=== PATIENT | female | born 1960 | race Caucasian/White ===

== ENCOUNTER 2016-10-07 14:33 | Emergency (ER) | payer OTHER ==
--- NOTE | 2016-10-07 15:28 | ED ---
General Adult HPI - General Chief complaint: Extremity Problem,Nontraumatic Stated complaint: left leg numbness Time Seen by Provider: 10/07/16 15:07 Source: patient, RN notes reviewed Mode of arrival: ambulatory Limitations: no limitations - History of Present Illness Initial comments: Patient is a 56-year-old female presents to the emergency room for evaluation of left leg pain and tingling. Patient states she's been having on-and-off pain in her left leg for the past year. Patient states been bothering her more consistently over the past few days. Patient does state she has some minor left -sided low back pain. Patient states she's having pain in her left calf. Patient also states she's having pain in her right calf that radiates up into her right lower back. Patient denies any history of low back pain. Patient denies any recent falls or trauma to her back. Patient denies saddle anesthesia. Patient denies urinary or fecal incontinence. Patient denies any history of DVTs or PEs. Patient denies shortness of breath. Patient denies chest pain. Patient denies headache or dizziness. Patient states pain is worse whenever she walks. Patient denies currently being on any medications. Patient states used to be on antipsychotic medications but has stopped taking them. Patient does admit that she used "crack" 2 days ago. - Related Data Previous Rx's Medication Instructions Recorded Diclofenac Sodium 50 mg PO BID PRN #24 tab 01/30/16 Famotidine [Pepcid] 20 mg PO BID #30 tablet 01/30/16 Permethrin 5% Cream [Elimite] 1 applic TOPICAL ONCE #60 cream..g. 01/30/16 hydrOXYzine HCL 25 mg PO Q6HR PRN #30 tablet 01/30/16 Ibuprofen [Motrin] 600 mg PO Q6HR PRN #20 tab 10/07/16 Allergies Allergy/AdvReac Type Severity Reaction Status Date / Time No Known Allergies Allergy Verified 10/07/16 14:57 Review of Systems ROS Statement: Those systems with pertinent positive or pertinent negative responses have been documented in the HPI. ROS Other: All systems not noted in ROS Statement are negative. Past Medical History Additional Past Medical History / Comment(s): hepatitis c History of Any Multi-Drug Resistant Organisms: None Reported Past Surgical History: Cholecystectomy, Tubal Ligation Past Psychological History: Anxiety, Bipolar, Depression Smoking Status: Current every day smoker Past Alcohol Use History: Occasional Past Drug Use History: Cocaine General Exam - General Exam Comments Initial Comments: Sitting in exam room, no acute distress, tardive dyskinesia symptoms Limitations: no limitations General appearance: alert, in no apparent distress Head exam: Present: atraumatic, normocephalic, normal inspection Eye exam: Present: normal appearance ENT exam: Present: normal exam Neck exam: Present: normal inspection Respiratory exam: Present: normal lung sounds bilaterally. Absent: respiratory distress Cardiovascular Exam: Present: regular rate, normal rhythm, normal heart sounds Left Lower Leg exam: Present: tenderness (Tenderness on palpating over lower leg) Neurovascular tendon exam: Present: no vascular compromise. Absent: abnormal cap refill (Capillary refill less than 2 seconds.) Right Lower Leg exam: Present: tenderness (calf muscle) Neurovascular tendon exam: Present: no vascular compromise. Absent: abnormal cap refill (Capillary refill less than 2 seconds) Back exam: Present: normal inspection Expanded Back exam: Sciatic Notch Tenderness: Left Neurological exam: Present: alert, oriented X3, CN II-XII intact Psychiatric exam: Present: normal affect Skin exam: Present: warm, dry, intact, normal color. Absent: rash Course Vital Signs 10/07/16 14:52 Temperature 97.9 F Pulse Rate 88 Respiratory 20 Rate Blood Pressure 142/91 O2 Sat by Pulse 97 Oximetry Medical Decision Making - Medical Decision Making Patient is a 56-year-old female presents to the emergency room for evaluation of left-sided leg pain and bilateral calf pain. Ultrasound negative for DVTs. Lumbosacral x-ray negative for any acute findings. Patient's symptoms are consistent with either low back pain/sciatica on the left side. Patient will be sent home with ibuprofen and advised to follow-up with primary care provider. Patient states she understands everything that was discussed with her. Return parameters discussed. Case discussed Dr. Pedraza. Disposition Clinical Impression: Left-sided low back pain with left-sided sciatica Disposition: HOME SELF-CARE Condition: Good Instructions: Low Back Strain (ED), Lumbar Radiculopathy (ED) Additional Instructions: Alternate ice and heat. Take ibuprofen as needed for pain. Please follow-up with primary care provider for further evaluation. If any new symptom arises or symptoms worsen, return to ER as soon as possible. Prescriptions: Ibuprofen [Motrin] 600 mg PO Q6HR PRN #20 tab PRN Reason: Pain Referrals: Yas Vo MD [STAFF PHYSICIAN] - 1-2 days Time of Disposition: 17:16
--- NOTE | 2016-10-07 16:58 | US ---
EXAMINATION TYPE: US venous doppler duplex LE BI DATE OF EXAM: 10/07/2016 4:11 PM COMPARISON: NONE CLINICAL HISTORY: Pain. SIDE PERFORMED: Left TECHNIQUE: The lower extremity deep venous system is examined utilizing real time linear array sonog shane with graded compression, doppler sonography and color-flow sonography. VESSELS IMAGED: External Iliac Vein (EIV) Common Femoral Vein Deep Femoral Vein Greater Saphenous Vein * Femoral Vein Popliteal Vein Small Saphenous Vein * Proximal Calf Veins (* superficial vessels) Right leg: Negative for DVT. Left Leg: Negative for DVT IMPRESSION: Grayscale, color doppler, spectral doppler imaging performed of the deep veins of the lo wer extremities. There is normal flow, compressibility, vascular waveforms bilaterally. No evidence of deep venous thrombosis in left and right leg.
--- NOTE | 2016-10-07 16:59 | XR ---
EXAMINATION TYPE: XR lumbosacral spine min 4V DATE OF EXAM: 10/07/2016 COMPARISON: NONE HISTORY: Leg numbness TECHNIQUE: 5 views FINDINGS: The lumbar vertebra have normal alignment. There is slight narrowing at L4-5 L5-S1 disc spa [place]. There is spurring of the endplates. Abdominal aorta is atheromatous. Posterior elements are inta ct. Sacroiliac joints are intact. IMPRESSION: Mild degenerative disc changes. No fracture.
[2016-10-07 17:30] VITALS: BP 138/72; PULSE 82; RESP 18; TEMP 97.2
== END 2016-10-07 17:29 | disposition home or self-care (01) ==
LOC: EC 14:33
DX: M54.42 Lumbago with sciatica, left side (principal); F17.200 Nicotine dependence, unspecified, uncomplicated
CPT/HCPCS: 72110; 93970; 99284

== ENCOUNTER 2017-01-18 01:38 | Emergency (ER) | payer OTHER ==
[2017-01-18] MEDS ORDERED: SODIUM CHLORIDE 0.9% 1,000 ML IV STA (02:23)
[2017-01-18] MEDS ORDERED: MORPHINE SULFATE 4 MG/ML SYRINGE IV STA (02:23)
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
[2017-01-18 02:45] LABS: Basophils # (A) 0.1 k/uL (0-0.2); Basophils % (A) 1 %; CH 32.3; CHCM 34.2; Eosinophils # (A) 0.3 k/uL (0-0.7); Eosinophils % (A) 2 %; HCT 34.5 % (34.0-46.0); HDW 2.84; HGB 11.1 gm/dL (11.4-16.0); Luc # (Auto) 0.39; Luc % (Auto) 3; Lymphocytes # (A) 1.7 k/uL (1.0-4.8); Lymphocytes % (A) 11 %; MCH 30.7 pg (25.0-35.0); MCHC 32.3 g/dL (31.0-37.0); MCV 95.2 fL (80.0-100.0); Mean Platelet Volume 7.2; Monocytes # (A) 1.1 k/uL (0-1.0); Monocytes % (A) 7 %; Neutrophils # (A) 11.2 k/uL (1.3-7.7); Neutrophils % (A) 77 %; RBC 3.63 m/uL (3.80-5.40); RDW 14.4 % (11.5-15.5); WBC 14.7 k/uL (3.8-10.6); WBC (Perox) 16.39
[2017-01-18 02:50] LABS: Appearance,Urine Turbid (Clear); Bacteria,Urine Many /hpf; Bilirubin,Urine Negative (Negative); Glucose,Urine (UA) Negative (Negative); Ketones,Urine Negative (Negative); Leukocyte Esterase,Urine Large (Negative); Mucus,Urine Few /hpf; Nitrite,Urine Positive (Negative); PH, Urine 5.5 (5.0-8.0); Particle Count 96269; Protein,Urine 1+ (Negative); RBC,Urine >182 /hpf (0-5); Specific Gravity,Urine 1.013 (1.001-1.035); Squamous Epithelial Cell,Urine 4 /hpf (0-4); UA Billing (MACRO vs. MICRO) MICRO; Urobilinogen,Urine <2.0 mg/dL (<2.0); WBC,Urine >182 /hpf (0-5)
[2017-01-18 02:54] LABS: Calcium 9.4 mg/dL (8.4-10.2); Potassium 4.3 mmol/L (3.5-5.1); Total Bilirubin 0.7 mg/dL (0.2-1.3); Total Protein 6.9 g/dL (6.3-8.2)
[2017-01-18 02:56] LABS: Prothrombin Time 10.6 sec (9.0-12.0)
[2017-01-18 03:13] LABS: Partial Thromboplastin Time 19.2 sec (22.0-30.0)
--- NOTE | 2017-01-18 03:27 | CT ---
EXAM: CT Abdomen and Pelvis Without Intravenous Contrast CLINICAL HISTORY: Abdominal pain TECHNIQUE: Axial computed tomography images of the abdomen and pelvis without intravenous contrast. CTDI is 0.25, 11.13 mGy and DLP is 575 mGy-cm. This CT exam was performed using one or more of the following dose reduction techniques: automated exposure control, adjustment of the mA and/or kV according to patient size, and/or use of iterative reconstruction technique. COMPARISON: No relevant prior studies available. FINDINGS: Lower thorax: No acute findings. ABDOMEN: Liver: Unremarkable. Gallbladder and bile ducts: Gallbladder is surgically absent. Pancreas: Unremarkable. Spleen: Unremarkable. Adrenals: Bilateral adrenal gland nodules. The one on the left measuring up to 2.5 cm and the one on the left measuring up to 1.7 cm. These likely represent lipid rich adenomas. Kidneys and ureters: Bilateral nonobstructing calculi. No hydronephrosis. Stomach and bowel: Noninflamed colonic diverticuli Appendix: Appendix is unremarkable. PELVIS: Bladder: Unremarkable. Reproductive: Unremarkable as visualized. ABDOMEN and PELVIS: Intraperitoneal space: Unremarkable. Bones/joints: No acute fracture. No dislocation. Soft tissues: Unremarkable. Vasculature: Unremarkable. Lymph nodes: Unremarkable. Tubes, lines and devices: Postsurgical changes noted within the anterior midline. Aortobifemoral bypass graft. Evaluation the catheter is limited secondary to lack of IV contrast. Moderate fluid collections are seen overlying the femoral vasculature, likely resolving hematomas. IMPRESSION: Postsurgical changes noted within the anterior midline likely secondary to aortobifemoral bypass graft. Evaluation is limited secondary to lack of IV contrast. Moderate fluid collections are seen overlying the femoral vasculature, likely resolving hematomas.
[2017-01-18 03:33] LABS: Manual Review Performed
[2017-01-18] MEDS ORDERED: RX INFO: IV CONTRAST WAS GIVEN 1 EACH MISC MISCELLANE PRN (03:35)
[2017-01-18] MEDS ORDERED: SODIUM CHLORIDE 0.9% 1,000 ML IV ONE (03:41)
[2017-01-18] MEDS ORDERED: HYDROmorphone 1 MG/ML 1 ML SYRINGE IVP STA (03:41)
[2017-01-18 04:04] VITALS: RESP 18
--- NOTE | 2017-01-18 04:32 | CT ---
EXAM: CT Abdomen and Pelvis With Intravenous Contrast CLINICAL HISTORY: Reason: Pain TECHNIQUE: Axial computed tomography images of the abdomen and pelvis with intravenous contrast. CTDI is mGy and DLP is mGy-cm. This CT exam was performed using one or more of the following dose reduction techniques: automated exposure control, adjustment of the mA and/or kV according to patient size, and/or use of iterative reconstruction technique. COMPARISON: No relevant prior studies available. FINDINGS: Lower thorax: No acute findings. ABDOMEN: Liver: Unremarkable. Gallbladder and bile ducts: Gallbladder is surgically absent. Pancreas: Unremarkable. Spleen: Unremarkable. Adrenals: Unremarkable. Kidneys and ureters: Unremarkable. Stomach and bowel: Noninflamed colonic diverticulosis. Appendix: Appendix is within normal limits. PELVIS: Bladder: Unremarkable. Reproductive: Unremarkable as visualized. ABDOMEN and PELVIS: Intraperitoneal space: Post surgical changes noted within the midline of the anterior abdomen. Tiny fluid collections noted along the incision, likely resolving hematomas. Bones/joints: No acute fracture. No dislocation. Soft tissues: Unremarkable. Vasculature: Status post recent aortobifemoral bypass graft which appears patent. Small fluid collections are seen anterior to the femoral vascular and right common iliac artery, likely representing resolving hematomas. Lymph nodes: Unremarkable. IMPRESSION: 1. Post surgical changes noted within the midline ith tiny fluid collections noted along the incision, likely resolving hematomas. 2. Status post recent aortobifemoral bypass graft which appears patent. Small fluid collections are seen anterior to the femoral vascular and right common iliac artery, likely representing resolving hematomas.
[2017-01-18 04:55] VITALS: BP 169/84; PULSE 87; TEMP 97.5
== END 2017-01-18 04:54 | disposition home or self-care (01) ==
LOC: EC 01:38
DX: S30.1XXA Contusion of abdominal wall, initial encounter (principal); N39.0 Urinary tract infection, site not specified; R10.30 Lower abdominal pain, unspecified; G89.18 Other acute postprocedural pain; F17.200 Nicotine dependence, unspecified, uncomplicated; Z79.02 Long term (current) use of antithrombotics/antiplatelets; Z79.899 Other long term (current) drug therapy; Y83.8 Other surgical procedures as the cause of abnormal reaction of the patient, or of later complication, without mention of misadventure at the time of the procedure; W10.9XXA Fall (on) (from) unspecified stairs and steps, initial encounter
CPT/HCPCS: 99284; 96365; 96375 ×2; 96361; 36415; 80053; 82150; 83690; 85025; 85610; 85730; 81001; 87040; 80306; 74178; J2270; Q9967; J0696; J1170; 74176; 74177

== ENCOUNTER 2017-01-19 12:37 | Emergency (ER) | payer OTHER ==
--- NOTE | 2017-01-19 13:31 | ED ---
General Adult HPI - General Chief complaint: Abdominal Pain Stated complaint: Had triple bypass/ vomiting and chills Time Seen by Provider: 01/19/17 13:11 Source: patient, RN notes reviewed Mode of arrival: ambulatory Limitations: no limitations - History of Present Illness Initial comments: 56-year-old female presents to the emergency department with a chief complaint of continued abdominal pain. She was seen here on Friday for abdominal pain as well. She had a bypass done at her femoral artery level at [facility]. She states she was here on Friday diagnosed her with UTI. She states that she did not start the antibiotics she did not get them filled. Patient states she continues to have this discomfort so she was concerned. Patient states that she has felt the chills with this as well. Patient denies any nausea or vomiting.Patient denies any recent fever, chills, shortness of breath, chest pain, back pain, nausea vomiting, numbness or tingling, dysuria or hematuria, constipation or diarrhea, headaches or visual changes, or any other current symptoms. - Related Data Home Medications Medication Instructions Recorded Confirmed Atorvastatin [Lipitor] 80 mg PO DAILY 01/18/17 01/18/17 Clopidogrel Bisulfate [Plavix] 75 mg PO DAILY 01/18/17 01/18/17 Previous Rx's Medication Instructions Recorded Ciprofloxacin HCl [Cipro] 500 mg PO Q12HR #14 tablet 01/18/17 Allergies Allergy/AdvReac Type Severity Reaction Status Date / Time No Known Allergies Allergy Verified 01/19/17 12:46 Review of Systems ROS Statement: Those systems with pertinent positive or pertinent negative responses have been documented in the HPI. ROS Other: All systems not noted in ROS Statement are negative. Past Medical History Past Medical History: Coronary Artery Disease (CAD) Additional Past Medical History / Comment(s): hepatitis c History of Any Multi-Drug Resistant Organisms: None Reported Past Surgical History: Cholecystectomy, Coronary Bypass/CABG, Tubal Ligation Past Psychological History: Anxiety, Bipolar, Depression Smoking Status: Current every day smoker Past Alcohol Use History: Occasional Past Drug Use History: Cocaine General Exam - General Exam Comments Initial Comments: General: The patient is awake and alert, in no distress, and does not appear acutely ill. Eye: Pupils are equal, round and reactive to light, extra-ocular movements are intact; there is normal conjunctiva bilaterally. No signs of icterus. Ears, nose, mouth and throat: There are moist mucous membranes and no oral lesions. Neck: The neck is supple, there is no tenderness. Cardiovascular: There is a regular rate and rhythm. No murmur, rub or gallop is appreciated. Respiratory: Lungs are clear to auscultation, respirations are non-labored, breath sounds are equal. No wheezes, stridor, rales, or rhonchi. Gastrointestinal: Surgical incision that does appear to be well-healing. Soft , non-distended, non-tender abdomen without masses or organomegaly noted. There is no rebound or guarding present. No CVA tenderness. Bowel sounds are unremarkable. Back: There is no tenderness to palpation in the midline. There is no obvious deformity. No rashes noted. Musculoskeletal: Normal ROM, no tenderness, There is no pedal edema. There is no calf tenderness or swelling. Sensation intact. Pulses equal bilaterally 2+. Neurological: CN II-XII intact, There are no obvious motor or sensory deficits. Coordination appears grossly intact. Speech is normal. Skin: Skin is warm and dry and no rashes or lesions are noted. Psychiatric: Cooperative, appropriate mood & affect, normal judgment. Limitations: no limitations Course Vital Signs 01/19/17 12:45 Temperature 98.9 F Pulse Rate 64 Respiratory 20 Rate Blood Pressure 140/80 O2 Sat by Pulse 99 Oximetry Medical Decision Making - Medical Decision Making 56-year-old female presents emergency Department chief complaint of abdominal pain. Patient was diagnosed a UTI in her previous visit however she did not start the antibiotics as she was instructed. At this time patient's laboratory is reviewed. This appeared to be improving from previous visit on Friday. She has a follow-up appointment with her surgeon in the morning. At this time the patient is in agreement with this plan. She is feeling better in the room. We discussion certainly her back she states she is from the pharmacy. All questions have been answered. She'll be discharged home. - Lab Data Result diagrams: 01/19/17 13:37 01/19/17 13:37 Lab Results 01/19/17 01/19/17 01/19/17 Range/Units 13:37 13:37 13:37 WBC 8.4 (3.8-10.6) k/uL RBC 3.39 L (3.80-5.40) m/uL Hgb 10.9 L (11.4-16.0) gm/dL Hct 31.9 L (34.0-46.0) % MCV 94.1 (80.0-100.0) fL MCH 32.0 (25.0-35.0) pg MCHC 34.0 (31.0-37.0) g/dL RDW 13.5 (11.5-15.5) % Plt Count 438 (150-450) k/uL Neutrophils % 73 % Lymphocytes % 15 % Monocytes % 6 % Eosinophils % 4 % Basophils % 1 % Neutrophils # 6.1 (1.3-7.7) k/uL Lymphocytes # 1.2 (1.0-4.8) k/uL Monocytes # 0.5 (0-1.0) k/uL Eosinophils # 0.3 (0-0.7) k/uL Basophils # 0.1 (0-0.2) k/uL PT 10.2 (9.0-12.0) sec INR 1.0 (<1.2) APTT 22.6 (22.0-30.0) sec Sodium 137 (137-145) mmol/L Potassium 4.6 (3.5-5.1) mmol/L Chloride 103 (98-107) mmol/L Carbon Dioxide 24 (22-30) mmol/L Anion Gap 10 mmol/L BUN 8 (7-17) mg/dL Creatinine 0.70 (0.52-1.04) mg/dL Est GFR (MDRD) Af Amer >60 (>60 ml/min/1.73 sqM) Est GFR (MDRD) Non-Af >60 (>60 ml/min/1.73 sqM) Glucose 94 (74-99) mg/dL Calcium 9.1 (8.4-10.2) mg/dL Total Bilirubin 0.6 (0.2-1.3) mg/dL AST 30 (14-36) U/L ALT 32 (9-52) U/L Alkaline Phosphatase 79 (38-126) U/L Total Protein 6.5 (6.3-8.2) g/dL Albumin 3.5 (3.5-5.0) g/dL Urine Color Urine Appearance (Clear) Urine pH (5.0-8.0) Ur Specific [place] (1.001-1.035) Urine Protein (Negative) Urine Glucose (UA) (Negative) Urine Ketones (Negative) Urine Blood (Negative) Urine Nitrite (Negative) Urine Bilirubin (Negative) Urine Urobilinogen (<2.0) mg/dL Ur Leukocyte Esterase (Negative) Urine RBC (0-5) /hpf Urine WBC (0-5) /hpf Ur Squamous Epith Cells (0-4) /hpf Granular Casts (0) /lpf Urine Mucus (None) /hpf 01/19/17 Range/Units 14:06 WBC (3.8-10.6) k/uL RBC (3.80-5.40) m/uL Hgb (11.4-16.0) gm/dL Hct (34.0-46.0) % MCV (80.0-100.0) fL MCH (25.0-35.0) pg MCHC (31.0-37.0) g/dL RDW (11.5-15.5) % Plt Count (150-450) k/uL Neutrophils % % Lymphocytes % % Monocytes % % Eosinophils % % Basophils % % Neutrophils # (1.3-7.7) k/uL Lymphocytes # (1.0-4.8) k/uL Monocytes # (0-1.0) k/uL Eosinophils # (0-0.7) k/uL Basophils # (0-0.2) k/uL PT (9.0-12.0) sec INR (<1.2) APTT (22.0-30.0) sec Sodium (137-145) mmol/L Potassium (3.5-5.1) mmol/L Chloride (98-107) mmol/L Carbon Dioxide (22-30) mmol/L Anion Gap mmol/L BUN (7-17) mg/dL Creatinine (0.52-1.04) mg/dL Est GFR (MDRD) Af Amer (>60 ml/min/1.73 sqM) Est GFR (MDRD) Non-Af (>60 ml/min/1.73 sqM) Glucose (74-99) mg/dL Calcium (8.4-10.2) mg/dL Total Bilirubin (0.2-1.3) mg/dL AST (14-36) U/L ALT (9-52) U/L Alkaline Phosphatase (38-126) U/L Total Protein (6.3-8.2) g/dL Albumin (3.5-5.0) g/dL Urine Color Yellow Urine Appearance Cloudy H (Clear) Urine pH 6.0 (5.0-8.0) Ur Specific [place] 1.017 (1.001-1.035) Urine Protein Trace H (Negative) Urine Glucose (UA) Negative (Negative) Urine Ketones 1+ H (Negative) Urine Blood Negative (Negative) Urine Nitrite Negative (Negative) Urine Bilirubin Negative (Negative) Urine Urobilinogen 2.0 (<2.0) mg/dL Ur Leukocyte Esterase Large H (Negative) Urine RBC 21 H (0-5) /hpf Urine WBC 18 H (0-5) /hpf Ur Squamous Epith Cells 3 (0-4) /hpf Granular Casts 1 (0) /lpf Urine Mucus Rare H (None) /hpf Disposition Clinical Impression: UTI (urinary tract infection) Disposition: HOME SELF-CARE Condition: Stable Instructions: Urinary Tract Infection in Women (ED) Additional Instructions: Please use medication as discussed. Please follow up with family doctor if symptoms have not improved over the next two days. Please return to the emergency room if your symptoms increase or worsen or for any other concerns. Referrals: Anne Lu MD [Primary Care Provider] - 1-2 days Time of Disposition: 14:26
[2017-01-19] MEDS ORDERED: KETOROLAC 30 MG/ML 1 ML VIAL IVP STA (13:32)
[2017-01-19] MEDS ORDERED: ONDANSETRON 4 MG/2 ML VIAL IVP STA (13:32)
[2017-01-19] MEDS ORDERED: SODIUM CHLORIDE 0.9% 1,000 ML IV STA (13:32)
[2017-01-19 13:52] LABS: Basophils # (A) 0.1 k/uL (0-0.2); Basophils % (A) 1 %; CH 31.5; CHCM 33.6; Eosinophils # (A) 0.3 k/uL (0-0.7); Eosinophils % (A) 4 %; HCT 31.9 % (34.0-46.0); HDW 2.91; HGB 10.9 gm/dL (11.4-16.0); Luc # (Auto) 0.19; Luc % (Auto) 2; Lymphocytes # (A) 1.2 k/uL (1.0-4.8); Lymphocytes % (A) 15 %; MCV 94.1 fL (80.0-100.0); Monocytes # (A) 0.5 k/uL (0-1.0); Monocytes % (A) 6 %; Neutrophils # (A) 6.1 k/uL (1.3-7.7); Neutrophils % (A) 73 %; RBC 3.39 m/uL (3.80-5.40); RDW 13.5 % (11.5-15.5); WBC 8.4 k/uL (3.8-10.6); WBC (Perox) 8.43
[2017-01-19 13:57] LABS: ALT 32 U/L (9-52); AST 30 U/L (14-36); Alkaline Phosphatase 79 U/L (38-126); Anion Gap 10 mmol/L; Blood Urea Nitrogen 8 mg/dL (7-17); Calcium 9.1 mg/dL (8.4-10.2); Carbon Dioxide 24 mmol/L (22-30); Chloride 103 mmol/L (98-107); Glucose 94 mg/dL (74-99); Non-African American GFR(MDRD) >60 (>60 ml/min/1.73 sqM); Partial Thromboplastin Time 22.6 sec (22.0-30.0); Potassium 4.6 mmol/L (3.5-5.1); Prothrombin Time 10.2 sec (9.0-12.0); Sodium 137 mmol/L (137-145); Total Bilirubin 0.6 mg/dL (0.2-1.3); Total Protein 6.5 g/dL (6.3-8.2)
[2017-01-19 14:20] LABS: Appearance,Urine Cloudy (Clear); Bilirubin,Urine Negative (Negative); Glucose,Urine (UA) Negative (Negative); Granular Casts,Urine 1 /lpf (0); Ketones,Urine 1+ (Negative); Leukocyte Esterase,Urine Large (Negative); Mucus,Urine Rare /hpf; Nitrite,Urine Negative (Negative); Particle Count 11835; Protein,Urine Trace (Negative); RBC,Urine 21 /hpf (0-5); Specific Gravity,Urine 1.017 (1.001-1.035); Squamous Epithelial Cell,Urine 3 /hpf (0-4); UA Billing (MACRO vs. MICRO) MICRO; WBC,Urine 18 /hpf (0-5)
[2017-01-19 14:40] VITALS: BP 165/97; PULSE 76; RESP 16; TEMP 98.2
== END 2017-01-19 15:26 | disposition home or self-care (01) ==
LOC: EC 12:37
DX: N39.0 Urinary tract infection, site not specified (principal); I25.10 Atherosclerotic heart disease of native coronary artery without angina pectoris; F17.200 Nicotine dependence, unspecified, uncomplicated; Z95.1 Presence of aortocoronary bypass graft; Z90.49 Acquired absence of other specified parts of digestive tract; Z98.51 Tubal ligation status; Z79.02 Long term (current) use of antithrombotics/antiplatelets; Z79.899 Other long term (current) drug therapy
CPT/HCPCS: 36415; 80053; 85025; 85610; 85730; 81001; 87086; 99284; 96374; 96375; 96361; J2405; J1885

== ENCOUNTER 2017-10-30 14:23 | Emergency (ER) | payer OTHER ==
[2017-10-30] MEDS ORDERED: fentaNYL (PF) 50 MCG/ML 2 ML AMP IV STA (14:29)
--- NOTE | 2017-10-30 14:34 | ED ---
Abdominal Pain HPI - General Chief Complaint: Abdominal Pain Stated Complaint: Chest Pain Time Seen by Provider: 10/30/17 14:23 Source: patient, EMS, RN notes reviewed Mode of arrival: EMS Limitations: no limitations - History of Present Illness Initial Comments: This is a 56-year-old female was brought in by EMS with complaints of chest and upper abdominal pain is started about 30-40 minutes prior to arrival. She states that sharp is severe 7/10 upon arrival was 5/10 and she stated it was back to 7/10. She points her epigastrium he gets worse with deep breathing and movements. She has of a history of peripheral vascular disease she is a smoker he does admit to smoking marijuana and using crack cocaine this morning. They cocaine was used well 1 AM. There is a family history of heart disease. Patient does have a history of an aortic blockage was surgically repaired at [facility]. She denies any fevers chills or sweats though she has had a cough with schmidt and green phlegm no other modifying factors at this time. MD Complaint: abdominal pain, other - Related Data Home Medications Medication Instructions Recorded Confirmed Atorvastatin [Lipitor] 80 mg PO HS 01/18/17 10/30/17 Clopidogrel Bisulfate [Plavix] 75 mg PO DAILY 01/18/17 10/30/17 Albuterol Inhaler [Ventolin Hfa 2 puff INHALATION RT-Q6H PRN 01/19/17 10/30/17 Inhaler] Aspirin EC [Ecotrin] 325 mg PO DAILY 10/30/17 10/30/17 Benztropine Mesylate [Cogentin] 2 mg PO TID 10/30/17 10/30/17 Cholecalciferol [Vitamin D3] 5,000 unit PO DAILY 10/30/17 10/30/17 Desvenlafaxine [Pristiq ER] 100 mg PO DAILY 10/30/17 10/30/17 Docusate [Colace] 100 mg PO DAILY 10/30/17 10/30/17 Fluticasone Nasal [place] [Flonase 2 spr EA NOSTRIL DAILY PRN 10/30/17 10/30/17 Nasal [place]] Multivit with Calcium,Iron,Min 1 tab PO DAILY 10/30/17 10/30/17 [Women's Multivitamin] Nicotine 21Mg/24Hr Patch [Habitrol 1 patch TRANSDERM DAILY 10/30/17 10/30/17 21Mg/24Hr Patch] OLANZapine [ZyPREXA] 15 mg PO DAILY 10/30/17 10/30/17 Omeprazole [PriLOSEC] 20 mg PO DAILY 10/30/17 10/30/17 Previous Rx's Medication Instructions Recorded Amoxicillin/Potassium Clav 1 tab PO Q12HR #20 tab 10/30/17 [Augmentin 875-125 Tablet] Allergies Allergy/AdvReac Type Severity Reaction Status Date / Time No Known Allergies Allergy Verified 10/30/17 14:40 Review of Systems ROS Statement: Those systems with pertinent positive or pertinent negative responses have been documented in the HPI. ROS Other: All systems not noted in ROS Statement are negative. Past Medical History Past Medical History: Coronary Artery Disease (CAD) Additional Past Medical History / Comment(s): hepatitis c History of Any Multi-Drug Resistant Organisms: None Reported Past Surgical History: Cholecystectomy, Coronary Bypass/CABG, Tubal Ligation Past Psychological History: Anxiety, Bipolar, Depression Smoking Status: Current every day smoker Past Alcohol Use History: Occasional Past Drug Use History: Cocaine General Exam - General Exam Comments Initial Comments: This a well-developed well-nourished awake alert oriented 3 female Limitations: no limitations General appearance: alert, in no apparent distress Head exam: Present: atraumatic, normocephalic, normal inspection Eye exam: Present: normal appearance, PERRL, EOMI. Absent: scleral icterus, conjunctival injection, periorbital swelling ENT exam: Present: normal exam, mucous membranes moist Neck exam: Present: normal inspection. Absent: tenderness, meningismus, lymphadenopathy Respiratory exam: Present: normal lung sounds bilaterally. Absent: respiratory distress, wheezes, rales, rhonchi, stridor Cardiovascular Exam: Present: regular rate, normal rhythm, normal heart sounds. Absent: systolic murmur, diastolic murmur, rubs, gallop, clicks GI/Abdominal exam: Present: soft, tenderness ((3 times palpation no guarding rebound masses or bruits), normal bowel sounds. Absent: distended, guarding, rebound, rigid Extremities exam: Present: normal inspection, full ROM, normal capillary refill. Absent: tenderness, pedal edema, joint swelling, calf tenderness Back exam: Present: normal inspection Neurological exam: Present: alert, oriented X3, CN II-XII intact Psychiatric exam: Present: normal affect, normal mood Skin exam: Present: warm, dry, intact, normal color. Absent: rash Course Vital Signs 10/30/17 14:25 Temperature 97.4 F L Pulse Rate 66 Respiratory 20 Rate Blood Pressure 154/82 O2 Sat by Pulse 98 Oximetry Medical Decision Making - Medical Decision Making Did reevaluate patient several occasions she does feel improved at this time after the GI cocktail. Patient may cough and green phlegm she also has evidence of UTI. She'll be discharged on appropriate antibiotics she is a follow-up with her doctor return when necessary we did discuss the possibility of neoplasm in the right upper lung field. - Lab Data Result diagrams: 10/30/17 14:30 10/30/17 14:30 Lab Results 10/30/17 10/30/17 10/30/17 Range/Units 14:30 14:30 14:30 WBC 12.4 H (3.8-10.6) k/uL RBC 4.52 (3.80-5.40) m/uL Hgb 14.2 (11.4-16.0) gm/dL Hct 43.0 (34.0-46.0) % MCV 95.1 (80.0-100.0) fL MCH 31.5 (25.0-35.0) pg MCHC 33.1 (31.0-37.0) g/dL RDW 13.6 (11.5-15.5) % Plt Count 295 (150-450) k/uL Neutrophils % 70 % Lymphocytes % 20 % Monocytes % 6 % Eosinophils % 3 % Basophils % 1 % Neutrophils # 8.7 H (1.3-7.7) k/uL Lymphocytes # 2.5 (1.0-4.8) k/uL Monocytes # 0.7 (0-1.0) k/uL Eosinophils # 0.3 (0-0.7) k/uL Basophils # 0.1 (0-0.2) k/uL PT (9.0-12.0) sec INR (<1.2) APTT (22.0-30.0) sec D-Dimer (<0.60) mg/L FEU Sodium 140 (137-145) mmol/L Potassium 4.4 (3.5-5.1) mmol/L Chloride 107 (98-107) mmol/L Carbon Dioxide 25 (22-30) mmol/L Anion Gap 8 mmol/L BUN 16 (7-17) mg/dL Creatinine 0.80 (0.52-1.04) mg/dL Est GFR (CKD-EPI)AfAm >90 (>60 ml/min/1.73 sqM) Est GFR (CKD-EPI)NonAf 81 (>60 ml/min/1.73 sqM) Glucose 94 (74-99) mg/dL Plasma Lactic Acid Giovanni (0.7-2.0) mmol/L Calcium 9.1 (8.4-10.2) mg/dL Total Bilirubin 0.6 (0.2-1.3) mg/dL AST 43 H (14-36) U/L ALT 44 (9-52) U/L Alkaline Phosphatase 77 (38-126) U/L Total Creatine Kinase 60 (30-135) U/L CK-MB (CK-2) 0.4 (0.0-2.4) ng/mL CK-MB (CK-2) Rel Index 0.7 Troponin I <0.012 (0.000-0.034) ng/mL Total Protein 6.3 (6.3-8.2) g/dL Albumin 3.7 (3.5-5.0) g/dL Amylase 83 (30-110) U/L Lipase 63 (23-300) U/L Urine Color Urine Appearance (Clear) Urine pH (5.0-8.0) Ur Specific [place] (1.001-1.035) Urine Protein (Negative) Urine Glucose (UA) (Negative) Urine Ketones (Negative) Urine Blood (Negative) Urine Nitrite (Negative) Urine Bilirubin (Negative) Urine Urobilinogen (<2.0) mg/dL Ur Leukocyte Esterase (Negative) Urine RBC (0-5) /hpf Urine WBC (0-5) /hpf Ur Squamous Epith Cells (0-4) /hpf Urine Bacteria (None) /hpf Hyaline Casts (0-2) /lpf Urine Mucus (None) /hpf Urine Yeast (Budding) (None) /hpf 10/30/17 10/30/17 10/30/17 Range/Units 14:30 14:30 14:30 WBC (3.8-10.6) k/uL RBC (3.80-5.40) m/uL Hgb (11.4-16.0) gm/dL Hct (34.0-46.0) % MCV (80.0-100.0) fL MCH (25.0-35.0) pg MCHC (31.0-37.0) g/dL RDW (11.5-15.5) % Plt Count (150-450) k/uL Neutrophils % % Lymphocytes % % Monocytes % % Eosinophils % % Basophils % % Neutrophils # (1.3-7.7) k/uL Lymphocytes # (1.0-4.8) k/uL Monocytes # (0-1.0) k/uL Eosinophils # (0-0.7) k/uL Basophils # (0-0.2) k/uL PT 10.3 (9.0-12.0) sec INR 1.1 (<1.2) APTT 23.8 (22.0-30.0) sec D-Dimer 0.59 (<0.60) mg/L FEU Sodium (137-145) mmol/L Potassium (3.5-5.1) mmol/L Chloride (98-107) mmol/L Carbon Dioxide (22-30) mmol/L Anion Gap mmol/L BUN (7-17) mg/dL Creatinine (0.52-1.04) mg/dL Est GFR (CKD-EPI)AfAm (>60 ml/min/1.73 sqM) Est GFR (CKD-EPI)NonAf (>60 ml/min/1.73 sqM) Glucose (74-99) mg/dL Plasma Lactic Acid Giovanni 0.9 (0.7-2.0) mmol/L Calcium (8.4-10.2) mg/dL Total Bilirubin (0.2-1.3) mg/dL AST (14-36) U/L ALT (9-52) U/L Alkaline Phosphatase (38-126) U/L Total Creatine Kinase (30-135) U/L CK-MB (CK-2) (0.0-2.4) ng/mL CK-MB (CK-2) Rel Index Troponin I (0.000-0.034) ng/mL Total Protein (6.3-8.2) g/dL Albumin (3.5-5.0) g/dL Amylase (30-110) U/L Lipase (23-300) U/L Urine Color Urine Appearance (Clear) Urine pH (5.0-8.0) Ur Specific [place] (1.001-1.035) Urine Protein (Negative) Urine Glucose (UA) (Negative) Urine Ketones (Negative) Urine Blood (Negative) Urine Nitrite (Negative) Urine Bilirubin (Negative) Urine Urobilinogen (<2.0) mg/dL Ur Leukocyte Esterase (Negative) Urine RBC (0-5) /hpf Urine WBC (0-5) /hpf Ur Squamous Epith Cells (0-4) /hpf Urine Bacteria (None) /hpf Hyaline Casts (0-2) /lpf Urine Mucus (None) /hpf Urine Yeast (Budding) (None) /hpf 10/30/17 Range/Units 16:30 WBC (3.8-10.6) k/uL RBC (3.80-5.40) m/uL Hgb (11.4-16.0) gm/dL Hct (34.0-46.0) % MCV (80.0-100.0) fL MCH (25.0-35.0) pg MCHC (31.0-37.0) g/dL RDW (11.5-15.5) % Plt Count (150-450) k/uL Neutrophils % % Lymphocytes % % Monocytes % % Eosinophils % % Basophils % % Neutrophils # (1.3-7.7) k/uL Lymphocytes # (1.0-4.8) k/uL Monocytes # (0-1.0) k/uL Eosinophils # (0-0.7) k/uL Basophils # (0-0.2) k/uL PT (9.0-12.0) sec INR (<1.2) APTT (22.0-30.0) sec D-Dimer (<0.60) mg/L FEU Sodium (137-145) mmol/L Potassium (3.5-5.1) mmol/L Chloride (98-107) mmol/L Carbon Dioxide (22-30) mmol/L Anion Gap mmol/L BUN (7-17) mg/dL Creatinine (0.52-1.04) mg/dL Est GFR (CKD-EPI)AfAm (>60 ml/min/1.73 sqM) Est GFR (CKD-EPI)NonAf (>60 ml/min/1.73 sqM) Glucose (74-99) mg/dL Plasma Lactic Acid Giovanni (0.7-2.0) mmol/L Calcium (8.4-10.2) mg/dL Total Bilirubin (0.2-1.3) mg/dL AST (14-36) U/L ALT (9-52) U/L Alkaline Phosphatase (38-126) U/L Total Creatine Kinase (30-135) U/L CK-MB (CK-2) (0.0-2.4) ng/mL CK-MB (CK-2) Rel Index Troponin I (0.000-0.034) ng/mL Total Protein (6.3-8.2) g/dL Albumin (3.5-5.0) g/dL Amylase (30-110) U/L Lipase (23-300) U/L Urine Color Yellow Urine Appearance Cloudy H (Clear) Urine pH 7.5 (5.0-8.0) Ur Specific [place] 1.010 (1.001-1.035) Urine Protein Negative (Negative) Urine Glucose (UA) Negative (Negative) Urine Ketones Negative (Negative) Urine Blood Negative (Negative) Urine Nitrite Positive H (Negative) Urine Bilirubin Negative (Negative) Urine Urobilinogen <2.0 (<2.0) mg/dL Ur Leukocyte Esterase Large H (Negative) Urine RBC 2 (0-5) /hpf Urine WBC 36 H (0-5) /hpf Ur Squamous Epith Cells <1 (0-4) /hpf Urine Bacteria Few H (None) /hpf Hyaline Casts 1 (0-2) /lpf Urine Mucus Rare H (None) /hpf Urine Yeast (Budding) Few H (None) /hpf - EKG Data -: EKG Interpreted by Me EKG shows normal: sinus rhythm, axis, intervals, QRS complexes, ST-T waves ( Sinus rhythm 64 NH interval 170 QRS duration 90 QT since QTC of 436/449 is a normal-appearing EKG.) Rate: normal - Radiology Data Radiology results: report reviewed (I did review the imaging and report or is evidence of right upper lobe infiltrate versus scarring versus neoplasm is considered. CAT scan is recommended outpatient.), image reviewed Disposition Clinical Impression: Pneumonitis, Urinary tract infection, Gastritis Disposition: HOME SELF-CARE Condition: Good Instructions: Pneumonitis (ED), Urinary Tract Infection in Women (ED), Gastritis (ED) Additional Instructions: Follow-up with her doctor for evaluation of the right upper lung field Prescriptions: Amoxicillin/Potassium Clav [Augmentin 875-125 Tablet] 1 tab PO Q12HR #20 tab Is patient prescribed a controlled substance at d/c from ED?: No Referrals: [facility] [Primary Care Provider] - 1-2 days
[2017-10-30 14:42] LABS: Basophils # (A) 0.1 k/uL (0-0.2); Basophils % (A) 1 %; Eosinophils # (A) 0.3 k/uL (0-0.7); Eosinophils % (A) 3 %; HGB 14.2 gm/dL (11.4-16.0); Lymphocytes # (A) 2.5 k/uL (1.0-4.8); Lymphocytes % (A) 20 %; MCH 31.5 pg (25.0-35.0); MCHC 33.1 g/dL (31.0-37.0); MCV 95.1 fL (80.0-100.0); Mean Platelet Volume 6.6; Monocytes # (A) 0.7 k/uL (0-1.0); Monocytes % (A) 6 %; Neutrophils # (A) 8.7 k/uL (1.3-7.7); Neutrophils % (A) 70 %; Platelet Count 295 k/uL (150-450); RBC 4.52 m/uL (3.80-5.40); RDW 13.6 % (11.5-15.5); WBC 12.4 k/uL (3.8-10.6)
[2017-10-30 14:52] LABS: INR 1.1 (<1.2); Partial Thromboplastin Time 23.8 sec (22.0-30.0); Prothrombin Time 10.3 sec (9.0-12.0)
[2017-10-30 14:54] LABS: ALT 44 U/L (9-52); AST 43 U/L (14-36); Albumin 3.7 g/dL (3.5-5.0); Alkaline Phosphatase 77 U/L (38-126); Amylase 83 U/L (30-110); Anion Gap 8 mmol/L; Blood Urea Nitrogen 16 mg/dL (7-17); Calcium 9.1 mg/dL (8.4-10.2); Carbon Dioxide 25 mmol/L (22-30); Chloride 107 mmol/L (98-107); Glucose 94 mg/dL (74-99); Lipase 63 U/L (23-300); Potassium 4.4 mmol/L (3.5-5.1); Sodium 140 mmol/L (137-145); Total Bilirubin 0.6 mg/dL (0.2-1.3); Total Protein 6.3 g/dL (6.3-8.2)
[2017-10-30] MEDS ORDERED: FAMOTIDINE 20 MG/2 ML VIAL IV STA (14:54)
[2017-10-30 15:03] LABS: Creatine Kinase 60 U/L (30-135)
--- NOTE | 2017-10-30 15:03 | XR ---
EXAMINATION TYPE: XR chest 2V DATE OF EXAM: 10/30/2017 COMPARISON: 06/17/2013 HISTORY: Shortness of breath TECHNIQUE: Frontal and lateral views of the chest are obtained. FINDINGS: Scattered senescent parenchymal changes noted. Hyperinflation compatible with COPD. Stellate density right upper lobe may reflect infiltrate however underlying mass is not excluded. Dis coid atelectasis or parenchymal scar left lung base. Heart size is stable. Mediastinal structures are stable and grossly unremarkable. No evidence for hilar prominence. Degenerative changes dorsal spine. IMPRESSION: 1. Stellate density right upper lobe may reflect infiltrate however underlying mass is not excluded. Discoid atelectasis or parenchymal scar left lung base. Appropriate follow-up and/or nonemergent CT i s advised.
--- NOTE | 2017-10-30 15:04 | XR ---
EXAMINATION TYPE: XR KUB DATE OF EXAM: 10/30/2017 COMPARISON: NONE HISTORY: Pain TECHNIQUE: Single supine KUB image of the abdomen is obtained FINDINGS: Small bowel demonstrates no evidence for dilatation or air fluid levels. Gas and fecal material is seen in non-distended colon. Moderate fecal stasis noted. No convincing evidence for pneumoperitoneum. No unusual calcifications. The lung bases are clear. The osseous structures are intact. IMPRESSION: 1. Overall nonobstructive bowel gas pattern. Moderate fecal stasis.
[2017-10-30 15:16] LABS: Creatine Kinase MB 0.4 ng/mL (0.0-2.4); Troponin I <0.012 ng/mL (0.000-0.034)
[2017-10-30] MEDS ORDERED: MAG HYDROX/AL HYDROX/SIMETH 30 ML, HYOSCYAMINE ELIXIR 10 ML, CIMETIDINE HCL 300 MG PO STA ×3 (16:14)
[2017-10-30 16:49] LABS: Appearance,Urine Cloudy (Clear); Bacteria,Urine Few /hpf; Bilirubin,Urine Negative (Negative); Blood,Urine Negative (Negative); Budding Yeast,Urine Few /hpf; Color,Urine Yellow; Glucose,Urine (UA) Negative (Negative); Hyaline Casts,Urine 1 /lpf (0-2); Ketones,Urine Negative (Negative); Leukocyte Esterase,Urine Large (Negative); Mucus,Urine Rare /hpf; Nitrite,Urine Positive (Negative); PH, Urine 7.5 (5.0-8.0); Protein,Urine Negative (Negative); RBC,Urine 2 /hpf (0-5); Squamous Epithelial Cell,Urine <1 /hpf (0-4); Urobilinogen,Urine <2.0 mg/dL (<2.0); WBC,Urine 36 /hpf (0-5)
[2017-10-30 18:10] VITALS: BP 130/77; PULSE 70; RESP 18; TEMP 98.6
== END 2017-10-30 18:14 | disposition home or self-care (01) ==
LOC: EC 14:23
DX: K29.70 Gastritis, unspecified, without bleeding (principal); J18.9 Pneumonia, unspecified organism; N39.0 Urinary tract infection, site not specified; I25.10 Atherosclerotic heart disease of native coronary artery without angina pectoris; I73.9 Peripheral vascular disease, unspecified; I35.0 Nonrheumatic aortic (valve) stenosis; F32.9 Major depressive disorder, single episode, unspecified; F41.9 Anxiety disorder, unspecified; F17.200 Nicotine dependence, unspecified, uncomplicated; Z90.49 Acquired absence of other specified parts of digestive tract; Z95.1 Presence of aortocoronary bypass graft; Z98.51 Tubal ligation status; Z79.02 Long term (current) use of antithrombotics/antiplatelets; Z79.82 Long term (current) use of aspirin; Z79.899 Other long term (current) drug therapy; Z82.49 Family history of ischemic heart disease and other diseases of the circulatory system; Z98.890 Other specified postprocedural states
CPT/HCPCS: 36415; 93005; 85379; 80053; 82150; 82550; 82553; 83605; 83690; 84484; 85025; 85610; 85730; 81001; 71046; 74018; 99285; 96374; 96375; J3010

== ENCOUNTER 2017-11-11 13:45 | Emergency (ER) | payer OTHER ==
[2017-11-11 13:54] VITALS: RESP 20
--- NOTE | 2017-11-11 14:12 | ED ---
General Adult HPI - General Chief complaint: Extremity Problem,Nontraumatic Stated complaint: post op leg tingling/numbness Source: patient Mode of arrival: ambulatory Limitations: no limitations - History of Present Illness Initial comments: Dictation was produced using [employer] dictation software. please excuse any grammatical, word or spelling errors. Chief Complaint: 57-year-old female with past medical history peripheral vascular disease, aortic obstruction status post aortic vascular procedure presents with left lower extremity numbness 2 days. History of Present Illness: Patient reports that she has had left lower extremity numbness for the past 2 days. Patient was instructed by her home health nurse to come to the emergency Department. Patient states that she has been having left lower extremity numbness is worse with exertion. January last year patient had aortic procedure done for peripheral vascular disease. Patient unable to provide detailed information of her procedure and what was done for. Patient denies any constitutional symptoms. At rest patient denies any symptoms. Denies any palpitations. Denies any abdominal pain. The ROS documented in this emergency department record has been reviewed and confirmed by me. Those systems with pertinent positive or negative responses have been documented in the HPI. All other systems are other negative and/or noncontributory. - Related Data Home Medications Medication Instructions Recorded Confirmed Atorvastatin [Lipitor] 80 mg PO HS 01/18/17 11/11/17 Clopidogrel Bisulfate [Plavix] 75 mg PO DAILY 01/18/17 11/11/17 Albuterol Inhaler [Ventolin Hfa 2 puff INHALATION RT-Q6H PRN 01/19/17 11/11/17 Inhaler] Aspirin EC [Ecotrin] 325 mg PO DAILY 10/30/17 11/11/17 Benztropine Mesylate [Cogentin] 2 mg PO TID 10/30/17 11/11/17 Cholecalciferol [Vitamin D3] 5,000 unit PO DAILY 10/30/17 11/11/17 Desvenlafaxine [Pristiq ER] 100 mg PO DAILY 10/30/17 11/11/17 Docusate [Colace] 100 mg PO DAILY 10/30/17 11/11/17 Fluticasone Nasal [place] [Flonase 2 spr EA NOSTRIL DAILY PRN 10/30/17 11/11/17 Nasal [place]] Multivit with Calcium,Iron,Min 1 tab PO DAILY 10/30/17 11/11/17 [Women's Multivitamin] OLANZapine [ZyPREXA] 15 mg PO HS 10/30/17 11/11/17 Omeprazole [PriLOSEC] 20 mg PO DAILY 10/30/17 11/11/17 Allergies Allergy/AdvReac Type Severity Reaction Status Date / Time No Known Allergies Allergy Verified 11/11/17 15:05 Review of Systems ROS Statement: Those systems with pertinent positive or pertinent negative responses have been documented in the HPI. ROS Other: All systems not noted in ROS Statement are negative. Past Medical History Past Medical History: Coronary Artery Disease (CAD) Additional Past Medical History / Comment(s): hepatitis c History of Any Multi-Drug Resistant Organisms: None Reported Past Surgical History: Cholecystectomy, Coronary Bypass/CABG, Tubal Ligation Past Psychological History: Anxiety, Bipolar, Depression Smoking Status: Current every day smoker Past Alcohol Use History: Occasional Past Drug Use History: Cocaine General Exam - General Exam Comments Initial Comments: PHYSICAL EXAM: General Impression: Alert and oriented x3, not in acute distress HEENT: Normocephalic atraumatic, extra-ocular movements intact, pupils equal and reactive to light bilaterally, mucous membranes moist. Cardiovascular: Heart regular rate and rhythm, S1&S2 audible, no murmurs, rubs or gallops Chest: Lungs clear to auscultation bilaterally, no rhonchi, no wheeze, no rales Abdomen: Bowel sounds present, abdomen soft, non-tender, non-distended, no organomegaly Musculoskeletal: Diminished left dorsalis pedis pulse of the left lower extremity compared to the right. Capillary refill is symmetrical. Bilateral extremities are equally warm Motor: Power 5/5 bilaterally, no focal deficits noted Neurological: CN II-XII grossly intact, no focal motor or sensory deficits noted Skin: Intact with no visualized rashes Psych: Normal affect and mood Limitations: no limitations Course Vital Signs 11/11/17 11/11/17 11/11/17 13:50 14:53 15:44 Temperature 97.9 F Pulse Rate 95 65 64 Respiratory 20 20 20 Rate Blood Pressure 105/54 135/65 148/88 O2 Sat by Pulse 98 99 98 Oximetry Medical Decision Making - Medical Decision Making ED course: 57yo female with past medical history peripheral vascular disease presents status post aortic vascular procedure since with 2 day history of left lower extremity numbness worsened with exertion. Physical examination positive for diminished left DP pulse. Bilateral lower extremities are equally warm. Clinical presentation suspicious for left lower extremity limb ischemia. laboratory evaluation obtained. CBC is unremarkable. Coag panel is unremarkable. Cumbersome metabolic panel shows glucose of 102. Lactic acid is 1.0. Urinalysis unremarkable. Given history of peripheral vascular disease and clinical suspicion of ischemic limb CT angiogram of the aorta was obtained with iliofemoral runoffs. There appears to be high-grade long segment of narrowing of the left superficial femoral artery with occlusion or distally and reconstitution above the knee. Discussed patient is a Dr. Michele from [facility]. Patient's vascular surgeon is located at the facility. We will plan of patient transfer. Patient started on heparin. Patient is understandable and agreeable to transfer. - Lab Data Result diagrams: 11/11/17 14:17 11/11/17 14:17 Lab Results 11/11/17 11/11/17 11/11/17 Range/Units 14:17 14:17 14:17 WBC 9.0 (3.8-10.6) k/uL RBC 4.79 (3.80-5.40) m/uL Hgb 15.3 (11.4-16.0) gm/dL Hct 44.9 (34.0-46.0) % MCV 93.7 (80.0-100.0) fL MCH 31.9 (25.0-35.0) pg MCHC 34.0 (31.0-37.0) g/dL RDW 13.4 (11.5-15.5) % Plt Count 308 (150-450) k/uL Neutrophils % 65 % Lymphocytes % 24 % Monocytes % 6 % Eosinophils % 3 % Basophils % 1 % Neutrophils # 5.8 (1.3-7.7) k/uL Lymphocytes # 2.2 (1.0-4.8) k/uL Monocytes # 0.6 (0-1.0) k/uL Eosinophils # 0.2 (0-0.7) k/uL Basophils # 0.1 (0-0.2) k/uL PT (9.0-12.0) sec INR (<1.2) Sodium 141 (137-145) mmol/L Potassium 4.3 (3.5-5.1) mmol/L Chloride 105 (98-107) mmol/L Carbon Dioxide 27 (22-30) mmol/L Anion Gap 9 mmol/L BUN 14 (7-17) mg/dL Creatinine 0.80 (0.52-1.04) mg/dL Est GFR (CKD-EPI)AfAm >90 (>60 ml/min/1.73 sqM) Est GFR (CKD-EPI)NonAf 81 (>60 ml/min/1.73 sqM) Glucose 102 H (74-99) mg/dL Plasma Lactic Acid Giovanni (0.7-2.0) mmol/L Calcium 9.6 (8.4-10.2) mg/dL Magnesium 2.0 (1.6-2.3) mg/dL Total Bilirubin 0.4 (0.2-1.3) mg/dL AST 33 (14-36) U/L ALT 44 (9-52) U/L Alkaline Phosphatase 96 (38-126) U/L Troponin I (0.000-0.034) ng/mL Total Protein 6.5 (6.3-8.2) g/dL Albumin 3.8 (3.5-5.0) g/dL Urine Color Urine Appearance (Clear) Urine pH (5.0-8.0) Ur Specific [place] (1.001-1.035) Urine Protein (Negative) Urine Glucose (UA) (Negative) Urine Ketones (Negative) Urine Blood (Negative) Urine Nitrite (Negative) Urine Bilirubin (Negative) Urine Urobilinogen (<2.0) mg/dL Ur Leukocyte Esterase (Negative) Blood Type B Positive Blood Type Recheck CABO Indicated Antibody Screen NEGATIVE Spec Expiration Date 11/14/2017231611/11/17 11/11/17 11/11/17 Range/Units 14:17 14:17 14:17 WBC (3.8-10.6) k/uL RBC (3.80-5.40) m/uL Hgb (11.4-16.0) gm/dL Hct (34.0-46.0) % MCV (80.0-100.0) fL MCH (25.0-35.0) pg MCHC (31.0-37.0) g/dL RDW (11.5-15.5) % Plt Count (150-450) k/uL Neutrophils % % Lymphocytes % % Monocytes % % Eosinophils % % Basophils % % Neutrophils # (1.3-7.7) k/uL Lymphocytes # (1.0-4.8) k/uL Monocytes # (0-1.0) k/uL Eosinophils # (0-0.7) k/uL Basophils # (0-0.2) k/uL PT 9.8 (9.0-12.0) sec INR 1.0 (<1.2) Sodium (137-145) mmol/L Potassium (3.5-5.1) mmol/L Chloride (98-107) mmol/L Carbon Dioxide (22-30) mmol/L Anion Gap mmol/L BUN (7-17) mg/dL Creatinine (0.52-1.04) mg/dL Est GFR (CKD-EPI)AfAm (>60 ml/min/1.73 sqM) Est GFR (CKD-EPI)NonAf (>60 ml/min/1.73 sqM) Glucose (74-99) mg/dL Plasma Lactic Acid Giovanni 1.0 (0.7-2.0) mmol/L Calcium (8.4-10.2) mg/dL Magnesium (1.6-2.3) mg/dL Total Bilirubin (0.2-1.3) mg/dL AST (14-36) U/L ALT (9-52) U/L Alkaline Phosphatase (38-126) U/L Troponin I <0.012 (0.000-0.034) ng/mL Total Protein (6.3-8.2) g/dL Albumin (3.5-5.0) g/dL Urine Color Urine Appearance (Clear) Urine pH (5.0-8.0) Ur Specific [place] (1.001-1.035) Urine Protein (Negative) Urine Glucose (UA) (Negative) Urine Ketones (Negative) Urine Blood (Negative) Urine Nitrite (Negative) Urine Bilirubin (Negative) Urine Urobilinogen (<2.0) mg/dL Ur Leukocyte Esterase (Negative) Blood Type Blood Type Recheck Antibody Screen Spec Expiration Date 11/11/17 Range/Units 14:17 WBC (3.8-10.6) k/uL RBC (3.80-5.40) m/uL Hgb (11.4-16.0) gm/dL Hct (34.0-46.0) % MCV (80.0-100.0) fL MCH (25.0-35.0) pg MCHC (31.0-37.0) g/dL RDW (11.5-15.5) % Plt Count (150-450) k/uL Neutrophils % % Lymphocytes % % Monocytes % % Eosinophils % % Basophils % % Neutrophils # (1.3-7.7) k/uL Lymphocytes # (1.0-4.8) k/uL Monocytes # (0-1.0) k/uL Eosinophils # (0-0.7) k/uL Basophils # (0-0.2) k/uL PT (9.0-12.0) sec INR (<1.2) Sodium (137-145) mmol/L Potassium (3.5-5.1) mmol/L Chloride (98-107) mmol/L Carbon Dioxide (22-30) mmol/L Anion Gap mmol/L BUN (7-17) mg/dL Creatinine (0.52-1.04) mg/dL Est GFR (CKD-EPI)AfAm (>60 ml/min/1.73 sqM) Est GFR (CKD-EPI)NonAf (>60 ml/min/1.73 sqM) Glucose (74-99) mg/dL Plasma Lactic Acid Giovanni (0.7-2.0) mmol/L Calcium (8.4-10.2) mg/dL Magnesium (1.6-2.3) mg/dL Total Bilirubin (0.2-1.3) mg/dL AST (14-36) U/L ALT (9-52) U/L Alkaline Phosphatase (38-126) U/L Troponin I (0.000-0.034) ng/mL Total Protein (6.3-8.2) g/dL Albumin (3.5-5.0) g/dL Urine Color Yellow Urine Appearance Clear (Clear) Urine pH 8.0 (5.0-8.0) Ur Specific [place] 1.015 (1.001-1.035) Urine Protein Negative (Negative) Urine Glucose (UA) Negative (Negative) Urine Ketones Negative (Negative) Urine Blood Negative (Negative) Urine Nitrite Negative (Negative) Urine Bilirubin Negative (Negative) Urine Urobilinogen <2.0 (<2.0) mg/dL Ur Leukocyte Esterase Negative (Negative) Blood Type Blood Type Recheck Antibody Screen Spec Expiration Date Disposition Clinical Impression: Lower limb ischemia Disposition: OTHER INSTITUTION NOT DEFINED Condition: Poor Is patient prescribed a controlled substance at d/c from ED?: No Referrals: [facility] [Primary Care Provider] - 1-2 days Time of Disposition: 16:08 - Out of Hospital Transfer - Req. Specs Out of Hospital Transfer - Requested Specifics: Other Emergency Center
[2017-11-11 14:34] LABS: Basophils # (A) 0.1 k/uL (0-0.2); Basophils % (A) 1 %; Eosinophils # (A) 0.2 k/uL (0-0.7); Eosinophils % (A) 3 %; HCT 44.9 % (34.0-46.0); HGB 15.3 gm/dL (11.4-16.0); Lymphocytes # (A) 2.2 k/uL (1.0-4.8); Lymphocytes % (A) 24 %; MCH 31.9 pg (25.0-35.0); MCV 93.7 fL (80.0-100.0); Mean Platelet Volume 6.8; Monocytes # (A) 0.6 k/uL (0-1.0); Monocytes % (A) 6 %; Neutrophils # (A) 5.8 k/uL (1.3-7.7); Neutrophils % (A) 65 %; Platelet Count 308 k/uL (150-450); RBC 4.79 m/uL (3.80-5.40); RDW 13.4 % (11.5-15.5)
[2017-11-11 14:35] LABS: Appearance,Urine Clear (Clear); Bilirubin,Urine Negative (Negative); Blood,Urine Negative (Negative); Color,Urine Yellow; Glucose,Urine (UA) Negative (Negative); Ketones,Urine Negative (Negative); Leukocyte Esterase,Urine Negative (Negative); Nitrite,Urine Negative (Negative); Protein,Urine Negative (Negative); Specific Gravity,Urine 1.015 (1.001-1.035); Urobilinogen,Urine <2.0 mg/dL (<2.0)
[2017-11-11 14:37] LABS: Prothrombin Time 9.8 sec (9.0-12.0)
[2017-11-11 14:46] LABS: ALT 44 U/L (9-52); AST 33 U/L (14-36); Albumin 3.8 g/dL (3.5-5.0); Alkaline Phosphatase 96 U/L (38-126); Anion Gap 9 mmol/L; Blood Urea Nitrogen 14 mg/dL (7-17); Calcium 9.6 mg/dL (8.4-10.2); Carbon Dioxide 27 mmol/L (22-30); Chloride 105 mmol/L (98-107); Glucose 102 mg/dL (74-99); Potassium 4.3 mmol/L (3.5-5.1); Sodium 141 mmol/L (137-145); Total Bilirubin 0.4 mg/dL (0.2-1.3); Total Protein 6.5 g/dL (6.3-8.2)
--- NOTE | 2017-11-11 15:47 | CT ---
EXAMINATION TYPE: CT angio tho/abd W Run Off DATE OF EXAM: 11/11/2017 COMPARISON: CT abdomen pelvis 01/18/2017 HISTORY: Left leg pain, hx: stents in both illiacs and aorta CTA thoracic and abdominal aorta with 3-D reconstruction is performed and , CTA thoracic and abdomina l aorta including the carotid vessels was performed. 3-D imaging was obtained at a separate workstati on.[id number]/[id number]. CT Chest: THORACIC AORTA: There is no evidence for aneurysm. No dissection or mediastinal hematoma. Mild ath eromatous changes are seen. LUNGS: Multinodular infiltrate right upper lobe with masslike density measuring 2.4 x 2.2 cm. The fin dings may be postinflammatory in nature however malignancy is not excluded. The left lung is clear. U pper lobe emphysematous changes appreciated. No evidence for pleural effusion. MEDIASTINUM: The heart is not enlarged. No evidence for mediastinal mass or adenopathy. HILAR STRUCTURES: No evidence for mass. No hilar adenopathy is appreciated. OTHER: No significant abnormality. CONTRAST CT ABDOMEN AND PELVIS ABDOMINAL AORTA and runoff vessels: Distal abdominal aorto iliac bypass graft in place. Thrombosed na tive iliac vessels. Abdominal aorta is patent and nonaneurysmal. Branch vessels are also patent. Mild atheromatous change of the take off of the left main renal artery. Patency of the iliac bypass graft 50% narrowing at the site of the left common femoral artery. High-grade long segment narrowing left superficial femoral artery with occlusion noted distally and reconstitution noted distally above the knee. Profunda femoris is patent. Left popliteal artery, anterior and posterior tibial arteries as we ll as the peroneal arteries are patent with adequate runoff to the foot. On the right the common femo ral artery, superficial femoral artery, profunda femoris, popliteal, peroneal, anterior and posterior tibial arteries are patent. Adequate runoff to the foot. LIVER/GB- No significant abnormality is seen. PANCREAS- No significant abnormality is seen. SPLEEN- No significant abnormality is seen. ADRENALS- No significant abnormality is seen. KIDNEYS/BLADDER- No significant abnormality is seen. BOWEL- No Significant abnormality GENITAL ORGANS: No gross abnormality seen. LYMPH NODES- No greater than 1cm abdominal or pelvic lymph nodes areappreciated. OSSEOUS STRUCTURES- No significant abnormality is seen. OTHER- No significant abnormality is seen. IMPRESSION- 1. High-grade long segment narrowing left superficial femoral artery with occlusion noted distally an d reconstitution noted distally above the knee. 2. Thrombosed [place] common, internal and external iliac vessels. 3. Bypass graft as noted. 4. Multinodular the identified right upper lobe masslike density may be postinflammatory in nature. C onsider PET/CT if felt to be indicated.
[2017-11-11] MEDS ORDERED: HEPARIN SODIUM,PORCINE 10,000 UNIT/ML 1 ML VIAL IV ONE (15:57)
[2017-11-11] MEDS ORDERED: HEPARIN SODIUM,PORCINE 5,000 UNIT/ML 1 ML VIAL IV PRN (15:57)
[2017-11-11] MEDS ORDERED: HEPARIN SOD,PORK IN 0.45% NACL 25,000 UNIT in 0.45% NACL 1 500ML.BAG IV SCH (16:00)
[2017-11-11 16:55] VITALS: BP 155/68; PULSE 69; TEMP 98.1
== END 2017-11-11 16:56 | disposition short-term general hospital (02) ==
LOC: EC 13:45
DX: I99.8 Other disorder of circulatory system (principal); I25.10 Atherosclerotic heart disease of native coronary artery without angina pectoris; F31.9 Bipolar disorder, unspecified; F17.200 Nicotine dependence, unspecified, uncomplicated; Z79.02 Long term (current) use of antithrombotics/antiplatelets; Z79.82 Long term (current) use of aspirin; Z79.899 Other long term (current) drug therapy; Z95.1 Presence of aortocoronary bypass graft; Z98.890 Other specified postprocedural states
CPT/HCPCS: 36415; 93005; 86900; 86901; 80053; 83605; 83735; 84484; 85025; 85610; 86850; 81003; 75635; 71275; 99285; 96365; 96375; J1644 ×2; Q9967

== ENCOUNTER 2017-12-31 12:29 | Emergency (ER) | payer OTHER ==
[2017-12-31 12:51] VITALS: BP 148/88; PULSE 80; RESP 18; TEMP 97.8
[2017-12-31] MEDS ORDERED: LORazepam 1 MG TAB PO STA (13:27)
[2017-12-31] MEDS ORDERED: MORPHINE SULFATE 2 MG/ML SYRINGE IVP PRN (13:30)
--- NOTE | 2017-12-31 13:32 | ED ---
General Adult HPI - General Chief complaint: Abdominal Pain Stated complaint: Sweating, Head Pain Source: patient Mode of arrival: ambulatory Limitations: no limitations - History of Present Illness Initial comments: Dictation was produced using [employer] dictation software. please excuse any grammatical, word or spelling errors. Chief Complaint: 57-year-old female past medical history of bilateral iliac stents presents with abdominal pain and headache. History of Present Illness: Patient has multiple complaints. She complains of 1. Left retro-orbital headache and to abdominal pain. Patient states she's been having symptoms since yesterday. Denies any constitutional symptoms. No nausea vomiting or diarrhea. Patient was seen by myself the last time she was here last month she does have history of bilateral iliac stents. She complains of tingling to all of her extremities. She also complains of headache to the left retro-orbital region. Denies any neurologic deficits. The ROS documented in this emergency department record has been reviewed and confirmed by me. Those systems with pertinent positive or negative responses have been documented in the HPI. All other systems are other negative and/or noncontributory. - Related Data Home Medications Medication Instructions Recorded Confirmed Atorvastatin [Lipitor] 80 mg PO HS 01/18/17 12/31/17 Clopidogrel Bisulfate [Plavix] 75 mg PO DAILY 01/18/17 12/31/17 Albuterol Inhaler [Ventolin Hfa 2 puff INHALATION RT-Q6H PRN 01/19/17 12/31/17 Inhaler] Aspirin EC [Ecotrin] 325 mg PO DAILY 10/30/17 12/31/17 Benztropine Mesylate [Cogentin] 2 mg PO TID 10/30/17 12/31/17 Cholecalciferol [Vitamin D3] 5,000 unit PO DAILY 10/30/17 12/31/17 Desvenlafaxine [Pristiq ER] 100 mg PO DAILY 10/30/17 12/31/17 Docusate [Colace] 100 mg PO DAILY 10/30/17 12/31/17 Fluticasone Nasal [place] [Flonase 1 spr EA NOSTRIL DAILY 10/30/17 12/31/17 Nasal [place]] Omeprazole [PriLOSEC] 20 mg PO DAILY 10/30/17 12/31/17 Budesonide [Pulmicort Flexhaler] 2 puff INHALATION RT-BID 12/31/17 12/31/17 Nicotine 21Mg/24Hr Patch [Habitrol 1 patch TRANSDERM DAILY 12/31/17 12/31/17 21Mg/24Hr Patch] OLANZapine [ZyPREXA] 20 mg PO HS 12/31/17 12/31/17 Previous Rx's Medication Instructions Recorded Cephalexin [Keflex] 500 mg PO Q6HR 5 Days #20 cap 12/31/17 Allergies Allergy/AdvReac Type Severity Reaction Status Date / Time No Known Allergies Allergy Verified 12/31/17 13:55 Review of Systems ROS Statement: Those systems with pertinent positive or pertinent negative responses have been documented in the HPI. ROS Other: All systems not noted in ROS Statement are negative. Past Medical History Past Medical History: Coronary Artery Disease (CAD) Additional Past Medical History / Comment(s): hepatitis c History of Any Multi-Drug Resistant Organisms: None Reported Past Surgical History: Cholecystectomy, Tubal Ligation Additional Past Surgical History / Comment(s): Aortic bypass with stents placed in femoral arteries Past Psychological History: Anxiety, Bipolar, Depression Smoking Status: Current every day smoker Past Alcohol Use History: Abuse, Daily Past Drug Use History: Cocaine, Marijuana General Exam - General Exam Comments Initial Comments: PHYSICAL EXAM: General Impression: Alert and oriented x3, not in acute distress HEENT: Normocephalic atraumatic, extra-ocular movements intact, pupils equal and reactive to light bilaterally, mucous membranes moist. Cardiovascular: Heart regular rate and rhythm, S1&S2 audible, no murmurs, rubs or gallops Chest: Lungs clear to auscultation bilaterally, no rhonchi, no wheeze, no rales Abdomen: Bowel sounds present, abdomen soft, non-tender, non-distended, no organomegaly Musculoskeletal: Pulses present and equal in all extremities, no peripheral edema Motor: Power 5/5 bilaterally, no focal deficits noted Neurological: CN II-XII grossly intact, no focal motor or sensory deficits noted Skin: Intact with no visualized rashes Psych: Normal affect and mood Limitations: no limitations Course Vital Signs 12/31/17 12:48 Temperature 97.8 F Pulse Rate 80 Respiratory 18 Rate Blood Pressure 148/88 O2 Sat by Pulse 95 Oximetry Medical Decision Making - Medical Decision Making ED course: 57-year-old female with multiple comorbidities presents with headache and abdominal pain. Vital signs upon arrival are within acceptable limits. Physical examination is benign. Patient is well-appearing. Abdomen is soft. No concern of vascular insufficiency to bilateral lower extremities. Headache is benign. No neuro deficits on neurologic exam. There is concern that patient's symptoms represent panic disorder.Laboratory evaluation obtained. It is mild leukocytosis of 11.1 likely secondary to stress. Metabolic panel is unremarkable. Lactic acid level is within acceptable limits. Urinalysis positive for urinary tract infection. Abdominal x-ray obtained showing no acute processes. Patient given anxiolytic and pain medication. She is reevaluated after brief observation in the emergency department. She states that her symptoms are much improved. Discussed patient that she will be discharged with instructions to follow-up with primary care physician P she still hypertensive emergency Department with any worsening symptoms. Patient is understandable and agreeable to disposition. She is given prescription for cystitis. - Lab Data Result diagrams: 12/31/17 13:30 12/31/17 13:30 Lab Results 12/31/17 12/31/17 12/31/17 Range/Units 13:30 13:30 13:30 WBC 11.1 H (3.8-10.6) k/uL RBC 4.91 (3.80-5.40) m/uL Hgb 15.4 (11.4-16.0) gm/dL Hct 48.3 H (34.0-46.0) % MCV 98.5 (80.0-100.0) fL MCH 31.4 (25.0-35.0) pg MCHC 31.9 (31.0-37.0) g/dL RDW 12.9 (11.5-15.5) % Plt Count 294 (150-450) k/uL Neutrophils % 69 % Lymphocytes % 20 % Monocytes % 5 % Eosinophils % 4 % Basophils % 1 % Neutrophils # 7.7 (1.3-7.7) k/uL Lymphocytes # 2.2 (1.0-4.8) k/uL Monocytes # 0.5 (0-1.0) k/uL Eosinophils # 0.4 (0-0.7) k/uL Basophils # 0.1 (0-0.2) k/uL Sodium 138 (137-145) mmol/L Potassium 4.8 (3.5-5.1) mmol/L Chloride 108 H (98-107) mmol/L Carbon Dioxide 23 (22-30) mmol/L Anion Gap 7 mmol/L BUN 20 H (7-17) mg/dL Creatinine 0.70 (0.52-1.04) mg/dL Est GFR (CKD-EPI)AfAm >90 (>60 ml/min/1.73 sqM) Est GFR (CKD-EPI)NonAf >90 (>60 ml/min/1.73 sqM) Glucose 92 (74-99) mg/dL Plasma Lactic Acid Giovanni 0.6 L (0.7-2.0) mmol/L Calcium 9.5 (8.4-10.2) mg/dL Total Bilirubin 0.5 (0.2-1.3) mg/dL AST 45 H (14-36) U/L ALT 50 (9-52) U/L Alkaline Phosphatase 96 (38-126) U/L Total Protein 6.9 (6.3-8.2) g/dL Albumin 3.9 (3.5-5.0) g/dL Lipase 56 (23-300) U/L Urine Color Urine Appearance (Clear) Urine pH (5.0-8.0) Ur Specific [place] (1.001-1.035) Urine Protein (Negative) Urine Glucose (UA) (Negative) Urine Ketones (Negative) Urine Blood (Negative) Urine Nitrite (Negative) Urine Bilirubin (Negative) Urine Urobilinogen (<2.0) mg/dL Ur Leukocyte Esterase (Negative) Urine RBC (0-5) /hpf Urine WBC (0-5) /hpf Ur Squamous Epith Cells (0-4) /hpf Urine Bacteria (None) /hpf Urine Mucus (None) /hpf 12/31/17 Range/Units 13:30 WBC (3.8-10.6) k/uL RBC (3.80-5.40) m/uL Hgb (11.4-16.0) gm/dL Hct (34.0-46.0) % MCV (80.0-100.0) fL MCH (25.0-35.0) pg MCHC (31.0-37.0) g/dL RDW (11.5-15.5) % Plt Count (150-450) k/uL Neutrophils % % Lymphocytes % % Monocytes % % Eosinophils % % Basophils % % Neutrophils # (1.3-7.7) k/uL Lymphocytes # (1.0-4.8) k/uL Monocytes # (0-1.0) k/uL Eosinophils # (0-0.7) k/uL Basophils # (0-0.2) k/uL Sodium (137-145) mmol/L Potassium (3.5-5.1) mmol/L Chloride (98-107) mmol/L Carbon Dioxide (22-30) mmol/L Anion Gap mmol/L BUN (7-17) mg/dL Creatinine (0.52-1.04) mg/dL Est GFR (CKD-EPI)AfAm (>60 ml/min/1.73 sqM) Est GFR (CKD-EPI)NonAf (>60 ml/min/1.73 sqM) Glucose (74-99) mg/dL Plasma Lactic Acid Giovanni (0.7-2.0) mmol/L Calcium (8.4-10.2) mg/dL Total Bilirubin (0.2-1.3) mg/dL AST (14-36) U/L ALT (9-52) U/L Alkaline Phosphatase (38-126) U/L Total Protein (6.3-8.2) g/dL Albumin (3.5-5.0) g/dL Lipase (23-300) U/L Urine Color Yellow Urine Appearance Cloudy H (Clear) Urine pH 6.5 (5.0-8.0) Ur Specific [place] 1.009 (1.001-1.035) Urine Protein Negative (Negative) Urine Glucose (UA) Negative (Negative) Urine Ketones Negative (Negative) Urine Blood Negative (Negative) Urine Nitrite Positive H (Negative) Urine Bilirubin Negative (Negative) Urine Urobilinogen <2.0 (<2.0) mg/dL Ur Leukocyte Esterase Large H (Negative) Urine RBC 5 (0-5) /hpf Urine WBC 37 H (0-5) /hpf Ur Squamous Epith Cells 7 H (0-4) /hpf Urine Bacteria Few H (None) /hpf Urine Mucus Rare H (None) /hpf Disposition Clinical Impression: UTI (urinary tract infection) Disposition: HOME SELF-CARE Condition: Good Instructions: Urinary Tract Infection in Women (ED) Prescriptions: Cephalexin [Keflex] 500 mg PO Q6HR 5 Days #20 cap Is patient prescribed a controlled substance at d/c from ED?: No Referrals: [facility] [Primary Care Provider] - 1-2 days Time of Disposition: 14:53
[2017-12-31 13:52] LABS: Basophils # (A) 0.1 k/uL (0-0.2); Basophils % (A) 1 %; Eosinophils # (A) 0.4 k/uL (0-0.7); Eosinophils % (A) 4 %; HCT 48.3 % (34.0-46.0); HGB 15.4 gm/dL (11.4-16.0); Lymphocytes # (A) 2.2 k/uL (1.0-4.8); Lymphocytes % (A) 20 %; MCH 31.4 pg (25.0-35.0); MCHC 31.9 g/dL (31.0-37.0); MCV 98.5 fL (80.0-100.0); Mean Platelet Volume 6.5; Monocytes # (A) 0.5 k/uL (0-1.0); Monocytes % (A) 5 %; Neutrophils # (A) 7.7 k/uL (1.3-7.7); Neutrophils % (A) 69 %; Platelet Count 294 k/uL (150-450); RBC 4.91 m/uL (3.80-5.40); RDW 12.9 % (11.5-15.5); WBC 11.1 k/uL (3.8-10.6)
[2017-12-31 14:00] LABS: Chloride 108 mmol/L (98-107)
[2017-12-31 14:03] LABS: ALT 50 U/L (9-52); AST 45 U/L (14-36); Albumin 3.9 g/dL (3.5-5.0); Alkaline Phosphatase 96 U/L (38-126); Anion Gap 7 mmol/L; Blood Urea Nitrogen 20 mg/dL (7-17); Calcium 9.5 mg/dL (8.4-10.2); Carbon Dioxide 23 mmol/L (22-30); Glucose 92 mg/dL (74-99); Lipase 56 U/L (23-300); Sodium 138 mmol/L (137-145); Total Bilirubin 0.5 mg/dL (0.2-1.3); Total Protein 6.9 g/dL (6.3-8.2)
[2017-12-31 14:04] LABS: Appearance,Urine Cloudy (Clear); Bacteria,Urine Few /hpf; Bilirubin,Urine Negative (Negative); Blood,Urine Negative (Negative); Color,Urine Yellow; Glucose,Urine (UA) Negative (Negative); Ketones,Urine Negative (Negative); Leukocyte Esterase,Urine Large (Negative); Mucus,Urine Rare /hpf; Nitrite,Urine Positive (Negative); PH, Urine 6.5 (5.0-8.0); Protein,Urine Negative (Negative); RBC,Urine 5 /hpf (0-5); Specific Gravity,Urine 1.009 (1.001-1.035); Squamous Epithelial Cell,Urine 7 /hpf (0-4); Urobilinogen,Urine <2.0 mg/dL (<2.0); WBC,Urine 37 /hpf (0-5)
[2017-12-31 14:18] LABS: Potassium 4.8 mmol/L (3.5-5.1)
--- NOTE | 2017-12-31 14:29 | XR ---
EXAMINATION TYPE: XR abdomen 1V DATE OF EXAM: 12/31/2017 COMPARISON: 10/30/2017 INDICATION: Pain TECHNIQUE: Single view abdomen upright view FINDINGS: There is a normal bowel gas pattern. No suspicious air-fluid levels or differential air-fluid levels are present. No free air is present. Cholecystectomy has been performed. Psoas margins are normal. No organomegaly is present. IMPRESSION: 1. Nonspecific abdomen
== END 2017-12-31 15:05 | disposition home or self-care (01) ==
LOC: EC 12:29
DX: N39.0 Urinary tract infection, site not specified (principal); D72.829 Elevated white blood cell count, unspecified; R51 Headache; R20.2 Paresthesia of skin; I25.10 Atherosclerotic heart disease of native coronary artery without angina pectoris; F31.9 Bipolar disorder, unspecified; F17.200 Nicotine dependence, unspecified, uncomplicated; Z79.02 Long term (current) use of antithrombotics/antiplatelets; Z79.51 Long term (current) use of inhaled steroids; Z79.82 Long term (current) use of aspirin; Z79.899 Other long term (current) drug therapy; Z90.49 Acquired absence of other specified parts of digestive tract; Z95.828 Presence of other vascular implants and grafts
CPT/HCPCS: 36415; 93005; 80053; 83605; 83690; 85025; 81001; 74018; 99284; 96374; J2270

== ENCOUNTER 2018-02-11 13:54 | Emergency (ER) | payer OTHER ==
[2018-02-11 13:59] VITALS: BP 135/85; PULSE 107; RESP 20; TEMP 98
--- NOTE | 2018-02-11 14:42 | XR ---
EXAMINATION TYPE: XR elbow complete RT DATE OF EXAM: 02/11/2018 CLINICAL HISTORY: Persistent pain after fall. TECHNIQUE: Frontal, lateral and oblique images of the right elbow are obtained. COMPARISON: None FINDINGS: There is no acute fracture/dislocation evident in the right elbow. No abnormal fat pad si gns are seen. The overlying soft tissue appears unremarkable. IMPRESSION: There is no acute fracture or dislocation in the right elbow.
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
== END 2018-02-11 15:00 | disposition home or self-care (01) ==
LOC: EC 13:54
DX: S50.01XA Contusion of right elbow, initial encounter (principal); S50.811A Abrasion of right forearm, initial encounter; I25.10 Atherosclerotic heart disease of native coronary artery without angina pectoris; F31.9 Bipolar disorder, unspecified; F17.200 Nicotine dependence, unspecified, uncomplicated; Z79.02 Long term (current) use of antithrombotics/antiplatelets; Z79.51 Long term (current) use of inhaled steroids; Z79.82 Long term (current) use of aspirin; Z79.899 Other long term (current) drug therapy; W03.XXXA Other fall on same level due to collision with another person, initial encounter; Y93.55 Activity, bike riding; Y92.89 Other specified places as the place of occurrence of the external cause
CPT/HCPCS: 99283

== ENCOUNTER 2018-02-19 18:51 | Emergency (ER) | payer OTHER ==
[2018-02-19] MEDS ORDERED: ONDANSETRON 4 MG/2 ML VIAL IVP STA (19:36)
[2018-02-19] MEDS ORDERED: SODIUM CHLORIDE 0.9% 500 ML 500 ML IV STA (19:36)
--- NOTE | 2018-02-19 19:40 | ED ---
General Adult HPI - General Chief complaint: Abdominal Pain Stated complaint: Headache Time Seen by Provider: 02/19/18 18:55 Source: EMS, RN notes reviewed Mode of arrival: EMS Limitations: no limitations - History of Present Illness Initial comments: This a 57-year-old female who presents emergency Department complaining of abdominal pain. Patient states there is some epigastric abdominal pain she has vomited times one. Patient states it started about 2 days ago. Patient states the pain radiates to her back a little. Patient denies any diarrhea. Patient states she has been able to tolerate food and fluids but not as much as normal. Patient denies any chest pain difficulty breathing or shortness of breath. Patient denies any fever chills or cough. Patient states she has a mild headache but nothing too significant no worse than normal. Patient denies any hematuria or urinary frequency but she does states she has a little bit of dysuria. Patient has a past medical history significant for an abdominal aortic repair. - Related Data Home Medications Medication Instructions Recorded Confirmed Atorvastatin [Lipitor] 80 mg PO HS 01/18/17 02/19/18 Clopidogrel Bisulfate [Plavix] 75 mg PO DAILY 01/18/17 02/19/18 Benztropine Mesylate [Cogentin] 2 mg PO TID 10/30/17 02/19/18 Cholecalciferol [Vitamin D3] 5,000 unit PO DAILY 10/30/17 02/19/18 Desvenlafaxine [Pristiq ER] 100 mg PO DAILY 10/30/17 02/19/18 Docusate [Colace] 100 mg PO DAILY 10/30/17 02/19/18 Fluticasone Nasal [place] [Flonase 1 spr EA NOSTRIL DAILY 10/30/17 02/19/18 Nasal [place]] Omeprazole [PriLOSEC] 20 mg PO DAILY 10/30/17 02/19/18 Budesonide [Pulmicort Flexhaler] 2 puff INHALATION RT-BID 12/31/17 02/19/18 Nicotine 21Mg/24Hr Patch [Habitrol 1 patch TRANSDERM DAILY 12/31/17 02/19/18 21Mg/24Hr Patch] OLANZapine [ZyPREXA] 20 mg PO HS 12/31/17 02/19/18 Aspirin EC [Ecotrin Low Dose] 81 mg PO DAILY 02/11/18 02/19/18 Albuterol Sulfate [Proair 2 puff INHALATION RT-Q6H PRN 02/19/18 02/19/18 Respiclick] Previous Rx's Medication Instructions Recorded Sulfamethox-Tmp 800-160Mg [Bactrim 1 each PO Q12HR #14 tab 02/19/18 DS 800-160 mg] Allergies Allergy/AdvReac Type Severity Reaction Status Date / Time No Known Allergies Allergy Verified 02/19/18 19:55 Review of Systems ROS Statement: Those systems with pertinent positive or pertinent negative responses have been documented in the HPI. ROS Other: All systems not noted in ROS Statement are negative. Past Medical History Past Medical History: Coronary Artery Disease (CAD) Additional Past Medical History / Comment(s): hepatitis c History of Any Multi-Drug Resistant Organisms: None Reported Past Surgical History: Cholecystectomy, Tubal Ligation Additional Past Surgical History / Comment(s): Aortic bypass with stents placed in femoral arteries Past Psychological History: Anxiety, Bipolar, Depression Smoking Status: Current every day smoker Past Alcohol Use History: Rare Past Drug Use History: Marijuana General Exam - General Exam Comments Initial Comments: GENERAL: Patient is well-developed and well-nourished. Patient is nontoxic and well- hydrated and is in mild distress. ENT: Neck is soft and supple. No significant lymphadenopathy is noted. Oropharynx is clear. Moist mucous membranes. Neck has full range of motion without eliciting any pain. EYES: The sclera were anicteric and conjunctiva were pink and moist. Extraocular movements were intact and pupils were equal round and reactive to light. Eyelids were unremarkable. PULMONARY: Unlabored respirations. Good breath sounds bilaterally. No audible rales rhonchi or wheezing was noted. CARDIOVASCULAR: There is a regular rate and rhythm without any murmurs gallops or rubs. ABDOMEN: Mild suprapubic abdominal tenderness. Patient complains of epigastric tenderness but on palpation there is no tenderness.. No palpable organomegaly was noted. There is no palpable pulsatile mass. SKIN: Skin is clear with no lesions or rashes and otherwise unremarkable. NEUROLOGIC: Patient is alert and oriented x3. Cranial nerves II through XII are grossly intact. Motor and sensory are also intact. Normal speech, volume and content. Symmetrical smile. MUSCULOSKELETAL: Normal extremities with adequate strength and full range of motion. No lower extremity swelling or edema. No calf tenderness. LYMPHATICS: No significant lymphadenopathy is noted PSYCHIATRIC: Normal psychiatric evaluation. Limitations: no limitations Course Vital Signs 02/19/18 02/19/18 18:54 20:19 Temperature 98.0 F Pulse Rate 103 H 85 Respiratory 16 18 Rate Blood Pressure 111/96 122/83 O2 Sat by Pulse 93 L 94 L Oximetry Medical Decision Making - Medical Decision Making EKG shows normal sinus rhythm at 83 bpm TN interval 180 QRS is 88 QT interval 390 QTC is 458. Patient's EKG shows no ST segment elevation or depression or T wave abnormalities are noted Computed tomography scan shows constipation no acute findings. Patient has a UTI potentially urine culture was done patient was given a gram of Rocephin. - Lab Data Result diagrams: 02/19/18 19:14 02/19/18 19:14 Lab Results 02/19/18 02/19/18 02/19/18 Range/Units 19:14 19:14 19:14 WBC 10.0 (3.8-10.6) k/uL RBC 4.72 (3.80-5.40) m/uL Hgb 14.8 (11.4-16.0) gm/dL Hct 45.0 (34.0-46.0) % MCV 95.3 (80.0-100.0) fL MCH 31.2 (25.0-35.0) pg MCHC 32.8 (31.0-37.0) g/dL RDW 12.5 (11.5-15.5) % Plt Count 361 (150-450) k/uL Neutrophils % 57 % Lymphocytes % 30 % Monocytes % 7 % Eosinophils % 3 % Basophils % 1 % Neutrophils # 5.7 (1.3-7.7) k/uL Lymphocytes # 3.0 (1.0-4.8) k/uL Monocytes # 0.7 (0-1.0) k/uL Eosinophils # 0.3 (0-0.7) k/uL Basophils # 0.1 (0-0.2) k/uL Sodium 140 (137-145) mmol/L Potassium 4.1 (3.5-5.1) mmol/L Chloride 108 H (98-107) mmol/L Carbon Dioxide 23 (22-30) mmol/L Anion Gap 9 mmol/L BUN 12 (7-17) mg/dL Creatinine 0.76 (0.52-1.04) mg/dL Est GFR (CKD-EPI)AfAm >90 (>60 ml/min/1.73 sqM) Est GFR (CKD-EPI)NonAf 87 (>60 ml/min/1.73 sqM) Glucose 129 H (74-99) mg/dL Calcium 9.6 (8.4-10.2) mg/dL Total Bilirubin 0.3 (0.2-1.3) mg/dL AST 24 (14-36) U/L ALT 33 (9-52) U/L Alkaline Phosphatase 105 (38-126) U/L Troponin I <0.012 (0.000-0.034) ng/mL Total Protein 6.8 (6.3-8.2) g/dL Albumin 3.9 (3.5-5.0) g/dL Amylase 55 (30-110) U/L Lipase 58 (23-300) U/L Urine Color Urine Appearance (Clear) Urine pH (5.0-8.0) Ur Specific [place] (1.001-1.035) Urine Protein (Negative) Urine Glucose (UA) (Negative) Urine Ketones (Negative) Urine Blood (Negative) Urine Nitrite (Negative) Urine Bilirubin (Negative) Urine Urobilinogen (<2.0) mg/dL Ur Leukocyte Esterase (Negative) Urine RBC (0-5) /hpf Urine WBC (0-5) /hpf Ur Squamous Epith Cells (0-4) /hpf Urine Bacteria (None) /hpf Urine Opiates Screen (NotDetected) Ur Oxycodone Screen (NotDetected) Urine Methadone Screen (NotDetected) Ur Propoxyphene Screen (NotDetected) Ur Barbiturates Screen (NotDetected) U Tricyclic Antidepress (NotDetected) Ur Phencyclidine Scrn (NotDetected) Ur Amphetamines Screen (NotDetected) U Methamphetamines Scrn (NotDetected) U Benzodiazepines Scrn (NotDetected) Urine Cocaine Screen (NotDetected) U Marijuana (THC) Screen (NotDetected) 02/19/18 Range/Units 21:05 WBC (3.8-10.6) k/uL RBC (3.80-5.40) m/uL Hgb (11.4-16.0) gm/dL Hct (34.0-46.0) % MCV (80.0-100.0) fL MCH (25.0-35.0) pg MCHC (31.0-37.0) g/dL RDW (11.5-15.5) % Plt Count (150-450) k/uL Neutrophils % % Lymphocytes % % Monocytes % % Eosinophils % % Basophils % % Neutrophils # (1.3-7.7) k/uL Lymphocytes # (1.0-4.8) k/uL Monocytes # (0-1.0) k/uL Eosinophils # (0-0.7) k/uL Basophils # (0-0.2) k/uL Sodium (137-145) mmol/L Potassium (3.5-5.1) mmol/L Chloride (98-107) mmol/L Carbon Dioxide (22-30) mmol/L Anion Gap mmol/L BUN (7-17) mg/dL Creatinine (0.52-1.04) mg/dL Est GFR (CKD-EPI)AfAm (>60 ml/min/1.73 sqM) Est GFR (CKD-EPI)NonAf (>60 ml/min/1.73 sqM) Glucose (74-99) mg/dL Calcium (8.4-10.2) mg/dL Total Bilirubin (0.2-1.3) mg/dL AST (14-36) U/L ALT (9-52) U/L Alkaline Phosphatase (38-126) U/L Troponin I (0.000-0.034) ng/mL Total Protein (6.3-8.2) g/dL Albumin (3.5-5.0) g/dL Amylase (30-110) U/L Lipase (23-300) U/L Urine Color Yellow Urine Appearance Cloudy H (Clear) Urine pH 6.5 (5.0-8.0) Ur Specific [place] 1.032 (1.001-1.035) Urine Protein Negative (Negative) Urine Glucose (UA) Negative (Negative) Urine Ketones Negative (Negative) Urine Blood Negative (Negative) Urine Nitrite Negative (Negative) Urine Bilirubin Negative (Negative) Urine Urobilinogen 3.0 (<2.0) mg/dL Ur Leukocyte Esterase Moderate H (Negative) Urine RBC 1 (0-5) /hpf Urine WBC 12 H (0-5) /hpf Ur Squamous Epith Cells 2 (0-4) /hpf Urine Bacteria Many H (None) /hpf Urine Opiates Screen Not Detected (NotDetected) Ur Oxycodone Screen Not Detected (NotDetected) Urine Methadone Screen Not Detected (NotDetected) Ur Propoxyphene Screen Not Detected (NotDetected) Ur Barbiturates Screen Not Detected (NotDetected) U Tricyclic Antidepress Not Detected (NotDetected) Ur Phencyclidine Scrn Not Detected (NotDetected) Ur Amphetamines Screen Not Detected (NotDetected) U Methamphetamines Scrn Not Detected (NotDetected) U Benzodiazepines Scrn Not Detected (NotDetected) Urine Cocaine Screen Not Detected (NotDetected) U Marijuana (THC) Screen Detected H (NotDetected) Disposition Clinical Impression: Urinary tract infection, Constipation Disposition: HOME SELF-CARE Condition: Good Instructions: Constipation (ED), High Fiber Diet (ED), Urinary Tract Infection in Women (ED) Prescriptions: Sulfamethox-Tmp 800-160Mg [Bactrim DS 800-160 mg] 1 each PO Q12HR #14 tab Is patient prescribed a controlled substance at d/c from ED?: No Referrals: [facility] [Primary Care Provider] - 1-2 days Time of Disposition: 21:32
[2018-02-19 19:53] LABS: Basophils # (A) 0.1 k/uL (0-0.2); Basophils % (A) 1 %; Eosinophils # (A) 0.3 k/uL (0-0.7); Eosinophils % (A) 3 %; HGB 14.8 gm/dL (11.4-16.0); Lymphocytes % (A) 30 %; MCH 31.2 pg (25.0-35.0); MCHC 32.8 g/dL (31.0-37.0); MCV 95.3 fL (80.0-100.0); Monocytes # (A) 0.7 k/uL (0-1.0); Monocytes % (A) 7 %; Neutrophils # (A) 5.7 k/uL (1.3-7.7); Neutrophils % (A) 57 %; Platelet Count 361 k/uL (150-450); RBC 4.72 m/uL (3.80-5.40); RDW 12.5 % (11.5-15.5)
[2018-02-19 20:07] LABS: ALT 33 U/L (9-52); AST 24 U/L (14-36); Albumin 3.9 g/dL (3.5-5.0); Alkaline Phosphatase 105 U/L (38-126); Amylase 55 U/L (30-110); Anion Gap 9 mmol/L; Blood Urea Nitrogen 12 mg/dL (7-17); Calcium 9.6 mg/dL (8.4-10.2); Carbon Dioxide 23 mmol/L (22-30); Chloride 108 mmol/L (98-107); Glucose 129 mg/dL (74-99); Lipase 58 U/L (23-300); Potassium 4.1 mmol/L (3.5-5.1); Sodium 140 mmol/L (137-145); Total Bilirubin 0.3 mg/dL (0.2-1.3); Total Protein 6.8 g/dL (6.3-8.2)
--- NOTE | 2018-02-19 20:28 | XR ---
EXAMINATION TYPE: XR KUB DATE OF EXAM: 02/19/2018 COMPARISON: 12/31/2017 HISTORY: Abdominal pain TECHNIQUE: 2 views FINDINGS: There is no sign of intestinal obstruction or pneumoperitoneum. Fecal pattern is normal. Th ere are clips from cholecystectomy. Lung bases are clear. IMPRESSION: Nonacute abdomen. No change.
[2018-02-19] MEDS ORDERED: KETOROLAC 60 MG/2 ML VIAL IVP STA (20:36)
--- NOTE | 2018-02-19 20:58 | CT ---
EXAMINATION TYPE: CT abdomen pelvis w con DATE OF EXAM: 02/19/2018 COMPARISON: 01/18/2017 HISTORY: Generalized pain with nausea, vomiting and decreased bowel movements CT DLP: 581.6 mGycm Automated exposure control for dose reduction was used. TECHNIQUE: Helical acquisition of images was performed from the lung bases through the pelvis. CONTRAST: Performed without Oral Contrast and with IV Contrast, patient injected with 100 mL of Isovue 300. FINDINGS: Lung bases are clear of consolidation. There is no pleural effusion. Heart size is normal. There is n o pericardial effusion. Liver shows no focal defect. There are clips from cholecystectomy. Spleen jocelyn ears normal. There is no pancreatic mass. Stomach appears normal. The bile ducts are not dilated. There is some thickening of both adrenal glands. There is nodularity that measures up to 2 cm.. This is unchanged. Kidneys show satisfactory contrast opacification. There is no hydronephrosis. Ureters are not dilated . There is no retroperitoneal adenopathy. Bladder distends smoothly. Uterus is tilted to the right si de. There is some retained fecal material in the large bowel. I see no intestinal wall thickening. Th ere is no ascites. There is no mesenteric adenopathy or edema. There is small umbilical hernia that c ontains fat. There is no inguinal hernia. The bony structures appear intact. There is narrowing of L5 -S1 disc space. Appendix is not seen. There is no sign of appendicitis. There is no sign of free air. IMPRESSION: RETAINED FECAL MATERIAL IN THE LARGE BOWEL CONSISTENT WITH SOME DEGREE OF CONSTIPATION. THERE IS KARINA RING OF THE BILATERAL INGUINAL FLUID COLLECTIONS COMPARED TO OLD EXAM.
[2018-02-19 21:25] LABS: Appearance,Urine Cloudy (Clear); Bacteria,Urine Many /hpf; Bilirubin,Urine Negative (Negative); Blood,Urine Negative (Negative); Color,Urine Yellow; Glucose,Urine (UA) Negative (Negative); Ketones,Urine Negative (Negative); Leukocyte Esterase,Urine Moderate (Negative); Nitrite,Urine Negative (Negative); PH, Urine 6.5 (5.0-8.0); Protein,Urine Negative (Negative); RBC,Urine 1 /hpf (0-5); Specific Gravity,Urine 1.032 (1.001-1.035); Squamous Epithelial Cell,Urine 2 /hpf (0-4); WBC,Urine 12 /hpf (0-5)
[2018-02-19] MEDS ORDERED: cefTRIAXone 2,000 MG in SODIUM CHLORIDE 0.9% 100 ML IVPB STA (21:26)
[2018-02-19 21:30] LABS: Amphetamine Screen,Urine Not Detected (NotDetected); Barbiturate Screen,Urine Not Detected (NotDetected); Benzodiazepines Screen,Urine Not Detected (NotDetected); Cocaine Screen,Urine Not Detected (NotDetected); Methadone Screen, Urine Not Detected (NotDetected); Opiate Screen,Urine Not Detected (NotDetected); Oxycodone Screen, Urine Not Detected (NotDetected); Phencyclidine Screen,Urine Not Detected (NotDetected); Tricyclic Antidepressant,Urine Not Detected (NotDetected); Urn Cannabinoid Scrn Detected (NotDetected)
[2018-02-19] MEDS ORDERED: cefTRIAXone 1,000 MG VIAL (IM USE) IM STA (21:33)
[2018-02-19 21:53] VITALS: BP 142/98; PULSE 83; RESP 19; TEMP 98.6
== END 2018-02-19 22:00 | disposition home or self-care (01) ==
LOC: EC 18:51
DX: N39.0 Urinary tract infection, site not specified (principal); K59.00 Constipation, unspecified; R10.13 Epigastric pain; R11.10 Vomiting, unspecified; R51 Headache; I25.10 Atherosclerotic heart disease of native coronary artery without angina pectoris; F31.9 Bipolar disorder, unspecified; F41.9 Anxiety disorder, unspecified; F17.200 Nicotine dependence, unspecified, uncomplicated; Z86.19 Personal history of other infectious and parasitic diseases; Z79.82 Long term (current) use of aspirin; Z79.51 Long term (current) use of inhaled steroids; Z79.899 Other long term (current) drug therapy; Z79.01 Long term (current) use of anticoagulants; Z90.49 Acquired absence of other specified parts of digestive tract
CPT/HCPCS: 36415; 93005; 80053; 82150; 83690; 84484; 85025; 81001; 80306; 87086; 87077; 87186; 74018; 74177; 99285; 96374; 96375; 96372; J2405; J0696; J1885; Q9967

== ENCOUNTER 2018-04-06 20:49 | Observation (INO) | payer OTHER ==
[2018-04-06] MEDS ORDERED: ASPIRIN 81 MG PO STA (21:06)
[2018-04-06] MEDS ORDERED: SODIUM CHLORIDE 0.9% 1,000 ML IV STA (21:06)
--- NOTE | 2018-04-06 21:09 | ED ---
Chest Pain HPI - General Chief Complaint: Chest Pain Stated Complaint: Chest Pain Time Seen by Provider: 04/06/18 21:02 Source: EMS Mode of arrival: EMS Limitations: no limitations - History of Present Illness Initial Comments: Melany is a 57 yo female with extensive PMH most significant for vasculopathy status post aortobifem bypass, hypertension, hyperlipidemia and multiple psychiatric illnesses and illicit drug use. The patient presents the emergency department today complaining of pressure-like retrosternal chest pain that began approximately an hour and half prior to arrival while the patient was sitting in her car. Patient reports the pain is constant and unrelenting. Patient denies any associated dyspnea or diaphoresis. She denies any recent illness but does admit to smoking cocaine yesterday. She also has a strong family history with 2 brothers who have had MIs, both in their 50s. She also has multiple risk factors including hypertension, hyperlipidemia, known vascular disease and heavy cigarette smoking. MD Complaint: chest pain Onset/Timin -: hour(s) Onset: during rest Pain Location: substernal, epigastric Severity: moderate Quality: heaviness Consistency: constant Improves With: nothing Worsens With: nothing Context: other (Cocaine use) Treatments Prior to Arrival: none - Related Data Home Medications Medication Instructions Recorded Confirmed Atorvastatin [Lipitor] 80 mg PO HS 01/18/17 04/06/18 Clopidogrel Bisulfate [Plavix] 75 mg PO DAILY 01/18/17 04/06/18 Benztropine Mesylate [Cogentin] 2 mg PO TID 10/30/17 04/06/18 Cholecalciferol [Vitamin D3] 5,000 unit PO MOWEFR 10/30/17 04/06/18 Desvenlafaxine [Pristiq ER] 100 mg PO DAILY 10/30/17 04/06/18 Docusate [Colace] 100 mg PO DAILY 10/30/17 04/06/18 Fluticasone Nasal [place] [Flonase 1 spr EA NOSTRIL DAILY 10/30/17 04/06/18 Nasal [place]] Omeprazole [PriLOSEC] 20 mg PO DAILY 10/30/17 04/06/18 Budesonide [Pulmicort Flexhaler] 2 puff INHALATION RT-BID 12/31/17 04/06/18 Nicotine 21Mg/24Hr Patch [Habitrol 21 mg TRANSDERM DAILY 12/31/17 04/06/18 21Mg/24Hr Patch] OLANZapine [ZyPREXA] 20 mg PO HS 12/31/17 04/06/18 Aspirin EC [Ecotrin Low Dose] 81 mg PO DAILY 02/11/18 04/06/18 Albuterol Sulfate [Proair 2 puff INHALATION RT-Q6H PRN 02/19/18 04/06/18 Respiclick] [place] Carbonate 300 mg PO HS 04/06/18 04/06/18 Allergies Allergy/AdvReac Type Severity Reaction Status Date / Time No Known Allergies Allergy Verified 04/06/18 21:36 Review of Systems ROS Statement: Those systems with pertinent positive or pertinent negative responses have been documented in the HPI. ROS Other: All systems not noted in ROS Statement are negative. EKG Findings - EKG Comments: EKG Findings:: EKG obtained at 9:09 PM, rate is 80, rhythm is sinus, normal axis , TX is 174, QRS is 90, QTC is prolonged at 482. There is no acute ST elevations or depressions no evidence of acute ischemia or infarction. Past Medical History Past Medical History: Coronary Artery Disease (CAD) Additional Past Medical History / Comment(s): hepatitis c History of Any Multi-Drug Resistant Organisms: None Reported Past Surgical History: Cholecystectomy, Tubal Ligation Additional Past Surgical History / Comment(s): Aortic bypass with stents placed in femoral arteries Past Psychological History: Anxiety, Bipolar, Depression Smoking Status: Current every day smoker Past Alcohol Use History: Abuse, Daily Past Drug Use History: Cocaine, Marijuana General Exam - General Exam Comments Initial Comments: Physical Exam GENERAL: Unkempt appearance, smells of cigarette smoke HENT: Normocephalic, Atraumatic. Poor dentition EYES: PERRL, EOMI PULMONARY: Expiratory wheezing CARDIOVASCULAR: There is a regular rate and rhythm without any murmurs gallops or rubs. ABDOMEN: Soft and nontender with normal bowel sounds. SKIN: Skin is clear with no lesions or rashes and otherwise unremarkable. : Deferred NEUROLOGIC: Patient is alert and oriented x3. Moving all extremities spontaneously MUSCULOSKELETAL: Normal extremities with adequate strength and full range of motion. No lower extremity swelling or edema. No calf tenderness. PSYCHIATRIC: Normal psychiatric evaluation. Limitations: no limitations Limitations: no limitations Course Vital Signs 04/06/18 20:54 Temperature 98.2 F Pulse Rate 78 Respiratory 18 Rate Blood Pressure 153/114 O2 Sat by Pulse 95 Oximetry Chest Pain MDM - MDM Patient was seen and evaluated history was obtained from the patient, her significant other at bedside and review of medical record Patient with multiple cardiac risk factors presenting with what she describes as a retrosternal chest pressure and pain Cardiac workup was obtained, aspirin was ordered Initial EKG appears nonischemic Labs were unremarkable, initial troponin is not elevated however given the patient's multiple risk factors, cocaine use I do feel she warrants further monitoring and evaluation. Patient placed in observation with a consult to cardiology. Disposition Clinical Impression: Chest pain, Cocaine-induced vascular disorder Disposition: ADMITTED IP TO THIS HOSP Referrals: [facility] [Primary Care Provider] - 1-2 days
[2018-04-06 21:52] LABS: Basophils % (A) 0 %; Eosinophils # (A) 0.3 k/uL (0-0.7); Eosinophils % (A) 3 %; HCT 44.5 % (34.0-46.0); HGB 14.9 gm/dL (11.4-16.0); Lymphocytes # (A) 2.2 k/uL (1.0-4.8); Lymphocytes % (A) 25 %; MCH 31.7 pg (25.0-35.0); MCHC 33.5 g/dL (31.0-37.0); MCV 94.4 fL (80.0-100.0); Mean Platelet Volume 6.8; Monocytes # (A) 0.5 k/uL (0-1.0); Monocytes % (A) 6 %; Neutrophils # (A) 5.7 k/uL (1.3-7.7); Neutrophils % (A) 64 %; Platelet Count 302 k/uL (150-450); RBC 4.71 m/uL (3.80-5.40); RDW 12.8 % (11.5-15.5); WBC 8.9 k/uL (3.8-10.6)
[2018-04-06 22:00] LABS: Partial Thromboplastin Time 23.8 sec (22.0-30.0); Prothrombin Time 9.7 sec (9.0-12.0)
[2018-04-06 22:06] LABS: Albumin 3.9 g/dL (3.5-5.0); Calcium 9.5 mg/dL (8.4-10.2); Magnesium 1.9 mg/dL (1.6-2.3); Potassium 3.7 mmol/L (3.5-5.1); Total Bilirubin 0.4 mg/dL (0.2-1.3); Total Protein 6.8 g/dL (6.3-8.2)
[2018-04-06 22:11] LABS: Creatine Kinase 145 U/L (30-135)
[2018-04-06 22:26] LABS: Creatine Kinase MB 0.6 ng/mL (0.0-2.4); Troponin I <0.012 ng/mL (0.000-0.034)
[2018-04-06] MEDS ORDERED: NITROGLYCERIN SL TABS 0.4 MG TAB SUBLINGUAL PRN (22:39)
[2018-04-06] MEDS ORDERED: ALBUTEROL NEBULIZED 2.5 MG/3 ML INHALATION PRN (22:41)
--- NOTE | 2018-04-06 22:58 | XR ---
EXAM: XR Chest, 2 Views CLINICAL HISTORY: ITS.REASON XR Reason: Chest Pain TECHNIQUE: Frontal and lateral views of the chest. COMPARISON: No relevant prior studies available. FINDINGS: Lungs: Right upper lobe infiltrate. Pleural space: Unremarkable. No pneumothorax. Heart: Unremarkable. No cardiomegaly. Mediastinum: Unremarkable. Bones/joints: Unremarkable. IMPRESSION: Right upper lobe infiltrate.
[2018-04-06 23:22] LABS: Appearance,Urine Clear (Clear); Bacteria,Urine Rare /hpf; Bilirubin,Urine Negative (Negative); Blood,Urine Negative (Negative); Color,Urine Yellow; Glucose,Urine (UA) Negative (Negative); Ketones,Urine Negative (Negative); Leukocyte Esterase,Urine Moderate (Negative); Mucus,Urine Rare /hpf; Nitrite,Urine Negative (Negative); PH, Urine 6.5 (5.0-8.0); Protein,Urine Negative (Negative); RBC,Urine 2 /hpf (0-5); Specific Gravity,Urine 1.006 (1.001-1.035); Squamous Epithelial Cell,Urine 1 /hpf (0-4); Urobilinogen,Urine <2.0 mg/dL (<2.0); WBC,Urine 15 /hpf (0-5)
[2018-04-06] MEDS ORDERED: LORazepam 2 MG/ML INJ IV STA (23:55)
[2018-04-06] MEDS ORDERED: cloNIDine HCL 0.1 MG TAB PO STA (23:55)
[2018-04-06 23:59] LABS: Amphetamine Screen,Urine Not Detected (NotDetected); Barbiturate Screen,Urine Not Detected (NotDetected); Benzodiazepines Screen,Urine Not Detected (NotDetected); Cocaine Screen,Urine Detected (NotDetected); Methadone Screen, Urine Not Detected (NotDetected); Opiate Screen,Urine Not Detected (NotDetected); Oxycodone Screen, Urine Not Detected (NotDetected); Phencyclidine Screen,Urine Not Detected (NotDetected); Tricyclic Antidepressant,Urine Detected (NotDetected); Urn Cannabinoid Scrn Detected (NotDetected)
[2018-04-07 03:05] LABS: Cholesterol 98 mg/dL (<200); HDL Cholesterol 35 mg/dL (40-60); LDL Cholesterol,Calculated 48 mg/dL (0-99); Triglycerides 77 mg/dL (<150)
[2018-04-07 03:11] LABS: Creatine Kinase 135 U/L (30-135)
[2018-04-07 03:24] LABS: Creatine Kinase MB 0.7 ng/mL (0.0-2.4); Troponin I <0.012 ng/mL (0.000-0.034)
[2018-04-07 07:27] VITALS: RESP 18; TEMP 97.9
[2018-04-07] MEDS ORDERED: PANTOPRAZOLE 40 MG TABLET PO SCH (07:30)
[2018-04-07] MEDS ORDERED: DOBUTamine DRIP for NUC MED 500 MG in DEXTROSE/WATER 1 250ML.BAG IV ONE (07:45)
[2018-04-07] MEDS ORDERED: FLUTICASONE 110 MCG INHALER INHALATION SCH (08:00)
--- NOTE | 2018-04-07 08:12 | CONS ---
CONSULTATION Mrs. Olson is a 57-year-old female with a history of peripheral vascular disease, history of chronic tobacco use, family history of premature coronary disease and hyperlipidemia who presented with headache as well as chest discomfort going on for the last 2 days. She has used cocaine 2 days ago and according to her, this is the first time she uses it. She has a known history of peripheral vascular disease, has underwent revascularization of her lower extremities at [facility] in January and prior to that had stenting. She is not very active physically. She has dyspnea on exertion and a cough and history of obstructive lung disease. She has no history of coronary artery disease and according to her she has not underwent any recent cardiac workup. Her discomfort has been constant for 2 days without any radiation. She denies any dizziness or palpitation. No syncope. No PND, orthopnea nor peripheral edema. Her coronary risk factors are remarkable for the history of smoking, history of hyperlipidemia and peripheral vascular disease and a family history of premature coronary artery disease. She is nondiabetic. MEDICATIONS: Her medications at home included Prilosec, Zyprexa, lithium, Pristiq, Plavix, Flexeril, Cogentin, Lipitor 80 mg daily, aspirin 81 mg daily, and ProAir. REVIEW OF SYSTEMS: RESPIRATORY SYSTEM: She had dyspnea on exertion and cough, history of wheezing. GI SYSTEM: No history of peptic ulcer disease. She had red blood one time. SYSTEM: No dysuria or hematuria. NERVOUS SYSTEM: No history of stroke or seizure. PHYSICAL EXAMINATION: A 57-year-old female, alert, oriented, in no apparent distress. Blood pressure 110/70 with the heart rate in the 70s, appears older than stated age. HEAD: Normocephalic. EYES: Sclerae anicteric. NECK: Good upstroke. No bruit. LUNGS: With decreased air exchange, no wheezes. HEART: Regular rate and rhythm. S1, S2. No S3 with systolic murmur heard at the base, ejection type. No diastolic murmur, no rub. ABDOMEN: Soft, mild tenderness, positive bowel sounds. A well-healed scar. EXTREMITIES: No edema. Decreased distal pulses. LAB DATA: Lab data revealed BUN and creatinine of 18 and 0.94. Potassium 3.7. Troponin less than 0.012. Cholesterol 98, LDL of 48. Hemoglobin of 14.9. EKG revealed a sinus mechanism, normal axis and intervals. No acute changes. IMPRESSION: 1. Chest discomfort has atypical features for ischemic heart disease, probably noncardiac in etiology. 2. Chronic tobacco use. 3. Peripheral vascular disease. 4. Recent cocaine use. 5. Right upper lobe infiltrate on the chest x-ray, although patient has no clear evidence to suggest pneumonia at this time. RECOMMENDATION: I would recommend to obtain an echocardiogram with Doppler as well as dobutamine stress echocardiogram. If there is no evidence of stress induced ischemia, then no further cardiac workup will be needed. Thank you for this consult. We will follow with you. MMODL / IJN: [id number] /
[2018-04-07] MEDS ORDERED: DESVENLAFAXINE SUCCINATE 50 MG TAB.ER.24H PO SCH (09:00)
[2018-04-07] MEDS ORDERED: CLOPIDOGREL 75 MG TAB PO SCH (09:00)
[2018-04-07] MEDS ORDERED: ASPIRIN 81 MG PO SCH (09:00)
[2018-04-07] MEDS ORDERED: NICOTINE 21MG/24HR PATCH TRANSDERM SCH (09:00)
[2018-04-07] MEDS ORDERED: BENZTROPINE MESYLATE 1 MG TAB PO SCH (09:00)
[2018-04-07] MEDS ORDERED: ASPIRIN 325 MG TAB PO SCH (09:00)
[2018-04-07 09:35] LABS: Creatine Kinase 101 U/L (30-135)
[2018-04-07 09:48] LABS: Creatine Kinase MB 0.5 ng/mL (0.0-2.4); Troponin I <0.012 ng/mL (0.000-0.034)
[2018-04-07] MEDS ORDERED: ATROPINE SULFATE 0.1 MG/ML 10ML SYRINGE ONE (10:47)
[2018-04-07 11:30] VITALS: BP 136/90; PULSE 88
--- NOTE | 2018-04-07 12:31 | ECHOF ---
Referral Reason: MEASUREMENTS -------- HEIGHT: 165.1 cm WEIGHT: 63.5 kg BP: 110/76 IVSd: 0.7 cm (0.6 - 1.1) LVIDd: 3.5 cm (3.9 - 5.3) LVPWd: 0.8 cm (0.6 - 1.1) IVSs: 1.1 cm LVIDs: 2.4 cm LVPWs: 0.9 cm LAESV Index (A-L): 12.26 ml/m Ao Diam: 3.6 cm (2.0 - 3.7) AV Cusp: 1.7 cm (1.5 - 2.6) LA Diam: 2.4 cm (2.7 - 3.8) MV EXCURSION: 19.436 mm (> 18.000) MV EF SLOPE: 71 mm/s (70 - 150) EPSS: 1.9 cm MV E Seamus: 0.63 m/s MV DecT: 278 ms MV A Seamus: 0.57 m/s MV E/A Ratio: 1.10 RAP: 5.00 mmHg RVSP: 18.62 mmHg FINDINGS -------- Sinus rhythm. This was a technically adequate study. The left ventricular size is normal. Left ventricular wall thickness is normal. Overall left vent ricular systolic function is normal with, an EF between 55 - 60 %. The right ventricle is normal in size and function. The left atrium is normal in size. The right atrium is normal in size. The aortic valve is trileaflet, and appears structurally normal. No aortic stenosis or regurgitation. The mitral valve is normal. There is trace mitral regurgitation. Mild tricuspid regurgitation present. There is no evidence of pulmonary hypertension. The right v entricular systolic pressure, as measured by Doppler, is 18.62mmHg. There is no pulmonic regurgitation present. The aortic root size is normal. Normal inferior vena cava with normal inspiratory collapse consistent with estimated right atrial pre ssure of 5 mmHg. There is no pericardial effusion. CONCLUSIONS -------- 1. Sinus rhythm. 2. This was a technically adequate study. 3. The left ventricular size is normal. 4. Left ventricular wall thickness is normal. 5. Overall left ventricular systolic function is normal with, an EF between 55 - 60 %. 6. The left atrium is normal in size. 7. The aortic valve is trileaflet, and appears structurally normal. No aortic stenosis or regurgitati on. 8. There is trace mitral regurgitation. 9. Mild tricuspid regurgitation present. 10. There is no evidence of pulmonary hypertension. 11. There is no pulmonic regurgitation present. 12. The aortic root size is normal. 13. Normal inferior vena cava with normal inspiratory collapse consistent with estimated right atrial pressure of 5 mmHg. 14. There is no pericardial effusion. POURER BULL LADLE: Leighann Ramachandran RDCS
--- NOTE | 2018-04-07 12:51 | ECHOS ---
STRESS ECHOCARDIOGRAM DATE OF SERVICE: 04/07/2018 INDICATIONS: Chest pain. MEDICATIONS: BASELINE HEART RATE: 74 BASELINE BLOOD PRESSURE: 119/75 MAXIMUM HEART RATE: 137 MAXIMUM BLOOD PRESSURE: 146/71 85% MPHR: 137 100% MPHR: 161 METS: MAXIMUM STAGE REACHED: TOTAL EXERCISE TIME: CLINICAL INFORMATION: Baseline rhythm is sinus mechanism, rate 74, normal axis and intervals, QS in V1 to V2. Baseline blood pressure 119/75. Patient received an infusion of dobutamine per protocol and 0.5 mg atropine injection. Peak rate 137 beats per minute which is equal to 85% maximum predicted heart rate. Peak blood pressure 146/71 mmHg. Electrocardiographic monitoring revealed no evidence of diagnostic ischemic ST deviation. Baseline echocardiogram revealed normal wall thickening and motion. At peak exercise, there was normal wall motion augmentation with no hypokinesis or dyskinesis. CONCLUSION: 1. Normal electrocardiograph response to dobutamine infusion. 2. Normal stress echocardiogram with no evidence of stress induced ischemia. MMODL / IJN: [id number] /
--- NOTE | 2018-04-07 16:08 | P.HPIM ---
History of Present Illness 57-year-old female with a pressure-like chest pain moderate severity constant lasted for more than a day and the does admit to using cocaine after which her pain started. Patient denied any fevers chills nausea vomiting patient and diaphoresis associated with that patient had peripheral vascular disease with previous revascularization of her lower extremities patient denied any fever chills shortness of breath lightheadedness denied any orthopnea paroxysmal nocturnal dyspnea Rule out acute medicine syndromes patient underwent stress test which was negative patient is cleared for discharge patient is a smoker counseling regarding smoking cessation was provided. Review of Systems REVIEW OF SYSTEMS: CONSTITUTIONAL: No fever, no malaise, no fatigue. HEENT: No recent visual problems or hearing problems. Denied any sore throat. CARDIOVASCULAR: No orthopnea, PND, no palpitations, no syncope. PULMONARY: No shortness of breath, no cough, no hemoptysis. GASTROINTESTINAL: No diarrhea, no nausea, no vomiting, no abdominal pain. Normoactive bowel sounds. NEUROLOGICAL: No headaches, no weakness, no numbness. HEMATOLOGICAL: Denies any bleeding or petechiae. GENITOURINARY: Denies any burning micturition, frequency, or urgency. MUSCULOSKELETAL/RHEUMATOLOGICAL: Denies any joint pain, swelling, or any muscle pain. ENDOCRINE: Denies any polyuria or polydipsia. The rest of the 14-point review of systems is negative. Past Medical History Past Medical History: Coronary Artery Disease (CAD), COPD Additional Past Medical History / Comment(s): hepatitis c History of Any Multi-Drug Resistant Organisms: None Reported Past Surgical History: Cholecystectomy, Tubal Ligation Additional Past Surgical History / Comment(s): Aortic bypass with stents placed in femoral arteries Past Anesthesia/Blood Transfusion Reactions: No Reported Reaction Smoking Status: Current every day smoker - Past Family History Father History Unknown: Yes Mother History Unknown: Yes Brother(s) History Unknown: Yes Sister(s) History Unknown: Yes Son(s) Family Medical History: No Reported History Medications and Allergies Home Medications Medication Instructions Recorded Confirmed Type Atorvastatin [Lipitor] 80 mg PO HS 01/18/17 04/06/18 History Clopidogrel Bisulfate [Plavix] 75 mg PO DAILY 01/18/17 04/06/18 History Benztropine Mesylate [Cogentin] 2 mg PO TID 10/30/17 04/06/18 History Cholecalciferol [Vitamin D3] 5,000 unit PO MOWEFR 10/30/17 04/06/18 History Desvenlafaxine [Pristiq ER] 100 mg PO DAILY 10/30/17 04/06/18 History Docusate [Colace] 100 mg PO DAILY 10/30/17 04/06/18 History Fluticasone Nasal Severy [Flonase 1 spr EA NOSTRIL DAILY 10/30/17 04/06/18 History Nasal Severy] Omeprazole [PriLOSEC] 20 mg PO DAILY 10/30/17 04/06/18 History Budesonide [Pulmicort Flexhaler] 2 puff INHALATION RT-BID 12/31/17 04/06/18 History Nicotine 21Mg/24Hr Patch [Habitrol 21 mg TRANSDERM DAILY 12/31/17 04/06/18 History 21Mg/24Hr Patch] OLANZapine [ZyPREXA] 20 mg PO HS 12/31/17 04/06/18 History Aspirin EC [Ecotrin Low Dose] 81 mg PO DAILY 02/11/18 04/06/18 History Albuterol Sulfate [Proair 2 puff INHALATION RT-Q6H PRN 02/19/18 04/06/18 History Respiclick] [place] Carbonate 300 mg PO HS 04/06/18 04/06/18 History Allergies Allergy/AdvReac Type Severity Reaction Status Date / Time No Known Allergies Allergy Verified 04/07/18 01:29 Physical Exam Vitals: Vital Signs Temp Pulse Pulse Resp BP BP Pulse Ox 04/07/18 11:29 97.9 F 88 18 136/90 95 04/07/18 07:15 97.9 F 77 18 110/76 94 L 04/07/18 03:27 98.4 F 74 16 134/82 94 L 04/07/18 01:43 18 04/07/18 01:29 97.5 F L 88 18 147/91 95 04/07/18 00:48 80 16 104/73 95 04/07/18 00:00 78/63 04/06/18 23:19 97.0 F L 79 20 154/101 95 04/06/18 21:30 87 20 156/102 96 04/06/18 21:00 153/114 96 04/06/18 20:54 98.2 F 78 18 153/114 95 Intake and Output 04/07/18 04/07/18 04/07/18 06:59 14:59 22:59 Intake Total 200 Balance 200 Intake: Oral 200 Other: Voiding Method Toilet Toilet # Voids 1 Weight 63.503 kg PHYSICAL EXAMINATION: GENERAL: The patient is alert and oriented x3, not in any acute distress. Well developed, well nourished. HEENT: Pupils are round and equally reacting to light. EOMI. No scleral icterus. No conjunctival pallor. Normocephalic, atraumatic. No pharyngeal erythema. No thyromegaly. CARDIOVASCULAR: S1 and S2 present. No murmurs, rubs, or gallops. PULMONARY: Chest is clear to auscultation, no wheezing or crackles. ABDOMEN: Soft, nontender, nondistended, normoactive bowel sounds. No palpable organomegaly. MUSCULOSKELETAL: No joint swelling or deformity. EXTREMITIES: No cyanosis, clubbing, or pedal edema. NEUROLOGICAL: Gross neurological examination did not reveal any focal deficits. SKIN: No rashes. Results CBC & Chem 7: 04/06/18 21:30 04/06/18 21:30 Labs: Abnormal Lab Results - Last 24 Hours (Table) 04/06/18 04/06/18 04/06/18 Range/Units 21:30 21:30 23:07 BUN 18 H (7-17) mg/dL Glucose 101 H (74-99) mg/dL Total Creatine Kinase 145 H (30-135) U/L HDL Cholesterol (40-60) mg/dL Ur Leukocyte Esterase Moderate H (Negative) Urine WBC 15 H (0-5) /hpf Urine Bacteria Rare H (None) /hpf Urine Mucus Rare H (None) /hpf U Tricyclic Antidepress Detected H (NotDetected) Urine Cocaine Screen Detected H (NotDetected) U Marijuana (THC) Screen Detected H (NotDetected) 04/07/18 Range/Units 02:33 BUN (7-17) mg/dL Glucose (74-99) mg/dL Total Creatine Kinase (30-135) U/L HDL Cholesterol 35 L (40-60) mg/dL Ur Leukocyte Esterase (Negative) Urine WBC (0-5) /hpf Urine Bacteria (None) /hpf Urine Mucus (None) /hpf U Tricyclic Antidepress (NotDetected) Urine Cocaine Screen (NotDetected) U Marijuana (THC) Screen (NotDetected) Thrombosis Risk Factor Assmnt - Choose All That Apply Any of the Below Risk Factors Present?: Yes Each Factor Represents 1 point: Abnormal pulmonary function (COPD) Other Risk Factors: No Other congenital or acquired thrombophilia - If yes, enter type in comment: No Thrombosis Risk Factor Assessment Total Risk Factor Score: 1 Thrombosis Risk Factor Assessment Level: Low Risk Assessment and Plan Plan: - atypical chest pain rule out a concurrent syndromes stresses is negative patient is being discharged today -Nicotine abuse: Counseling was provided neck stent-cocaine use counseling was provided -Peripheral vascular disease -Chest x-ray was read as right upper lobe filtrate, patient does have mild infiltrate in the right upper lobe but does not have any signs or symptoms of pneumonia including fever chills cough. She appears to have mild atelectasis in that area and reviewed the chest x-ray. I do not believe patient will require antibiotics at least at this point of time. Patient THE symptoms of fever chills and cough will need a repeat chest x-ray then - history of hepatitis C follow-up with gastroneurology as an outpatient -Bipolar and depression Patient will be discharged today to follow up in [facility]
--- NOTE | 2018-04-07 16:08 | P.DS ---
Providers Date of admission: 04/06/18 22:39 Attending physician: Marcie Song Consults: 04/06/18 22:39 Consult Physician Urgent Consulting Provider: [facility] Consult Reason/Comments: chest pain - cocaine use Do you want consulting provider notified?: Yes, Notify in am Primary care physician: [facility] Course: Refer to my HPI Plan - Discharge Summary Discharge Rx Participant: No New Discharge Prescriptions: No Action Clopidogrel Bisulfate [Plavix] 75 mg PO DAILY Atorvastatin [Lipitor] 80 mg PO HS Omeprazole [PriLOSEC] 20 mg PO DAILY Cholecalciferol [Vitamin D3] 5,000 unit PO MOWEFR Fluticasone Nasal B[place]l [Flonase Nasal B[place]l] 1 spr EA NOSTRIL DAILY Docusate [Colace] 100 mg PO DAILY Desvenlafaxine [Pristiq ER] 100 mg PO DAILY Benztropine Mesylate [Cogentin] 2 mg PO TID Budesonide [Pulmicort Flexhaler] 2 puff INHALATION RT-BID Nicotine 21Mg/24Hr Patch [Habitrol 21Mg/24Hr Patch] 21 mg TRANSDERM DAILY OLANZapine [ZyPREXA] 20 mg PO HS Aspirin EC [Ecotrin Low Dose] 81 mg PO DAILY Albuterol Sulfate [Proair Respiclick] 2 puff INHALATION RT-Q6H PRN PRN Reason: Shortness Of Breath Laure[place] Carbonate 300 mg PO HS Discharge Medication List Atorvastatin [Lipitor] 80 mg PO HS 01/18/17 [History] Clopidogrel Bisulfate [Plavix] 75 mg PO DAILY 01/18/17 [History] Benztropine Mesylate [Cogentin] 2 mg PO TID 10/30/17 [History] Cholecalciferol [Vitamin D3] 5,000 unit PO MOWEFR 10/30/17 [History] Desvenlafaxine [Pristiq ER] 100 mg PO DAILY 10/30/17 [History] Docusate [Colace] 100 mg PO DAILY 10/30/17 [History] Fluticasone Nasal B[place]l [Flonase Nasal B[place]] 1 spr EA NOSTRIL DAILY 10/30/17 [ History] Omeprazole [PriLOSEC] 20 mg PO DAILY 10/30/17 [History] Budesonide [Pulmicort Flexhaler] 2 puff INHALATION RT-BID 12/31/17 [History] Nicotine 21Mg/24Hr Patch [Habitrol 21Mg/24Hr Patch] 21 mg TRANSDERM DAILY [History] OLANZapine [ZyPREXA] 20 mg PO HS 12/31/17 [History] Aspirin EC [Ecotrin Low Dose] 81 mg PO DAILY 02/11/18 [History] Albuterol Sulfate [Proair Respiclick] 2 puff INHALATION RT-Q6H PRN 02/19/18 [ History] [place] Carbonate 300 mg PO HS 04/06/18 [History] Follow up Appointment(s)/Referral([facility]): [facility] - 3 Days Patient Instructions/Handouts: Chest Pain (DC) Discharge Disposition: HOME SELF-CARE
[2018-04-07] MEDS ORDERED: LITHIUM CARBONATE 150 MG CAP PO SCH (21:00)
[2018-04-07] MEDS ORDERED: ATORVASTATIN 80 MG TAB PO SCH (21:00)
[2018-04-07] MEDS ORDERED: OLANZapine 10 MG TAB PO SCH (21:00)
[2018-04-08] MEDS ORDERED: CHOLECALCIFEROL 1,000 UNIT TAB PO SCH (09:00)
[2018-04-08] MEDS ORDERED: DOCUSATE 100 MG CAP PO SCH (09:00)
[2018-04-08] MEDS ORDERED: NON-FORMULARY DRUG (Aspirin Ec 81 MG) PO SCH (09:00)
[2018-04-08] MEDS ORDERED: FLUTICASONE 50MCG/SPRAY NASAL 16GM EA NOSTRIL SCH (09:00)
== END 2018-04-07 14:40 | disposition home or self-care (01) ==
LOC: EC 20:49 → 1SOBS 22:39
PROVIDERS: ADMIT Internal Medicine; ATTEND Internal Medicine
DX: R07.2 Precordial pain (principal); R51 Headache; F14.90 Cocaine use, unspecified, uncomplicated; I10 Essential (primary) hypertension; E78.5 Hyperlipidemia, unspecified; F17.210 Nicotine dependence, cigarettes, uncomplicated; I73.9 Peripheral vascular disease, unspecified; R91.8 Other nonspecific abnormal finding of lung field; J44.9 Chronic obstructive pulmonary disease, unspecified; I25.10 Atherosclerotic heart disease of native coronary artery without angina pectoris; B19.20 Unspecified viral hepatitis C without hepatic coma; F41.9 Anxiety disorder, unspecified; F31.9 Bipolar disorder, unspecified; Z82.49 Family history of ischemic heart disease and other diseases of the circulatory system; Z79.02 Long term (current) use of antithrombotics/antiplatelets; Z79.899 Other long term (current) drug therapy; Z79.82 Long term (current) use of aspirin; Z90.49 Acquired absence of other specified parts of digestive tract; Z95.1 Presence of aortocoronary bypass graft; Z95.828 Presence of other vascular implants and grafts
CPT/HCPCS: 99285; 36415; 93005; 93306; 93351; 83880; 80061; 80053; 82550 ×2; 82553 ×2; 83735; 84484 ×2; 85025; 85610; 85730; 81001; 80306; 71046; G0378 ×2; S4990; J1250; J0461; Q9950

== ENCOUNTER 2018-04-19 11:06 | Emergency (ER) | payer OTHER ==
[2018-04-19 11:19] VITALS: RESP 18; TEMP 98.7
[2018-04-19] MEDS ORDERED: ONDANSETRON 4 MG/2 ML VIAL IVP STA (11:33)
[2018-04-19] MEDS ORDERED: SODIUM CHLORIDE 0.9% 1,000 ML IV STA ×2 (11:33)
--- NOTE | 2018-04-19 11:40 | ED ---
Nausea/Vomiting/Diarrhea HPI - General Chief complaint: Nausea/Vomiting/Diarrhea Stated complaint: head & abdominal pain/vomiting Time Seen by Provider: 04/19/18 11:24 Source: patient, RN notes reviewed, old records reviewed Mode of arrival: ambulatory Limitations: no limitations - History of Present Illness Initial comments: This is a 57-year-old female with a history of recent admission for chest pain apparently has a history of abdominal aortic disease who is here today with 2 days of nausea vomiting and generalized abdominal pain and one dated diarrhea. She complains of having decreased oral intake pain is burning and mid epigastrium and otherwise sharp and moderate in severity. Diarrhea is watery. She feels lightheaded and dizzy when she tries to walk. No acute complaints patient is a smoker. She denies any cough or phlegm production. She does admit to being very anxious MD complaint: nausea, vomiting, diarrhea, abdominal pain - Related Data Home Medications Medication Instructions Recorded Confirmed Atorvastatin [Lipitor] 80 mg PO HS 01/18/17 04/19/18 Clopidogrel Bisulfate [Plavix] 75 mg PO DAILY 01/18/17 04/19/18 Benztropine Mesylate [Cogentin] 2 mg PO TID 10/30/17 04/19/18 Cholecalciferol [Vitamin D3] 5,000 unit PO MOWEFR 10/30/17 04/19/18 Desvenlafaxine [Pristiq ER] 100 mg PO DAILY 10/30/17 04/19/18 Docusate [Colace] 100 mg PO DAILY 10/30/17 04/19/18 Fluticasone Nasal [place] [Flonase 1 spr EA NOSTRIL DAILY 10/30/17 04/19/18 Nasal [place]] Omeprazole [PriLOSEC] 20 mg PO DAILY 10/30/17 04/19/18 Budesonide [Pulmicort Flexhaler] 2 puff INHALATION RT-BID 12/31/17 04/19/18 Nicotine 21Mg/24Hr Patch [Habitrol 21 mg TRANSDERM DAILY 12/31/17 04/19/18 21Mg/24Hr Patch] OLANZapine [ZyPREXA] 20 mg PO HS 12/31/17 04/19/18 Aspirin EC [Ecotrin Low Dose] 81 mg PO DAILY 02/11/18 04/19/18 Albuterol Sulfate [Proair 2 puff INHALATION RT-Q6H PRN 02/19/18 04/19/18 Respiclick] [place] Carbonate 300 mg PO HS 04/06/18 04/19/18 Previous Rx's Medication Instructions Recorded Dicyclomine [Bentyl] 10 mg PO TID #10 capsule 04/19/18 Allergies Allergy/AdvReac Type Severity Reaction Status Date / Time No Known Allergies Allergy Verified 04/19/18 11:37 Review of Systems ROS Statement: Those systems with pertinent positive or pertinent negative responses have been documented in the HPI. ROS Other: All systems not noted in ROS Statement are negative. Past Medical History Past Medical History: Coronary Artery Disease (CAD), COPD Additional Past Medical History / Comment(s): hepatitis c History of Any Multi-Drug Resistant Organisms: None Reported Past Surgical History: Cholecystectomy, Tubal Ligation Additional Past Surgical History / Comment(s): Aortic bypass with stents placed in femoral arteries Past Anesthesia/Blood Transfusion Reactions: No Reported Reaction Past Psychological History: Anxiety, Bipolar, Depression Smoking Status: Current every day smoker Past Drug Use History: Marijuana - Past Family History Father History Unknown: Yes Mother History Unknown: Yes Brother(s) History Unknown: Yes Sister(s) History Unknown: Yes Son(s) Family Medical History: No Reported History General Exam - General Exam Comments Initial Comments: Is a well-developed well-nourished awake alert oriented 3 female Limitations: no limitations General appearance: alert, anxious, in distress Head exam: Present: atraumatic, normocephalic, normal inspection Eye exam: Present: normal appearance, PERRL, EOMI. Absent: scleral icterus, conjunctival injection, periorbital swelling ENT exam: Present: mucous membranes dry Neck exam: Present: normal inspection. Absent: tenderness, meningismus, lymphadenopathy Respiratory exam: Present: decreased breath sounds. Absent: respiratory distress, wheezes, rales, rhonchi, stridor Cardiovascular Exam: Present: normal rhythm, tachycardia, normal heart sounds. Absent: systolic murmur, diastolic murmur, rubs, gallop, clicks GI/Abdominal exam: Present: soft, tenderness, normal bowel sounds. Absent: distended, guarding, rebound, rigid, bruit, pulsatile mass, hernia Rectal exam: Present: deferred Extremities exam: Present: normal inspection, full ROM, normal capillary refill. Absent: tenderness, pedal edema, joint swelling, calf tenderness Back exam: Present: normal inspection Neurological exam: Present: alert, oriented X3, CN II-XII intact Psychiatric exam: Present: normal affect, normal mood Skin exam: Present: warm, dry, intact, normal color. Absent: rash Course Vital Signs 04/19/18 04/19/18 11:15 13:06 Temperature 98.7 F 98.7 F Pulse Rate 116 H 92 Respiratory 18 18 Rate Blood Pressure 124/87 120/71 O2 Sat by Pulse 95 96 Oximetry Medical Decision Making - Medical Decision Making Patient showing much improved after the treatment that was rendered she does desire to go home she'll be discharged to follow-up with her doctor. - Lab Data Result diagrams: 04/19/18 11:55 04/19/18 11:55 Lab Results 04/19/18 04/19/18 04/19/18 Range/Units 11:55 11:55 11:55 WBC 13.3 H (3.8-10.6) k/uL RBC 4.83 (3.80-5.40) m/uL Hgb 15.4 (11.4-16.0) gm/dL Hct 46.0 (34.0-46.0) % MCV 95.3 (80.0-100.0) fL MCH 31.8 (25.0-35.0) pg MCHC 33.4 (31.0-37.0) g/dL RDW 12.9 (11.5-15.5) % Plt Count 259 (150-450) k/uL Neutrophils % 80 % Lymphocytes % 12 % Monocytes % 5 % Eosinophils % 1 % Basophils % 0 % Neutrophils # 10.6 H (1.3-7.7) k/uL Lymphocytes # 1.6 (1.0-4.8) k/uL Monocytes # 0.7 (0-1.0) k/uL Eosinophils # 0.2 (0-0.7) k/uL Basophils # 0.1 (0-0.2) k/uL Sodium 141 (137-145) mmol/L Potassium 4.5 (3.5-5.1) mmol/L Chloride 106 (98-107) mmol/L Carbon Dioxide 26 (22-30) mmol/L Anion Gap 9 mmol/L BUN 17 (7-17) mg/dL Creatinine 0.75 (0.52-1.04) mg/dL Est GFR (CKD-EPI)AfAm >90 (>60 ml/min/1.73 sqM) Est GFR (CKD-EPI)NonAf 88 (>60 ml/min/1.73 sqM) Glucose 96 (74-99) mg/dL Calcium 9.5 (8.4-10.2) mg/dL Magnesium 1.7 (1.6-2.3) mg/dL Total Bilirubin 0.3 (0.2-1.3) mg/dL AST 15 (14-36) U/L ALT 21 (9-52) U/L Alkaline Phosphatase 103 (38-126) U/L Total Creatine Kinase 32 (30-135) U/L CK-MB (CK-2) <0.2 (0.0-2.4) ng/mL CK-MB (CK-2) Rel Index Troponin I <0.012 (0.000-0.034) ng/mL Total Protein 6.8 (6.3-8.2) g/dL Albumin 3.7 (3.5-5.0) g/dL Amylase 96 (30-110) U/L Lipase 125 (23-300) U/L Urine Color Urine Appearance (Clear) Urine pH (5.0-8.0) Ur Specific [place] (1.001-1.035) Urine Protein (Negative) Urine Glucose (UA) (Negative) Urine Ketones (Negative) Urine Blood (Negative) Urine Nitrite (Negative) Urine Bilirubin (Negative) Urine Urobilinogen (<2.0) mg/dL Ur Leukocyte Esterase (Negative) Urine RBC (0-5) /hpf Urine WBC (0-5) /hpf Ur Squamous Epith Cells (0-4) /hpf Urine Mucus (None) /hpf 04/19/ Range/Units 12:40 WBC (3.8-10.6) k/uL RBC (3.80-5.40) m/uL Hgb (11.4-16.0) gm/dL Hct (34.0-46.0) % MCV (80.0-100.0) fL MCH (25.0-35.0) pg MCHC (31.0-37.0) g/dL RDW (11.5-15.5) % Plt Count (150-450) k/uL Neutrophils % % Lymphocytes % % Monocytes % % Eosinophils % % Basophils % % Neutrophils # (1.3-7.7) k/uL Lymphocytes # (1.0-4.8) k/uL Monocytes # (0-1.0) k/uL Eosinophils # (0-0.7) k/uL Basophils # (0-0.2) k/uL Sodium (137-145) mmol/L Potassium (3.5-5.1) mmol/L Chloride (98-107) mmol/L Carbon Dioxide (22-30) mmol/L Anion Gap mmol/L BUN (7-17) mg/dL Creatinine (0.52-1.04) mg/dL Est GFR (CKD-EPI)AfAm (>60 ml/min/1.73 sqM) Est GFR (CKD-EPI)NonAf (>60 ml/min/1.73 sqM) Glucose (74-99) mg/dL Calcium (8.4-10.2) mg/dL Magnesium (1.6-2.3) mg/dL Total Bilirubin (0.2-1.3) mg/dL AST (14-36) U/L ALT (9-52) U/L Alkaline Phosphatase (38-126) U/L Total Creatine Kinase (30-135) U/L CK-MB (CK-2) (0.0-2.4) ng/mL CK-MB (CK-2) Rel Index Troponin I (0.000-0.034) ng/mL Total Protein (6.3-8.2) g/dL Albumin (3.5-5.0) g/dL Amylase (30-110) U/L Lipase (23-300) U/L Urine Color Light Yellow Urine Appearance Clear (Clear) Urine pH 6.5 (5.0-8.0) Ur Specific [place] 1.007 (1.001-1.035) Urine Protein Negative (Negative) Urine Glucose (UA) Negative (Negative) Urine Ketones Negative (Negative) Urine Blood Negative (Negative) Urine Nitrite Negative (Negative) Urine Bilirubin Negative (Negative) Urine Urobilinogen <2.0 (<2.0) mg/dL Ur Leukocyte Esterase Moderate H (Negative) Urine RBC 2 (0-5) /hpf Urine WBC 6 H (0-5) /hpf Ur Squamous Epith Cells <1 (0-4) /hpf Urine Mucus Rare H (None) /hpf - Radiology Data Radiology results: report reviewed (I did review the imaging and report no acute findings. There is a persistent upper lobe finding is been in the past), image reviewed Disposition Clinical Impression: Gastroenteritis, Dehydration, Abdominal pain Disposition: HOME SELF-CARE Condition: Good Instructions: Dehydration (ED), Acute Nausea and Vomiting (ED), Acute Diarrhea (ED) Prescriptions: Dicyclomine [Bentyl] 10 mg PO TID #10 capsule Is patient prescribed a controlled substance at d/c from ED?: No Referrals: [facility] [Primary Care Provider] - 1-2 days
--- NOTE | 2018-04-19 12:19 | XR ---
EXAMINATION TYPE: XR chest 2V DATE OF EXAM: 04/19/2018 HISTORY: cough. REFERENCE: Previous study dated 04/06/2018. FINDINGS: There is a persistent density in the right upper lobe. The left lung is clear. Pleural spac es are clear. IMPRESSION: PERSISTENT RIGHT UPPER LOBE DENSITY. THIS DOES NOT RESOLVE QUICKLY, A CT SCAN OF THE CHEST ARE BRONCH OSCOPY WOULD BE SUGGESTED.
--- NOTE | 2018-04-19 12:20 | XR ---
EXAMINATION TYPE: XR KUB , 2 VIEWS DATE OF EXAM ORDERED: 04/19/2018 HISTORY: pain. COMPARISON: Previous study dated 02/19/2018. FINDINGS: Lung bases are clear. The abdomen, the gallbladder is been removed. The abdominal gas pattern is within normal limits. Ther e is no evidence of obstruction or free air. There are phleboliths in the right hemipelvis. IMPRESSION: NO ACUTE INTRA-ABDOMINAL ABNORMALITY.
[2018-04-19 12:21] LABS: Basophils # (A) 0.1 k/uL (0-0.2); Basophils % (A) 0 %; Eosinophils # (A) 0.2 k/uL (0-0.7); Eosinophils % (A) 1 %; HGB 15.4 gm/dL (11.4-16.0); Lymphocytes # (A) 1.6 k/uL (1.0-4.8); Lymphocytes % (A) 12 %; MCH 31.8 pg (25.0-35.0); MCHC 33.4 g/dL (31.0-37.0); MCV 95.3 fL (80.0-100.0); Mean Platelet Volume 6.9; Monocytes # (A) 0.7 k/uL (0-1.0); Monocytes % (A) 5 %; Neutrophils # (A) 10.6 k/uL (1.3-7.7); Neutrophils % (A) 80 %; Platelet Count 259 k/uL (150-450); RBC 4.83 m/uL (3.80-5.40); RDW 12.9 % (11.5-15.5); WBC 13.3 k/uL (3.8-10.6)
[2018-04-19 12:31] LABS: ALT 21 U/L (9-52); AST 15 U/L (14-36); Albumin 3.7 g/dL (3.5-5.0); Alkaline Phosphatase 103 U/L (38-126); Amylase 96 U/L (30-110); Anion Gap 9 mmol/L; Blood Urea Nitrogen 17 mg/dL (7-17); Calcium 9.5 mg/dL (8.4-10.2); Carbon Dioxide 26 mmol/L (22-30); Chloride 106 mmol/L (98-107); Glucose 96 mg/dL (74-99); Lipase 125 U/L (23-300); Magnesium 1.7 mg/dL (1.6-2.3); Potassium 4.5 mmol/L (3.5-5.1); Sodium 141 mmol/L (137-145); Total Bilirubin 0.3 mg/dL (0.2-1.3); Total Protein 6.8 g/dL (6.3-8.2)
[2018-04-19 12:45] LABS: Creatine Kinase 32 U/L (30-135)
[2018-04-19 12:55] LABS: Appearance,Urine Clear (Clear); Bilirubin,Urine Negative (Negative); Blood,Urine Negative (Negative); Color,Urine Light Yellow; Glucose,Urine (UA) Negative (Negative); Ketones,Urine Negative (Negative); Leukocyte Esterase,Urine Moderate (Negative); Mucus,Urine Rare /hpf; Nitrite,Urine Negative (Negative); PH, Urine 6.5 (5.0-8.0); Protein,Urine Negative (Negative); RBC,Urine 2 /hpf (0-5); Specific Gravity,Urine 1.007 (1.001-1.035); Squamous Epithelial Cell,Urine <1 /hpf (0-4); Urobilinogen,Urine <2.0 mg/dL (<2.0); WBC,Urine 6 /hpf (0-5)
[2018-04-19 12:57] LABS: Creatine Kinase MB <0.2 ng/mL (0.0-2.4); Troponin I <0.012 ng/mL (0.000-0.034)
[2018-04-19 13:07] VITALS: BP 120/71; PULSE 92
== END 2018-04-19 13:26 | disposition home or self-care (01) ==
LOC: EC 11:06
DX: K52.9 Noninfective gastroenteritis and colitis, unspecified (principal); E86.0 Dehydration; I25.10 Atherosclerotic heart disease of native coronary artery without angina pectoris; J44.9 Chronic obstructive pulmonary disease, unspecified; F41.9 Anxiety disorder, unspecified; F31.9 Bipolar disorder, unspecified; F17.200 Nicotine dependence, unspecified, uncomplicated; Z79.82 Long term (current) use of aspirin; Z79.899 Other long term (current) drug therapy; Z79.02 Long term (current) use of antithrombotics/antiplatelets; Z79.51 Long term (current) use of inhaled steroids; Z86.79 Personal history of other diseases of the circulatory system; Z90.49 Acquired absence of other specified parts of digestive tract; Z95.5 Presence of coronary angioplasty implant and graft
CPT/HCPCS: 99284; 96374; 96361 ×2; 36415; 80053; 82150; 82550; 82553; 83690; 83735; 84484; 85025; 81001; 71046; 74018; J2405

== ENCOUNTER 2018-07-28 02:23 | Observation (INO) | payer OTHER ==
[2018-07-28] MEDS ORDERED: MORPHINE SULFATE 2 MG/ML SYRINGE IVP STA (02:47)
[2018-07-28] MEDS ORDERED: ONDANSETRON 4 MG/2 ML VIAL IVP STA (02:47)
[2018-07-28] MEDS ORDERED: FAMOTIDINE 20 MG/2 ML VIAL IV STA (02:49)
[2018-07-28 03:10] LABS: INR 0.9 (<1.2); Partial Thromboplastin Time 24.6 sec (22.0-30.0); Prothrombin Time 9.9 sec (9.0-12.0)
[2018-07-28 03:11] LABS: ALT 54 U/L (9-52); AST 49 U/L (14-36); Albumin 3.5 g/dL (3.5-5.0); Alcohol <10 mg/dL; Alkaline Phosphatase 108 U/L (38-126); Amylase 58 U/L (30-110); Anion Gap 6 mmol/L; Basophils # (A) 0.1 k/uL (0-0.2); Basophils % (A) 1 %; Blood Urea Nitrogen 20 mg/dL (7-17); Calcium 9.3 mg/dL (8.4-10.2); Carbon Dioxide 23 mmol/L (22-30); Chloride 110 mmol/L (98-107); Eosinophils # (A) 0.5 k/uL (0-0.7); Eosinophils % (A) 5 %; Glucose 115 mg/dL (74-99); HCT 42.6 % (34.0-46.0); HGB 13.8 gm/dL (11.4-16.0); Lipase 65 U/L (23-300); Lymphocytes # (A) 2.1 k/uL (1.0-4.8); Lymphocytes % (A) 20 %; MCH 31.2 pg (25.0-35.0); MCHC 32.4 g/dL (31.0-37.0); MCV 96.5 fL (80.0-100.0); Magnesium 1.9 mg/dL (1.6-2.3); Mean Platelet Volume 6.9; Monocytes # (A) 0.7 k/uL (0-1.0); Monocytes % (A) 6 %; Neutrophils # (A) 6.9 k/uL (1.3-7.7); Neutrophils % (A) 66 %; Platelet Count 306 k/uL (150-450); Potassium 4.3 mmol/L (3.5-5.1); RBC 4.41 m/uL (3.80-5.40); RDW 13.3 % (11.5-15.5); Sodium 139 mmol/L (137-145); Total Bilirubin 0.5 mg/dL (0.2-1.3); WBC 10.5 k/uL (3.8-10.6)
--- NOTE | 2018-07-28 03:12 | ED ---
Chest Pain HPI - General Chief Complaint: Chest Pain Stated Complaint: Chest Pain Time Seen by Provider: 07/28/18 02:41 Source: patient Mode of arrival: ambulatory Limitations: no limitations - History of Present Illness Initial Comments: 58-year-old female patient with past medical history significant for hyperlipidemia, cigarette use, and daily alcohol use, presents to the emergency department today for evaluation of burning midepigastric pain radiating to her chest. Patient states this started around midnight. Patient states that the pain causes her to have shortness of breath. Denies any sweats. Patient denies any radiation of the pain to her back. Patient denies any nausea or vomiting. Denies any fevers or chills with this. Patient denies any recent rash, diarrhea, constipation, back pain, numbness, tingling, dizziness, weakness, hematuria, dysuria, urinary urgency, urinary frequency, headache, visual changes, or any other complaints. - Related Data Home Medications Medication Instructions Recorded Confirmed Atorvastatin [Lipitor] 80 mg PO HS 01/18/17 04/19/18 Clopidogrel Bisulfate [Plavix] 75 mg PO DAILY 01/18/17 04/19/18 Benztropine Mesylate [Cogentin] 2 mg PO TID 10/30/17 04/19/18 Cholecalciferol [Vitamin D3] 5,000 unit PO MOWEFR 10/30/17 04/19/18 Desvenlafaxine [Pristiq ER] 100 mg PO DAILY 10/30/17 04/19/18 Docusate [Colace] 100 mg PO DAILY 10/30/17 04/19/18 Fluticasone Nasal [place] [Flonase 1 spr EA NOSTRIL DAILY 10/30/17 04/19/18 Nasal [place]] Omeprazole [PriLOSEC] 20 mg PO DAILY 10/30/17 04/19/18 Budesonide [Pulmicort Flexhaler] 2 puff INHALATION RT-BID 12/31/17 04/19/18 Nicotine 21Mg/24Hr Patch [Habitrol 21 mg TRANSDERM DAILY 12/31/17 04/19/18 21Mg/24Hr Patch] OLANZapine [ZyPREXA] 20 mg PO HS 12/31/17 04/19/18 Aspirin EC [Ecotrin Low Dose] 81 mg PO DAILY 02/11/18 04/19/18 Albuterol Sulfate [Proair 2 puff INHALATION RT-Q6H PRN 02/19/18 04/19/18 Respiclick] [place] Carbonate 300 mg PO HS 04/06/18 04/19/18 Previous Rx's Medication Instructions Recorded Dicyclomine [Bentyl] 10 mg PO TID #10 capsule 04/19/18 Allergies Allergy/AdvReac Type Severity Reaction Status Date / Time No Known Allergies Allergy Verified 07/28/18 02:30 Review of Systems ROS Statement: Those systems with pertinent positive or pertinent negative responses have been documented in the HPI. ROS Other: All systems not noted in ROS Statement are negative. EKG Findings - EKG Comments: EKG Findings:: EKG obtained at 0238 shows normal sinus rhythm with a ventricular rate of 64, TX interval 172, QRS duration 88, QT 428, QTC 441. No evidence of ST elevation or depression. Past Medical History Past Medical History: Coronary Artery Disease (CAD), COPD Additional Past Medical History / Comment(s): hepatitis c History of Any Multi-Drug Resistant Organisms: None Reported Past Surgical History: Cholecystectomy, Tubal Ligation Additional Past Surgical History / Comment(s): Aortic bypass with stents placed in femoral arteries Past Anesthesia/Blood Transfusion Reactions: No Reported Reaction Past Psychological History: Anxiety, Bipolar, Depression Smoking Status: Current every day smoker Past Alcohol Use History: Daily, Occasional Past Drug Use History: Marijuana - Past Family History Father History Unknown: Yes Mother History Unknown: Yes Brother(s) History Unknown: Yes Sister(s) History Unknown: Yes Son(s) Family Medical History: No Reported History General Exam Limitations: no limitations General appearance: alert, in no apparent distress, other (Physical well- developed, well-nourished adult female patient in no acute distress. Vital signs upon presentation are temperature 97.8F, pulse 78, respirations 18, blood pressure 115/74, pulse ox 98% on room air) Eye exam: Present: normal appearance, PERRL, EOMI. Absent: scleral icterus, conjunctival injection, periorbital swelling ENT exam: Present: normal exam, normal oropharynx, mucous membranes moist Respiratory exam: Present: normal lung sounds bilaterally. Absent: respiratory distress, wheezes, rales, rhonchi, stridor Cardiovascular Exam: Present: regular rate, normal rhythm, normal heart sounds. Absent: systolic murmur, diastolic murmur, rubs, gallop, clicks GI/Abdominal exam: Present: soft, tenderness (Midepigastric tenderness), normal bowel sounds. Absent: distended, guarding, rebound, rigid Neurological exam: Present: alert, oriented X3, CN II-XII intact Psychiatric exam: Present: normal affect, normal mood Skin exam: Present: warm, dry, intact, normal color. Absent: rash Course Vital Signs 07/28/18 02:26 Temperature 97.8 F Pulse Rate 78 Respiratory 18 Rate Blood Pressure 115/74 O2 Sat by Pulse 98 Oximetry Chest Pain MDM - MDM RADIOLOGY:Two-view x-ray of the chest is obtained. Report was reviewed in its entirety. Impression by Dr. Castillo shows redemonstration of linear opacity in the right upper lobe, possibly representing a chronic process. Correlation with chest CT is recommended. No pleural effusion. Heart size is normal. MDM: 58-year-old female patient presents to the emergency department today for evaluation of burning midepigastric pain that radiates and through to the chest. Physical examination did reveal some midepigastric tenderness. Labs reviewed and were unremarkable. Initial troponin negative. Chest x-ray showed no acute cardiopulmonary process. Did discuss findings and results with the patient. Given history and risk factors will admit to the hospital for repeat troponins and cardiology consultation. Patient verbalizes understanding and agrees with this plan. Disposition Clinical Impression: Chest pain Disposition: ADMITTED IP TO THIS [facility] Condition: Serious Referrals: [facility] [Primary Care Provider] - 1-2 days Decision to Admit Reason: Admit from EC Decision Date: 07/28/18 Decision Time: 03:57
--- NOTE | 2018-07-28 03:31 | XR ---
EXAM: XR Chest, 2 Views CLINICAL HISTORY: ITS.REASON XR Reason: Chest Pain TECHNIQUE: Frontal and lateral views of the chest. COMPARISON: 04/19/18 chest x-ray IMPRESSION: Redemonstration of linear opacity in the right upper lobe, possibly representing a chronic process. Correlation with chest CT is recommended on a nonemergent basis for better characterization. No pleural effusion. Normal heart size.
[2018-07-28] MEDS ORDERED: NALOXONE 0.4 MG/ML 1 ML VIAL IV PRN (03:51)
[2018-07-28] MEDS ORDERED: MORPHINE SULFATE 4 MG/ML SYRINGE IVP PRN (03:53)
[2018-07-28] MEDS ORDERED: ASPIRIN 325 MG TAB PO STA (03:53)
[2018-07-28] MEDS ORDERED: ONDANSETRON 4 MG/2 ML VIAL IVP PRN (03:54)
[2018-07-28] MEDS ORDERED: ASPIRIN 325 MG TAB PO SCH (09:00)
[2018-07-28 09:53] VITALS: BMI 22.0
--- NOTE | 2018-07-28 11:32 | P.CRDCN ---
History of Present Illness History of present illness: This is a pleasant 58-year-old female past medical history significant peripheral vascular disease status post aortic bypass with stent placement last year at [facility] maintained on dual antiplatelet therapy, COPD, dyslipidemia, anxiety, bipolar, chronic nicotine dependence, regular crack cocaine use and regular alcohol intake. She denies history of coronary artery disease and states she has never had a heart catheterization in the past. She recently underwent dobutamine stress echocardiogram in April of this year which was negative for stress-induced ischemia. We have been asked to see her in consultation for symptoms of chest discomfort. She does not follow regularly with orthopaedic surgeon. She states she woke up last night with an intense burning sensation in her abdomen and epigastric region. This was not associated with shortness of breath, dizziness, nausea, vomiting or diaphoresis. There is no radiation to the back, neck, jaw or arms. This pain is not reproducible on palpation however she continues to have it at the time of my exam. EKG reveals sinus mechanism with no acute ST or T wave abnormalities noted. Chest x-ray reveals a linear opacity in the right upper lobe with no pleural effusions or infiltrates noted. Laboratory data reviewed, cardiac enzymes negative 2, WBC 10.5, hemoglobin 13.8, platelets 306, sodium 139, potassium 4.3, creatinine 0.65, AST 49, ALT 54. Current cardiac medications include aspirin 81 mg daily, Plavix 75 mg daily and atorvastatin 80 mg daily. Most recent echocardiogram obtained April 2018 reveals preserved left ventricular systolic function with ejection fraction 55-60%. At the time of my exam: CONSTITUTIONAL: Denies fever. Denies chills. EYES: Denies blurred vision. Denies vision changes. Denies eye pain. EARS, NOSE, MOUTH & THROAT: Denies headache. Denies sore throat. Denies ear pain. CARDIOVASCULAR: Denies chest pain. Denies shortness of breath. Denies orthopnea. Denies PND. Denies palpitations. RESPIRATORY: Denies cough. GASTROINTESTINAL: Complains of abdominal pain and epigastric burning. Denies diarrhea. Denies constipation. Denies nausea. Denies vomiting. MUSCULOSKELETAL: Denies myalgias. INTEGUMENTARY: Denies pruitis. Denies rash. NEUROLOGIC: Denies numbness. Denies tingling. Denies weakness. PSYCHIATRIC: Denies anxiety. Denies depression. ENDOCRINE: Denies fatigue. Denies weight change. Denies polydipsia. Denies polyurina. GENITOURINARY: Denies burning, hematuria or urgency with micturation. HEMATOLOGIC: Denies history of anemia. Denies bleeding. Blood pressure 124/94 heart rate 64 afebrile maintaining oxygen saturation on room air GENERAL: This is a 58-year-old female in no apparent distress at the time of my examination. HEENT: Head is atraumatic, normocephalic. Pupils are equal, round. Sclerae anicteric. Conjunctivae are clear. Mucous membranes of the mouth are moist. Neck is supple. There is no jugular venous distention. No carotid bruit is heard. LUNGS: Clear to auscultation no wheezes, rales or rhonchi. No chest wall tenderness is noted on palpation or with deep breathing. HEART: Regular rate and rhythm without murmurs, rubs or gallops. S1 and S2 heard. ABDOMEN: Soft, nontender. Bowel sounds are heard. No organomegaly noted. EXTREMITIES: No evidence of peripheral edema and no calf tenderness noted. VASCULAR: Radial and dorsalis pedis pulses palpated, no evidence of clubbing. NEUROLOGIC: Patient is awake, alert and oriented x3. ASSESSMENT Epigastric and abdominal discomfort. Atypical for angina. No EKG evidence of ischemia. Continue to obtain serial cardiac enzymes to rule out an acute coronary event. Recommend further evaluation by GI service. Peripheral vascular disease status post aortic bypass stent last year at [facility], maintained on dual antiplatelet therapy Dyslipidemia PLAN Continue to obtain serial cardiac enzymes to rule out an acute coronary event. Symptoms are not suggestive of angina, although it is likely she has underlying coronary artery disease. Obtain CT abdomen/pelvis for further evaluation of abdominal discomfort. Recommend further evaluation by surgery or GI service. If an acute event has been ruled out she is stable from a cardiac perspective and will require no further inpatient work-up. Thank you kindly for this consultation. Nurse Practitioner note has been reviewed, I agree with a documented findings and plan of care. Patient was seen and examined. Past Medical History Past Medical History: Asthma, Coronary Artery Disease (CAD), COPD, GERD/Reflux, Hyperlipidemia, Liver Disease, Vascular Disorder Additional Past Medical History / Comment(s): Bronchitis, seasonal allergies, sinus problems, hepatitis C, migraines, occasional bilateral tinnitis, UTIs, PVD, past R wrist fx, past L clavicle fx, numbness/tingling R hand and legs. History of Any Multi-Drug Resistant Organisms: None Reported Past Surgical History: Cholecystectomy, Tubal Ligation Additional Past Surgical History / Comment(s): Aortic bypass with stents placed in bilateral femoral arteries, D&C Past Anesthesia/Blood Transfusion Reactions: No Reported Reaction Smoking Status: Current every day smoker - Past Family History Father History Unknown: Yes Family Medical History: CVA/TIA Additional Family Medical History / Comment(s): Father had a CVA. He is Mother History Unknown: Yes Family Medical History: No Reported History Additional Family Medical History / Comment(s): Mother was healthy. She is . Brother(s) History Unknown: Yes Sister(s) History Unknown: Yes Son(s) Family Medical History: No Reported History Medications and Allergies Home Medications Medication Instructions Recorded Confirmed Type Atorvastatin [Lipitor] 80 mg PO HS 01/18/17 07/28/18 History Clopidogrel Bisulfate [Plavix] 75 mg PO DAILY 01/18/17 07/28/18 History Benztropine Mesylate [Cogentin] 2 mg PO TID 10/30/17 07/28/18 History Cholecalciferol [Vitamin D3] 5,000 unit PO MOWEFR 10/30/17 07/28/18 History Desvenlafaxine [Pristiq ER] 100 mg PO DAILY 10/30/17 07/28/18 History Docusate [Colace] 100 mg PO DAILY 10/30/17 07/28/18 History Omeprazole [PriLOSEC] 20 mg PO DAILY 10/30/17 07/28/18 History Budesonide [Pulmicort Flexhaler] 2 puff INHALATION RT-BID 12/31/17 07/28/18 History OLANZapine [ZyPREXA] 20 mg PO HS 12/31/17 07/28/18 History Aspirin EC [Ecotrin Low Dose] 81 mg PO DAILY 02/11/18 07/28/18 History [place] Carbonate 300 mg PO HS 04/06/18 07/28/18 History Albuterol Inhaler [Ventolin Hfa 1 - 2 puff INHALATION RT-Q6H PRN 07/28/18 0 07/28/18 History Inhaler] Allergies Allergy/AdvReac Type Severity Reaction Status Date / Time No Known Allergies Allergy Verified 07/28/18 06:53 Physical Exam Vitals: Vital Signs Temp Pulse Pulse Resp BP Pulse Ox 07/28/18 11:08 98.3 F 64 18 124/94 96 07/28/18 08:57 61 18 132/98 98 07/28/18 04:44 98.0 F 60 19 111/56 97 07/28/18 04:15 87 07/28/18 02:26 97.8 F 78 18 115/74 98 Intake and Output 07/27/18 07/28/18 07/28/18 22:59 06:59 14:59 Other: Weight 60.146 kg Results 07/28/18 02:42 07/28/18 02:42 Cardiac Enzymes 07/28/18 07/28/18 07/28/18 Range/Units 02:42 02:42 08:49 AST 49 H (14-36) U/L Troponin I <0.012 <0.012 (0.000-0.034) ng/mL Coagulation 07/28/18 Range/Units 02:42 PT 9.9 (9.0-12.0) sec APTT 24.6 (22.0-30.0) sec CBC 07/28/18 Range/Units 02:42 WBC 10.5 (3.8-10.6) k/uL RBC 4.41 (3.80-5.40) m/uL Hgb 13.8 (11.4-16.0) gm/dL Hct 42.6 (34.0-46.0) % Plt Count 306 (150-450) k/uL Comprehensive Metabolic Panel 07/28/18 Range/Units 02:42 Sodium 139 (137-145) mmol/L Potassium 4.3 (3.5-5.1) mmol/L Chloride 110 H (98-107) mmol/L Carbon Dioxide 23 (22-30) mmol/L BUN 20 H (7-17) mg/dL Creatinine 0.65 (0.52-1.04) mg/dL Glucose 115 H (74-99) mg/dL Calcium 9.3 (8.4-10.2) mg/dL AST 49 H (14-36) U/L ALT 54 H (9-52) U/L Alkaline Phosphatase 108 (38-126) U/L Total Protein 6.0 L (6.3-8.2) g/dL Albumin 3.5 (3.5-5.0) g/dL Current Medications Generic Name Dose Route Start Last Admin Trade Name Freq PRN Reason Stop Dose Admin Aspirin 325 mg 07/28/18 09:00 07/28/18 08:55 Aspirin PO Not Given DAILY MAICOL Morphine Sulfate 4 mg 07/28/18 03:53 Morphine Sulfate (Inj) IVP Q4HR PRN Pain Naloxone HCl 0.2 mg 07/28/18 03:51 Narcan IV Q2M PRN Opioid Reversal Ondansetron HCl 4 mg 07/28/18 03:54 Zofran IVP Q6HR PRN Nausea And Vomiting Intake and Output 07/27/18 07/28/18 07/28/18 22:59 06:59 14:59 Other: Weight 60.146 kg 07/28/18 02:42 07/28/18 02:42
--- NOTE | 2018-07-28 12:00 | CT ---
EXAMINATION TYPE: CT abdomen w con DATE OF EXAM: 07/28/2018 COMPARISON: 02/19/2018 HISTORY: Upper Abdominal pain CT DLP: 485.1 mGycm CONTRAST: CT scan of the abdomen is performed without Oral Contrast and with IV Contrast, patient injected wit h 100 mL of Isovue 300. FINDINGS: LUNG BASES-: No visible nodule. No infiltrate. LIVER/GB: Cholecystectomy clips are in place. No space occupying hepatic lesion. Biliary tree is o f normal caliber. PANCREAS: No inflammation. No distinct mass. SPLEEN: No splenic enlargement. No lesion seen. ADRENALS: Stable adrenal nodularity and thickening of the adrenal glands. KIDNEYS/BLADDER: No hydronephrosis. No nephrolithiasis. No distinct renal mass. Urinary bladder g rossly unremarkable. BOWEL: Normal appendix. Normal bowel caliber. No inflammation. LYMPH NODES: No greater than 1cm abdominal or pelvic lymph nodes are appreciated. AORTA: Atheromatous changes abdominal aorta and iliac vessels. OSSEOUS STRUCTURES: No significant abnormality is seen. OTHER: No significant additional abnormality is seen. IMPRESSION: 1. No acute process to account for the patient's symptoms. 2. Persistent adrenal nodularity and thickening.
[2018-07-28] MEDS ORDERED: NON-FORMULARY DRUG (Aspirin Ec 81 MG) PO SCH (12:45)
[2018-07-28] MEDS: FLUTICASONE 110 MCG INHALER INHALATION SCH ×2 (13:39→19:06)
--- NOTE | 2018-07-28 14:04 | HP ---
HISTORY AND PHYSICAL DATE OF ADMISSION: 07/28/2018 DATE OF SERVICE: 07/28/2018 PRESENTING COMPLAINT: Chest burning. HISTORY OF PRESENTING COMPLAINT: This is a 58-year-old patient who follows at the [facility]. Chronic stable medical conditions include COPD, GERD, hyperlipidemia, hepatitis C, has peripheral artery disease with aortic bypass in both legs with stent, bipolar disorder. The patient has noticed upper chest burning sensation this morning, did not radiate to the arm or neck, just presence of burning. Patient is still a bit dizzy. No short of breath. No perspiration. Was admitted to rule out a cardiac presentation. Patient states she has coronary artery disease. Details are not known. Patient also very anxious and restless. Patient is a smoker and does recreational drugs. Urine drug screen was positive for several things. Patient denied the same earlier then did say that she was doing cocaine and marijuana and also smokes cigarettes. REVIEW OF SYSTEMS: CONSTITUTIONAL: Tired. HEENT: None. RESPIRATORY: Occasional wheezing. CARDIOVASCULAR: As above. GASTROINTESTINAL: Heartburn. GENITOURINARY: None. MUSCULOSKELETAL: None. DERMATOLOGICAL: None. HEMATOLOGICAL: None. LYMPHATIC: None. Psychiatry: Uncontrolled anxiety. NEUROLOGICAL: Restless. PAST MEDICAL HISTORY: Coronary artery disease, COPD, GERD, hyperlipidemia, hepatitis C, seasonal allergies, bilateral tinnitus, left clavicle fracture, numbness and tingling in the right hand and leg. PAST SURGICAL HISTORY: Cholecystectomy, aortic bypass with stent, bilateral femoral arteries. PSYCH HISTORY: Bipolar disorder. SOCIAL HISTORY: Smoked a pack a day for 48 years, does marijuana, cocaine, alcohol occasionally, lives with a person. She does not does not remember the name. FAMILY HISTORY: Father had a stroke. HOME MEDICATIONS: 1. Prilosec 20 mg a day. 2. Zyprexa 20 mg q.h.s. 3. [place] 300 mg q.h.s. 4. Colace 100 mg p.o. daily. 5. Pristiq ER 100 mg p.o. daily. 6. Plavix 75 mg p.o. daily. 7. Vitamin D3 five hundred units p.o. Friday, Friday, Friday. 8. Pulmicort 2 puffs b.i.d. 9. Cogentin 2 mg t.i.d. 10.Lipitor 80 mg q.h.s. 11.Aspirin 81 mg p.o. daily. 12.Ventolin HFA 1 or 2 puffs q.6 p.r.n. ALLERGIES: None. PHYSICAL EXAMINATION: Temperature 97.8, pulse 78, respiration 18, blood pressure 115/74,. pulse ox 98% on room air. GENERAL APPEARANCE: Average build, lying in bed, somewhat restless, anxious. EYES: Pupils equal, conjunctivae normal. HEENT: External appearance of nose and ears normal. Oral cavity normal. NECK: JVD not raised. Mass not palpable. RESPIRATORY: Effort normal. LUNGS: Decreased breath sounds, mild wheezing. CARDIOVASCULAR: First and second sounds are normal. No edema. ABDOMEN: Soft, nontender. Liver and spleen not palpable. LYMPHATIC: No lymph node palpable. PSYCHIATRY: Alert and oriented x3. Mood and affect anxious-appearing. NEUROLOGICAL: Pupils equal, grossly intact. Power and sensation grossly intact. Patient is restless, moving about. INVESTIGATIONS: White count 10.5, hemoglobin 13.8 potassium 4.3, BUN 20, creatinine 0.65. Troponin x2 negative. Serum alcohol less than 10. CT scan of the abdomen unremarkable. EKG tracing personally reviewed by me shows normal sinus rhythm. Chest x-ray reviewed by me shows a new opacity in the right upper lobe, possibly a chronic finding. This was present previously too. ASSESSMENT: 1. Patient presented with upper chest burning sensation. This could be unstable angina equivalent. Given her risk factors and the patient having significant vasculopathy including peripheral artery disease, aortic bypass and coronary artery disease, and patient has continued to smoke. 2. Gastroesophageal reflux disease. 3. Hyperlipidemia. 4. Hepatitis C. 5. Peripheral artery disease. 6. Bipolar disorder with uncontrolled anxiety. 7. Chronic obstructive pulmonary disease in a current smoker. 8. Chronic nicotine dependence, patient is a cigarette smoker. 9. Recreational marijuana use. 10.Recreational cocaine use. PLAN: Cardiology was consulted. Will also consult Psychiatry. Will get a lithium level 2. Will give the patient a nicotine patch, home medications are resumed. The patient is on aspirin, Lipitor. MMODL / IJN: [id number] /
[2018-07-28] MEDS: NICOTINE 21MG/24HR PATCH TRANSDERM SCH (14:08)
[2018-07-28] MEDS: CLOPIDOGREL 75 MG TAB PO SCH (14:08)
[2018-07-28] MEDS: BENZTROPINE MESYLATE 1 MG TAB PO SCH ×2 (14:09→21:24)
[2018-07-28] MEDS: DESVENLAFAXINE SUCCINATE 50 MG TAB.ER.24H PO SCH (14:09)
[2018-07-28] MEDS: PANTOPRAZOLE 40 MG TABLET PO SCH (14:09)
[2018-07-28] MEDS: IPRATROPIUM-ALBUTEROL 3 ML NEB INHALATION SCH ×2 (15:32→19:06)
[2018-07-28] MEDS ORDERED: ATORVASTATIN 80 MG TAB PO SCH (21:00)
[2018-07-28] MEDS ORDERED: OLANZapine 10 MG TAB PO SCH (21:00)
[2018-07-28] MEDS ORDERED: LITHIUM CARBONATE 150 MG CAP PO SCH (21:00)
[2018-07-29] MEDS: FLUTICASONE 110 MCG INHALER INHALATION SCH (05:28)
[2018-07-29] MEDS: IPRATROPIUM-ALBUTEROL 3 ML NEB INHALATION SCH ×3 (05:28→16:13)
[2018-07-29] MEDS: CLOPIDOGREL 75 MG TAB PO SCH (08:27)
[2018-07-29] MEDS: PANTOPRAZOLE 40 MG TABLET PO SCH (08:28)
[2018-07-29] MEDS: NICOTINE 21MG/24HR PATCH TRANSDERM SCH (08:28)
[2018-07-29 08:33] VITALS: RESP 16
[2018-07-29] MEDS ORDERED: ASPIRIN 81 MG PO SCH (09:00)
[2018-07-29] MEDS ORDERED: CHOLECALCIFEROL 1,000 UNIT TAB PO SCH (09:00)
[2018-07-29] MEDS: DESVENLAFAXINE SUCCINATE 50 MG TAB.ER.24H PO SCH (09:16)
[2018-07-29] MEDS: BENZTROPINE MESYLATE 1 MG TAB PO SCH ×2 (09:16→14:44)
--- NOTE | 2018-07-29 15:52 | P.CN ---
Psychiatric Consult - . Consult date: 07/29/18 Consult:: 07/28/18 14:49 uncontrolled psychiatry Assessment and Plan Assessment: this is [id number] female patient with past medical history significant for hyperlipidemia, cigarette use, and daily alcohol use, presents to the emergency department today for evaluation of burning midepigastric pain radiating to her chest. Patient states this started around midnight. Patient states that the pain causes her to have shortness of breath. Denies any sweats. Patient denies any radiation of the pain to her back. Patient denies any nausea or vomiting. Denies any fevers or chills with this. Patient denies any recent rash, diarrhea, constipation, back pain, numbness, tingling, dizziness, weakness, hematuria, dysuria, urinary urgency, urinary frequency, headache, visual changes, or any other complaints. - Related Data Home Medications Medication Instructions Recorded Confirmed Atorvastatin [Lipitor] 80 mg PO HS 01/18/17 04/19/18 Clopidogrel Bisulfate [Plavix] 75 mg PO DAILY 01/18/17 04/19/18 Benztropine Mesylate [Cogentin] 2 mg PO TID 10/30/17 04/19/18 Cholecalciferol [Vitamin D3] 5,000 unit PO MOWEFR 10/30/17 04/19/18 Desvenlafaxine [Pristiq ER] 100 mg PO DAILY 10/30/17 04/19/18 Docusate [Colace] 100 mg PO DAILY 10/30/17 04/19/18 Fluticasone Nasal [place] [Flonase 1 spr EA NOSTRIL DAILY 10/30/17 04/19/18 Nasal [place]] Omeprazole [PriLOSEC] 20 mg PO DAILY 10/30/17 04/19/18 Budesonide [Pulmicort Flexhaler] 2 puff INHALATION RT-BID 12/31/17 04/19/18 Nicotine 21Mg/24Hr Patch [Habitrol 21 mg TRANSDERM DAILY 12/31/17 04/19/18 21Mg/24Hr Patch] OLANZapine [ZyPREXA] 20 mg PO HS 12/31/17 04/19/18 Aspirin EC [Ecotrin Low Dose] 81 mg PO DAILY 02/11/18 04/19/18 Albuterol Sulfate [Proair 2 puff INHALATION RT-Q6H PRN 02/19/18 04/19/18 Respiclick] [place] Carbonate 300 mg PO HS 04/06/18 04/19/18 Previous Rx's Medication Instructions Recorded Dicyclomine [Bentyl] 10 mg PO TID #10 capsule 04/19/18 Allergies Allergy/AdvReac Type Severity Reaction Status Date / Time No Known Allergies Allergy Verified 07/28/18 02:30 EKG Findings - EKG Comments: EKG Findings:: EKG obtained at 0238 shows normal sinus rhythm with a ventricular rate of 64, MT interval 172, QRS duration 88, QT 428, QTC 441. No evidence of ST elevation or depression. Past Medical History Past Medical History: Coronary Artery Disease (CAD), COPD Additional Past Medical History / Comment(s): hepatitis c History of Any Multi-Drug Resistant Organisms: None Reported Past Surgical History: Cholecystectomy, Tubal Ligation Additional Past Surgical History / Comment(s): Aortic bypass with stents placed in femoral arteries Past Anesthesia/Blood Transfusion Reactions: No Reported Reaction Past Psychological History: Anxiety, Bipolar, Depression Smoking Status: Current every day smoker Past Alcohol Use History: Daily, Occasional Past Drug Use History: Marijuana - Past Family History Father History Unknown: Yes Mother History Unknown: Yes Brother(s) History Unknown: Yes Sister(s) History Unknown: Yes Son(s) Family Medical History: No Reported History Mental Status Examination - The patient presents alert, pleasant, and cooperative. There calmly seated without any agitated behavior. [she] reports that [her] mood is good. Affect is congruent and euthymic. [she] deny having any suicidal or homicidal ideation intent or plan. [she] denies any auditory or visual hallucinations. There is no evidence of any delusional thought content. [her] thought process is linear and goal-directed. [her] speech is fluent and nonpressured. [her] memory and concentration is grossly intact for the purposes of this session. Psychiatric impression: Major depressive disorder in remission Psychiatric recommendations: She is a patient of [facility] and should have a follow-up visit after hospitalization. From psychiatric standpoint she is stable and is not a candidate for [address] [place] [address]. Thank you for the consult Francisco Camacho D.O. PhD (1) Major depressive disorder Current Visit: Yes Status: Acute Code(s): F32.9 - MAJOR DEPRESSIVE DISORDER, SINGLE EPISODE, UNSPECIFIED SNOMED Code(s): 805978015 Time with Patient: Less than 30
[2018-07-29 16:00] VITALS: BP 121/86; TEMP 97.8
[2018-07-29 16:24] VITALS: PULSE 80
--- NOTE | 2018-07-29 22:35 | DS ---
DISCHARGE SUMMARY DATE OF ADMISSION: 07/28/2018 DATE OF DISCHARGE: 07/29/2018 FINAL DIAGNOSES: 1. Chest burning, possibly gastroesophageal reflux disease. 2. Hyperlipidemia. 3. Hepatitis C. 4. Peripheral artery disease. 5. Bipolar disorder with uncontrolled anxiety. 6. Chronic obstructive pulmonary disease in a current smoker. 7. Chronic nicotine dependence. Patient is a cigarette smoker. 8. Recreational marijuana use. 9. Recreational cocaine use. HOSPITAL COURSE: This patient presented with rather uncontrolled anxiety, restlessness and chest burning. Patient was seen by Dr. Rosenda Florence from Cardiology. Patient in April recently had a dobutamine stress echocardiogram that was negative. The patient was seen by Dr. Camacho from Psychiatry. No change in medications. Patient was advised against use of all recreational drugs. Doing much better at the time of discharge. On examination, temperature 97.8, pulse 83, respiration 16, blood pressure 120/86. LUNGS: Decreased breath sounds. INVESTIGATIONS: Troponins were negative. CT scan of the abdomen showed nil acute. DISCHARGE MEDICATIONS: 1. Lipitor 80 mg at bedtime. 2. Plavix 75 mg a day. 3. Cogentin 2 mg t.i.d. 4. Vitamin D3 5000 units Friday, Friday and Friday. 5. Pristiq ER 100 mg p.o. daily. 6. Colace 100 mg p.o. daily. 7. Prilosec 20 mg p.o. daily. 8. Pulmicort Flexhaler 2 puffs b.i.d. 9. Zyprexa 20 mg at bedtime. 10.Aspirin 81 mg daily. 11.[place] 300 mg at bedtime. 12.Ventolin HFA 1-2 puffs q.6 p.r.n. 13.Nicotine patch 21. Follow up with Dr. Brown on 08/07/2018. Follow up at [facility] in 3 days. Follow up with Estrellita Olsen on 08/05/2018. Patient to follow up at [facility]. MMODL / IJN: [id number] /
== END 2018-07-29 17:05 | disposition home or self-care (01) ==
LOC: EC 02:23 → 1SOBS 05:13 → 3SCARD 11:06
PROVIDERS: ADMIT Hospitalist; ATTEND Hospitalist
DX: R07.89 Other chest pain (principal); F17.210 Nicotine dependence, cigarettes, uncomplicated; E78.5 Hyperlipidemia, unspecified; B19.20 Unspecified viral hepatitis C without hepatic coma; F41.9 Anxiety disorder, unspecified; I73.9 Peripheral vascular disease, unspecified; J44.9 Chronic obstructive pulmonary disease, unspecified; K21.9 Gastro-esophageal reflux disease without esophagitis; F31.9 Bipolar disorder, unspecified; I25.10 Atherosclerotic heart disease of native coronary artery without angina pectoris; Z98.51 Tubal ligation status; Z79.02 Long term (current) use of antithrombotics/antiplatelets; Z82.3 Family history of stroke; Z79.899 Other long term (current) drug therapy; Z79.82 Long term (current) use of aspirin; Z90.49 Acquired absence of other specified parts of digestive tract
CPT/HCPCS: 96374; 96375; 99285; 36415; 94640 ×4; 94760; 93005; 80053; 82150; 83690; 80178; 83735; 84484; 85025; 85610; 85730; 71046; 74160; G0378 ×3; G0480; S4990; J2405; J2270; Q9967; 80320

== ENCOUNTER 2018-12-07 17:41 | Emergency (ER) | payer OTHER ==
[2018-12-07 17:48] VITALS: RESP 18; TEMP 97.5
[2018-12-07] MEDS ORDERED: AMOXIC-POT CLAV 875-125MG 1 EACH TAB PO STA (18:30)
--- NOTE | 2018-12-07 18:37 | ED ---
Extremity Problem HPI - General Chief complaint: Extremity Problem,Nontraumatic Stated complaint: Leg pain/sinus infection Time Seen by Provider: 12/07/18 18:03 Source: patient Mode of arrival: ambulatory Limitations: no limitations - History of Present Illness Initial comments: Patient is 4-year-old female presents emergency Department with a chief com plaint of left leg pain and sinus pressure. Patient reports a chronic history of sinus infections. Her most recent K started 2 days ago and has not resolved. Patient is a smoker. Patient reports frontal maxillary sinus pressure that is increasing severity with palpation. Patient denies rhinorrhea, chest pain, chest tightness, cough or fever. Patient also reports a dull left lower extremity pain that has been ongoing for approximately 2 weeks. Patient reports bilateral femoral stents from 2 years ago. Patient reports decreased pulse pressures in her leg after procedure in which case they typically use an ultrasound to find pulses. Patient does report left calf tenderness. Patient denies increased shortness of breath compared to her baseline due to her smoking status and COPD. Patient denies any skin changes on her left leg or any hair loss. Patient denies recent prolonged periods of inactivity. Patient denies any exogenous estrogen use. - Related Data Home Medications Medication Instructions Recorded Confirmed Atorvastatin [Lipitor] 80 mg PO HS 01/18/17 12/07/18 Clopidogrel Bisulfate [Plavix] 75 mg PO DAILY 01/18/17 12/07/18 Cholecalciferol [Vitamin D3 (25 5,000 unit PO MOWEFR 10/30/17 12/07/18 Mcg = 1000 Iu)] Desvenlafaxine [Pristiq ER] 100 mg PO DAILY 10/30/17 12/07/18 Docusate [Colace] 100 mg PO BID 10/30/17 12/07/18 Omeprazole [PriLOSEC] 20 mg PO DAILY 10/30/17 12/07/18 Budesonide [Pulmicort Flexhaler] 1 puff INHALATION RT-BID 12/31/17 12/07/18 OLANZapine [ZyPREXA] 20 mg PO HS 12/31/17 12/07/18 Aspirin EC [Ecotrin Low Dose] 81 mg PO DAILY 02/11/18 12/07/18 Albuterol Inhaler [Ventolin Hfa 2 puff INHALATION RT-Q6H PRN 07/28/18 12/07/18 Inhaler] Fluticasone Nasal [place] [Flonase 2 spray EA NOSTRIL DAILY 12/07/18 12/07/18 Nasal [place]] Lisinopril [Prinivil] 5 mg PO DAILY 12/07/18 12/07/18 [place] Carbonate 300 mg PO HS 12/07/18 12/07/18 Trihexyphenidyl [Artane] 1 mg PO HS 12/07/18 12/07/18 Previous Rx's Medication Instructions Recorded Nicotine 21Mg/24Hr Patch [Habitrol] 1 patch TRANSDERM DAILY #30 patch 07/29/18 Amoxicillin/Potassium Clav 1 tab PO Q12HR #20 tab 12/07/18 [Augmentin 875-125 Tablet] Allergies Allergy/AdvReac Type Severity Reaction Status Date / Time No Known Allergies Allergy Verified 12/07/18 19:25 Review of Systems ROS Statement: Those systems with pertinent positive or pertinent negative responses have been documented in the HPI. ROS Other: All systems not noted in ROS Statement are negative. Past Medical History Past Medical History: Asthma, Coronary Artery Disease (CAD), COPD, GERD/Reflux, Hyperlipidemia, Liver Disease, Vascular Disorder Additional Past Medical History / Comment(s): Bronchitis, seasonal allergies, sinus problems, hepatitis C, migraines, occasional bilateral tinnitis, UTIs, PVD, past R wrist fx, past L clavicle fx, numbness/tingling R hand and legs. History of Any Multi-Drug Resistant Organisms: None Reported Past Surgical History: Cholecystectomy, Tubal Ligation Additional Past Surgical History / Comment(s): Aortic bypass with stents placed in bilateral femoral arteries, D&C Past Anesthesia/Blood Transfusion Reactions: No Reported Reaction Past Psychological History: Anxiety, Bipolar, Depression Smoking Status: Current every day smoker Past Alcohol Use History: Occasional Past Drug Use History: Cocaine - Past Family History Father History Unknown: Yes Family Medical History: CVA/TIA Additional Family Medical History / Comment(s): Father had a CVA. He is Mother History Unknown: Yes Family Medical History: No Reported History Additional Family Medical History / Comment(s): Mother was healthy. She is . Brother(s) History Unknown: Yes Sister(s) History Unknown: Yes Son(s) Family Medical History: No Reported History General Exam Limitations: no limitations General appearance: alert, in no apparent distress Head exam: Present: atraumatic, normocephalic, normal inspection Eye exam: Present: normal appearance, PERRL, EOMI, conjunctival injection Pupils: Present: normal accommodation ENT exam: Present: normal exam, normal oropharynx, mucous membranes moist, TM's normal bilaterally, normal external ear exam, other (Maxillary and frontal sinus tenderness on palpation) Neck exam: Present: normal inspection, full ROM Respiratory exam: Present: normal lung sounds bilaterally Cardiovascular Exam: Present: regular rate, normal rhythm, normal heart sounds Extremities exam: Present: normal inspection (No skin discolorations, lesions or changes in hair pattern left lower extremity), full ROM (Full range of motion), tenderness (Left calf tenderness), normal capillary refill, calf tenderness (Left positive [place].), other (+2 dorsalis pedis on right leg. Left dorsalis pedis detected with ultrasound). Absent: pedal edema, joint swelling Back exam: Present: normal inspection, full ROM Neurological exam: Present: alert, oriented X3 Psychiatric exam: Present: normal affect, normal mood Skin exam: Present: warm, intact, normal color Course Vital Signs 12/07/18 17:45 Temperature 97.5 F L Pulse Rate 90 Respiratory 18 Rate Blood Pressure 121/89 O2 Sat by Pulse 98 Oximetry Medical Decision Making - Medical Decision Making Patient is 58-year-old female presenting to emergency with a chief complaint of a sinus infection on leg pain. Patient was given a Toradol shot of Augmentin here and will be discharged with Augmentin for a sinus infection. Patient was advised to take antibiotics based on watch and wait basis considering that most sinus infections appear to be viral within the first week. Doppler ultrasound of the left lower extremity is negative for DVT. I was able to take her pulse using a Doppler ultrasound. I will see any changes in skin discoloration, hair distribution, or changes in temperature. I advised the patient to follow-up with the kiln cleaner performed the stents for further management of the leg pain. Strict return parameters were thoroughly discussed the patient was understanding and agreeable. Case discussed with physician. Disposition Clinical Impression: Acute sinus infection, Leg pain, left Disposition: HOME SELF-CARE Condition: Stable Instructions (If sedation given, give patient instructions): Sinusitis (ED), Leg Pain (ED) Additional Instructions: Please take prescribed medication as prescribed medication as directed. Please follow with interventional cardiology who performed your procedure.. Please return to emergency department if symptoms worsen. Prescriptions: Amoxicillin/Potassium Clav [Augmentin 875-125 Tablet] 1 tab PO Q12HR #20 tab Is patient prescribed a controlled substance at d/c from ED?: No Referrals: [facility] [Primary Care Provider] - 1-2 days Time of Disposition: 20:19
--- NOTE | 2018-12-07 19:56 | US ---
EXAMINATION TYPE: US venous doppler duplex LE LT DATE OF EXAM: 12/07/2018 7:13 PM COMPARISON: US 2017 CLINICAL HISTORY: Pain. Pain left leg x 3 weeks. No hx of DVT. Pt on blood thinners. SIDE PERFORMED: Left TECHNIQUE: The lower extremity deep venous system is examined utilizing real time linear array sonog shane with graded compression, doppler sonography and color-flow sonography. VESSELS IMAGED: External Iliac Vein (EIV) Common Femoral Vein Deep Femoral Vein Greater Saphenous Vein * Femoral Vein Popliteal Vein Small Saphenous Vein * Proximal Calf Veins (* superficial vessels) IMPRESSION: Negative for DVT, left lower extremity.
[2018-12-07] MEDS ORDERED: KETOROLAC 30 MG/ML 1 ML VIAL IM STA (20:34)
[2018-12-07 20:49] VITALS: BP 136/100; PULSE 88
== END 2018-12-07 20:47 | disposition home or self-care (01) ==
LOC: EC 17:41
DX: M79.605 Pain in left leg (principal); J01.90 Acute sinusitis, unspecified; J44.9 Chronic obstructive pulmonary disease, unspecified; I25.10 Atherosclerotic heart disease of native coronary artery without angina pectoris; K21.9 Gastro-esophageal reflux disease without esophagitis; E78.5 Hyperlipidemia, unspecified; F31.9 Bipolar disorder, unspecified; F17.200 Nicotine dependence, unspecified, uncomplicated; Z95.820 Peripheral vascular angioplasty status with implants and grafts; Z79.02 Long term (current) use of antithrombotics/antiplatelets; Z79.51 Long term (current) use of inhaled steroids; Z79.82 Long term (current) use of aspirin; Z79.899 Other long term (current) drug therapy
CPT/HCPCS: 93971; 99283; 96372; J1885

== ENCOUNTER 2019-02-18 01:23 | Emergency (ER) | payer OTHER ==
[2019-02-18] MEDS ORDERED: SODIUM CHLORIDE 0.9% 500 ML 500 ML IV STA (01:42)
--- NOTE | 2019-02-18 01:44 | ED ---
General Adult HPI - General Stated complaint: shaky Time Seen by Provider: 02/18/19 01:30 Source: RN notes reviewed - History of Present Illness Initial comments: 58-year-old female with a past medical history of CAD, asthma, COPD, GERD, hyperlipidemia, hepatitis C, cocaine abuse presents to the emergency department for a chief complaint of shakiness. Patient states that this started today. States she is having very shaky and hot. States she went outside call down and became cold. States the shaking has improved but she is still seeking somewhat. Patient admits to using cocaine yesterday. Denies using today.Patient has no other complaints at this time including shortness of breath, chest pain, abdominal pain, nausea or vomiting, headache, or visual changes. - Related Data Home Medications Medication Instructions Recorded Confirmed Atorvastatin [Lipitor] 80 mg PO HS 01/18/17 12/07/18 Clopidogrel Bisulfate [Plavix] 75 mg PO DAILY 01/18/17 12/07/18 Cholecalciferol [Vitamin D3 (25 5,000 unit PO MOWEFR 10/30/17 12/07/18 Mcg = 1000 Iu)] Desvenlafaxine [Pristiq ER] 100 mg PO DAILY 10/30/17 12/07/18 Docusate [Colace] 100 mg PO BID 10/30/17 12/07/18 Omeprazole [PriLOSEC] 20 mg PO DAILY 10/30/17 12/07/18 Budesonide [Pulmicort Flexhaler] 1 puff INHALATION RT-BID 12/31/17 12/07/18 OLANZapine [ZyPREXA] 20 mg PO HS 12/31/17 12/07/18 Aspirin EC [Ecotrin Low Dose] 81 mg PO DAILY 02/11/18 12/07/18 Albuterol Inhaler [Ventolin Hfa 2 puff INHALATION RT-Q6H PRN 07/28/18 12/07/18 Inhaler] Fluticasone Nasal [place] [Flonase 2 spray EA NOSTRIL DAILY 12/07/18 12/07/18 Nasal [place]] Lisinopril [Prinivil] 5 mg PO DAILY 12/07/18 12/07/18 [place] Carbonate 300 mg PO HS 12/07/18 12/07/18 Trihexyphenidyl [Artane] 1 mg PO HS 12/07/18 12/07/18 Previous Rx's Medication Instructions Recorded Nicotine 21Mg/24Hr Patch [Habitrol] 1 patch TRANSDERM DAILY #30 patch 07/29/18 Amoxicillin/Potassium Clav 1 tab PO Q12HR #20 tab 12/07/18 [Augmentin 875-125 Tablet] Allergies Allergy/AdvReac Type Severity Reaction Status Date / Time No Known Allergies Allergy Verified 02/18/19 01:57 Review of Systems ROS Statement: Those systems with pertinent positive or pertinent negative responses have been documented in the HPI. ROS Other: All systems not noted in ROS Statement are negative. Past Medical History Past Medical History: Asthma, Coronary Artery Disease (CAD), COPD, GERD/Reflux, Hyperlipidemia, Liver Disease, Vascular Disorder Additional Past Medical History / Comment(s): Bronchitis, seasonal allergies, sinus problems, hepatitis C, migraines, occasional bilateral tinnitis, UTIs, PVD, past R wrist fx, past L clavicle fx, numbness/tingling R hand and legs. History of Any Multi-Drug Resistant Organisms: None Reported Past Surgical History: Cholecystectomy, Tubal Ligation Additional Past Surgical History / Comment(s): Aortic bypass with stents placed in bilateral femoral arteries, D&C Past Anesthesia/Blood Transfusion Reactions: No Reported Reaction Past Psychological History: Anxiety, Bipolar, Depression Smoking Status: Current every day smoker Past Alcohol Use History: Occasional Past Drug Use History: Cocaine - Past Family History Father History Unknown: Yes Family Medical History: CVA/TIA Additional Family Medical History / Comment(s): Father had a CVA. He is Mother History Unknown: Yes Family Medical History: No Reported History Additional Family Medical History / Comment(s): Mother was healthy. She is . Brother(s) History Unknown: Yes Sister(s) History Unknown: Yes Son(s) Family Medical History: No Reported History General Exam General appearance: alert, in no apparent distress Head exam: Present: atraumatic, normocephalic, normal inspection Eye exam: Present: normal appearance, PERRL, EOMI. Absent: scleral icterus, conjunctival injection, periorbital swelling ENT exam: Present: normal exam, mucous membranes moist Neck exam: Present: normal inspection, full ROM. Absent: tenderness, meningismus, lymphadenopathy Respiratory exam: Present: normal lung sounds bilaterally. Absent: respiratory distress, wheezes, rales, rhonchi, stridor Cardiovascular Exam: Present: regular rate, normal rhythm, normal heart sounds. Absent: systolic murmur, diastolic murmur, rubs, gallop, clicks Neurological exam: Present: alert Course Vital Signs 02/18/19 02/18/19 01:55 03:00 Temperature 98.5 F Pulse Rate 68 67 Respiratory 18 18 Rate Blood Pressure 116/88 124/87 O2 Sat by Pulse 93 L 94 L Oximetry Medical Decision Making - Medical Decision Making Vitals are stable. CBC and CMP are unremarkable. Chest x-ray shows chronic right upper lobe infiltrate and atelectasis not significantly different than last exam as well as mild pulmonary right upper lobe emphysema. Discussed the patient and she will follow up with primary care for further management. Urine shows 10 white blood cells, this will be cultured as she is not having any symptoms of urinary tract infection. Patient positive for cocaine and marijuana. This could be related to patient's shaking. Patient was reevaluated and is actually sleeping or significantly. She is not having any tremors whatsoever. - Lab Data Result diagrams: 02/18/19 02:05 02/18/19 02:05 Lab Results 02/18/19 02/18/19 02/18/19 Range/Units 02:05 02:05 02:05 WBC 9.3 (3.8-10.6) k/uL RBC 4.58 (3.80-5.40) m/uL Hgb 14.9 (11.4-16.0) gm/dL Hct 44.4 (34.0-46.0) % MCV 96.9 (80.0-100.0) fL MCH 32.6 (25.0-35.0) pg MCHC 33.6 (31.0-37.0) g/dL RDW 12.6 (11.5-15.5) % Plt Count 345 (150-450) k/uL Neutrophils % 65 % Lymphocytes % 21 % Monocytes % 6 % Eosinophils % 4 % Basophils % 2 % Neutrophils # 6.1 (1.3-7.7) k/uL Lymphocytes # 1.9 (1.0-4.8) k/uL Monocytes # 0.6 (0-1.0) k/uL Eosinophils # 0.4 (0-0.7) k/uL Basophils # 0.1 (0-0.2) k/uL Sodium 140 (137-145) mmol/L Potassium 4.7 (3.5-5.1) mmol/L Chloride 106 (98-107) mmol/L Carbon Dioxide 28 (22-30) mmol/L Anion Gap 6 mmol/L BUN 22 H (7-17) mg/dL Creatinine 0.87 (0.52-1.04) mg/dL Est GFR (CKD-EPI)AfAm 84 (>60 ml/min/1.73 sqM) Est GFR (CKD-EPI)NonAf 73 (>60 ml/min/1.73 sqM) Glucose 104 H (74-99) mg/dL Calcium 9.4 (8.4-10.2) mg/dL Magnesium 2.0 (1.6-2.3) mg/dL Total Bilirubin 0.2 (0.2-1.3) mg/dL AST 28 (14-36) U/L ALT 31 (9-52) U/L Alkaline Phosphatase 99 (38-126) U/L Total Protein 6.7 (6.3-8.2) g/dL Albumin 3.9 (3.5-5.0) g/dL Urine Color Yellow Urine Appearance Clear (Clear) Urine pH 6.5 (5.0-8.0) Ur Specific [place] 1.016 (1.001-1.035) Urine Protein Negative (Negative) Urine Glucose (UA) Negative (Negative) Urine Ketones Negative (Negative) Urine Blood Negative (Negative) Urine Nitrite Negative (Negative) Urine Bilirubin Negative (Negative) Urine Urobilinogen 2.0 (<2.0) mg/dL Ur Leukocyte Esterase Large H (Negative) Urine RBC 1 (0-5) /hpf Urine WBC 10 H (0-5) /hpf Ur Squamous Epith Cells 3 (0-4) /hpf Urine Mucus Rare H (None) /hpf Urine Opiates Screen Not Detected (NotDetected) Ur Oxycodone Screen Not Detected (NotDetected) Urine Methadone Screen Not Detected (NotDetected) Ur Propoxyphene Screen Not Detected (NotDetected) Ur Barbiturates Screen Not Detected (NotDetected) U Tricyclic Antidepress Not Detected (NotDetected) Ur Phencyclidine Scrn Not Detected (NotDetected) Ur Amphetamines Screen Not Detected (NotDetected) U Methamphetamines Scrn Not Detected (NotDetected) U Benzodiazepines Scrn Not Detected (NotDetected) Urine Cocaine Screen Detected H (NotDetected) U Marijuana (THC) Screen Detected H (NotDetected) Disposition Clinical Impression: Tremor Disposition: HOME SELF-CARE Condition: Good Instructions (If sedation given, give patient instructions): Tremors (ED) Additional Instructions: Please follow up with primary care in 1-2 days. Return to the emergency depart ment if you have any worsening symptoms. Is patient prescribed a controlled substance at d/c from ED?: No Referrals: [facility] [Primary Care Provider] - 1-2 days Time of Disposition: 03:30
[2019-02-18 01:56] VITALS: RESP 18
[2019-02-18 02:22] LABS: Basophils # (A) 0.1 k/uL (0-0.2); Basophils % (A) 2 %; Eosinophils # (A) 0.4 k/uL (0-0.7); Eosinophils % (A) 4 %; HCT 44.4 % (34.0-46.0); HGB 14.9 gm/dL (11.4-16.0); Lymphocytes # (A) 1.9 k/uL (1.0-4.8); Lymphocytes % (A) 21 %; MCH 32.6 pg (25.0-35.0); MCHC 33.6 g/dL (31.0-37.0); MCV 96.9 fL (80.0-100.0); Mean Platelet Volume 5.9; Monocytes # (A) 0.6 k/uL (0-1.0); Monocytes % (A) 6 %; Neutrophils # (A) 6.1 k/uL (1.3-7.7); Neutrophils % (A) 65 %; Platelet Count 345 k/uL (150-450); RBC 4.58 m/uL (3.80-5.40); RDW 12.6 % (11.5-15.5); WBC 9.3 k/uL (3.8-10.6)
[2019-02-18 02:28] LABS: Appearance,Urine Clear (Clear); Bilirubin,Urine Negative (Negative); Blood,Urine Negative (Negative); Color,Urine Yellow; Glucose,Urine (UA) Negative (Negative); Ketones,Urine Negative (Negative); Leukocyte Esterase,Urine Large (Negative); Mucus,Urine Rare /hpf; Nitrite,Urine Negative (Negative); PH, Urine 6.5 (5.0-8.0); Protein,Urine Negative (Negative); RBC,Urine 1 /hpf (0-5); Specific Gravity,Urine 1.016 (1.001-1.035); Squamous Epithelial Cell,Urine 3 /hpf (0-4); WBC,Urine 10 /hpf (0-5)
[2019-02-18 02:32] LABS: Amphetamine Screen,Urine Not Detected (NotDetected); Barbiturate Screen,Urine Not Detected (NotDetected); Benzodiazepines Screen,Urine Not Detected (NotDetected); Cocaine Screen,Urine Detected (NotDetected); Methadone Screen, Urine Not Detected (NotDetected); Opiate Screen,Urine Not Detected (NotDetected); Oxycodone Screen, Urine Not Detected (NotDetected); Phencyclidine Screen,Urine Not Detected (NotDetected); Tricyclic Antidepressant,Urine Not Detected (NotDetected); Urn Cannabinoid Scrn Detected (NotDetected)
[2019-02-18 03:00] LABS: Albumin 3.9 g/dL (3.5-5.0); Calcium 9.4 mg/dL (8.4-10.2); Total Bilirubin 0.2 mg/dL (0.2-1.3); Total Protein 6.7 g/dL (6.3-8.2)
[2019-02-18 03:03] LABS: Potassium 4.7 mmol/L (3.5-5.1)
--- NOTE | 2019-02-18 03:22 | XR ---
EXAMINATION TYPE: XR chest 2V DATE OF EXAM: 02/18/2019 COMPARISON: 07/28/2018 HISTORY: Shaking. Chest pain TECHNIQUE: Frontal and lateral views of the chest are obtained. FINDINGS: There is a somewhat linear 7 x 2 cm area of consolidation in the lateral aspect right uppe r lobe. There are emphysematous changes right upper lobe. Lung bases are clear. Heart size is normal. There are no hilar masses. There is old healed left clavicle fracture. IMPRESSION: There is chronic right upper lobe infiltrate and atelectasis and scarring not significan tly different than last exam and also 04/06/2018. Mild pulmonary right upper lobe emphysema.
[2019-02-18 03:49] VITALS: BP 118/83; PULSE 73; TEMP 97.2
== END 2019-02-18 03:44 | disposition home or self-care (01) ==
LOC: EC 01:23
DX: R25.1 Tremor, unspecified (principal); R68.89 Other general symptoms and signs; J43.9 Emphysema, unspecified; J98.11 Atelectasis; R82.998 Other abnormal findings in urine; F14.10 Cocaine abuse, uncomplicated; F12.10 Cannabis abuse, uncomplicated; I25.10 Atherosclerotic heart disease of native coronary artery without angina pectoris; K21.9 Gastro-esophageal reflux disease without esophagitis; E78.5 Hyperlipidemia, unspecified; I73.9 Peripheral vascular disease, unspecified; F31.9 Bipolar disorder, unspecified; F17.200 Nicotine dependence, unspecified, uncomplicated; Z79.02 Long term (current) use of antithrombotics/antiplatelets; Z79.51 Long term (current) use of inhaled steroids; Z79.82 Long term (current) use of aspirin; Z79.899 Other long term (current) drug therapy
CPT/HCPCS: 36415; 71046; 80053; 80306; 81001; 83735; 85025; 87086; 96360; 99284

== ENCOUNTER 2019-09-05 04:06 | Emergency (ER) | payer OTHER ==
[2019-09-05 04:16] VITALS: RESP 18; TEMP 98.3
[2019-09-05 04:48] LABS: Basophils # (A) 0.1 k/uL (0-0.2); Basophils % (A) 1 %; Eosinophils # (A) 0.3 k/uL (0-0.7); Eosinophils % (A) 2 %; HGB 13.7 gm/dL (11.4-16.0); Lymphocytes # (A) 2.6 k/uL (1.0-4.8); Lymphocytes % (A) 23 %; MCH 32.4 pg (25.0-35.0); MCHC 33.4 g/dL (31.0-37.0); Mean Platelet Volume 7.5; Monocytes # (A) 0.6 k/uL (0-1.0); Monocytes % (A) 5 %; Neutrophils # (A) 7.4 k/uL (1.3-7.7); Neutrophils % (A) 67 %; Platelet Count 313 k/uL (150-450); RBC 4.23 m/uL (3.80-5.40); RDW 12.6 % (11.5-15.5); WBC 11.2 k/uL (3.8-10.6)
[2019-09-05 04:55] LABS: ALT 40 U/L (4-34); AST 36 U/L (14-36); African American GFR (CKD) 73 (>60 ml/min/1.73 sqM); Alcohol <10 mg/dL; Alkaline Phosphatase 104 U/L (38-126); Anion Gap 7 mmol/L; Blood Urea Nitrogen 27 mg/dL (7-17); Calcium 9.3 mg/dL (8.4-10.2); Carbon Dioxide 24 mmol/L (22-30); Chloride 103 mmol/L (98-107); Glucose 119 mg/dL (74-99); Non-African American GFR(CKD) 64 (>60 ml/min/1.73 sqM); Potassium 4.2 mmol/L (3.5-5.1); Sodium 134 mmol/L (137-145); Total Bilirubin 0.2 mg/dL (0.2-1.3); Total Protein 6.8 g/dL (6.3-8.2)
[2019-09-05 05:02] LABS: INR 0.9 (<1.2); Partial Thromboplastin Time 22.2 sec (22.0-30.0); Prothrombin Time 9.7 sec (9.0-12.0)
[2019-09-05] MEDS ORDERED: MORPHINE SULFATE 4 MG/ML SYRINGE IV STA (05:06)
--- NOTE | 2019-09-05 05:17 | ED ---
Extremity Problem HPI - General Source: EMS Mode of arrival: EMS Limitations: no limitations - History of Present Illness MD Complaint: extremity pain -: week(s) Location: left, lower extremity History of Same: Yes Radiation: none Quality: burning, aching Consistency: constant Improves with: nothing Worsens with: walking Associated Symptoms: denies other symptoms <Tevin Morales - Last Filed: 09/05/19 07:42> <Monty Mullen - Last Filed: 09/05/19 08:23> - General Chief complaint: Extremity Problem,Nontraumatic Stated complaint: Chest Pain Time Seen by Provider: 09/05/19 04:57 - Related Data Home Medications Medication Instructions Recorded Confirmed Atorvastatin [Lipitor] 80 mg PO HS 01/18/17 12/07/18 Clopidogrel Bisulfate [Plavix] 75 mg PO DAILY 01/18/17 12/07/18 Cholecalciferol [Vitamin D3 (25 5,000 unit PO MOWEFR 10/30/17 12/07/18 Mcg = 1000 Iu)] Desvenlafaxine [Pristiq ER] 100 mg PO DAILY 10/30/17 12/07/18 Docusate [Colace] 100 mg PO BID 10/30/17 12/07/18 Omeprazole [PriLOSEC] 20 mg PO DAILY 10/30/17 12/07/18 Budesonide [Pulmicort Flexhaler] 1 puff INHALATION RT-BID 12/31/17 12/07/18 OLANZapine [ZyPREXA] 20 mg PO HS 12/31/17 12/07/18 Aspirin EC [Ecotrin Low Dose] 81 mg PO DAILY 02/11/18 12/07/18 Albuterol Inhaler (Mhu) [Ventolin 2 puff INHALATION RT-Q6H PRN 07/28/18 12/07/18 Hfa Inhaler (Mhu)] Fluticasone Nasal [place] [Flonase 2 spray EA NOSTRIL DAILY 12/07/18 12/07/18 Nasal [place]] Lisinopril [Prinivil] 5 mg PO DAILY 12/07/18 12/07/18 Index Carbonate 300 mg PO HS 12/07/18 12/07/18 Trihexyphenidyl [Artane] 1 mg PO HS 12/07/18 12/07/18 Previous Rx's Medication Instructions Recorded Nicotine 21Mg/24Hr Patch [Habitrol] 1 patch TRANSDERM DAILY #30 patch 07/29/18 Amoxicillin/Potassium Clav 1 tab PO Q12HR #20 tab 12/07/18 [Augmentin 875-125 Tablet] HYDROcodone/APAP 5-325MG [[place] 1 tab PO Q6HR PRN 3 Days #12 tab 09/05/19 5-325] Allergies Allergy/AdvReac Type Severity Reaction Status Date / Time No Known Allergies Allergy Verified 09/05/19 04:16 Review of Systems ROS Other: All systems not noted in ROS Statement are negative. Constitutional: Denies: fever, chills Respiratory: Denies: cough, dyspnea Cardiovascular: Denies: chest pain, palpitations Gastrointestinal: Denies: abdominal pain, vomiting, diarrhea, constipation Genitourinary: Denies: dysuria, hematuria Musculoskeletal: Reports: as per HPI Skin: Denies: rash Neurological: Denies: headache, weakness, numbness <Tevin Morales - Last Filed: 09/05/19 07:42> ROS Other: All systems not noted in ROS Statement are negative. <Monty Mullen - Last Filed: 09/05/19 08:23> ROS Statement: Those systems with pertinent positive or pertinent negative responses have been documented in the HPI. Past Medical History Past Medical History: Asthma, Coronary Artery Disease (CAD), COPD, GERD/Reflux, Hyperlipidemia, Liver Disease, Vascular Disorder Additional Past Medical History / Comment(s): Bronchitis, seasonal allergies, sinus problems, hepatitis C, migraines, occasional bilateral tinnitis, UTIs, PVD, past R wrist fx, past L clavicle fx, numbness/tingling R hand and legs. History of Any Multi-Drug Resistant Organisms: None Reported Past Surgical History: Cholecystectomy, Tubal Ligation Additional Past Surgical History / Comment(s): Aortic bypass with stents placed in bilateral femoral arteries, D&C Past Anesthesia/Blood Transfusion Reactions: No Reported Reaction Past Psychological History: Anxiety, Bipolar, Depression Smoking Status: Current every day smoker Past Alcohol Use History: Occasional Past Drug Use History: Cocaine, Marijuana - Past Family History Father History Unknown: Yes Family Medical History: CVA/TIA Additional Family Medical History / Comment(s): Father had a CVA. He is Mother History Unknown: Yes Family Medical History: No Reported History Additional Family Medical History / Comment(s): Mother was healthy. She is . Brother(s) History Unknown: Yes Sister(s) History Unknown: Yes Son(s) Family Medical History: No Reported History <Tevin Morales - Last Filed: 09/05/19 07:42> General Exam Limitations: no limitations General appearance: alert, in no apparent distress Head exam: Present: atraumatic, normocephalic Eye exam: Present: normal appearance. Absent: scleral icterus, conjunctival injection Respiratory exam: Present: normal lung sounds bilaterally. Absent: respiratory distress, wheezes, rales, rhonchi, stridor Cardiovascular Exam: Present: regular rate, normal rhythm, normal heart sounds. Absent: systolic murmur, diastolic murmur, rubs, gallop GI/Abdominal exam: Present: soft. Absent: distended, tenderness, guarding, rebound, mass Extremities exam: Present: normal inspection, normal capillary refill Back exam: Present: normal inspection. Absent: CVA tenderness (R), CVA tenderness (L) Neurological exam: Present: alert. Absent: motor sensory deficit Skin exam: Present: warm, dry, intact, normal color. Absent: rash <Tevin Morales - Last Filed: 09/05/19 07:42> Course Vital Signs 09/05/19 09/05/19 04:10 05:33 Temperature 98.3 F Pulse Rate 83 73 Respiratory 18 18 Rate Blood Pressure 119/83 O2 Sat by Pulse 96 92 L Oximetry Medical Decision Making - Lab Data Result diagrams: 09/05/19 04:15 09/05/19 04:15 - EKG Data -: EKG Interpreted by Me EKG shows normal: sinus rhythm, axis (Normal), intervals (Normal), QRS complexes (Normal), ST-T waves (Normal) Rate: normal (Rate 81 bpm) <Tevin Morales - Last Filed: 09/05/19 07:42> - Lab Data Result diagrams: 09/05/19 04:15 09/05/19 04:15 <Monty Mullen - Last Filed: 09/05/19 08:23> - Medical Decision Making Patient is signed out to me by previous shift physician Dr. Morales. Briefly, patient 59-year-old female with extensive history of peripheral vascular disease. She is status post aorto iliac stent bilaterally. Her laceration having worsening claudication symptoms worse in her left leg.Dr. Morales ordered CT angios the bilateral lower extremities. CT angios shows normal pain patency of aortobiiliac graft. There is however severe stenosis of left, more and proximal left more artery with complete occlusion of distal left more artery. He does however appear to be reconstitution with adequate of collateral flow. Patient has nonpalpable pulses however they're detectable via Doppler. Patient reevaluated at bedside found with stable medical condition. Discussed patient case with vascular surgeon Dr. Tinajero who recommends that nothing needs to be done acutely. She is safe for discharge and to follow up with her primary vascular surgeon. Patient reevaluated at 7 stable medical condition. She is told that she needs to follow up with her vascular surgeon as soon as possible. She requests prescription for by mouth analgesics. Patient understandable agreeable to disposition. (Monty Mullen) - Lab Data Lab Results 09/05/19 09/05/19 09/05/19 Range/Units 04:15 04:15 04:15 WBC 11.2 H (3.8-10.6) k/uL RBC 4.23 (3.80-5.40) m/uL Hgb 13.7 (11.4-16.0) gm/dL Hct 41.0 (34.0-46.0) % MCV 97.0 (80.0-100.0) fL MCH 32.4 (25.0-35.0) pg MCHC 33.4 (31.0-37.0) g/dL RDW 12.6 (11.5-15.5) % Plt Count 313 (150-450) k/uL Neutrophils % 67 % Lymphocytes % 23 % Monocytes % 5 % Eosinophils % 2 % Basophils % 1 % Neutrophils # 7.4 (1.3-7.7) k/uL Lymphocytes # 2.6 (1.0-4.8) k/uL Monocytes # 0.6 (0-1.0) k/uL Eosinophils # 0.3 (0-0.7) k/uL Basophils # 0.1 (0-0.2) k/uL PT 9.7 (9.0-12.0) sec INR 0.9 (<1.2) APTT 22.2 (22.0-30.0) sec Sodium 134 L (137-145) mmol/L Potassium 4.2 (3.5-5.1) mmol/L Chloride 103 (98-107) mmol/L Carbon Dioxide 24 (22-30) mmol/L Anion Gap 7 mmol/L BUN 27 H (7-17) mg/dL Creatinine 0.97 (0.52-1.04) mg/dL Est GFR (CKD-EPI)AfAm 73 (>60 ml/min/1.73 sqM) Est GFR (CKD-EPI)NonAf 64 (>60 ml/min/1.73 sqM) Glucose 119 H (74-99) mg/dL Calcium 9.3 (8.4-10.2) mg/dL Total Bilirubin 0.2 (0.2-1.3) mg/dL AST 36 (14-36) U/L ALT 40 H (4-34) U/L Alkaline Phosphatase 104 (38-126) U/L Troponin I (0.000-0.034) ng/mL Total Protein 6.8 (6.3-8.2) g/dL Albumin 4.0 (3.5-5.0) g/dL Serum Alcohol <10 mg/dL 09/05/19 Range/Units 04:15 WBC (3.8-10.6) k/uL RBC (3.80-5.40) m/uL Hgb (11.4-16.0) gm/dL Hct (34.0-46.0) % MCV (80.0-100.0) fL MCH (25.0-35.0) pg MCHC (31.0-37.0) g/dL RDW (11.5-15.5) % Plt Count (150-450) k/uL Neutrophils % % Lymphocytes % % Monocytes % % Eosinophils % % Basophils % % Neutrophils # (1.3-7.7) k/uL Lymphocytes # (1.0-4.8) k/uL Monocytes # (0-1.0) k/uL Eosinophils # (0-0.7) k/uL Basophils # (0-0.2) k/uL PT (9.0-12.0) sec INR (<1.2) APTT (22.0-30.0) sec Sodium (137-145) mmol/L Potassium (3.5-5.1) mmol/L Chloride (98-107) mmol/L Carbon Dioxide (22-30) mmol/L Anion Gap mmol/L BUN (7-17) mg/dL Creatinine (0.52-1.04) mg/dL Est GFR (CKD-EPI)AfAm (>60 ml/min/1.73 sqM) Est GFR (CKD-EPI)NonAf (>60 ml/min/1.73 sqM) Glucose (74-99) mg/dL Calcium (8.4-10.2) mg/dL Total Bilirubin (0.2-1.3) mg/dL AST (14-36) U/L ALT (4-34) U/L Alkaline Phosphatase (38-126) U/L Troponin I <0.012 (0.000-0.034) ng/mL Total Protein (6.3-8.2) g/dL Albumin (3.5-5.0) g/dL Serum Alcohol mg/dL Disposition Is patient prescribed a controlled substance at d/c from ED?: No <Tevin Morales - Last Filed: 09/05/19 07:42> Is patient prescribed a controlled substance at d/c from ED?: Yes If prescribed controlled substance>3 days was MAPS reviewed?: Prescribed <3 Days Time of Disposition: 08:23 <Monty Mullen - Last Filed: 09/05/19 08:23> Clinical Impression: Peripheral vascular disease Disposition: HOME SELF-CARE Condition: Fair Instructions (If sedation given, give patient instructions): Peripheral Vascular Disease (ED) Additional Instructions: Follow-up with her vascular surgeon Dr. Davis as soon as possible. Patient return to the emergency department if her symptoms worsen. Prescriptions: HYDROcodone/APAP 5-325MG [[place] 5-325] 1 tab PO Q6HR PRN 3 Days #12 tab PRN Reason: Severe Pain Referrals: [facility] [Primary Care Provider] - 1-2 days Tevin Tinajero DO [STAFF PHYSICIAN] - 1-2 days
[2019-09-05] MEDS ORDERED: RX INFO: IV CONTRAST WAS GIVEN 1 EACH MISC MISCELLANE PRN (05:56)
--- NOTE | 2019-09-05 08:07 | CT ---
EXAM: CT Angiography of the Left Lower Extremity Without and With Intravenous Contrast CLINICAL HISTORY: Left leg pain. TECHNIQUE: Axial computed tomographic angiography images of the left lower extremity without and with intravenous contrast. This CT exam was performed using one or more of the following dose reduction techniques: automated exposure control, adjustment of the mA and/or kV according to patient size, and/or use of iterative reconstruction technique. MIP reconstructed images were created and reviewed. COMPARISON: No relevant prior studies available. FINDINGS: VASCULATURE: Left femoral/popliteal arteries: Aortobiiliac graft in place, with thrombosed [place] common and external iliac arteries. Normal patency of the graft. There is severe long segment stenosis of the left common femoral and proximal femoral artery, with complete occlusion of the mid to distal left femoral artery and distal reconstitution via collateral flow from the left deep femoral artery (best visualized on coronal images 59 and 60 of series 502). Left calf/foot arteries: No acute findings. No occlusion or significant stenosis. LOWER EXTREMITY: Bones/joints: No acute fracture. No dislocation. Soft tissues: Unremarkable. No abnormal contrast enhancement seen within the left lower extremity. Colonic diverticulosis. IMPRESSION: Severe stenosis of the left common femoral and proximal left femoral artery with complete occlusion of the mid to distal left femoral artery and distal reconstitution via collateral flow from the left deep femoral artery. Normal patency of the aortobiiliac graft. Normal patency of left calf arteries.
[2019-09-05 08:50] VITALS: BP 119/81; PULSE 75
== END 2019-09-05 08:45 | disposition home or self-care (01) ==
LOC: EC 04:06
DX: I73.9 Peripheral vascular disease, unspecified (principal); J44.9 Chronic obstructive pulmonary disease, unspecified; I25.10 Atherosclerotic heart disease of native coronary artery without angina pectoris; K21.9 Gastro-esophageal reflux disease without esophagitis; E78.5 Hyperlipidemia, unspecified; B19.20 Unspecified viral hepatitis C without hepatic coma; F31.9 Bipolar disorder, unspecified; F41.9 Anxiety disorder, unspecified; F17.200 Nicotine dependence, unspecified, uncomplicated; Z79.51 Long term (current) use of inhaled steroids; Z79.899 Other long term (current) drug therapy; Z79.82 Long term (current) use of aspirin; Z95.1 Presence of aortocoronary bypass graft
CPT/HCPCS: 99285; 96374; 36415; 93005; 80053; 83605; 84484; 85025; 85610; 85730; 73706; G0480; J2270; Q9967; 80320

== ENCOUNTER 2019-10-30 16:55 | Emergency (ER) | payer OTHER ==
[2019-10-30 17:07] VITALS: RESP 16
[2019-10-30] MEDS ORDERED: SODIUM CHLORIDE 0.9% 1,000 ML IV STA (17:18)
[2019-10-30] MEDS ORDERED: RX INFO: IV CONTRAST WAS GIVEN 1 EACH MISC MISCELLANE PRN (17:18)
--- NOTE | 2019-10-30 17:34 | ED ---
General Adult HPI - General Chief complaint: Recheck/Abnormal Lab/Rx Stated complaint: Numbness, Swelling in legs Time Seen by Provider: 10/30/19 16:56 Source: patient, EMS, RN notes reviewed Limitations: no limitations - History of Present Illness Initial comments: 59-year-old female with a past medical history of aortic bypass with bilateral femoral stent placement 3 years ago out of [facility] presents to the emergency department for multiple complaints. Patient states for the past week she has had numbness and tingling of the left leg. Denies any weakness of the left leg. Patient also reports she has had pain and swelling of the right leg. Denies any numbness or weakness of the right leg. Patient denies any injuries to the right leg. She does not have any abdominal or chest pain. Patient has not been taking her medications for the past 4-5 days because she ran out even though she has refills waiting at the pharmacy. Patient's reports she recently began s moking cigarettes again. Reports that she did cocaine 2 days ago.Patient has no other complaints at this time including shortness of breath, chest pain, abdominal pain, nausea or vomiting, headache, or visual changes. - Related Data Home Medications Medication Instructions Recorded Confirmed Atorvastatin [Lipitor] 80 mg PO HS 01/18/17 12/07/18 Clopidogrel Bisulfate [Plavix] 75 mg PO DAILY 01/18/17 12/07/18 Cholecalciferol [Vitamin D3 (25 5,000 unit PO MOWEFR 10/30/17 12/07/18 Mcg = 1000 Iu)] Desvenlafaxine [Pristiq ER] 100 mg PO DAILY 10/30/17 12/07/18 Docusate [Colace] 100 mg PO BID 10/30/17 12/07/18 Omeprazole [PriLOSEC] 20 mg PO DAILY 10/30/17 12/07/18 Budesonide [Pulmicort Flexhaler] 1 puff INHALATION RT-BID 12/31/17 12/07/18 OLANZapine [ZyPREXA] 20 mg PO HS 12/31/17 12/07/18 Aspirin EC [Ecotrin Low Dose] 81 mg PO DAILY 02/11/18 12/07/18 Albuterol Inhaler (Mhu) [Ventolin 2 puff INHALATION RT-Q6H PRN 07/28/18 12/07/18 Hfa Inhaler (Mhu)] Fluticasone Nasal [place] [Flonase 2 spray EA NOSTRIL DAILY 12/07/18 12/07/18 Nasal [place]] Lisinopril [Prinivil] 5 mg PO DAILY 12/07/18 12/07/18 [place] Carbonate 300 mg PO HS 12/07/18 12/07/18 Trihexyphenidyl [Artane] 1 mg PO HS 12/07/18 12/07/18 Previous Rx's Medication Instructions Recorded Nicotine 21Mg/24Hr Patch [Habitrol] 1 patch TRANSDERM DAILY #30 patch 07/29/18 Amoxicillin/Potassium Clav 1 tab PO Q12HR #20 tab 12/07/18 [Augmentin 875-125 Tablet] HYDROcodone/APAP 5-325MG [[place] 1 tab PO Q6HR PRN 3 Days #12 tab 09/05/19 5-325] Allergies Allergy/AdvReac Type Severity Reaction Status Date / Time No Known Allergies Allergy Verified 10/30/19 17:03 Review of Systems ROS Statement: Those systems with pertinent positive or pertinent negative responses have been documented in the HPI. ROS Other: All systems not noted in ROS Statement are negative. Past Medical History Past Medical History: Asthma, Coronary Artery Disease (CAD), COPD, GERD/Reflux, Hyperlipidemia, Liver Disease, Vascular Disorder Additional Past Medical History / Comment(s): Bronchitis, seasonal allergies, sinus problems, hepatitis C, migraines, occasional bilateral tinnitis, UTIs, PVD, past R wrist fx, past L clavicle fx, numbness/tingling R hand and legs. History of Any Multi-Drug Resistant Organisms: None Reported Past Surgical History: Cholecystectomy, Tubal Ligation Additional Past Surgical History / Comment(s): Aortic bypass with stents placed in bilateral femoral arteries, D&C Past Anesthesia/Blood Transfusion Reactions: No Reported Reaction Past Psychological History: Anxiety, Bipolar, Depression Smoking Status: Current every day smoker Past Alcohol Use History: Occasional Past Drug Use History: Cocaine, Marijuana - Past Family History Father History Unknown: Yes Family Medical History: CVA/TIA Additional Family Medical History / Comment(s): Father had a CVA. He is Mother History Unknown: Yes Family Medical History: No Reported History Additional Family Medical History / Comment(s): Mother was healthy. She is . Brother(s) History Unknown: Yes Sister(s) History Unknown: Yes Son(s) Family Medical History: No Reported History General Exam - General Exam Comments Initial Comments: Left le+ femoral pulses. Nonpalpable DPPT pulses however signals evident on Doppler. Capillary refill less than 2 seconds, foot is warm and equal bilaterally. Full range of motion. No weakness. No drift. Full sensation. No edema Right le+ femoral pulse. 2+ DP and PT pulses. Capillary refill less than 2 seconds. Foot is warm. Full range of motion. Minimal edema of the right knee and ankle without any erythema or increased warmth. Limitations: no limitations General appearance: alert, in no apparent distress Head exam: Present: atraumatic, normocephalic, normal inspection Eye exam: Present: normal appearance, PERRL, EOMI. Absent: scleral icterus, conjunctival injection, periorbital swelling ENT exam: Present: normal exam, mucous membranes moist Neck exam: Present: normal inspection, full ROM. Absent: tenderness, meningi smus, lymphadenopathy Respiratory exam: Present: normal lung sounds bilaterally. Absent: respiratory distress, wheezes, rales, rhonchi, stridor Cardiovascular Exam: Present: regular rate, normal rhythm, normal heart sounds. Absent: systolic murmur, diastolic murmur, rubs, gallop, clicks Course Vital Signs 10/30/19 16:58 Temperature 98.4 F Pulse Rate 94 Respiratory 16 Rate Blood Pressure 103/73 O2 Sat by Pulse 99 Oximetry Medical Decision Making - Medical Decision Making She presents for multiple complaints as stated in HPI. Physical examination patient has 2+ femoral pulses bilaterally. Patient has nonpalpable DP and PT pulses in the left leg however she does have Doppler signals. This is the same exam finding as 2 months ago when she presented for a similar complaint. Neurovascular status intact in the right leg however minimal edema of the right knee and right ankle, nonpitting. No erythema or signs of infection. Full range of motion of these joints the patient is ambulatory. CBC CMP unremarkable. Patient underwent extensive workup here in the emergency room. Chest x-ray shows a chronic linear consolidation in the right upper lobe that appears slightly worse than last exam, tumor not excluded. This was discussed with her and she will follow up with primary. X-ray of the right tib-fib is negative. No fracture seen. Given minimal edema of the right leg ultrasound was ordered which was negative for DVT. Patient underwent CTA of the left leg given history of femoral graft. This did show long segment occlusion of the left superficial femoral artery in the mid thigh that is similar to the old exam. There is collateral flow from the profunda femoris artery. There is no evidence of hemodynamic stenosis of the popliteal or tibial arteries. No evidence of any new occlusion. I did review her last note and physician caring for patient had talked with color separation photographer vascular surgery who recommended patient follow-up on an outpatient basis. Patient was again directed to follow-up with her vascular surgeon which she states she has not tried to do. I discussed with her the importance of this with her and she is in agreement to follow up. I also discussed that she needs to take her medications which include antiplatelet therapy as well as stop her cocaine and smoking use. She will return here for any worsening symptoms. - Lab Data Result diagrams: 10/30/19 17:13 10/30/19 17:13 Lab Results 10/30/19 10/30/19 10/30/19 Range/Units 17:13 17:13 17:13 WBC 12.2 H (3.8-10.6) k/uL RBC 4.30 (3.80-5.40) m/uL Hgb 13.7 (11.4-16.0) gm/dL Hct 41.7 (34.0-46.0) % MCV 96.8 (80.0-100.0) fL MCH 31.8 (25.0-35.0) pg MCHC 32.9 (31.0-37.0) g/dL RDW 12.8 (11.5-15.5) % Plt Count 615 H (150-450) k/uL Neutrophils % 79 % Lymphocytes % 13 % Monocytes % 5 % Eosinophils % 1 % Basophils % 0 % Neutrophils # 9.7 H (1.3-7.7) k/uL Lymphocytes # 1.6 (1.0-4.8) k/uL Monocytes # 0.6 (0-1.0) k/uL Eosinophils # 0.1 (0-0.7) k/uL Basophils # 0.1 (0-0.2) k/uL PT 9.3 (9.0-12.0) sec INR 0.9 (<1.2) APTT 22.8 (22.0-30.0) sec Sodium 135 L (137-145) mmol/L Potassium 4.0 (3.5-5.1) mmol/L Chloride 106 (98-107) mmol/L Carbon Dioxide 22 (22-30) mmol/L Anion Gap 7 mmol/L BUN 11 (7-17) mg/dL Creatinine 0.80 (0.52-1.04) mg/dL Est GFR (CKD-EPI)AfAm >90 (>60 ml/min/1.73 sqM) Est GFR (CKD-EPI)NonAf 80 (>60 ml/min/1.73 sqM) Glucose 118 H (74-99) mg/dL Calcium 9.4 (8.4-10.2) mg/dL Total Bilirubin 0.4 (0.2-1.3) mg/dL AST 18 (14-36) U/L ALT 11 (4-34) U/L Alkaline Phosphatase 106 (38-126) U/L Troponin I (0.000-0.034) ng/mL Total Protein 6.5 (6.3-8.2) g/dL Albumin 3.4 L (3.5-5.0) g/dL 10/30/19 Range/Units 17:13 WBC (3.8-10.6) k/uL RBC (3.80-5.40) m/uL Hgb (11.4-16.0) gm/dL Hct (34.0-46.0) % MCV (80.0-100.0) fL MCH (25.0-35.0) pg MCHC (31.0-37.0) g/dL RDW (11.5-15.5) % Plt Count (150-450) k/uL Neutrophils % % Lymphocytes % % Monocytes % % Eosinophils % % Basophils % % Neutrophils # (1.3-7.7) k/uL Lymphocytes # (1.0-4.8) k/uL Monocytes # (0-1.0) k/uL Eosinophils # (0-0.7) k/uL Basophils # (0-0.2) k/uL PT (9.0-12.0) sec INR (<1.2) APTT (22.0-30.0) sec Sodium (137-145) mmol/L Potassium (3.5-5.1) mmol/L Chloride (98-107) mmol/L Carbon Dioxide (22-30) mmol/L Anion Gap mmol/L BUN (7-17) mg/dL Creatinine (0.52-1.04) mg/dL Est GFR (CKD-EPI)AfAm (>60 ml/min/1.73 sqM) Est GFR (CKD-EPI)NonAf (>60 ml/min/1.73 sqM) Glucose (74-99) mg/dL Calcium (8.4-10.2) mg/dL Total Bilirubin (0.2-1.3) mg/dL AST (14-36) U/L ALT (4-34) U/L Alkaline Phosphatase (38-126) U/L Troponin I <0.012 (0.000-0.034) ng/mL Total Protein (6.3-8.2) g/dL Albumin (3.5-5.0) g/dL Disposition Clinical Impression: Peripheral vascular disease, Cocaine use, Tobacco dependence Disposition: HOME SELF-CARE Condition: Good Instructions (If sedation given, give patient instructions): Peripheral Vascular Disease (ED) Additional Instructions: You must follow-up with your vascular surgeon. You need to continue taking your medications. Do not use cocaine as this could worsen the blood flow in your legs. Keep right leg elevated and try compression stocking. Make sure to follow-up with your doctor for abnormal chest x-ray. If you have any worsening symptoms return to the emergency department. Is patient prescribed a controlled substance at d/c from ED?: No Referrals: [facility] [Primary Care Provider] - 1-2 days Time of Disposition: 19:04
[2019-10-30 17:43] LABS: Basophils # (A) 0.1 k/uL (0-0.2); Basophils % (A) 0 %; Eosinophils # (A) 0.1 k/uL (0-0.7); Eosinophils % (A) 1 %; HCT 41.7 % (34.0-46.0); HGB 13.7 gm/dL (11.4-16.0); Lymphocytes # (A) 1.6 k/uL (1.0-4.8); Lymphocytes % (A) 13 %; MCH 31.8 pg (25.0-35.0); MCHC 32.9 g/dL (31.0-37.0); MCV 96.8 fL (80.0-100.0); Mean Platelet Volume 6.9; Monocytes # (A) 0.6 k/uL (0-1.0); Monocytes % (A) 5 %; Neutrophils # (A) 9.7 k/uL (1.3-7.7); Neutrophils % (A) 79 %; RDW 12.8 % (11.5-15.5); WBC 12.2 k/uL (3.8-10.6)
[2019-10-30 17:46] LABS: Platelet Count 615 k/uL (150-450)
[2019-10-30 17:51] LABS: ALT 11 U/L (4-34); AST 18 U/L (14-36); African American GFR (CKD) >90 (>60 ml/min/1.73 sqM); Albumin 3.4 g/dL (3.5-5.0); Alkaline Phosphatase 106 U/L (38-126); Anion Gap 7 mmol/L; Blood Urea Nitrogen 11 mg/dL (7-17); Calcium 9.4 mg/dL (8.4-10.2); Carbon Dioxide 22 mmol/L (22-30); Chloride 106 mmol/L (98-107); Glucose 118 mg/dL (74-99); INR 0.9 (<1.2); Non-African American GFR(CKD) 80 (>60 ml/min/1.73 sqM); Partial Thromboplastin Time 22.8 sec (22.0-30.0); Prothrombin Time 9.3 sec (9.0-12.0); Sodium 135 mmol/L (137-145); Total Bilirubin 0.4 mg/dL (0.2-1.3); Total Protein 6.5 g/dL (6.3-8.2)
--- NOTE | 2019-10-30 18:08 | XR ---
EXAMINATION TYPE: XR tibia fibula RT DATE OF EXAM: 10/30/2019 COMPARISON: NONE HISTORY: Right leg pain TECHNIQUE: 2 views FINDINGS: The tibia and fibula appear intact. I see no fracture nor dislocation. Joint spaces are venecia rly normal. IMPRESSION: Negative right tibia and fibula exam. No fracture seen.
--- NOTE | 2019-10-30 18:10 | XR ---
EXAMINATION TYPE: XR chest 2V DATE OF EXAM: 10/30/2019 COMPARISON: 02/18/2019 HISTORY: Leg edema TECHNIQUE: FINDINGS: There is 8 cm linear area of consolidation in the lateral aspect right upper lobe extending from the right pulmonary hilum. The other lung nunn are fairly clear. Heart size is normal. Medias tinum is normal. There is no pleural effusion. Bony thorax is intact. IMPRESSION: There is chronic linear consolidation in the right upper lobe that appears slightly worse than last exam. Tumor not excluded.
--- NOTE | 2019-10-30 18:26 | CT ---
EXAMINATION TYPE: CT angio lower extremity LT DATE OF EXAM: 10/30/2019 COMPARISON: 09/05/2019 HISTORY: Right leg swelling and pain. Multiple prior vascular surgeries. CT DLP: 834.1 mGycm Automated exposure control for dose reduction was used. CONTRAST: Performed with IV Contrast, patient injected with 100 mL of Isovue 370. There are 3-D post processed images. Images were obtained from the iliac crest to the bottom of the l eft foot with IV contrast. FINDINGS: There is apparent bilateral iliac artery bypass graft. There is some atherosclerotic plaque at the an astomosis on the left side more than the right and luminal narrowing less than 25%. There is complete occlusion of the left superficial femoral artery near its origin. There are collateral vessels from the profunda femoris artery reconstituting flow in the distal left superficial femoral artery. There is bilateral arterial flow in the popliteal arteries and tibial arteries and tibial artery trifurcati on. There is bilateral anterior tibial artery flow at the ankles. There is bilateral posterior tibial artery flow at the ankles. There is diminutive left posterior tibial artery distally. I see no evide nce of an aneurysm. There is no contrast extravasation. There is arterial flow in the right femoral and popliteal artery without evidence of hemodynamic sten osis. IMPRESSION: There is long segment of occlusion of the left superficial femoral artery in the mid thigh similar to old exam. There is collateral flow from the profunda femoris artery. No evidence of hemodynamic sten osis of the popliteal and tibial arteries. No evidence of any new occlusion. No evidence of any significant angiographic abnormality of the right leg. There is minimal plaque at the iliofemoral anastomoses.
--- NOTE | 2019-10-30 18:40 | US ---
EXAMINATION TYPE: US venous doppler duplex LE RT DATE OF EXAM: 10/30/2019 5:20 PM COMPARISON: US CLINICAL HISTORY: pain. Right leg pain SIDE PERFORMED: Right TECHNIQUE: The lower extremity deep venous system is examined utilizing real time linear array sonog shane with graded compression, doppler sonography and color-flow sonography. VESSELS IMAGED: External Iliac Vein (EIV) Common Femoral Vein Deep Femoral Vein Greater Saphenous Vein * Femoral Vein Popliteal Vein Small Saphenous Vein * Proximal Calf Veins (* superficial vessels) Right Leg: Negative for DVT IMPRESSION: No evidence of deep vein thrombosis in the right leg.
[2019-10-30 19:28] VITALS: BP 134/87; PULSE 101; TEMP 98
== END 2019-10-30 19:28 | disposition home or self-care (01) ==
LOC: EC 16:55
DX: I73.9 Peripheral vascular disease, unspecified (principal); F14.90 Cocaine use, unspecified, uncomplicated; R60.9 Edema, unspecified; F17.210 Nicotine dependence, cigarettes, uncomplicated; J44.9 Chronic obstructive pulmonary disease, unspecified; I25.10 Atherosclerotic heart disease of native coronary artery without angina pectoris; K21.9 Gastro-esophageal reflux disease without esophagitis; F31.9 Bipolar disorder, unspecified; F41.9 Anxiety disorder, unspecified; E78.5 Hyperlipidemia, unspecified; Z79.51 Long term (current) use of inhaled steroids; Z79.02 Long term (current) use of antithrombotics/antiplatelets; Z79.82 Long term (current) use of aspirin; Z79.899 Other long term (current) drug therapy
CPT/HCPCS: 36415; 80053; 84484; 85025; 85610; 85730; 73590; 71046; 93971; 73706; 99284; 96360; Q9967

== ENCOUNTER 2019-12-21 11:11 | Inpatient (IN) | payer OTHER ==
[2019-12-21] MEDS ORDERED: ONDANSETRON 4 MG/2 ML VIAL IVP PRN (18:15)
[2019-12-21] MEDS ORDERED: ONDANSETRON ODT 4 MG TAB PO PRN (18:15)
[2019-12-21] MEDS ORDERED: ACETAMINOPHEN TAB 325 MG TAB PO PRN (18:15)
[2019-12-21] MEDS: methylPREDNISolone SOD SUCCI 40 MG/ML 1 ML VIAL IV SCH ×2 (18:46→23:12)
[2019-12-21] MEDS: oxyCODONE-APAP 5-325MG 1 EACH TAB PO PRN (18:51)
--- NOTE | 2019-12-21 19:27 | XR ---
EXAMINATION TYPE: XR chest 1V portable DATE OF EXAM: 12/21/2019 COMPARISON: 10/30/2019 HISTORY: Pleural effusion TECHNIQUE: Single view. FINDINGS: There is extensive opacification of the right upper hemithorax. There is slight elevated right diaphr agm. Trachea deviated slightly to the right side. This is consistent with combined airspace consolida tion and atelectasis. There is slight blunting right costophrenic angle. There are chest leads. Left lung is clear. There is no heart failure. There is old healed left clavicle fracture. IMPRESSION: Extensive consolidation and atelectasis in the right upper lobe that has progressed danyel red to old exam. There is new small right pleural effusion. Findings suspicious for tumor.
[2019-12-21] MEDS: IPRATROPIUM-ALBUTEROL 3 ML NEB INHALATION SCH (19:37)
[2019-12-21] MEDS: BUDESONIDE 1 MG/2 ML NEBU INHALATION SCH (19:38)
[2019-12-21] MEDS ORDERED: BUDESONIDE INHALATION SCH (20:00)
[2019-12-21 20:02] LABS: Glucose,Whole Blood 183 mg/dL (75-99)
[2019-12-21] MEDS: guaiFENesin 600 MG TABLET.ER PO SCH (20:13)
[2019-12-21] MEDS: SENNOSIDES 8.6 MG TAB PO SCH (20:13)
[2019-12-21] MEDS: HEPARIN SODIUM,PORCINE 5,000 UNIT/ML 1 ML VIAL SQ SCH (20:13)
[2019-12-21] MEDS: MORPHINE SULFATE ER 30 MG TABLET PO SCH (20:14)
[2019-12-21] MEDS: INSULIN ASPART (NovoLOG) 100 UNIT/ML VIAL SQ SCH (20:14)
--- NOTE | 2019-12-21 23:37 | P.HPIM ---
History of Present Illness H&P Date: 12/21/19 Chief Complaint: Lung cancer, malignant pleural effusion, history of hepatitis C, advanced C 59-year-old female with past medical history of COPD hepatitis C who seen at [facility] who presented to [facility] department at a [facility] 12/04/2023 severe right-sided chest pain which continued for the last 1 month patient had a CAT scan of the chest showed copious amount of pleural effusion in the right side and consolidation of the right upper lobe and occlusion of the right upper lobe bronchus noted to have large 3 tracheal lymph node measured 2 cm there are right radicular lymph node measured 1.5 cm as well consolidation in the anterior right middle lobe noted also incidental of left adrenal mass which increase in size up to 2.9 cm from last examination. Patient was seen oncology and pulmonary was diagnosed with obstructive pneumonitis started on empiric a ntibiotic with vancomycin and Zosyn CT of the abdomen order for the current tomorrow patient was hospitalized ended up going for thoracentesis and 1.23 remove at the time and right pleural effusion according the following day ended up going for temporal pleurX catheter daily also had a bronchoscopy was done and cytology showed poorly differentiated adenocarcinoma thoracentesis fluid showed malignant fluid directly toward source can be from the abdomen. Patient ended up having tumor marker with alpha-fetoprotein along with CA-125 was elevated at 813 CA-19-9 was 38 CVA was 13 only whole body bone scan showed no obvious metastasis at the time patient went for upper and lower endoscopy colonoscopy could not be completed due to poor preparation, EGD showed no major significant finding. Patient ended up having pleurodesis and apparently started having significant leak around the tube side the following day with copious amount of pleural fluid. Patient was transferred to [facility] for cardiothoracic surgery for permanent Pleurx cath to be place in the right lung. Patient to be seen by oncology along with pulmonary. Was switched to oral antibiotic with Augmentin still on O2 still on updraft treatment. Review of Systems CONSTITUTIONAL: More outdoor rash and mild respiratory distress. EYES: No icterus sclerae, no conjunctivitis. EARS, NOSE, MOUTH, THROAT, and FACE: No sore throat, lymphadenopathy, carotid bruits or deformity. RESPIRATORY: Positive shortness of breath cough wheezes with pleural effusion. CARDIOVASCULAR: No CP, Palpitation, PND, Orthopnea, or angina. GASTROINTESTINAL: Mild abdominal discomfort with nausea no vomiting. GENITOURINARY: Negative for Hematuria or UTI, no kidney stones. INTEGUMENT/BREAST: Negative for any muscular injury with mild osteoarthritis.. HEMATOLOGIC/LYMPHATIC: Negative for bleed or purpura. MUSCULOSKELTAL: Generalized muscle and joint pain. NEURLOGICAL: No LOC, Sz or syncope, blurred vision dizziness or abnormality.. BEHAVIORAL/PSYCH: Negative. ENDOCRINE: Negative. Social history: Patient smoke 1 pack a day for over 30 years. She drinks alcohol socially, also up to her admission she used marijuana and cocaine. Family history: Positive for advanced COPD, CAD and cancer. Past Medical History Past Medical History: Asthma, Coronary Artery Disease (CAD), COPD, GERD/Reflux, Hyperlipidemia, Liver Disease, Vascular Disorder Additional Past Medical History / Comment(s): Bronchitis, seasonal allergies, sinus problems, hepatitis C, migraines, occasional bilateral tinnitis, UTIs, PVD, past R wrist fx, past L clavicle fx, numbness/tingling R hand and legs. History of Any Multi-Drug Resistant Organisms: None Reported Past Surgical History: Cholecystectomy, Tubal Ligation Additional Past Surgical History / Comment(s): Aortic bypass with stents placed in bilateral femoral arteries, D&C Past Anesthesia/Blood Transfusion Reactions: No Reported Reaction Past Psychological History: Anxiety, Bipolar, Depression Additional Psychological History / Comment(s): Pt resides with a friend. She states her mental health is stable at this time. She does not have a license. She gets to [facility] by bus. Smoking Status: Current every day smoker Past Alcohol Use History: Occasional Additional Past Alcohol Use History / Comment(s): Pt started smoking in 1970 and is a ppd smoker. She states she drinks alcohol occasionally Past Drug Use History: Cocaine, Marijuana Additional Drug Use History / Comment(s): Pt last used marijuana on 07/27/18 and last used cocaine on 07/26/18. - Past Family History Father History Unknown: Yes Family Medical History: CVA/TIA Additional Family Medical History / Comment(s): Father had a CVA. He is Mother History Unknown: Yes Family Medical History: No Reported History Additional Family Medical History / Comment(s): Mother was healthy. She is . Brother(s) History Unknown: Yes Sister(s) History Unknown: Yes Son(s) Family Medical History: No Reported History Medications and Allergies Home Medications Medication Instructions Recorded Confirmed Type Desvenlafaxine [Pristiq ER] 100 mg PO DAILY 10/30/17 12/21/19 History Budesonide [Pulmicort Flexhaler] 1 puff INHALATION RT-BID 12/31/17 12/21/19 History Acetaminophen [Tylenol Arthritis] 650 mg PO Q8H PRN 12/21/19 12/21/19 History Budesonide 1 mg INHALATION RT-BID 12/21/19 12/21/19 History Famotidine [Pepcid] 20 mg PO DAILY 12/21/19 12/21/19 History Fluconazole [Diflucan] 100 mg PO DAILY 12/21/19 12/21/19 History Heparin Sodium,Porcine/Pf [Heparin 5,000 unit SQ Q12H 12/21/19 12/21/19 History Sod 5,000 Unit/ml Syrg] Ipratropium-Albuterol Nebulize 3 ml INHALATION RT-QID 12/21/19 12/21/19 History [Duoneb 0.5 mg-3 mg/3 ml Soln] Mirtazapine 7.5 mg PO AC-SUPPER 12/21/19 12/21/19 History Morphine Sulfate [Ms Contin] 30 mg PO Q12H 12/21/19 12/21/19 History Ondansetron Odt [Zofran Odt] 4 mg PO Q6H PRN 12/21/19 12/21/19 History Sennosides [Senna] 8.6 mg PO BID 12/21/19 12/21/19 History Zofran 4mg Injection 4 mg IV Q4H PRN 12/21/19 12/21/19 History guaiFENesin [Mucinex] 1,200 mg PO Q12H 12/21/19 12/21/19 History oxyCODONE-APAP 5-325MG [Percocet 1 tab PO Q4H PRN 12/21/19 12/21/19 History 5-325 mg] predniSONE [Deltasone] 40 mg PO DAILY 12/21/19 12/21/19 History Allergies Allergy/AdvReac Type Severity Reaction Status Date / Time No Known Allergies Allergy Verified 10/30/19 17:03 Physical Exam Vitals: Vital Signs Temp Pulse Resp BP Pulse Ox 12/21/19 15:48 98.4 F 110 H 16 95/66 96 Intake and Output 12/21/19 12/21/19 12/21/19 06:59 14:59 22:59 Other: Weight 56.5 kg General Appearance: Alert, cooperative, looks older than her age in mild respiratory distress. Neck HEENT: Supple, no lymphadenopathy, no thyroid enlargement, no carotid bruits. Lungs: Decreased breath some bilateral fine rhonchi, positive crackles in right base has mild expiratory wheezes. Chest Wall: Chest wall normal expansion with deep inspiration no tenderness and no deformity was found on exam, no costochondral pain or discomfort. Heart: Regular rate and rhythm, S1, S2 normal, no murmur, rub or gallop. Back: Symmetric, no curvature, ROM normal, no CVA tenderness. Abdomen: Soft, non-tender, bowel sounds active all four quadrants, no masses, no organomegaly. Extremities: Extremities normal, atraumatic, no cyanosis or edema. Pulses: 2+ and symmetric. Skin: Skin color, texture, tugor normal, no rashes or lesions. Neurologic: Alert oriented x3 cranial nerves II through XII intact, no motor deficit, no abnormal balance or gait. Thrombosis Risk Factor Assmnt - Choose All That Apply Any of the Below Risk Factors Present?: Yes Each Factor Represents 1 point: Abnormal pulmonary function (COPD) Other Risk Factors: Yes Each Risk Factor Represents 2 Points: Age 61-74 years Thrombosis Risk Factor Assessment Total Risk Factor Score: 3 Thrombosis Risk Factor Assessment Level: Moderate Risk Assessment and Plan Assessment: 1 severe dyspnea and shortness of breath: Secondary to large pleural effusion along with consolidation of the right middle and upper lobe and the right side with obstructive pneumonitis treated recently. Continue O2 continue updraft treatment for now and steroid with see pulmonary. 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 3 poorly differentiated adenocarcinoma found in the lung medically clear whether this is primary or secondary direction from the pleural fluid as metastasis from GI cancer. Continue to see oncology further testing to be done. 4 advance COPD: Continue patient on DuoNeb and Pulmicort continue steroid use. 5 left-sided adrenal mass larger than June patient will require to go see one of the the surgeon who takes care of endocrine gland specially adrenal in one the tertiary center. 6 chronic history of tobacco use: Patient can benefit from staying on nicotine patch. 7 recent history 30 if UTI with sepsis was on Zosyn was switched to oral antibiotics. 8 chronic depression and bipolar: Has been on mirtazapine and Pristiq. Still on lithium. 11 chronic pain management: Remain on morphine and oxycodone. 9 atherosclerotic heart disease: Still on secondary prevention still seen cardiology continue high dose of atorvastatin 80 mg daily along with lisinopril and smaller visible beta olga. 10 GI prophylaxis: Continue patient on omeprazole 20 mg a day. CODE STATUS: Full code. Transfer patient from [facility] to [facility] for at least 2 nights stay.
[2019-12-22] MEDS: oxyCODONE-APAP 5-325MG 1 EACH TAB PO PRN ×4 (02:27→17:23)
[2019-12-22 06:06] LABS: Glucose,Whole Blood 157 mg/dL (75-99)
[2019-12-22] MEDS: INSULIN ASPART (NovoLOG) 100 UNIT/ML VIAL SQ SCH ×4 (06:19→20:18)
[2019-12-22 06:20] LABS: Basophils % (A) 0 %; Eosinophils % (A) 0 %; HCT 38.1 % (34.0-46.0); HGB 11.8 gm/dL (11.4-16.0); Lymphocytes # (A) 0.2 k/uL (1.0-4.8); Lymphocytes % (A) 2 %; MCH 29.6 pg (25.0-35.0); MCHC 31.1 g/dL (31.0-37.0); MCV 95.2 fL (80.0-100.0); Mean Platelet Volume 7.1; Monocytes # (A) 0.4 k/uL (0-1.0); Monocytes % (A) 3 %; Neutrophils # (A) 14.4 k/uL (1.3-7.7); Neutrophils % (A) 95 %; Platelet Count 356 k/uL (150-450); RDW 15.1 % (11.5-15.5); WBC 15.2 k/uL (3.8-10.6)
[2019-12-22 06:26] LABS: INR 0.9 (<1.2); Prothrombin Time 9.3 sec (9.0-12.0)
[2019-12-22 06:28] LABS: ALT 26 U/L (4-34); AST 23 U/L (14-36); African American GFR (CKD) >90 (>60 ml/min/1.73 sqM); Albumin 2.6 g/dL (3.5-5.0); Alkaline Phosphatase 90 U/L (38-126); Anion Gap 6 mmol/L; Blood Urea Nitrogen 16 mg/dL (7-17); Calcium 8.5 mg/dL (8.4-10.2); Carbon Dioxide 30 mmol/L (22-30); Chloride 96 mmol/L (98-107); Glucose 152 mg/dL (74-99); Non-African American GFR(CKD) >90 (>60 ml/min/1.73 sqM); Potassium 4.9 mmol/L (3.5-5.1); Sodium 132 mmol/L (137-145); Total Bilirubin 0.5 mg/dL (0.2-1.3); Total Protein 4.7 g/dL (6.3-8.2)
[2019-12-22] MEDS: IPRATROPIUM-ALBUTEROL 3 ML NEB INHALATION SCH ×4 (07:45→19:07)
[2019-12-22] MEDS: BUDESONIDE 1 MG/2 ML NEBU INHALATION SCH ×2 (07:45→19:06)
[2019-12-22] MEDS: guaiFENesin 600 MG TABLET.ER PO SCH ×2 (08:37→20:18)
[2019-12-22] MEDS: HEPARIN SODIUM,PORCINE 5,000 UNIT/ML 1 ML VIAL SQ SCH ×2 (08:37→20:18)
[2019-12-22] MEDS: MORPHINE SULFATE ER 30 MG TABLET PO SCH ×2 (08:37→20:18)
[2019-12-22] MEDS: FLUCONAZOLE 100 MG TAB PO SCH (08:38)
[2019-12-22] MEDS: DESVENLAFAXINE SUCCINATE 50 MG TAB.ER.24H PO SCH (08:38)
[2019-12-22] MEDS: FAMOTIDINE 20 MG TAB PO SCH (08:38)
[2019-12-22] MEDS: SENNOSIDES 8.6 MG TAB PO SCH ×2 (08:40→20:18)
[2019-12-22] MEDS: methylPREDNISolone SOD SUCCI 40 MG/ML 1 ML VIAL IV SCH ×3 (08:50→22:47)
[2019-12-22] MEDS ORDERED: predniSONE 20 MG TAB PO SCH (09:00)
--- NOTE | 2019-12-22 11:54 | CONS ---
CONSULTATION PULMONARY/CRITICAL CARE CONSULTATION: DATE OF SERVICE: 12/22/2019 HISTORY OF PRESENT ILLNESS: This is a 59-year-old female who looks much older than her stated age. She has a history of multiple medical problems including COPD, CAD, hepatitis C, hyperlipidemia, chronic liver disease, migraine cephalgia, tinnitus, among other things, who was a patient over at [facility] for a number of days. She came in initially with complaints of difficulty breathing. Chest x-ray and CT scan reviewed revealed a large right upper lung mass. It was thought that she likely had either lung cancer. A thoracentesis was performed. 1.2 L was removed. The fluid analysis did come back positive for adenocarcinoma. They were thinking that was primary lung versus GI in origin. Anyway, a pigtail catheter was placed in the right pleural space. For a number of days, the patient had significant output from the right pleural space and eventually, after a couple days where the output was less than 100 mL, 5-10 g of asbestos free talc was mixed with 60 mL of saline and the slurry was injected into the pigtail catheter. At that time, the patient's pigtail catheter was clamped, and the patient was asked to rotate in different positions for 15 minutes, each, including the head up position, head-down position, supine position, prone position, and right and left lateral recumbent positions. After that, the patient's chest tube was unclamped and any excess fluid was drained out. Subsequent to that, the pigtail catheter was discontinued. Unfortunately, additional fluid kept on emanating from the opening where the pigtail catheter was. A colostomy bag was placed over it and the patient was transferred to [facility] with the idea that if the fluid continued to drain from the right pleural space at the same rate, the patient would benefit from a PleurX catheter. Anyway, the patient's chest x-ray here showed a large right upper lung mass. There was minimal drainage since she has been here. Maybe the talc pleurodesis did work. PAST MEDICAL HISTORY: Positive for COPD, CAD, GERD, hyperlipidemia, chronic liver disease, hepatitis C, bronchitis, allergic rhinitis, chronic sinus disease, migraine cephalgia, tinnitus, UTI, peripheral vascular disease, and fractured wrist and cleft clavicle. SURGICAL HISTORY: Includes cholecystectomy, tubal ligation, aortic bypass with stents and bilateral femoral arteries, D and C, and placement of a right-sided pigtail catheter. SOCIAL HISTORY: Positive for ongoing tobacco use. She drinks alcohol occasionally. Illicit drug use includes marijuana, as well as cocaine. FAMILY HISTORY: Positive for father had a CVA, a mother who apparently is healthy, and a brother, sister and son with no significant past medical history. HOME MEDICATIONS: Included Pristiq, Pulmicort Tylenol, Pepcid, Diflucan, DuoNeb, mirtazapine, MS Contin, Zofran, senna, Mucinex, Percocet, and prednisone. ALLERGIES: Denied. REVIEW OF SYSTEMS: CONSTITUTIONAL: Weakness, decreased appetite, weight loss. NEUROLOGIC negative. HEENT negative. CARDIOVASCULAR negative. PULMONARY: Shortness of breath. GI negative. RHEUMATOLOGIC: Negative. IMMUNOLOGIC negative. ENDOCRINOLOGIC negative. DERMATOLOGIC negative. PHYSICAL EXAMINATION: VITAL SIGNS: Current vital signs are reviewed. Temperature is 98.6. Heart rate 110, respiratory rate 18, blood pressure 98/70, mean 79, room air saturation 89%, 2 L saturation 92%-94%. GENERAL: Appears in no acute distress. HEENT: Examination is grossly unremarkable. NECK: Supple. Full range of motion. No adenopathy. Neck veins are flat. CARDIOVASCULAR: Examination reveals regular rhythm and rate. S1, S2 normal. Heart sounds are distant. LUNGS: Reveal diminished breath sounds bilaterally. There are a few scattered rhonchi throughout. No wheezes or crackles. The colostomy bag is seen over the site with a pigtail catheter was in the right lateral chest area. ABDOMEN: Soft. Bowel sounds are heard. EXTREMITIES are intact. No cyanosis, clubbing, or edema. SKIN: Without rash. NEUROLOGIC: Examination is brief but nonfocal. LABS: Reviewed. White count 15.2, hemoglobin, hematocrit and platelet count all normal. PT/INR normal. Sodium 132, potassium 4.9, chloride 96, CO2 is 30, anion gap 6. BUN and creatinine were 16 and 0.45. Albumin is 2.6. Microbiology is negative or pending. Chest x-rays reviewed. It shows a minimal pleural reaction at the right lung base. There is significant consolidation and atelectasis. There was a mass, right upper lung. Medications are reviewed. Currently, the patient is on Tylenol, Pulmicort, Pristiq, famotidine, fluconazole, Mucinex, heparin, DuoNeb, Solu-Medrol, Remeron, morphine, Zofran and Percocet. ASSESSMENT: 1. Lung cancer, adenocarcinoma, involving the right upper lobe, with a malignant right- sided pleural effusion, status post pigtail catheter placement, with drainage of pleural fluid, and subsequent talc pleurodesis. 2. History of underlying chronic obstructive pulmonary disease. 3. Ongoing tobacco use with nicotine addiction. 4. History of coronary artery disease. 5. History of gastroesophageal reflux disease. 6. History of hepatitis C. 7. Hyperlipidemia. 8. Peripheral vascular disease. 9. Multiple other medical problems and comorbidities. PLAN: In my opinion, since the patient has been here, she has only drained a small amount of fluid from the site where the pigtail catheter was. We have asked the nurses to be real precise about the drainage per shift. So far, maybe only 80 to 100 mL is drained. There is no obvious significant pleural effusion on the right chest. I do not believe a PleurX catheter will be beneficial this time. We will see how it goes in next day or 2. Her COPD from my standpoint is stable. She could be on DuoNeb q.i.d. p.r.n., Symbicort 160/4.5, two puffs twice a day, and a small dose of prednisone daily. No additional recommendations are made. We will follow along with you. Prognosis is very guarded. Overall, she is in very bad shape. MMODL / IJN: [id number] /
[2019-12-22 12:32] LABS: Glucose,Whole Blood 152 mg/dL (75-99)
--- NOTE | 2019-12-22 12:37 | P.PN ---
Subjective Progress Note Date: 12/22/19 59-year-old female with past medical history of COPD hepatitis C who seen at [facility]23 severe right-sided chest pain which continued for the last 1 month patient had a CAT scan of the chest showed copious amount of pleural effusion in the right side and consolidation of the right upper lobe and occlusion of the right upper lobe bronchus noted to have large 3 tracheal lymph node measured 2 cm there are right radicular lymph node measured 1.5 cm as well consolidation in the anterior right middle lobe noted also incidental of left adrenal mass which increase in size up to 2.9 cm from last examination. Patient was seen oncology and pulmonary was diagnosed with obstructive pneumonitis started on empiric antibiotic with vancomycin and Zosyn CT of the abdomen order for the current tomorrow patient was hospitalized ended up going for thoracentesis and 1.23 remove at the time and right pleural effusion according the following day ended up going for temporal pleurX catheter daily also had a bronchoscopy was done and cytology showed poorly differentiated adenocarcinoma thoracentesis fluid showed malignant fluid directly toward source can be from the abdomen. Patient ended up having tumor marker with alpha-fetoprotein along with CA-125 was elevated at 813 CA-19-9 was 38 CVA was 13 only whole body bone scan showed no obvious metastasis at the time patient went for upper and lower endoscopy colonoscopy could not be completed due to poor preparation, EGD showed no major significant finding. Patient ended up having pleurodesis and apparently started having significant leak around the tube side the following day with copious amount of pleural fluid. Patient was transferred to [facility] for cardiothoracic surgery for permanent Pleurx cath to be place in the right lung. Patient to be seen by oncology along with pulmonary. Was switched to oral antibiotic with Augmentin still on O2 still on updraft treatment. 12/21: The patient states that she is feeling much better today from yesterday. She does have drainage from the right pigtail catheter covered with colostomy bag with serous drainage. Repeat chest x-ray reveals extensive consolidation and atelectasis in the right upper lobe that has progressed compared to old exam. There is new small right pleural effusion. Findings suspicious for tumor. Ca rdiothoracic surgery to evaluate. Patient is followed by Dr. De Los Santos and due to decreased drainage from the pigtail catheter, patient may not require Pleurx catheter placement. She has been afebrile, heart rate 99, blood pressure 105/74, pulse ox 94% on 2 L nasal cannula. Repeat blood work reveals WBC 15.2, hemoglobin 11.8, platelet count 356. INR 0.9. Sodium 132, potassium 4.9, chloride 96, CO2 30, BUN 16 and creatinine 0.45. Blood sugars running between 142 and 183. Consult placed with oncology. Review of systems CONSTITUTIONAL: More outdoor rash and mild respiratory distress. EYES: No icterus sclerae, no conjunctivitis. EARS, NOSE, MOUTH, THROAT, and FACE: No sore throat, lymphadenopathy, carotid bruits or deformity. RESPIRATORY: Positive shortness of breath cough wheezes with pleural effusion. CARDIOVASCULAR: No CP, Palpitation, PND, Orthopnea, or angina. GASTROINTESTINAL: Mild abdominal discomfort with nausea no vomiting. GENITOURINARY: Negative for Hematuria or UTI, no kidney stones. INTEGUMENT/BREAST: Negative for any muscular injury with mild osteoarthritis.. HEMATOLOGIC/LYMPHATIC: Negative for bleed or purpura. MUSCULOSKELTAL: Generalized muscle and joint pain. NEURLOGICAL: No LOC, Sz or syncope, blurred vision dizziness or abnormality.. BEHAVIORAL/PSYCH: Negative. ENDOCRINE: Negative. Physical examination General Appearance: Alert, cooperative, looks older than her age in mild respiratory distress. Neck HEENT: Supple, no lymphadenopathy, no thyroid enlargement, no carotid bruits. Lungs: Decreased breath some bilateral fine rhonchi, positive crackles in right base has mild expiratory wheezes. Chest Wall: Chest wall normal expansion with deep inspiration no tenderness and no deformity was found on exam, no costochondral pain or discomfort. Heart: Regular rate and rhythm, S1, S2 normal, no murmur, rub or gallop. Back: Symmetric, no curvature, ROM normal, no CVA tenderness. Abdomen: Soft, non-tender, bowel sounds active all four quadrants, no masses, no organomegaly. Extremities: Extremities normal, atraumatic, no cyanosis or edema. Pulses: 2+ and symmetric. Skin: Skin color, texture, tugor normal, no rashes or lesions. Neurologic: Alert oriented x3 cranial nerves II through XII intact, no motor deficit, no abnormal balance or gait. Assessment and plan 1 severe dyspnea and shortness of breath: Secondary to large pleural effusion along with consolidation of the right middle and upper lobe and the right side with obstructive pneumonitis treated recently. Continue O2 continue updraft treatment for now and steroid with see pulmonary. 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 3 poorly differentiated adenocarcinoma found in the lung medically clear whether this is primary or secondary direction from the pleural fluid as metastasis from GI cancer. Consult oncology. 4 advance COPD: Continue patient on DuoNeb and Pulmicort twice daily, Solu- Medrol 40 mg IV every [address] De Los Santos appreciated 5 left-sided adrenal mass larger than June patient will require to go see one of the the surgeon who takes care of endocrine gland specially adrenal in one the tertiary center. 6 chronic history of tobacco use: Patient can benefit from staying on nicotine patch. 7 recent history 30 if UTI with sepsis was on Zosyn was switched to oral antibiotics. 8 chronic depression and bipolar: Has been on mirtazapine and Pristiq. Still on lithium. 11 chronic pain management: Remain on morphine and oxycodone. 9 atherosclerotic heart disease: Still on secondary prevention still seen cardiology continue high dose of atorvastatin 80 mg daily along with lisinopril and smaller visible beta olga. 10 GI prophylaxis: Continue patient on omeprazole 20 mg a day. CODE STATUS: Full code. Discharge plan: Home with [facility]. Social work consult regarding housing issue. Impression and plan of care have been directed as dictated by the signing physician. Cheryl Munoz nurse practitioner acting as scribe for signing physician. Objective - Vital Signs Vital signs: Vital Signs Temp 98.4 F 12/22/19 03:48 Pulse 116 H 12/22/19 07:45 Resp 19 12/22/19 03:49 BP 101/72 12/22/19 03:48 Pulse Ox 95 12/22/19 03:48 Intake & Output 12/21/19 12/22/19 12/22/19 18:59 06:59 18:59 Intake Total 600 Output Total 0 Balance 600 Weight 56.5 kg 57.1 kg Intake: Oral 600 Output: Urine 0 Other: Voiding Method Toilet # Voids 2 1 - Labs CBC & Chem 7: 12/22/19 05:42 12/22/19 05:42 Labs: Abnormal Lab Results - Last 24 Hours (Table) 12/21/19 12/22/19 12/22/19 Range/Units 20:01 05:42 05:42 WBC 15.2 H (3.8-10.6) k/uL Neutrophils # 14.4 H (1.3-7.7) k/uL Lymphocytes # 0.2 L (1.0-4.8) k/uL Sodium 132 L (137-145) mmol/L Chloride 96 L (98-107) mmol/L Creatinine 0.45 L (0.52-1.04) mg/dL Glucose 152 H (74-99) mg/dL POC Glucose (mg/dL) 183 H (75-99) mg/dL Total Protein 4.7 L (6.3-8.2) g/dL Albumin 2.6 L (3.5-5.0) g/dL 12/22/19 Range/Units 06:05 WBC (3.8-10.6) k/uL Neutrophils # (1.3-7.7) k/uL Lymphocytes # (1.0-4.8) k/uL Sodium (137-145) mmol/L Chloride (98-107) mmol/L Creatinine (0.52-1.04) mg/dL Glucose (74-99) mg/dL POC Glucose (mg/dL) 157 H (75-99) mg/dL Total Protein (6.3-8.2) g/dL Albumin (3.5-5.0) g/dL
--- NOTE | 2019-12-22 14:19 | P.GSCN ---
History of Present Illness Consult date: 12/22/19 Reason for Consult: Pleurx catheter Requesting physician: Pérez Sotelo History of present illness: This is a 59-year-old female patient who follows on an outpatient basis with Dr. Pérez Sotelo. She has a previous medical history of COPD, hepatitis C, PAD with bilateral lower extremity stent placement, "aorta surgery for blockage", current ongoing tobacco dependence, occasional EtOH use, cocaine and marijuana use, and family history of lung cancer. Apparently she presented to [facility] on December 03 with complaints of right-sided chest pain 1 month, associated with shortness of breath with exertion, increased phlegm production, loss of appetite, and 20 pound weight loss over the previous month. Both chest x-ray and computed tomography scan demonstrated right upper lobe mass with right-sided pleural effusion. She was admitted for evaluation and treatment with consultation placed to pulmonology. She underwent thoracentesis with Dr. Holt on December 05 with removal of 1500 mL fluid. On December 07 a pigtail catheter was placed with immediate removal of 2 L of fluid and continued drainage for a couple of weeks. On December 09 she had bronchoscopy with endobronchial biopsies which were reportedly positive for adenocarcinoma. As drainage from the pigtail catheter slowed talc was instilled and the catheter was removed shortly thereafter. Unfortunately she began to drain from the site where the pigtail catheter exited the skin. Due to her diagnosis of adenocarcinoma and the belief that pleural effusion will recur, she was transferred to [facility] for consultation with Dr. Garcia from cardiothoracic surgery for possible Pleurx catheter placement. Review of Systems Review of systems was completed and was negative except as noted - Constitutional Reports poor appetite, Reports weight loss - Cardiovascular Cardiovascular Comment(s): Patient does complain of significant lower extremity pain and she is concerned about her blockages returning potentially requiring amputation Reports as per HPI, Reports chest pain, Reports claudication, Reports dyspnea on exertion - Respiratory Reports as per HPI, Reports cough with sputum Past Medical History Past Medical History: Asthma, Coronary Artery Disease (CAD), COPD, GERD/Reflux, Hyperlipidemia, Liver Disease, Vascular Disorder Additional Past Medical History / Comment(s): Bronchitis, seasonal allergies, sinus problems, hepatitis C, migraines, occasional bilateral tinnitis, UTIs, PVD, past R wrist fx, past L clavicle fx, numbness/tingling R hand and legs. History of Any Multi-Drug Resistant Organisms: None Reported Past Surgical History: Cholecystectomy, Tubal Ligation Additional Past Surgical History / Comment(s): Aortic bypass with stents placed in bilateral femoral arteries, D&C Past Anesthesia/Blood Transfusion Reactions: No Reported Reaction Past Psychological History: Anxiety, Bipolar, Depression Additional Psychological History / Comment(s): Pt resides with a friend. She s tates her mental health is stable at this time. She does not have a license. She gets to [facility] by bus. Smoking Status: Current every day smoker Past Alcohol Use History: Occasional Additional Past Alcohol Use History / Comment(s): Pt started smoking in 1970 and is a ppd smoker. She states she drinks alcohol occasionally Past Drug Use History: Cocaine, Marijuana Additional Drug Use History / Comment(s): Pt last used marijuana on 07/27/18 and last used cocaine on 07/26/18. - Past Family History Father History Unknown: Yes Family Medical History: Cancer, CVA/TIA Additional Family Medical History / Comment(s): Father had a CVA, lung cancer. He is Mother History Unknown: Yes Family Medical History: No Reported History Additional Family Medical History / Comment(s): Mother was healthy. She is . Brother(s) History Unknown: Yes Sister(s) History Unknown: Yes Son(s) Family Medical History: No Reported History Medications and Allergies Home Medications Medication Instructions Recorded Confirmed Type Desvenlafaxine [Pristiq ER] 100 mg PO DAILY 10/30/17 12/21/19 History Budesonide [Pulmicort Flexhaler] 1 puff INHALATION RT-BID 12/31/17 12/21/19 History Acetaminophen [Tylenol Arthritis] 650 mg PO Q8H PRN 12/21/19 12/21/19 History Budesonide 1 mg INHALATION RT-BID 12/21/19 12/21/19 History Famotidine [Pepcid] 20 mg PO DAILY 12/21/19 12/21/19 History Fluconazole [Diflucan] 100 mg PO DAILY 12/21/19 12/21/19 History Heparin Sodium,Porcine/Pf [Heparin 5,000 unit SQ Q12H 12/21/19 12/21/19 History Sod 5,000 Unit/ml Syrg] Ipratropium-Albuterol Nebulize 3 ml INHALATION RT-QID 12/21/19 12/21/19 History [Duoneb 0.5 mg-3 mg/3 ml Soln] Mirtazapine 7.5 mg PO AC-SUPPER 12/21/19 12/21/19 History Morphine Sulfate [Ms Contin] 30 mg PO Q12H 12/21/19 12/21/19 History Ondansetron Odt [Zofran Odt] 4 mg PO Q6H PRN 12/21/19 12/21/19 History Sennosides [Senna] 8.6 mg PO BID 12/21/19 12/21/19 History Zofran 4mg Injection 4 mg IV Q4H PRN 12/21/19 12/21/19 History guaiFENesin [Mucinex] 1,200 mg PO Q12H 12/21/19 12/21/19 History oxyCODONE-APAP 5-325MG [Percocet 1 tab PO Q4H PRN 12/21/19 12/21/19 History 5-325 mg] predniSONE [Deltasone] 40 mg PO DAILY 12/21/19 12/21/19 History Allergies Allergy/AdvReac Type Severity Reaction Status Date / Time No Known Allergies Allergy Verified 10/30/19 17:03 Surgical - Exam Vital Signs Temp Pulse Resp BP Pulse Ox 98.4 F 110 H 16 95/66 96 12/21/19 15:48 12/21/19 15:48 12/21/19 15:48 12/21/19 15:48 12/21/19 15:48 - General well developed, well nourished, no distress, no pain - ENT no hearing loss - Neck no masses, no bruits, trachea midline - Respiratory Lungs sounds diminished bilaterally. Respirations even, nonlabored. Currently on 2 L nasal cannula with oxygen saturation 94% - Cardiovascular S1, S2 present. Tachycardic but regular rate and rhythm, sinus tach on telemetry. Palpable peripheral pulses bilaterally. No edema present. No calf pain tenderness noted. - Abdomen Abdomen: soft, non tender, bowel sounds - Genitourinary Deferred - Rectum Deferred - Integumentary Skin is warm and dry with open incision from pigtail catheter in the right posterior chest wall, colostomy bag present over the site with minimal amount of thin serous drainage. - Neurologic normal coordination, normal sensation - Musculoskeletal normal posture - Psychiatric oriented to time, oriented to person, oriented to place, speech is normal, memory intact Results - Labs 12/22/19 05:42 12/22/19 05:42 Abnormal Lab Results - Last 24 Hours (Table) 12/21/19 12/22/19 12/22/19 Range/Units 20:01 05:42 05:42 WBC 15.2 H (3.8-10.6) k/uL Neutrophils # 14.4 H (1.3-7.7) k/uL Lymphocytes # 0.2 L (1.0-4.8) k/uL Sodium 132 L (137-145) mmol/L Chloride 96 L (98-107) mmol/L Creatinine 0.45 L (0.52-1.04) mg/dL Glucose 152 H (74-99) mg/dL POC Glucose (mg/dL) 183 H (75-99) mg/dL Total Protein 4.7 L (6.3-8.2) g/dL Albumin 2.6 L (3.5-5.0) g/dL 12/22/19 12/22/19 Range/Units 06:05 12:17 WBC (3.8-10.6) k/uL Neutrophils # (1.3-7.7) k/uL Lymphocytes # (1.0-4.8) k/uL Sodium (137-145) mmol/L Chloride (98-107) mmol/L Creatinine (0.52-1.04) mg/dL Glucose (74-99) mg/dL POC Glucose (mg/dL) 157 H 152 H (75-99) mg/dL Total Protein (6.3-8.2) g/dL Albumin (3.5-5.0) g/dL Diabetes panel 12/22/19 Range/Units 05:42 Sodium 132 L (137-145) mmol/L Potassium 4.9 (3.5-5.1) mmol/L Chloride 96 L (98-107) mmol/L Carbon Dioxide 30 (22-30) mmol/L BUN 16 (7-17) mg/dL Creatinine 0.45 L (0.52-1.04) mg/dL Glucose 152 H (74-99) mg/dL Calcium 8.5 (8.4-10.2) mg/dL AST 23 (14-36) U/L ALT 26 (4-34) U/L Alkaline Phosphatase 90 (38-126) U/L Total Protein 4.7 L (6.3-8.2) g/dL Albumin 2.6 L (3.5-5.0) g/dL Calcium panel 12/22/19 Range/Units 05:42 Calcium 8.5 (8.4-10.2) mg/dL Albumin 2.6 L (3.5-5.0) g/dL Pituitary panel 12/22/19 Range/Units 05:42 Sodium 132 L (137-145) mmol/L Potassium 4.9 (3.5-5.1) mmol/L Chloride 96 L (98-107) mmol/L Carbon Dioxide 30 (22-30) mmol/L BUN 16 (7-17) mg/dL Creatinine 0.45 L (0.52-1.04) mg/dL Glucose 152 H (74-99) mg/dL Calcium 8.5 (8.4-10.2) mg/dL Adrenal panel 12/22/19 Range/Units 05:42 Sodium 132 L (137-145) mmol/L Potassium 4.9 (3.5-5.1) mmol/L Chloride 96 L (98-107) mmol/L Carbon Dioxide 30 (22-30) mmol/L BUN 16 (7-17) mg/dL Creatinine 0.45 L (0.52-1.04) mg/dL Glucose 152 H (74-99) mg/dL Calcium 8.5 (8.4-10.2) mg/dL Total Bilirubin 0.5 (0.2-1.3) mg/dL AST 23 (14-36) U/L ALT 26 (4-34) U/L Alkaline Phosphatase 90 (38-126) U/L Total Protein 4.7 L (6.3-8.2) g/dL Albumin 2.6 L (3.5-5.0) g/dL - Imaging Chest x-ray: report reviewed, image reviewed Assessment and Plan Assessment: 1. Right upper lobe mass, right pleural effusion, status post thoracentesis, pigtail placement, bronchoscopy with biopsy, pathology consistent with adenocarcinoma 2. COPD 3. History of CAD 4. History of hepatitis C 5. PAD with bilateral lower extremity stent placement 6. Aortic bypass 7. Current tobacco dependence 8. Occasional EtOH use 9. Cocaine and marijuana use 10. Family history of lung cancer Plan: Patient was seen and examined at the bedside. Chart/diagnostics reviewed. The case was discussed in detail with Dr. Garcia, Dr. Ely, and Dr. De Los Santos. At this time there does not appear to be significant pleural effusion on the right side. In order to place Pleurx catheter fluid would need to build up for placement of the catheter. This was discussed with the patient, and the pulmonary team. If the patient's pleural effusion does recur we would be happy to offer Pleurx catheter placement so the patient may drain at home. Our contact information will be left with the patient. Please continue medical management of other comorbidities per primary care service. Thank you for this consult. Please call us with any further questions. Time with Patient: Greater than 30
--- NOTE | 2019-12-22 14:23 | P.CONS ---
<Charmaine Angulo - Last Filed: 12/22/19 13:44> History of Present Illness - Reason for Consult Consult date: 12/22/19 New metastatic cancer diagnosis Requesting physician: Cheryl Munoz - Chief Complaint Chest pain. - History of Present Illness Ms. Olson is a patient originally seen and diagnosed at [facility]. She has a known history of COPD, Hepatitis, and chronic pain. She originally presented with complaints of shortness of breath and chest pain. She also complained of dark stool on admission. She underwent thoracentesis and cytology was positive for metastatic poorly differentiated carcinoma, although presentation showed consistent with a lung primary, cytology was inconclusive for primary site and favored Lower GI origin. Her cytology was further sent to [facility] which also revealed consistent with GI primary. She further went for RUL nodule surgical tissue biopsy on 12/09, this also returned as metastatic carcinoma without definitive primary site, although again revealing characteristics of GI primary. Because of these findings surgical consult was placed for further evaluation with EGD and Colonoscopy. Colonoscopy prep was attempted but patient refused to complete golytely prep, therefore it was unsafe to proceed with colonoscopy given inadequate prep. Dr. Evans did proceed with EGD on 12/21/19. Per op note no apparent massess in Esophagus seen, inflammatory changes noted and biopsies taken. Will need to consider further evaluation with adequate prep for colonoscopy when current situation with patients malignant effusion is resolved. She continues with SHortness of breath and leaking from thoracentesis site, hence why she was transferred to [facility] for plans to place pleurex drain. She continue to complain of severe pain, radiation oncology did initate palliative radiation in hopes to relieve this, she is on long acting and immediate release pain medication as well. Review of Systems All systems: negative (HPI) Past Medical History Past Medical History: Asthma, Coronary Artery Disease (CAD), COPD, GERD/Reflux, Hyperlipidemia, Liver Disease, Vascular Disorder Additional Past Medical History / Comment(s): Bronchitis, seasonal allergies, sinus problems, hepatitis C, migraines, occasional bilateral tinnitis, UTIs, PVD, past R wrist fx, past L clavicle fx, numbness/tingling R hand and legs. History of Any Multi-Drug Resistant Organisms: None Reported Past Surgical History: Cholecystectomy, Tubal Ligation Additional Past Surgical History / Comment(s): Aortic bypass with stents placed in bilateral femoral arteries, D&C Past Anesthesia/Blood Transfusion Reactions: No Reported Reaction Past Psychological History: Anxiety, Bipolar, Depression Additional Psychological History / Comment(s): Pt resides with a friend. She states her mental health is stable at this time. She does not have a license. She gets to [facility] by bus. Smoking Status: Current every day smoker Past Alcohol Use History: Occasional Additional Past Alcohol Use History / Comment(s): Pt started smoking in 1970 and is a ppd smoker. She states she drinks alcohol occasionally Past Drug Use History: Cocaine, Marijuana Additional Drug Use History / Comment(s): Pt last used marijuana on 07/27/18 and last used cocaine on 07/26/18. - Past Family History Father History Unknown: Yes Family Medical History: CVA/TIA Additional Family Medical History / Comment(s): Father had a CVA. He is Mother History Unknown: Yes Family Medical History: No Reported History Additional Family Medical History / Comment(s): Mother was healthy. She is . Brother(s) History Unknown: Yes Sister(s) History Unknown: Yes Son(s) Family Medical History: No Reported History Medications and Allergies Home Medications Medication Instructions Recorded Confirmed Type Desvenlafaxine [Pristiq ER] 100 mg PO DAILY 10/30/17 12/21/19 History Budesonide [Pulmicort Flexhaler] 1 puff INHALATION RT-BID 12/31/17 12/21/19 History Acetaminophen [Tylenol Arthritis] 650 mg PO Q8H PRN 12/21/19 12/21/19 History Budesonide 1 mg INHALATION RT-BID 12/21/19 12/21/19 History Famotidine [Pepcid] 20 mg PO DAILY 12/21/19 12/21/19 History Fluconazole [Diflucan] 100 mg PO DAILY 12/21/19 12/21/19 History Ipratropium-Albuterol Nebulize 3 ml INHALATION RT-QID 12/21/19 12/21/19 History [Duoneb 0.5 mg-3 mg/3 ml Soln] Mirtazapine 7.5 mg PO AC-SUPPER 12/21/19 12/21/19 History Morphine Sulfate [Ms Contin] 30 mg PO Q12H 12/21/19 12/21/19 History Ondansetron Odt [Zofran ODT] 4 mg PO Q6H PRN 12/21/19 12/21/19 History Sennosides [Senna] 8.6 mg PO BID 12/21/19 12/21/19 History Zofran 4mg Injection 4 mg IV Q4H PRN 12/21/19 12/21/19 History guaiFENesin [Mucinex] 1,200 mg PO Q12H 12/21/19 12/21/19 History oxyCODONE-APAP 5-325MG [Percocet 1 tab PO Q4H PRN 12/21/19 12/21/19 History 5-325 mg] predniSONE [Deltasone] 40 mg PO DAILY 12/21/19 12/21/19 History Allergies Allergy/AdvReac Type Severity Reaction Status Date / Time No Known Allergies Allergy Verified 10/30/19 17:03 Physical Exam Vitals: Vital Signs Temp Pulse Pulse Resp BP Pulse Ox 12/22/19 11:51 98.2 F 99 14 105/74 94 L 12/22/19 08:36 92 L 12/22/19 08:05 110 H 12/22/19 08:00 98.6 F 122 H 18 98/70 89 L 12/22/19 07:45 116 H 12/22/19 03:49 117 H 19 12/22/19 03:48 98.4 F 117 H 19 101/72 95 12/21/19 23:40 109 H 16 12/21/19 23:37 98.2 F 109 H 16 99/66 95 12/21/19 20:00 115 H 18 12/21/19 19:58 98.4 F 115 H 18 105/68 93 L 12/21/19 19:53 104 H 12/21/19 19:38 114 H 96 12/21/19 15:48 98.4 F 110 H 16 95/66 96 Intake and Output 12/21/19 12/22/19 12/22/19 22:59 06:59 14:59 Intake Total 600 250 Output Total 0 25 Balance 0 600 225 Intake: IV 10 0.9 Saline FLUSH 10 Oral 600 240 Output: Drainage 25 Right Chest 25 Urine 0 Other: Voiding Method Toilet Toilet Toilet # Voids 0 1 Weight 56.5 kg 57.1 kg 57.1 kg Gen: Thin, Frail, Appears chronically ill hEAD: nc, at Neck: Supple Lungs: Increased effort, diminished throughout. Heart: Irreg, Irreg Abdomen: SOft, Tender Ext: Areas eccymosis, no rashes, generalized weakness Psych: Anxious, angry Results CBC & Chem 7: 12/22/19 05:42 12/22/19 05:42 Labs: Abnormal Lab Results - Last 24 Hours (Table) 12/21/19 12/22/19 12/22/19 Range/Units 20:01 05:42 05:42 WBC 15.2 H (3.8-10.6) k/uL Neutrophils # 14.4 H (1.3-7.7) k/uL Lymphocytes # 0.2 L (1.0-4.8) k/uL Sodium 132 L (137-145) mmol/L Chloride 96 L (98-107) mmol/L Creatinine 0.45 L (0.52-1.04) mg/dL Glucose 152 H (74-99) mg/dL POC Glucose (mg/dL) 183 H (75-99) mg/dL Total Protein 4.7 L (6.3-8.2) g/dL Albumin 2.6 L (3.5-5.0) g/dL 12/22/19 12/22/19 Range/Units 06:05 12:17 WBC (3.8-10.6) k/uL Neutrophils # (1.3-7.7) k/uL Lymphocytes # (1.0-4.8) k/uL Sodium (137-145) mmol/L Chloride (98-107) mmol/L Creatinine (0.52-1.04) mg/dL Glucose (74-99) mg/dL POC Glucose (mg/dL) 157 H 152 H (75-99) mg/dL Total Protein (6.3-8.2) g/dL Albumin (3.5-5.0) g/dL CT scan - abdomen: report reviewed CT scan - chest: report reviewed CT Scan - head: report reviewed CT scan - pelvis: report reviewed Assessment and Plan Plan: Assessment and Recommendations: Malignant PLeural Effusion: - Cytology positive for poorly differentiated carcinoma, intitially thought to be lung primary although pathology from cytology and a surgical bx both show most consistent with a lower GI primary source. Case was also sent to [facility] for further evaluation, result also showed consistent with GI source - Surgical team has been following with plan for upper and lower endoscopy to further assess for primary source although this was placed on hold as patient has now required transfer to [facility] for Metastatic Poorly Differentiated Carcinoma: - As above second opinion [facility] on Pathology and Cytology consistent with GI primary - Once stable and efficiently prepped will need COlonoscopy Neoplastic Related Pain: - Patient complaints of pain is very generalized, non-specific and continuous despite multiple efforts to control. Feel there is a high anxiety component to her response to pain, and the addition of a long acting SSRI or SNRI maybe beneficial in helping her comfort levels. - Recommend Psych consult to further evaluate for help with anxiety management which maybe increasing her overall perception of pain and discomfort. History of dependence: Cocain, Marijuana, and Tobacco History of Depression/Anxiety <Sushant Nobles - Last Filed: 12/23/19 09:22> Physical Exam Vitals: Vital Signs Temp Pulse Resp BP Pulse Ox 12/23/19 09:15 91 L 12/23/19 08:00 98.2 F 86 16 119/87 95 12/23/19 03:38 69 18 12/23/19 03:37 97.9 F 69 18 134/86 95 12/22/19 23:25 66 16 12/22/19 23:24 97.9 F 66 16 118/79 96 12/22/19 20:00 97.7 F 63 16 117/74 94 L 12/22/19 16:00 98 F 98 14 110/72 95 12/22/19 11:51 98.2 F 99 14 105/74 94 L Intake and Output 12/22/19 12/23/19 12/23/19 22:59 06:59 14:59 Intake Total 720 610 Output Total 5 Balance 715 610 Intake: IV 10 Invasive Line 2 10 Oral 720 600 Output: Drainage 5 Right Chest 5 Other: Voiding Method Toilet Toilet # Voids 1 1 Weight 57.1 kg Results CBC & Chem 7: 12/22/19 05:42 12/22/19 05:42 Labs: Abnormal Lab Results - Last 24 Hours (Table) 12/22/19 12/22/19 12/22/19 Range/Units 12:17 17:12 19:44 POC Glucose (mg/dL) 152 H 177 H 226 H (75-99) mg/dL 12/23/19 Range/Units 06:20 POC Glucose (mg/dL) 149 H (75-99) mg/dL Assessment and Plan Plan: Clarification: [facility] pathology consult indicated GI primary, likely lower. However, clinically the presentation is much more c/w lung primary with enteric features ( Pleural effusion, biopsy +ve right lung mass). Thus if EGD and colonoscopy are negative the plan would be to treat as lung primary
[2019-12-22 17:14] LABS: Glucose,Whole Blood 177 mg/dL (75-99)
[2019-12-22] MEDS: MIRTAZAPINE 15 MG TAB PO SCH (17:23)
[2019-12-22 19:46] LABS: Glucose,Whole Blood 226 mg/dL (75-99)
[2019-12-23] MEDS: oxyCODONE-APAP 5-325MG 1 EACH TAB PO PRN ×3 (02:55→22:55)
[2019-12-23 06:21] LABS: Glucose,Whole Blood 149 mg/dL (75-99)
[2019-12-23] MEDS: INSULIN ASPART (NovoLOG) 100 UNIT/ML VIAL SQ SCH ×4 (06:44→20:09)
[2019-12-23 07:06] LABS: INR 0.9 (<1.2); Prothrombin Time 9.3 sec (9.0-12.0)
[2019-12-23] MEDS: IPRATROPIUM-ALBUTEROL 3 ML NEB INHALATION SCH ×4 (07:42→19:27)
[2019-12-23] MEDS: BUDESONIDE 1 MG/2 ML NEBU INHALATION SCH ×2 (07:42→19:27)
[2019-12-23] MEDS: methylPREDNISolone SOD SUCCI 40 MG/ML 1 ML VIAL IV SCH ×3 (09:04→22:54)
[2019-12-23] MEDS: HEPARIN SODIUM,PORCINE 5,000 UNIT/ML 1 ML VIAL SQ SCH ×2 (09:04→20:08)
[2019-12-23] MEDS: DESVENLAFAXINE SUCCINATE 50 MG TAB.ER.24H PO SCH (09:05)
[2019-12-23] MEDS: FLUCONAZOLE 100 MG TAB PO SCH (09:05)
[2019-12-23] MEDS: guaiFENesin 600 MG TABLET.ER PO SCH ×2 (09:05→20:08)
[2019-12-23] MEDS: MORPHINE SULFATE ER 30 MG TABLET PO SCH ×2 (09:05→20:09)
[2019-12-23] MEDS: FAMOTIDINE 20 MG TAB PO SCH (09:05)
[2019-12-23] MEDS: SENNOSIDES 8.6 MG TAB PO SCH ×2 (09:05→20:09)
--- NOTE | 2019-12-23 10:16 | P.DS ---
Providers Date of admission: 12/21/19 15:44 Expected date of discharge: 12/23/19 Attending physician: Pérez Sotelo Consults: 12/21/19 18:17 Consult Physician Routine Consulting Provider: Deon Garcia Consult Reason/Comments: Permanent Pleural Cath Do you want consulting provider notified?: Yes 12/21/19 18:19 Consult Physician Routine Consulting Provider: Lorne De Los Santos Consult Reason/Comments: Malignant Pleural effusion Do you want consulting provider notified?: Yes 12/22/19 09:28 Consult Physician Routine Consulting Provider: Sushant Nobles Consult Reason/Comments: malignant pleural effusion Do you want consulting provider notified?: Yes Primary care physician: Pérez Sotelo [facility] Course: 59-year-old female with past medical history of COPD hepatitis C who seen at [facility] who presented to emergency department at [facility] 12/04/2023 severe right-sided chest pain which continued for the last 1 month patient had a CAT scan of the chest showed copious amount of pleural effusion in the right side and consolidation of the right upper lobe and occlusion of the right upper lobe bronchus noted to have large 3 tracheal lymph node measured 2 cm there are right radicular lymph node measured 1.5 cm as well consolidation in the anterior right middle lobe noted also incidental of left adrenal mass which increase in size up to 2.9 cm from last examination. Patient was seen oncology and pulmonary was diagnosed with obstructive pneumonitis started on empiric antibiotic with vancomycin and Zosyn CT of the abdomen order for the current tomorrow patient was hospitalized ended up going for thoracentesis and 1.23 remove at the time and right pleural effusion according the following day ended up going for temporal pleurX catheter daily also had a bronchoscopy was done and cytology showed poorly differentiated adenocarcinoma thoracentesis fluid showed malignant fluid directly toward source can be from the abdomen. Patient ended up having tumor marker with alpha-fetoprotein along with CA-125 was elevated at 813 CA-19-9 was 38 CVA was 13 only whole body bone scan showed no obvious metastasis at the time patient went for upper and lower endoscopy colonoscopy could not be completed due to poor preparation, EGD showed no major significant finding. Patient ended up having pleurodesis and apparently started having significant l eak around the tube side the following day with copious amount of pleural fluid. Patient was transferred to [facility] for cardiothoracic surgery for permanent Pleurx cath to be place in the right lung. Patient to be seen by oncology along with pulmonary. Was switched to oral antibiotic with Augmentin still on O2 still on updraft treatment. 12/21: The patient states that she is feeling much better today from yesterday. She does have drainage from the right pigtail catheter covered with colostomy bag with serous drainage. Repeat chest x-ray reveals extensive consolidation and atelectasis in the right upper lobe that has progressed compared to old exam. There is new small right pleural effusion. Findings suspicious for tumor. Cardiothoracic surgery to evaluate. Patient is followed by Dr. De Los Santos and due to decreased drainage from the pigtail catheter, patient may not require Pleurx catheter placement. She has been afebrile, heart rate 99, blood pressure 105/74, pulse ox 94% on 2 L nasal cannula. Repeat blood work reveals WBC 15.2, hemoglobin 11.8, platelet count 356. INR 0.9. Sodium 132, potassium 4.9, chloride 96, CO2 30, BUN 16 and creatinine 0.45. Blood sugars running between 142 and 183. Consult placed with oncology. 12/22: Patient has been seen by cardiothoracic surgery and is in agreement the patient has not had enough output from pigtail catheter to warrant Pleurx catheter placement. She has had 5 mL out overnight. Patient has also been seen by Dr. Nobles. Pulse ox is currently 95% on 2 L nasal cannula and will be checked for home oxygen need. regional ehs manager to arrange other DME including cane and nebulizer. Discussed smoking cessation with the patient and she is adamant that she will stop smoking at this time. Patient will be discharged home once cleared by pulmonary medicine. Assessment and plan 1 severe dyspnea and shortness of breath: Secondary to large malignant pleural effusion with cytology positive for poorly differentiated carcinoma with GI source primary, once stable will need colonoscopy. 2 very large right pleural effusion: Mostly malignant pleural effusion from metastasis 3 poorly differentiated adenocarcinoma found in the lung 4 advance COPD 5 left-sided adrenal mass 6 chronic history of tobacco use 7 recent history of UTI with sepsis 8 recurrent depression and bipolar 9 atherosclerotic heart disease Discharge plan: Home with [facility]. Social work consult regarding housing issue. Impression and plan of care have been directed as dictated by the signing physician. Cheryl Munoz nurse practitioner acting as scribe for signing physician. Patient Condition at Discharge: Good Plan - Discharge Summary Discharge Rx Participant: Yes New Discharge Prescriptions: Continue Desvenlafaxine [Pristiq ER] 100 mg PO DAILY Budesonide [Pulmicort Flexhaler] 1 puff INHALATION RT-BID Ondansetron Odt [Zofran ODT] 4 mg PO Q6H PRN PRN Reason: Nausea Sennosides [Senna] 8.6 mg PO BID Famotidine [Pepcid] 20 mg PO DAILY guaiFENesin [Mucinex] 1,200 mg PO Q12H Ipratropium-Albuterol Nebulize [Duoneb 0.5 mg-3 mg/3 ml Soln] 3 ml INHALATION RT-QID Budesonide 1 mg INHALATION RT-BID Mirtazapine 7.5 mg PO AC-SUPPER Acetaminophen [Tylenol Arthritis] 650 mg PO Q8H PRN PRN Reason: Fever And/ Or Pain Morphine Sulfate [Ms Contin] 30 mg PO Q12H predniSONE [Deltasone] 40 mg PO DAILY oxyCODONE-APAP 5-325MG [Percocet 5-325 mg] 1 tab PO Q4H PRN PRN Reason: Moderate To Severe Pain Fluconazole [Diflucan] 100 mg PO DAILY Zofran 4mg Injection 4 mg IV Q4H PRN PRN Reason: Nausea Discontinued Heparin Sodium,Porcine/Pf [Heparin Sod 5,000 Unit/ml Syrg] 5,000 unit SQ Q12H Discharge Medication List Desvenlafaxine [Pristiq ER] 100 mg PO DAILY 10/30/17 [History] Budesonide [Pulmicort Flexhaler] 1 puff INHALATION RT-BID 12/31/17 [History] Acetaminophen [Tylenol Arthritis] 650 mg PO Q8H PRN 12/21/19 [History] Budesonide 1 mg INHALATION RT-BID 12/21/19 [History] Famotidine [Pepcid] 20 mg PO DAILY 12/21/19 [History] Fluconazole [Diflucan] 100 mg PO DAILY 12/21/19 [History] Ipratropium-Albuterol Nebulize [Duoneb 0.5 mg-3 mg/3 ml Soln] 3 ml INHALATION RT-QID 12/21/19 [History] Mirtazapine 7.5 mg PO AC-SUPPER 12/21/19 [History] Morphine Sulfate [Ms Contin] 30 mg PO Q12H 12/21/19 [History] Ondansetron Odt [Zofran ODT] 4 mg PO Q6H PRN 12/21/19 [History] Sennosides [Senna] 8.6 mg PO BID 12/21/19 [History] Zofran 4mg Injection 4 mg IV Q4H PRN 12/21/19 [History] guaiFENesin [Mucinex] 1,200 mg PO Q12H 12/21/19 [History] oxyCODONE-APAP 5-325MG [Percocet 5-325 mg] 1 tab PO Q4H PRN 12/21/19 [History] predniSONE [Deltasone] 40 mg PO DAILY 12/21/19 [History] Follow up Appointment(s)/Referral(s): [facility], [NON-STAFF] - [facility] [NON[facility]] - 1 Week Activity/Diet/Wound Care/Special Instructions: Patient will need a cane at discharge secondary to unsteady gait Patient will need a nebulizer at discharge secondary to COPD Discharge Disposition: HOME WITH HOME HEALTH SERVICES
--- NOTE | 2019-12-23 11:22 | P.PN ---
Subjective Progress Note Date: 12/23/19 Principal diagnosis: Right upper lobe lung adenocarcinoma, with a malignant right-sided pleural effusion, status post pigtail catheter placement and removal, and subsequent PLEURODESIS 59-year-old white female patient with history of multiple medical problems including COPD, CAD, hepatitis C, hyperlipidemia, chronic liver disease, among other problems, was hospitalized at the [facility] where she went for evaluation of worsening shortness of breath. Chest x-ray and computed tomography scan of the chest revealed a large right upper lung mass that was highly suspicious for lung cancer. There was right pleural effusion, likely malignant, and patient had thoracentesis, pleural fluid was positive for adenocarcinoma with the possibility of primary GI in origin. Subsequent patient had to have a pigtail catheter placed in the right pleural space, when the drainage decreased the pigtail catheter was removed, and before removal patient had felt pleurodesis injected into the pigtail catheter. Subsequently after removal of the pigtail catheter patient had continuous leaking of serous fluid from the pigtail chest tube site. Requiring placement of the ostomy appliance. There was concern for development of a pleural track. Patient was transferred to the [facility] for possibility of a Pleurx catheter placement. However since she arrived here the fluid has decreased in amount significantly, and in the last 24 hours there has only been 30 mL of serous fluid in the ostomy applied over the right posterior chest puncture site. Clin ically patient stable, she was awake and alert, oriented 3, denies any shortness of breath, denies any chest pain. Room air pulse ox is 92-95%, she's had no fever or chills. There have been no acute events overnight. From pulmonary perspective patient could be considered for discharge home today. Objective - Vital Signs Vital signs: Vital Signs Temp 98.2 F 12/23/19 08:00 Pulse 86 12/23/19 08:00 Resp 16 12/23/19 08:00 BP 119/87 12/23/19 08:00 Pulse Ox 92 L 12/23/19 10:58 Intake & Output 12/22/19 12/23/19 12/23/19 18:59 06:59 18:59 Intake Total 610 1210 240 Output Total 25 5 Balance 585 1205 240 Weight 57.1 kg 57.1 kg Intake: IV 10 10 0.9 Saline FLUSH 10 Invasive Line 2 10 Oral 600 1200 240 Output: Drainage 25 5 Right Chest 25 5 Other: Voiding Method Toilet Toilet # Voids 1 - Exam GENERAL EXAM: Alert, very pleasant, 59-year-old white female, on room air with the pulse ox of 95%, comfortable in no apparent distress. HEAD: Normocephalic/atraumatic. EYES: Normal reaction of pupils, equal size. Conjunctiva pink, sclera white. NOSE: Clear with pink turbinates. THROAT: No erythema or exudates. NECK: No masses, no JVD, no thyroid enlargement, no adenopathy. CHEST: No chest wall deformity. Symmetrical expansion. Right posterior chest wall puncture site from the pigtail insertion catheter has an ostomy appliance over it with minimal amount of serous fluid LUNGS: Equal air entry with no crackles, wheeze, rhonchi or dullness. CVS: Regular rate and rhythm, normal S1 and S2, no gallops, no murmurs, no rubs ABDOMEN: Soft, nontender. No hepatosplenomegaly, normal bowel sounds, no guarding or rigidity. EXTREMITIES: No clubbing, no edema, no cyanosis, 2+ pulses and upper and lower extremities. MUSCULOSKELETAL: Muscle strength and tone normal. SPINE: No scoliosis or deformity SKIN: No rashes CENTRAL NERVOUS SYSTEM: Alert and oriented -3. No focal deficits, tone is normal in all 4 extremities. PSYCHIATRIC: Alert and oriented -3. Appropriate affect. Intact judgment and insight. - Labs CBC & Chem 7: 12/22/19 05:42 12/22/19 05:42 Labs: Abnormal Lab Results - Last 24 Hours (Table) 12/22/19 12/22/19 12/22/19 Range/Units 12:17 17:12 19:44 POC Glucose (mg/dL) 152 H 177 H 226 H (75-99) mg/dL 12/23/19 Range/Units 06:20 POC Glucose (mg/dL) 149 H (75-99) mg/dL Assessment and Plan Plan: Assessment: #1. Metastatic adenocarcinoma, involving the right upper lobe, with a malignant right-sided pleural effusion, status post pigtail catheter placement, with drainage of pleural fluid and positive cytology for adenocarcinoma with possible GI primary. Pigtail has since been removed, talc pleurodesis was done prior to removal. Ostomy appliance was applied for continuous drainage from the former pigtail chest tube insertion site, the drainage has significantly improved, and his only been at 30 mL per last 24 hours, on 12/23/2019 #2. History of underlying chronic obstructive pulmonary disease #3. Ongoing tobacco use with nicotine addiction #4. History of coronary artery disease #5. History of GERD/reflux #6. History of hepatitis C #7. Hyperlipidemia #8. Peripheral vascular disease #9. Multiple other medical problems and comorbidities Plan: Continue current medical treatment, the drainage from the former pigtail chest tube site has significantly decreased, and patient has only put out 30 mL of s erous fluid, worsening dyspnea, has been stable, she is on room air, discussed the case with CT surgery on the case. If patient develops reaccumulation of pleural fluid in the right pleural space then Pleurx catheter will be placed. Otherwise she stable for discharge home today with outpatient follow-up with Dr. Ely in the office I performed a history & physical examination of the patient and discussed their management with my nurse practitioner, Juanita Grey. I reviewed the nurse pra ctitioner's note and agree with the documented findings and plan of care. Lung sounds are positive for clear breath sounds.. The findings and the impression was discussed with the patient. I attest to the documentation by the nurse practitioner. Time with Patient: Less than 30
[2019-12-23 12:25] LABS: Glucose,Whole Blood 136 mg/dL (75-99)
[2019-12-23 16:53] LABS: Glucose,Whole Blood 183 mg/dL (75-99)
[2019-12-23] MEDS: MIRTAZAPINE 15 MG TAB PO SCH (17:28)
[2019-12-23 20:04] LABS: Glucose,Whole Blood 138 mg/dL (75-99)
--- NOTE | 2019-12-23 20:22 | P.PN ---
Subjective Progress Note Date: 12/23/19 Principal diagnosis: New metastatic cancer diagnosis It appears she is planning for discharge. CTS does not have plan to place pleurx as they feel there is not enough culmative fluid in right pleura to adequately place at this time. Objective - Vital Signs Vital signs: Vital Signs Temp 98.0 F 12/23/19 19:59 Pulse 102 H 12/23/19 20:00 Resp 18 12/23/19 20:00 BP 111/78 12/23/19 19:59 Pulse Ox 92 L 12/23/19 19:59 Intake & Output 12/23/19 12/23/19 12/24/19 06:59 18:59 06:59 Intake Total 1210 720 Output Total 5 Balance 1205 720 Weight 57.1 kg Intake: IV 10 Invasive Line 2 10 Oral 1200 720 Output: Drainage 5 Right Chest 5 Other: Voiding Method Toilet Toilet # Voids 1 2 # Bowel Movements 1 - Exam Gen: Thin, Frail, Appears chronically ill hEAD: nc, at Neck: Supple Lungs: Increased effort, diminished throughout. Heart: Irreg, Irreg Abdomen: SOft, Tender Ext: Areas eccymosis, no rashes, generalized weakness Psych: Anxious, angry - Labs CBC & Chem 7: 12/22/19 05:42 12/22/19 05:42 Labs: Abnormal Lab Results - Last 24 Hours (Table) 12/23/19 12/23/19 12/23/19 Range/Units 06:20 12:24 16:51 POC Glucose (mg/dL) 149 H 136 H 183 H (75-99) mg/dL 12/23/19 Range/Units 20:03 POC Glucose (mg/dL) 138 H (75-99) mg/dL Assessment and Plan Plan: Assessment and Recommendations: Malignant PLeural Effusion: - CTS was consulted for placement of pleurex. Patient was transferred from [facility] for this evaluation and possible procedure although at this time was felt that the patient did not have adequate effusion to place pleurx and no plans at the moment for this procedure. Metastatic Poorly Differentiated Carcinoma: - [facility] pathology consult indicated GI primary, likely lower. However, clinically the presentation is much more c/w lung primary with enteric features ( Pleural effusion, biopsy +ve right lung mass). Thus if colonoscopy is negative the plan would be to treat as lung primary - Once stable and efficiently prepped will need Colonoscopy, although patient has refused this at the time due to not tolerating prep. - She is status post EGD, no definitive primary site noted on procedure per endoscopy note. Neoplastic Related Pain: - Patient complaints of pain is very generalized, non-specific and continuous despite multiple efforts to control. Feel there is a high anxiety component to her response to pain, and the addition of a long acting SSRI or SNRI maybe beneficial in helping her comfort levels. - Recommend Psych consult to further evaluate for help with anxiety management which maybe increasing her overall perception of pain and discomfort. History of dependence: Cocain, Marijuana, and Tobacco History of Depression/Anxiety Probable plan for discharge per primary team: Patient has appointment made with Dr. Nobles in office for next week 12/29. THis has been added to discharge. Feel patient could truly benefit from pleurex and with amount of drainage if we are able to block the drainage to allow fill for adequate pleurx please consider this procedure prior to discharge as no delay in treatment initiation Patient has also agreed to move forward with colonoscopy, please re-consult to have this completed Physician Attest: I have completed the full history and physical and agree with above dictation, dictated as a scribe.
[2019-12-24 06:28] LABS: Glucose,Whole Blood 149 mg/dL (75-99)
[2019-12-24] MEDS: oxyCODONE-APAP 5-325MG 1 EACH TAB PO PRN ×3 (06:30→23:41)
[2019-12-24] MEDS: INSULIN ASPART (NovoLOG) 100 UNIT/ML VIAL SQ SCH ×4 (06:30→20:03)
[2019-12-24] MEDS: IPRATROPIUM-ALBUTEROL 3 ML NEB INHALATION SCH ×4 (07:44→20:01)
[2019-12-24] MEDS: BUDESONIDE 1 MG/2 ML NEBU INHALATION SCH ×2 (07:44→20:01)
[2019-12-24] MEDS: MORPHINE SULFATE ER 30 MG TABLET PO SCH ×2 (08:49→20:03)
[2019-12-24] MEDS: guaiFENesin 600 MG TABLET.ER PO SCH ×2 (08:49→20:02)
[2019-12-24] MEDS: SENNOSIDES 8.6 MG TAB PO SCH ×2 (08:49→20:02)
[2019-12-24] MEDS: FAMOTIDINE 20 MG TAB PO SCH (08:49)
[2019-12-24] MEDS: HEPARIN SODIUM,PORCINE 5,000 UNIT/ML 1 ML VIAL SQ SCH ×2 (08:50→20:03)
[2019-12-24] MEDS: methylPREDNISolone SOD SUCCI 40 MG/ML 1 ML VIAL IV SCH ×3 (08:50→23:41)
[2019-12-24] MEDS: FLUCONAZOLE 100 MG TAB PO SCH (08:50)
[2019-12-24] MEDS: DESVENLAFAXINE SUCCINATE 50 MG TAB.ER.24H PO SCH (08:50)
--- NOTE | 2019-12-24 09:43 | P.PN ---
Subjective Progress Note Date: 12/23/19 59-year-old female with past medical history of COPD hepatitis C who [facility] severe right-sided chest pain which continued for the last 1 month patient had a CAT scan of the chest showed copious amount of pleural effusion in the right side and consolidation of the right upper lobe and occlusion of the right upper lobe bronchus noted to have large 3 tracheal lymph node measured 2 cm there are right radicular lymph node measured 1.5 cm as well consolidation in the anterior right middle lobe noted also incidental of left adrenal mass which increase in size up to 2.9 cm from last examination. Patient was seen oncology and pulmonary was diagnosed with obstructive pneumonitis started on empiric antibiotic with vancomycin and Zosyn CT of the abdomen order for the current tomorrow patient was hospitalized ended up going for thoracentesis and 1.23 remove at the time and right pleural effusion according the following day ended up going for temporal pleurX catheter daily also had a bronchoscopy was done and cytology showed poorly differentiated adenocarcinoma thoracentesis fluid showed malignant fluid directly toward source can be from the abdomen. Patient ended up having tumor marker with alpha-fetoprotein along with CA-125 was elevated at 813 CA-19-9 was 38 CVA was 13 only whole body bone scan showed no obvious metastasis at the time patient went for upper and lower endoscopy colonoscopy could not be completed due to poor preparation, EGD showed no major significant finding. Patient ended up having pleurodesis and apparently started having significant leak around the tube side the following day with copious amount of pleural fluid. Patient was transferred to [facility] for cardiothoracic surgery for permanent Pleurx cath to be place in the right lung. Patient to be seen by oncology along with pulmonary. Was switched to oral antibiotic with Augmentin still on O2 still on updraft treatment. 12/21: The patient states that she is feeling much better today from yesterday. She does have drainage from the right pigtail catheter covered with colostomy bag with serous drainage. Repeat chest x-ray reveals extensive consolidation and atelectasis in the right upper lobe that has progressed compared to old exam. There is new small right pleural effusion. Findings suspicious for tumor. Ca rdiothoracic surgery to evaluate. Patient is followed by Dr. De Los Santos and due to decreased drainage from the pigtail catheter, patient may not require Pleurx catheter placement. She has been afebrile, heart rate 99, blood pressure 105/74, pulse ox 94% on 2 L nasal cannula. Repeat blood work reveals WBC 15.2, hemoglobin 11.8, platelet count 356. INR 0.9. Sodium 132, potassium 4.9, chloride 96, CO2 30, BUN 16 and creatinine 0.45. Blood sugars running between 142 and 183. Consult placed with oncology. 12/22: Patient has been seen by cardiothoracic surgery and is in agreement the patient has not had enough output from pigtail catheter to warrant Pleurx catheter placement. She has had 5 mL out overnight. Patient has also been seen by Dr. Nobles. Pulse ox is currently 95% on 2 L nasal cannula and will be checked for home oxygen need. estimation manager to arrange other DME including [employer] and [facility]. Discussed smoking cessation with the patient and she is adamant that she will stop smoking at this time. Patient will be discharged home once cleared by pulmonary medicine, however, oxygen was not able to be delivered in patient's discharge was held. Review of systems CONSTITUTIONAL: More outdoor rash and mild respiratory distress. EYES: No icterus sclerae, no conjunctivitis. EARS, NOSE, MOUTH, THROAT, and FACE: No sore throat, lymphadenopathy, carotid bruits or deformity. RESPIRATORY: Positive shortness of breath cough wheezes with pleural effusion. CARDIOVASCULAR: No CP, Palpitation, PND, Orthopnea, or angina. GASTROINTESTINAL: Mild abdominal discomfort with nausea no vomiting. GENITOURINARY: Negative for Hematuria or UTI, no kidney stones. INTEGUMENT/BREAST: Negative for any muscular injury with mild osteoarthritis.. HEMATOLOGIC/LYMPHATIC: Negative for bleed or purpura. MUSCULOSKELTAL: Generalized muscle and joint pain. NEURLOGICAL: No LOC, Sz or syncope, blurred vision dizziness or abnormality.. BEHAVIORAL/PSYCH: Negative. ENDOCRINE: Negative. Physical examination General Appearance: Alert, cooperative, looks older than her age in mild respiratory distress. Neck HEENT: Supple, no lymphadenopathy, no thyroid enlargement, no carotid bruits. Lungs: Decreased breath some bilateral fine rhonchi, positive crackles in right base has mild expiratory wheezes. Chest Wall: Chest wall normal expansion with deep inspiration no tenderness and no deformity was found on exam, no costochondral pain or discomfort. Heart: Regular rate and rhythm, S1, S2 normal, no murmur, rub or gallop. Back: Symmetric, no curvature, ROM normal, no CVA tenderness. Abdomen: Soft, non-tender, bowel sounds active all four quadrants, no masses, no organomegaly. Extremities: Extremities normal, atraumatic, no cyanosis or edema. Pulses: 2+ and symmetric. Skin: Skin color, texture, tugor normal, no rashes or lesions. Neurologic: Alert oriented x3 cranial nerves II through XII intact, no motor deficit, no abnormal balance or gait. Assessment and plan 1 severe dyspnea and shortness of breath: Secondary to large pleural effusion along with consolidation of the right middle and upper lobe and the right side with obstructive pneumonitis treated recently. Continue O2 continue updraft treatment for now and steroid with see pulmonary. 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 3 poorly differentiated adenocarcinoma found in the lung medically clear whether this is primary or secondary direction from the pleural fluid as metastasis from GI cancer. Consult oncology. 4 advance COPD: Continue patient on DuoNeb and Pulmicort twice daily, Solu- Medrol 40 mg IV every [address] De Los Santos appreciated 5 left-sided adrenal mass larger than June patient will require to go see one of the the surgeon who takes care of endocrine gland specially adrenal in one the tertiary center. 6 chronic history of tobacco use: Patient can benefit from staying on nicotine patch. 7 recent history 30 if UTI with sepsis was on Zosyn was switched to oral antibiotics. 8 chronic depression and bipolar: Has been on mirtazapine and Pristiq. Still on lithium. 11 chronic pain management: Remain on morphine and oxycodone. 9 atherosclerotic heart disease: Still on secondary prevention still seen cardiology continue high dose of atorvastatin 80 mg daily along with lisinopril and smaller visible beta olga. 10 Severe protein calorie malnutrition. Protien supplements. 11 Chronic hypoxic respiratory failure requiring home oxygen. estimation manager to make arrangements for home oxygen prior to discharge. Pulse ox dropped to 88% with ambulation. 12 chronic hypoxic respiratory failure requiring home oxygen. 13 severe protein calorie malnutrition with BMI of 21, protein supplementation. GI prophylaxis: Continue patient on omeprazole 20 mg a day. CODE STATUS: Full code. Discharge plan: Home with [facility]. Social work consult regarding housing issue. Impression and plan of care have been directed as dictated by the signing physician. Cheryl Munoz nurse practitioner acting as scribe for signing physici an. Objective - Vital Signs Vital signs: Vital Signs Temp 98.0 F 12/24/19 04:00 Pulse 84 12/24/19 04:00 Resp 18 12/24/19 04:00 BP 117/67 12/24/19 04:00 Pulse Ox 94 L 12/24/19 04:00 Intake & Output 12/23/19 12/24/19 12/24/19 18:59 06:59 18:59 Intake Total 720 610 Output Total 300 Balance 720 310 Weight 57.5 kg Intake: IV 10 Invasive Line 2 10 Oral 720 600 Output: Drainage 300 Right Chest 300 Other: Voiding Method Toilet # Voids 2 1 # Bowel Movements 1 - Labs CBC & Chem 7: 12/22/19 05:42 12/22/19 05:42 Labs: Abnormal Lab Results - Last 24 Hours (Table) 12/23/19 12/23/19 12/23/19 Range/Units 12:24 16:51 20:03 POC Glucose (mg/dL) 136 H 183 H 138 H (75-99) mg/dL 12/24/19 Range/Units 06:25 POC Glucose (mg/dL) 149 H (75-99) mg/dL
--- NOTE | 2019-12-24 09:49 | P.PN ---
Subjective Progress Note Date: 12/24/19 59-year-old female with past medical history of COPD hepatitis C who seen at [facility] severe right-sided chest pain which continued for the last 1 month patient had a CAT scan of the chest showed copious amount of pleural effusion in the right side and consolidation of the right upper lobe and occlusion of the right upper lobe bronchus noted to have large 3 tracheal lymph node measured 2 cm there are right radicular lymph node measured 1.5 cm as well consolidation in the anterior right middle lobe noted also incidental of left adrenal mass which increase in size up to 2.9 cm from last examination. Patient was seen oncology and pulmonary was diagnosed with obstructive pneumonitis started on empiric antibiotic with vancomycin and Zosyn CT of the abdomen order for the current tomorrow patient was hospitalized ended up going for thoracentesis and 1.23 remove at the time and right pleural effusion according the following day ended up going for temporal pleurX catheter daily also had a bronchoscopy was done and cytology showed poorly differentiated adenocarcinoma thoracentesis fluid showed malignant fluid directly toward source can be from the abdomen. Patient ended up having tumor marker with alpha-fetoprotein along with CA-125 was elevated at 813 CA-19-9 was 38 CVA was 13 only whole body bone scan showed no obvious metastasis at the time patient went for upper and lower endoscopy colonoscopy could not be completed due to poor preparation, EGD showed no major significant finding. Patient ended up having pleurodesis and apparently started having significant leak around the tube side the following day with copious amount of pleural fluid. Patient was transferred to [facility] for cardiothoracic surgery for permanent Pleurx cath to be place in the right lung. Patient to be seen by oncology along with pulmonary. Was switched to oral antibiotic with Augmentin still on O2 still on updraft treatment. 12/21: The patient states that she is feeling much better today from yesterday. She does have drainage from the right pigtail catheter covered with colostomy bag with serous drainage. Repeat chest x-ray reveals extensive consolidation and atelectasis in the right upper lobe that has progressed compared to old exam. There is new small right pleural effusion. Findings suspicious for tumor. Ca rdiothoracic surgery to evaluate. Patient is followed by Dr. De Los Santos and due to decreased drainage from the pigtail catheter, patient may not require Pleurx catheter placement. She has been afebrile, heart rate 99, blood pressure 105/74, pulse ox 94% on 2 L nasal cannula. Repeat blood work reveals WBC 15.2, hemoglobin 11.8, platelet count 356. INR 0.9. Sodium 132, potassium 4.9, chloride 96, CO2 30, BUN 16 and creatinine 0.45. Blood sugars running between 142 and 183. Consult placed with oncology. 12/22: Patient has been seen by cardiothoracic surgery and is in agreement the patient has not had enough output from pigtail catheter to warrant Pleurx catheter placement. She has had 5 mL out overnight. Patient has also been seen by Dr. Nobles. Pulse ox is currently 95% on 2 L nasal cannula and will be checked for home oxygen need. college or university business manager to arrange other DME including [employer]en and [facility]lando thayer. Discussed smoking cessation with the patient and she is adamant that she will stop smoking at this time. Patient will be discharged home once cleared by pulmonary medicine, however, oxygen was not able to be delivered in patient's discharge was held. 12/23: Patient denies any new complaints today other than she has had some drainage from her chest site in the ostomy bag last night of 300 mL and probably another 100 this morning. She has been afebrile, heart rate 84, blood pressure 117/67 pulse ox 94% on 2 L nasal cannula. Blood sugars running between 138 and 183. Heart medical's in her room delivering oxygen. We will ask cardiothoracic surgery to take another look make sure that we do not need Pleurx catheter and patient will be discharged later today. Chest x-ray ordered. Review of systems CONSTITUTIONAL: no respiratory distress. EYES: No icterus sclerae, no conjunctivitis. EARS, NOSE, MOUTH, THROAT, and FACE: No sore throat, lymphadenopathy, carotid bruits or deformity. RESPIRATORY: no shortness of breath cough wheezes with pleural effusion. CARDIOVASCULAR: No CP, Palpitation, PND, Orthopnea, or angina. GASTROINTESTINAL: no abdominal discomfort with nausea no vomiting. GENITOURINARY: Negative for Hematuria or UTI, no kidney stones. INTEGUMENT/BREAST: Negative for any muscular injury with mild osteoarthritis.. HEMATOLOGIC/LYMPHATIC: Negative for bleed or purpura. MUSCULOSKELTAL: Generalized muscle and joint pain. NEURLOGICAL: No LOC, Sz or syncope, blurred vision dizziness or abnormality.. BEHAVIORAL/PSYCH: Negative. ENDOCRINE: Negative. Physical examination General Appearance: Alert, cooperative, looks older than her age in no respiratory distress. Neck HEENT: Supple, no lymphadenopathy, no thyroid enlargement, no carotid bruits. Lungs: Decreased breath some bilateral mild expiratory wheezes. Chest Wall: Chest wall normal expansion with deep inspiration no tenderness and no deformity was found on exam, no costochondral pain or discomfort. Heart: Regular rate and rhythm, S1, S2 normal, no murmur, rub or gallop. Back: Symmetric, no curvature, ROM normal, no CVA tenderness. Abdomen: Soft, non-tender, bowel sounds active all four quadrants, no masses, no organomegaly. Extremities: Extremities normal, atraumatic, no cyanosis or edema. Pulses: 2+ and symmetric. Skin: Skin color, texture, tugor normal, no rashes or lesions. Neurologic: Alert oriented x3 cranial nerves II through XII intact, no motor deficit, no abnormal balance or gait. Assessment and plan 1 severe dyspnea and shortness of breath: Secondary to large pleural effusion along with consolidation of the right middle and upper lobe and the right side with obstructive pneumonitis treated recently. Continue O2 continue updraft treatment for now and steroid with see pulmonary. 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 Repeat chest x-ray. 3 poorly differentiated adenocarcinoma found in the lung medically clear whether this is primary or secondary direction from the pleural fluid as metastasis from GI cancer. Consult oncology. 4 advance COPD: Continue patient on DuoNeb and Pulmicort twice daily, Solu- Medrol 40 mg IV every [address] De Los Santos appreciated 5 left-sided adrenal mass larger than June patient will require to go see one of the the surgeon who takes care of endocrine gland specially adrenal in one the tertiary center. 6 chronic history of tobacco use: Patient can benefit from staying on nicotine patch. 7 recent history 30 if UTI with sepsis was on Zosyn was switched to oral antibiotics. 8 chronic depression and bipolar: Has been on mirtazapine and Pristiq. Still on lithium. 11 chronic pain management: Remain on morphine and oxycodone. 9 atherosclerotic heart disease: Still on secondary prevention still seen cardiology continue high dose of atorvastatin 80 mg daily along with lisinopril and smaller visible beta olga. 10 Severe protein calorie malnutrition. Protien supplements. 11 Chronic hypoxic respiratory failure requiring home oxygen. 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 Pulse ox dropped to 88% with ambulation. 12 chronic hypoxic respiratory failure requiring home oxygen. 13 severe protein calorie malnutrition with BMI of 21, protein supplementation. GI prophylaxis: Continue patient on omeprazole 20 mg a day. CODE STATUS: Full code. Discharge plan: Home with [facility]. Social work consult regarding housing issue. Impression and plan of care have been directed as dictated by the signing phys ician. Cheryl Munoz nurse practitioner acting as scribe for signing physician. Objective - Vital Signs Vital signs: Vital Signs Temp 98.0 F 12/24/19 04:00 Pulse 84 12/24/19 04:00 Resp 18 12/24/19 04:00 BP 117/67 12/24/19 04:00 Pulse Ox 94 L 12/24/19 04:00 Intake & Output 12/23/19 12/24/19 12/24/19 18:59 06:59 18:59 Intake Total 720 610 80 Output Total 300 Balance 720 310 80 Weight 57.5 kg Intake: IV 10 Invasive Line 2 10 Oral 720 600 80 Output: Drainage 300 Right Chest 300 Other: Voiding Method Toilet # Voids 2 1 # Bowel Movements 1 - Labs CBC & Chem 7: 12/22/19 05:42 12/22/19 05:42 Labs: Abnormal Lab Results - Last 24 Hours (Table) 12/23/19 12/23/19 12/23/19 Range/Units 12:24 16:51 20:03 POC Glucose (mg/dL) 136 H 183 H 138 H (75-99) mg/dL 12/24/19 Range/Units 06:25 POC Glucose (mg/dL) 149 H (75-99) mg/dL
--- NOTE | 2019-12-24 09:59 | XR ---
EXAMINATION TYPE: XR chest 2V DATE OF EXAM: 12/24/2019 COMPARISON: 12/21/2019 TECHNIQUE: PA and lateral views submitted. HISTORY: Pleural effusion follow-up FINDINGS: There is interval worsening of the chest x-ray with complete opacification of the right hemithorax. T here may be a degree of volume loss with abrupt cut off of the right mainstem bronchus. Obstructing e ndobronchial lesion or mucous plug in the differential diagnosis. Hyperexpansion of the left lung sug gestive of COPD. Chronic left clavicular fracture. Atherosclerotic change aorta. IMPRESSION: 1. Interval worsening of the chest x-ray with complete opacification of the right hemithorax. Obstruc tive right hilar or endobronchial mass or mucous plug in the differential diagnosis.
[2019-12-24 12:02] LABS: Glucose,Whole Blood 170 mg/dL (75-99)
[2019-12-24 16:53] LABS: Glucose,Whole Blood 158 mg/dL (75-99)
[2019-12-24] MEDS: MIRTAZAPINE 15 MG TAB PO SCH (17:11)
[2019-12-24 19:43] LABS: Glucose,Whole Blood 236 mg/dL (75-99)
[2019-12-25 06:21] LABS: Glucose,Whole Blood 295 mg/dL (75-99)
[2019-12-25] MEDS: INSULIN ASPART (NovoLOG) 100 UNIT/ML VIAL SQ SCH ×4 (06:24→20:25)
--- NOTE | 2019-12-25 07:27 | XR ---
EXAMINATION TYPE: XR chest 1V portable DATE OF EXAM: 12/25/2019 HISTORY: Shortness of breath. COMPARISON: December 24, 2019 TECHNIQUE: Single view of the chest is submitted. FINDINGS: Complete Opacification right hemithorax is noted. The left lung is clear. The heart is stable. Hilar and mediastinal structures are within normal limits. Degenerative changes are seen of the dorsal spine. IMPRESSION: 1. Complete Opacification right hemithorax is noted. The left lung is clear.
[2019-12-25] MEDS: IPRATROPIUM-ALBUTEROL 3 ML NEB INHALATION SCH ×4 (08:52→19:49)
[2019-12-25] MEDS: BUDESONIDE 1 MG/2 ML NEBU INHALATION SCH ×2 (08:52→19:49)
[2019-12-25] MEDS: guaiFENesin 600 MG TABLET.ER PO SCH ×2 (08:53→20:25)
[2019-12-25] MEDS: FAMOTIDINE 20 MG TAB PO SCH (08:53)
[2019-12-25] MEDS: MORPHINE SULFATE ER 30 MG TABLET PO SCH ×2 (08:53→20:25)
[2019-12-25] MEDS: HEPARIN SODIUM,PORCINE 5,000 UNIT/ML 1 ML VIAL SQ SCH ×2 (08:54→20:24)
[2019-12-25] MEDS: methylPREDNISolone SOD SUCCI 40 MG/ML 1 ML VIAL IV SCH ×3 (08:54→23:31)
[2019-12-25] MEDS: DESVENLAFAXINE SUCCINATE 50 MG TAB.ER.24H PO SCH (08:54)
[2019-12-25] MEDS: SENNOSIDES 8.6 MG TAB PO SCH ×2 (08:54→20:25)
[2019-12-25] MEDS: FLUCONAZOLE 100 MG TAB PO SCH (08:54)
--- NOTE | 2019-12-25 10:01 | P.PN ---
Subjective Progress Note Date: 12/25/19 Principal diagnosis: Recurrent pleural effusion Patient continued to be modalities stable overnight tolerating 2 L nasal cannula without episodes of hypoxia but patient continued to have bloody discharge coming out of her right Pleurx catheter. Patient is concerned. Patient is denying chest pain shortness breath dizziness lightheadedness or blurry vision. Patient was seen by pulmonary this morning was planning on doing bronchoscopy and patient is agreeable to the current procedure Objective - Vital Signs Vital signs: Vital Signs Temp 97.8 F 12/25/19 04:00 Pulse 102 H 12/25/19 09:12 Resp 20 12/25/19 04:00 BP 139/94 12/25/19 04:00 Pulse Ox 97 12/25/19 04:00 Intake & Output 12/24/19 12/25/19 12/25/19 18:59 06:59 18:59 Intake Total 318 Output Total 700 300 Balance -382 -300 Weight 57.5 kg 55.6 kg Intake: Oral 318 Output: Drainage 700 300 Right Chest 700 300 Other: Voiding Method Toilet # Voids 3 - Exam Gen.: in stated age, no acute distress Heart: Normal S1-S2 Lungs: Diminished bilaterally with decreased air entry right Pleurx catheter in place with bloody discharge in the bag for greater than 100 mL Abdomen: Soft, no tenderness, positive bowel sounds in all 4 quadrant no guarding or rebound Skin: No new rash Psych: Alert and oriented 3 Neuro: No focal deficit - Labs CBC & Chem 7: 12/22/19 05:42 12/22/19 05:42 Labs: Abnormal Lab Results - Last 24 Hours (Table) 12/24/19 12/24/19 12/24/19 Range/Units 12:01 16:52 19:42 POC Glucose (mg/dL) 170 H 158 H 236 H (75-99) mg/dL 12/25/19 Range/Units 06:19 POC Glucose (mg/dL) 295 H (75-99) mg/dL Assessment and Plan Plan: 1. Recurrent pleural effusion status post Pleurx catheter placement on the right with ongoing bloody pleural effusion in the bag. 2. Metastatic adenocarcinoma involving the right upper lobe. 3. End-stage COPD. 4. Ongoing tobacco abuse. 5. Severe protein calorie [facility] physician. 6. Peripheral vascular disease. 7. History of hepatitis C. 8. Coronary artery disease. Patient was evaluated by pulmonary this morning was planning on doing bronchoscopy and repeating x-ray showed ongoing finding for her previous diagnosed late lung cancer with pleural effusion. Will follow-up with pulmonary recommendation and we will consider discharge based on clinical progress. Patient is agreeable to the current treatment plan
[2019-12-25 11:56] LABS: Glucose,Whole Blood 110 mg/dL (75-99)
[2019-12-25] MEDS ORDERED: fentaNYL (PF) 50 MCG/ML 2 ML AMP ONE (12:08)
[2019-12-25] MEDS ORDERED: MIDAZOLAM 2 MG/2 ML VIAL ONE (12:08)
[2019-12-25] MEDS ORDERED: LIDOCAINE 1% INJ 10MG/ML (20 ML MDV) ONE (12:08)
[2019-12-25] MEDS ORDERED: KETAMINE 10 MG/ML 20 ML VIAL ONE (12:08)
[2019-12-25] MEDS ORDERED: MIDAZOLAM 2 MG/2 ML VIAL IVP ONE (12:08)
[2019-12-25] MEDS ORDERED: PROPOFOL 10 MG/ML 20 ML VIAL IV ONE (12:08)
[2019-12-25] MEDS ORDERED: fentaNYL (PF) 50 MCG/ML 2 ML AMP IVP ONE (12:08)
[2019-12-25] MEDS ORDERED: SODIUM CHLORIDE 0.9% 1,000 ML IV ONE (12:14)
--- NOTE | 2019-12-25 13:54 | XR ---
EXAMINATION TYPE: XR chest 1V DATE OF EXAM: 12/25/2019 HISTORY: Shortness of breath. COMPARISON: 12/25/2019 TECHNIQUE: Single view of the chest is submitted. FINDINGS: Demonstrated are scattered senescent parenchymal change. There is improved aeration at the right lung base relative to the prior study. No evidence for pneumo thorax. Right hilar and right upper lobe opacity may reflect mass with volume loss. Small right-sided pleural effusion. The heart is stable. Hilar and mediastinal structures are stable Degenerative changes are seen of the dorsal spine. IMPRESSION: 1. There is improved aeration at the right lung base relative to the prior study. No evidence for pn eumothorax. Right hilar and right upper lobe opacity may reflect mass with volume loss. Small right-s ided pleural effusion.
--- NOTE | 2019-12-25 15:19 | PN ---
PROGRESS NOTE PULMONARY/CRITICAL CARE PROGRESS NOTE: DATE OF SERVICE: 12/25/2019 This is a 59-year-old female with history of metastatic adenocarcinoma involving the right upper lung. She also was diagnosed with a malignant right-sided pleural effusion, status post pigtail catheter placement. The patient also apparently had a talc pleurodesis to the right pleural space which was mostly unsuccessful. Anyway, she was transferred over here for potential placement of a PleurX catheter. Today, she underwent bronchoscopy. She had thick mucus plugs noted in the right upper lobe and right middle lobe. Both right upper lobe and right middle lobe were mostly nonpatent. They were nearly completely obstructed. There was patency to the right lower lobe but there was disease as well endobronchially there. Anyway, we will repeat a chest x-ray post bronchoscopy. She may even benefit from a CT scan to see whether or not she would be a candidate for PleurX catheter placement. We have spoken to Cardiothoracic about this patient. PHYSICAL EXAMINATION: VITAL SIGNS: Current vital signs are reviewed. Temperature 98.3, heart rate 100, respiratory rate 22, blood pressure 130/92, mean 104, 2 L saturation 95%. She appears in no acute distress. HEENT: Examination is grossly unremarkable. NECK: Supple. Full range of motion. No adenopathy. Neck veins are flat. CARDIOVASCULAR: Examination reveals mild tachycardia. Heart rate 100. S1, S2 normal. LUNGS: Reveal severely diminished breath sounds on the right. She has coarse rhonchi throughout the right lung. Left lung is mostly clear. ABDOMEN: Soft. EXTREMITIES are intact. No cyanosis, clubbing, or edema. SKIN: Without rash. NEUROLOGIC: Examination is nonfocal. Labs are reviewed. Nothing new to report from today other than a sugar of 110. Microbiology is completely negative. LABS: Reviewed. Chest x-ray from this morning shows nearly complete opacification of the right lung with a significant right-sided cutoff sign. MEDICATIONS: Reviewed. He is currently on Tylenol, Pulmicort, Pristiq, famotidine, fluconazole, guaifenesin, subcu heparin, insulin, updrafts, Solu-Medrol, Remeron, morphine sulfate, Zofran Percocet, and Senokot. I will add some Perforomist to the regimen. ASSESSMENT: 1. Metastatic adenocarcinoma involving the right upper lobe and right middle lobe and to a certain extent the right lower lobe as well. 2. Complete opacification of the right lung with a cutoff sign, likely related to mucus plugging. 3. Status post large malignant right-sided pleural effusion, status post pigtail catheter drainage with talc pleurodesis. 4. History of underlying chronic obstructive pulmonary disease. 5. Ongoing tobacco use with nicotine addiction. 6. History of coronary artery disease. 7. History of gastroesophageal reflux disease. 8. History of hepatitis C. 9. Hyperlipidemia. 10.Peripheral vascular occlusive disease. 11.Multiple other medical problems and comorbidities. PLAN: The patient will be getting a chest x-ray. She underwent bronchoscopy. She was stable throughout the procedure. We did remove a lot of significant mucus plugs from the right upper lobe, right middle lobe and to a certain extent the right lower lobe. The right upper lobe and the right middle lobe were nearly completely obstructed. There is some patency to the right lower lobe. Overall prognosis remains guarded. She may benefit from a CT scan. Additional recommendations and suggestions are forthcoming. MMODL / IJN: [id number] /
[2019-12-25 15:38] LABS: Appearance,BF Blood Tinged
[2019-12-25 15:39] LABS: Nucleated Cells, Body Fluid 85 /uL; RBC, Body Fluid 2535 /uL
[2019-12-25] MEDS: oxyCODONE-APAP 5-325MG 1 EACH TAB PO PRN ×2 (16:37→23:32)
--- NOTE | 2019-12-25 16:40 | PCN ---
PROCEDURE NOTE PULMONARY/CRITICAL CARE PROCEDURE NOTE: PROCEDURE: A bronchoscopy, airway examination, therapeutic lavage, BAL, pool cytology and sampling from the distal right mainstem. PREOP DIAGNOSIS: Lung cancer. POSTOP DIAGNOSIS: Lung cancer. OPERATORS: Dr. De Los Santos and Dr. Barajas. ANESTHESIA: ATTORNEY [employer]ER provided general anesthesia. PROCEDURE: The patient's procedure was done in room #1. There was informed consent and universal timeout. After the patient was adequately sedated and being fully monitored, the bronchoscope was inserted through the right nostril. It passed through the right nasopharynx into the oropharynx. The hypopharynx was identified and topicalized. The hypopharyngeal structures appeared relatively normal. That including anterior commissure, true cords, false cords, arytenoids, piriform sinuses, right and left valleculae and epiglottis. After topicalization, the bronchoscope was pushed through the glottic opening into the trachea. There were thick secretions noted through the trachea. The tracheal taras was sharp. The left side was evaluated first after topicalization. The left upper lobe and its 2 segments, the lingula and its 2 segments and the left lower lobe and its 4 segments were all found to be normal. Unfortunately, on the right side, things looked pretty bleak. The right upper lobe was almost completely obstructed. Same with the right middle lobe. There was patency through the right lower lobe and its segments, but it was narrowed intrinsically. The mucosa was quite ragged looking. We could not get into the right upper lobe at all and barely could get into the right lower lobe. There were thick secretions noted throughout. They were suctioned with some difficulty. We used saline lavage to help in the process of removing secretions. We will go ahead and order chest x-ray on this patient afterwards. We are hoping that the right lung re-expands. In the end, she may need a PleurX catheter. Probably will also order a CT scan of the chest. Afterwards, the bronchoscope was placed and wedged in the distal right mainstem. We did pool cytology that will be sent for analysis. The patient tolerated the procedure well. She will be recovered and transported back to the room. There was no immediate complication. MMODL / IJN: [id number] /
[2019-12-25 16:57] LABS: Mononuclear WBC,Body Fluid 24 %; Polynuclear WBC,Body Fluid 76 %; Total Cells Counted,Body Fluid 100
[2019-12-25 17:09] LABS: Glucose,Whole Blood 188 mg/dL (75-99)
[2019-12-25] MEDS: MIRTAZAPINE 15 MG TAB PO SCH (17:49)
[2019-12-25] MEDS: FORMOTEROL FUMARATE 20 MCG/2 ML NEBU INHALATION SCH (19:49)
[2019-12-25 20:16] LABS: Glucose,Whole Blood 364 mg/dL (75-99)
[2019-12-26 06:32] LABS: Glucose,Whole Blood 185 mg/dL (75-99)
[2019-12-26] MEDS: INSULIN ASPART (NovoLOG) 100 UNIT/ML VIAL SQ SCH ×4 (06:44→20:30)
--- NOTE | 2019-12-26 06:54 | XR ---
EXAMINATION TYPE: XR chest 1V portable DATE OF EXAM: 12/26/2019 CLINICAL HISTORY: Right-sided pleural effusion progress study. TECHNIQUE: Single AP portable upright view of the chest is obtained. COMPARISON: Chest x-ray from one day earlier and older studies. FINDINGS: Background chronic parenchymal change with some persistent right-sided volume loss. Dense curvilinear opacity right upper lung remains present with bulging of the fissure, older studies show more rounded opacity at this level. Suspect complete right upper lobe obstruction secondary to obstru cting endobronchial mass or neoplasm. There is new elevated right hemidiaphragm and suspected degree of right basilar obstructive atelectasis. Left lung remains clear. Cardiac silhouette size remains wi thin normal limits. Old displaced healed clavicular fracture noted. IMPRESSION: No significant change from most recent x-ray. Background mild underlying emphysematous ch dami. Suspect obstructing right central lung mass or neoplasm causing upper lobe collapse and right-s ided volume loss. Advise contrast enhanced chest CT evaluation.
[2019-12-26] MEDS: IPRATROPIUM-ALBUTEROL 3 ML NEB INHALATION SCH ×4 (08:19→19:56)
[2019-12-26] MEDS: BUDESONIDE 1 MG/2 ML NEBU INHALATION SCH ×2 (08:19→19:56)
[2019-12-26] MEDS: FORMOTEROL FUMARATE 20 MCG/2 ML NEBU INHALATION SCH ×2 (08:19→19:56)
[2019-12-26] MEDS: guaiFENesin 600 MG TABLET.ER PO SCH ×2 (09:27→20:29)
[2019-12-26] MEDS: HEPARIN SODIUM,PORCINE 5,000 UNIT/ML 1 ML VIAL SQ SCH ×2 (09:27→20:29)
[2019-12-26] MEDS: methylPREDNISolone SOD SUCCI 40 MG/ML 1 ML VIAL IV SCH ×3 (09:27→23:31)
[2019-12-26] MEDS: MORPHINE SULFATE ER 30 MG TABLET PO SCH ×2 (09:28→20:29)
[2019-12-26] MEDS: FAMOTIDINE 20 MG TAB PO SCH (09:29)
[2019-12-26] MEDS: FLUCONAZOLE 100 MG TAB PO SCH (09:29)
[2019-12-26] MEDS: DESVENLAFAXINE SUCCINATE 50 MG TAB.ER.24H PO SCH (09:29)
[2019-12-26] MEDS: SENNOSIDES 8.6 MG TAB PO SCH ×2 (09:30→20:30)
--- NOTE | 2019-12-26 10:01 | P.PN ---
Subjective Progress Note Date: 12/26/19 Principal diagnosis: Recurrent pleural effusion Patient received bronchoscopy with generous amount of mucous plug suctioning. Patient feels improved but still dependent on oxygen and desats easily 1 taking off nasal cannula and start using muscles. Patient continued to have excessive bloody drainage from the right side of her chest with 400 over the last 24 hours Objective - Vital Signs Vital signs: Vital Signs Temp 98.1 F 12/26/19 08:00 Pulse 104 H 12/26/19 08:46 Resp 18 12/26/19 08:00 BP 118/82 12/26/19 08:00 Pulse Ox 98 12/26/19 08:00 Intake & Output 12/25/19 12/26/19 12/26/19 18:59 06:59 18:59 Intake Total 200 Output Total 150 400 Balance 50 -400 Weight 55.792 kg Intake: IV 200 Output: Drainage 150 400 Right Chest 150 400 Other: Voiding Method Toilet Toilet Toilet # Voids 1 1 - Exam Gen.: in stated age, no acute distress Heart: Normal S1-S2 Lungs: Diminished bilaterally with decreased air entry right ostomy in place with bloody discharge in the bag for greater than 100 mL Abdomen: Soft, no tenderness, positive bowel sounds in all 4 quadrant no guardi ng or rebound Skin: No new rash Psych: Alert and oriented 3 Neuro: No focal deficit - Labs CBC & Chem 7: 12/22/19 05:42 12/22/19 05:42 Labs: Abnormal Lab Results - Last 24 Hours (Table) 12/25/19 12/25/19 12/25/19 Range/Units 11:49 17:07 20:15 POC Glucose (mg/dL) 110 H 188 H 364 H (75-99) mg/dL 12/26/19 Range/Units 06:31 POC Glucose (mg/dL) 185 H (75-99) mg/dL Microbiology - Last 24 Hours (Table) 12/25/19 12:30 Gram Stain - Preliminary Bronchial Washings - Right Bronchial Washings Culture - Preliminary Assessment and Plan Plan: 1. Recurrent pleural effusion status post ostomy bag placement on the right with ongoing bloody pleural effusion in the bag. 2. Metastatic adenocarcinoma involving the right upper lobe. 3. End-stage COPD. 4. Ongoing tobacco abuse. 5. Severe protein calorie [place] physician. 6. Peripheral vascular disease. 7. History of hepatitis C. 8. Coronary artery disease. Patient continued to have excessive amount of pleural effusion through her ostomy bag on the right side of the first chest identified as 400 mL of bloody pleural effusion in the ostomy bag this morning. Patient had some improvement with bronchoscopy and mucous plug suctioning but still oxygen dependent and short of breath with minimum movement desats easily 1 taking off nasal cannula and takes a while to recover. Chest x-ray showed possible obstructive mass. Pulmonary recommended evaluation by cardiothoracic for Pleurx catheter placement which I agree with but patient may benefit from stent placement as she is having based on the current x-ray possible collapse of the lung and may benefit from transfer to [facility]. We'll discuss with pulmonary that option and we will discuss with patient and her family current CODE STATUS and long-term care. Prognosis is poor
[2019-12-26 12:07] LABS: Glucose,Whole Blood 165 mg/dL (75-99)
--- NOTE | 2019-12-26 13:07 | PN ---
PROGRESS NOTE PULMONARY/CRITICAL CARE PROGRESS NOTE: DATE OF SERVICE: 12/26/2019 INTERVAL HISTORY: This is a 59-year-old female with history of metastatic adenocarcinoma, involving the right upper lung. She was diagnosed with malignant right-sided pleural effusion, status post pigtail catheter placement and subsequent talc pleurodesis. Anyway, she continues to drain a significant amount of fluid from the area where the pigtail catheter was. Currently, she has a colostomy bag over that area. Since yesterday, she has had 400 cc of output. Yesterday, we took her to the bronch suite. Dr. Garcia was concerned about the mucus plugging. This was because of the cutoff sign on her most recent chest x-ray. The bronchoscopy was done and we did have lots of mucus noted in the right upper lobe, right middle lobe, and to a lesser extent right lower lobe. The right upper lobe and right middle lobe were nearly completely obstructed with tumor. I really could not even get the scope into those lobes. All the mucus and secretions were suctioned as best possible. They were sent to the laboratory for analysis. Yesterday's chest x-ray did show improvement and some improved aeration, although she still has a significant right upper lobe mass. Currently, she feels much improved. Her breathing is much better. PHYSICAL EXAMINATION: VITAL SIGNS: Current vital signs are reviewed. Current temperature is 98.1, heart rate 104, respiratory rate is 18, blood pressure 118/82, mean 94, 2 L saturation 98%. Appears in no acute distress. HEENT: Examination is grossly unremarkable. NECK: Supple. Full range of motion. No adenopathy. Neck veins are flat. CARDIOVASCULAR: Examination reveals regular rhythm rate. Heart rate 100 beats per minute. S1, S2 normal. No S3, S4, or murmur. Heart sounds are a bit distant. LUNGS: Reveal severely diminished breath sounds on the right. Breath sounds on the left are normal and clear. There are a few scattered rhonchi on the right. There is some dullness at the right base. ABDOMEN: Soft. Bowel sounds are heard. EXTREMITIES: Intact. No cyanosis, clubbing, or edema. SKIN: Without rash. NEUROLOGIC: Examination is nonfocal. She does have a colostomy bag over the right lateral chest area where the pigtail catheter was. There was quite a bit of fluid in the bag. LABORATORY DATA: Labs are reviewed. No new labs to report today. Microbiology is currently pending or negative. IMAGING: Chest x-ray from today does show improved aeration at the right lung base relative to the prior study. There is a large right upper lobe and right hilar mass as seen before on previous x-rays. There is a right-sided pleural effusion. MEDICATIONS: Reviewed. ASSESSMENT: 1. Metastatic adenocarcinoma involving the right upper lobe and right middle lobe and to a certain extent right lower lobe as well. 2. Complete opacification of right lung with a cutoff sign, related to mucus plugging, improved on most recent chest x-rays. 3. Status post bronchoscopy on December 25, 2019. 4. Status post large malignant right-sided pleural effusion, status post pigtail catheter drainage with talc pleurodesis. 5. History of underlying chronic obstructive pulmonary disease. 6. Ongoing tobacco use with nicotine addiction. 7. History of coronary artery disease. 8. History of gastroesophageal reflux disease. 9. History of hepatitis C. 10.Hyperlipidemia. 11.Peripheral vascular occlusive disease. 12.Multiple other medical problems and comorbidities. PLAN: Currently, the patient is still having significant drainage from the area where the pigtail catheter was. Thoracic Surgery should consider PleurX catheter placement. I do not suspect the talc pleurodesis was particularly successful, may be related to the size of the pigtail catheter. The patient did have a bronchoscopy yesterday. The right upper lobe and right middle lobe are completely or near completely obstructed. Secretions were suctioned. There was some improvement on the chest x-ray. Additional recommendations and suggestions are forthcoming. Prognosis is guarded. We will continue to follow. MMODL / IJN: [id number] /
[2019-12-26] MEDS: oxyCODONE-APAP 5-325MG 1 EACH TAB PO PRN ×2 (15:10→23:39)
[2019-12-26 16:57] LABS: Glucose,Whole Blood 205 mg/dL (75-99)
[2019-12-26] MEDS: MIRTAZAPINE 15 MG TAB PO SCH (17:35)
[2019-12-26 19:59] LABS: Glucose,Whole Blood 305 mg/dL (75-99)
[2019-12-27] MEDS: oxyCODONE-APAP 5-325MG 1 EACH TAB PO PRN ×3 (06:03→21:23)
[2019-12-27 06:07] LABS: Glucose,Whole Blood 192 mg/dL (75-99)
[2019-12-27] MEDS: INSULIN ASPART (NovoLOG) 100 UNIT/ML VIAL SQ SCH ×4 (06:38→21:18)
[2019-12-27] MEDS: IPRATROPIUM-ALBUTEROL 3 ML NEB INHALATION SCH ×4 (08:19→18:55)
[2019-12-27] MEDS: BUDESONIDE 1 MG/2 ML NEBU INHALATION SCH ×2 (08:19→18:55)
[2019-12-27] MEDS: FORMOTEROL FUMARATE 20 MCG/2 ML NEBU INHALATION SCH ×2 (08:19→18:55)
--- NOTE | 2019-12-27 09:43 | P.CONS ---
History of Present Illness - Chief Complaint Medical debility - History of Present Illness I had the opportunity to see patient for inpatient rehab consultation with regard to medical debility. She was admitted to [facility] December 20 known pulmonary cancer with effusions and hepatitis C. Seen by Dr. Nobles. Chest x-rays followed in note emphysematous change and a right side cancer that has collapsed lung. PT reports modified independent bed mobility, transfers, gait 100 feet with standard cane. OT reports supervision for upper dressing toileting and basic self-care transfers and minimal assistance for lower dressing and bathing. Previous functional history as elicited patient: 59-year-old right-handed white female is lives in second-floor apartment with steps, boyfriend. Both her disability in neither drive, use the bus. Patient describes independent with them dressing, tub bath and cooking and laundry. She is unsure who her PMD is. Has a history smoking, just quit occasional drink. History of cocaine, marijuana and tobacco. Family history both parents with cancer. Review of Systems Review of systems: ENT: Denies sneezes or discharge. Eyes: Denies discharge or photophobia. Cardiac: Denies chest pain or palpitation. Pulmonary: Denies cough or shortness of breath. Breast: Denies discharge or lumps. Gastrointestinal: Denies nausea, emesis, constipation, diarrhea. Genitourinary: Denies discharge or frequency. Musculoskeletal: Denies muscle or bone aches. Neurologic: Generalized weakness. Endocrine: Denies shakes or sweats. Oncology: Denies cancers. Dermatologic: Denies rash, itching, pruritus. ALLERGY/immunology: Denies sneezes, rashes. Past Medical History Past Medical History: Asthma, Coronary Artery Disease (CAD), COPD, GERD/Reflux, Hyperlipidemia, Liver Disease, Vascular Disorder Additional Past Medical History / Comment(s): Bronchitis, seasonal allergies, sinus problems, hepatitis C, migraines, occasional bilateral tinnitis, UTIs, PVD, past R wrist fx, past L clavicle fx, numbness/tingling R hand and legs. History of Any Multi-Drug Resistant Organisms: None Reported Past Surgical History: Cholecystectomy, Tubal Ligation Additional Past Surgical History / Comment(s): Aortic bypass with stents placed in bilateral femoral arteries, D&C Past Anesthesia/Blood Transfusion Reactions: No Reported Reaction Past Psychological History: Anxiety, Bipolar, Depression Additional Psychological History / Comment(s): Pt resides with a friend. She states her mental health is stable at this time. She does not have a license. She gets to [facility], [place] by bus. Smoking Status: Current every day smoker Past Alcohol Use History: Occasional Additional Past Alcohol Use History / Comment(s): Pt started smoking in 1970 and is a ppd smoker. She states she drinks alcohol occasionally Past Drug Use History: Cocaine, Marijuana Additional Drug Use History / Comment(s): Pt last used marijuana on 07/27/18 and last used cocaine on 07/26/18. - Past Family History Father History Unknown: Yes Family Medical History: CVA/TIA Additional Family Medical History / Comment(s): Father had a CVA. He is d Mother History Unknown: Yes Family Medical History: No Reported History Additional Family Medical History / Comment(s): Mother was healthy. She is . Brother(s) History Unknown: Yes Sister(s) History Unknown: Yes Son(s) Family Medical History: No Reported History Medications and Allergies Home Medications Medication Instructions Recorded Confirmed Type Desvenlafaxine [Pristiq ER] 100 mg PO DAILY 10/30/17 12/21/19 History Budesonide [Pulmicort Flexhaler] 1 puff INHALATION RT-BID 12/31/17 12/21/19 History Acetaminophen [Tylenol Arthritis] 650 mg PO Q8H PRN 12/21/19 12/21/19 History Budesonide 1 mg INHALATION RT-BID 12/21/19 12/21/19 History Famotidine [Pepcid] 20 mg PO DAILY 12/21/19 12/21/19 History Fluconazole [Diflucan] 100 mg PO DAILY 12/21/19 12/21/19 History Ipratropium-Albuterol Nebulize 3 ml INHALATION RT-QID 12/21/19 12/21/19 History [Duoneb 0.5 mg-3 mg/3 ml Soln] Mirtazapine 7.5 mg PO AC-SUPPER 12/21/19 12/21/19 History Morphine Sulfate [Ms Contin] 30 mg PO Q12H 12/21/19 12/21/19 History Ondansetron Odt [Zofran ODT] 4 mg PO Q6H PRN 12/21/19 12/21/19 History Sennosides [Senna] 8.6 mg PO BID 12/21/19 12/21/19 History Zofran 4mg Injection 4 mg IV Q4H PRN 12/21/19 12/21/19 History guaiFENesin [Mucinex] 1,200 mg PO Q12H 12/21/19 12/21/19 History oxyCODONE-APAP 5-325MG [Percocet 1 tab PO Q4H PRN 12/21/19 12/21/19 History 5-325 mg] predniSONE [Deltasone] 40 mg PO DAILY 12/21/19 12/21/19 History Allergies Allergy/AdvReac Type Severity Reaction Status Date / Time No Known Allergies Allergy Verified 10/30/19 17:03 Physical Exam Vitals: Vital Signs Temp Pulse Pulse Resp BP Pulse Ox 12/27/19 08:45 119 H 12/27/19 08:35 120 H 12/27/19 08:20 116 H 96 12/27/19 04:00 97.6 F 98 16 122/98 97 12/27/19 00:00 97.0 F L 116 H 15 135/89 95 12/26/19 20:16 106 H 12/26/19 20:09 104 H 12/26/19 20:00 97.5 F L 117 H 16 131/88 94 L 12/26/19 19:56 121 H 12/26/19 16:09 104 H 12/26/19 15:59 108 H 12/26/19 15:18 98.0 F 125 H 20 128/90 97 12/26/19 12:35 106 H 12/26/19 12:27 100 12/26/19 12:00 96.9 F L 113 H 18 118/86 99 Intake and Output 12/26/19 12/27/19 12/27/19 22:59 06:59 14:59 Intake Total 222 480 Output Total 400 50 Balance -178 430 Intake: Oral 222 480 Output: Drainage 50 Right Chest 50 Urine 400 Other: Voiding Method Toilet Toilet # Voids 1 Weight 55.1 kg Skin: Good color, texture, turgor. General: Thin build and comfortable appearance. Head: Normocephalic, atraumatic. Eyes: Symmetric. Pupils equal round. Ears: Symmetric. Hearing within normal limits. Mouth: Clear. Neck: Supple. Carotid without bruit. Cardiac: Regular rate and rhythm. Lungs: Clear anteriorly and posteriorly. Abdomen: Soft active nontender. Extremities: Normal tone. Neurological: Mental status: Alert, cooperative, pleasant. Cranial nerves: Symmetric facial tone and trapezius. Motor: Active movement all 4 limbs. Sensation: Intact throughout. DTRs: Symmetric and equal throughout. Mobility: Standby to 5% minimal assist for transfer from wheelchair to bed. Results CBC & Chem 7: 12/22/19 05:42 12/22/19 05:42 Labs: Abnormal Lab Results - Last 24 Hours (Table) 12/26/19 12/26/19 12/26/19 Range/Units 12:04 16:52 19:58 POC Glucose (mg/dL) 165 H 205 H 305 H (75-99) mg/dL 12/27/19 Range/Units 06:06 POC Glucose (mg/dL) 192 H (75-99) mg/dL Microbiology - Last 24 Hours (Table) 12/25/19 12:30 Gram Stain - Preliminary Bronchial Washings - Right Bronchial Washings Culture - Preliminary Assessment and Plan (1) Lung cancer Current Visit: Yes Status: Acute Code(s): C34.90 - MALIGNANT NEOPLASM OF UNSP PART OF UNSP BRONCHUS OR LUNG SNOMED Code(s): 740778560 (2) Malignant pleural effusion Current Visit: Yes Status: Acute Code(s): J91.0 - MALIGNANT PLEURAL EFFUSION SNOMED Code(s): 20295338 Plan: Impression: 1. Medical debility. 2. Pulmonary cancer with malignant effusion. 3. COPD with asthma. 4. Cardiac disease. 5. Dyslipidemia. 6. Liver disease. 7. Reflux. 8. Vascular disease. Comments and plan: At this time PT and OT are ongoing. They reports her patient doing quite well. Patient is concerned about endurance issues as well as doing stairs, and both seem to be reasonable concerns. At this time she is also more concerned to begin radiation and chemotherapy, rather than inpatient rehab.
--- NOTE | 2019-12-27 09:57 | XR ---
EXAMINATION TYPE: XR facial bones complete DATE RECEIVED ON: 12/27/2019 DATE PERFORMED: 12/27/2019 COMPARISON: 12/26/2019 HISTORY: Pleural effusion TECHNIQUE: Frontal and lateral views of the chest are obtained. FINDINGS: The heart size is normal. The pulmonary vasculature is normal. There is opacification of the right upper lobe. Correlate for atelectasis. Masses within the differential. This appears stable from comparison. Small right pleural effusion may be present. There may be some elevation of the rig ht diaphragm. A subpulmonic effusion is not excluded. IMPRESSION: 1. Opacification of the right upper lobe. Atelectasis and underlying mass should be considered. Follo w-up with CT is recommended. 2. Small right pleural effusion
[2019-12-27] MEDS: guaiFENesin 600 MG TABLET.ER PO SCH ×2 (10:03→19:50)
[2019-12-27] MEDS: FAMOTIDINE 20 MG TAB PO SCH (10:03)
[2019-12-27] MEDS: DESVENLAFAXINE SUCCINATE 50 MG TAB.ER.24H PO SCH (10:04)
[2019-12-27] MEDS: FLUCONAZOLE 100 MG TAB PO SCH (10:04)
[2019-12-27] MEDS: MORPHINE SULFATE ER 30 MG TABLET PO SCH ×2 (10:04→19:50)
[2019-12-27] MEDS: predniSONE 10 MG TAB PO SCH (10:05)
[2019-12-27] MEDS: methylPREDNISolone SOD SUCCI 40 MG/ML 1 ML VIAL IV SCH (10:05)
[2019-12-27] MEDS: SENNOSIDES 8.6 MG TAB PO SCH ×2 (10:05→19:50)
[2019-12-27] MEDS: HEPARIN SODIUM,PORCINE 5,000 UNIT/ML 1 ML VIAL SQ SCH ×2 (10:05→19:45)
[2019-12-27] MEDS: DILTIAZEM ORAL 60 MG TAB PO SCH ×3 (10:05→19:50)
--- NOTE | 2019-12-27 11:49 | P.PN ---
Subjective Progress Note Date: 12/27/19 On 12/27/2019, the patient is being seen for a follow-up. It seems that the drainage from the previously inserted pigtail catheter site has slowed down significantly and the patient has minimal amount of collection over the past 12 hours. Chest x-ray shows a large mass in the right upper lobe and there is significant opacification of the right upper lobe and volume loss. The right lower lobe pleural effusion is very minimal/smoking at this point in time. The patient had a malignant pleural effusion. The patient is post pleurodesis. Not a candidate for Pleurx catheter insertion as most of the fluid in the right lung is drained. The patient is doing well. She is weak. She is being considered for rehabilitation. No significant cough or sputum production. No hemoptysis. No pleurisy. The bronchoscopy was done and the patient was found to have complete occlusion of the right upper lobe bronchus with endobronchial tumor. Cj was in the right middle lobe. There was some patency through the right lower lobe bronchus and segments. There were 3 much narrowed yet there were not completely obstructed. Please refer to the full bronchoscopy report. The patient remains on DuoNeb nebulized treatments around the clock. The patient is on IV Solu-Medrol which can be easily switch to prednisone burst taper starting with 30 mg of prednisone a daily basis. No nausea. No vomiting. No diarrhea. No other complaints otherwise for now. Objective - Vital Signs Vital signs: Vital Signs Temp 97.1 F L 12/27/19 08:00 Pulse 119 H 12/27/19 08:45 Resp 24 12/27/19 08:00 BP 128/89 12/27/19 08:00 Pulse Ox 96 12/27/19 08:20 Intake & Output 12/26/19 12/27/19 12/27/19 18:59 06:59 18:59 Intake Total 602 480 100 Output Total 550 50 Balance 52 430 100 Weight 55.1 kg Intake: Oral 602 480 100 Output: Drainage 150 50 Right Chest 150 50 Urine 400 Other: Voiding Method Toilet Toilet # Voids 1 0 # Bowel Movements 1 0 - Exam General Appearance: Alert, cooperative, looks older than her age in no respirat ory distress. Neck HEENT: Supple, no lymphadenopathy, no thyroid enlargement, no carotid bruits. Lungs: Decreased breath some bilateral mild expiratory wheezes. Chest Wall: Chest wall normal expansion with deep inspiration no tenderness and no deformity was found on exam, no costochondral pain or discomfort. Heart: Regular rate and rhythm, S1, S2 normal, no murmur, rub or gallop. Back: Symmetric, no curvature, ROM normal, no CVA tenderness. Abdomen: Soft, non-tender, bowel sounds active all four quadrants, no masses, no organomegaly. Extremities: Extremities normal, atraumatic, no cyanosis or edema. Pulses: 2+ and symmetric. Skin: Skin color, texture, tugor normal, no rashes or lesions. Neurologic: Alert oriented x3 cranial nerves II through XII intact, no motor deficit, no abnormal balance or gait. - Labs CBC & Chem 7: 12/22/19 05:42 12/22/19 05:42 Labs: Abnormal Lab Results - Last 24 Hours (Table) 12/26/19 12/26/19 12/26/19 Range/Units 12:04 16:52 19:58 POC Glucose (mg/dL) 165 H 205 H 305 H (75-99) mg/dL 12/27/19 Range/Units 06:06 POC Glucose (mg/dL) 192 H (75-99) mg/dL Microbiology - Last 24 Hours (Table) 12/25/19 12:30 Gram Stain - Final Bronchial Washings - Right Bronchial Washings Culture - Final Assessment and Plan Plan: 1 metastatic stage IV non-small cell lung cancer/adenocarcinoma with a malignant right-sided pleural effusion and a large mass in the right upper/right middle lobe causing significant volume loss. 2 malignant right-sided pleural effusion post pigtail catheter drainage, post chemical pleurodesis and without. There was some ongoing drainage following the pigtail catheter removal and the patient has a bag attached to the opening for fluid collection. Amount of output is minimal at this point in time and has slowed down significantly. Not a candidate for Pleurx. 3 shortness of breath secondary to above, improved and stable 4 acute hypoxic respiratory failure secondary to above, stable 5 left adrenal mass, likely metastatic 6 advanced COPD 7 chronic smoker 8 UTI currently on IV Zosyn 9 depression 10 atherosclerotic heart disease 11 bipolar disorder 12 generalized weakness and severe protein calorie malnutrition Plan Not a candidate for Pleurx catheter. The majority of pleural effusion in the right lung has been drained externally and output from the pigtail opening site is minimal at this point in time Evaluated for home O2 This continued IV Solu Medrol put the patient prednisone burst taper Not a candidate for any systemic chemotherapy because of overall generalized weakness pH she will need rehabilitation. Support her transferred to rehab for further recuperation at this point in time. We'll continue to follow
[2019-12-27 11:50] LABS: Glucose,Whole Blood 101 mg/dL (75-99)
--- NOTE | 2019-12-27 12:25 | P.PN ---
Subjective Progress Note Date: 12/27/19 Principal diagnosis: Lung primary malignancy In follow-up today patient states that she is going to be going home with some home care. She has assistive device. She is being checked for O2 needs. No current fevers, nausea, or shortness of breath vacillates depending on what she is doing, she is not coughing up anything. Objective - Vital Signs Vital signs: Vital Signs Temp 97.1 F L 12/27/19 08:00 Pulse 113 H 12/27/19 11:58 Resp 24 12/27/19 08:00 BP 128/89 12/27/19 08:00 Pulse Ox 96 12/27/19 08:20 Intake & Output 12/26/19 12/27/19 12/27/19 18:59 06:59 18:59 Intake Total 602 480 100 Output Total 550 50 Balance 52 430 100 Weight 55.1 kg Intake: Oral 602 480 100 Output: Drainage 150 50 Right Chest 150 50 Urine 400 Other: Voiding Method Toilet Toilet # Voids 1 0 # Bowel Movements 1 0 - Constitutional General appearance: Present: cooperative, no acute distress, thin - EENT Eyes: Present: anicteric sclerae, EOMI ENT: Present: hearing grossly normal - Neck Neck: Absent: lymphadenopathy, rigidity, stridor - Respiratory Respiratory: right: rhonchi, bilateral: diminished - Cardiovascular Heart sounds: normal: S1, S2 Abnormal Heart Sounds: Absent: systolic murmur, diastolic murmur, rub, S3 Gallop, S4 Gallop, click, other - Gastrointestinal General gastrointestinal: Present: distended, normal bowel sounds, soft - Neurologic Neurologic: Present: CNII-XII intact - Musculoskeletal Musculoskeletal: Present: generalized weakness - Psychiatric Psychiatric: Present: A&O x's 3, appropriate affect, intact judgment & insight - Labs CBC & Chem 7: 12/22/19 05:42 12/22/19 05:42 Labs: Abnormal Lab Results - Last 24 Hours (Table) 12/26/19 12/26/19 12/27/19 Range/Units 16:52 19:58 06:06 POC Glucose (mg/dL) 205 H 305 H 192 H (75-99) mg/dL 12/27/19 Range/Units 11:49 POC Glucose (mg/dL) 101 H (75-99) mg/dL Microbiology - Last 24 Hours (Table) 12/25/19 12:30 Gram Stain - Final Bronchial Washings - Right Bronchial Washings Culture - Final - Imaging and Cardiology Chest x-ray: report reviewed Assessment and Plan (1) Malignant pleural effusion Narrative/Plan: Pending Cardiothoracic surgery evaluation for possible Pleurx drain placement because of persistent drainage post thoracentesis. Pending pathology on recent specimens taken from the bronchoscopy Patient is being assessed for O2 needs for discharge Patient has been provided with a cane to assist in ambulation as she becomes short of breath and fatigued very quickly Current Visit: Yes Status: Acute Priority: High Code(s): J91.0 - MALIGNANT PLEURAL EFFUSION SNOMED Code(s): 92881685 Plan: Patient is needing to complete a colonoscopy based on 2 separate pathology departments classifying malignant pleural effusion and was being most consistent with a GI primary. Tumor ID on peripheral blood could be a method to try to narrow primary malignancy. We will see what procedures patient is able to get completed. Patient really has a follow-up appointment with Dr. Nobles this week. If he wants the above ordered, it can be ordered at that time. Patient does not complain of any pain to me today. Review of her meds shows that she continues on what pain meds she was taking prior to admission
[2019-12-27] MEDS: MIRTAZAPINE 15 MG TAB PO SCH (15:52)
[2019-12-27 17:08] LABS: Glucose,Whole Blood 167 mg/dL (75-99)
[2019-12-27 20:50] LABS: Glucose,Whole Blood 128 mg/dL (75-99)
--- NOTE | 2019-12-27 22:54 | P.PN ---
Subjective Progress Note Date: 12/27/19 Principal diagnosis: Malignant recurrent large right-sided pleural effusion, poorly differentiated adenocarcinoma of the lung primary most likely from the GI tract, COPD, oxygen dependent COPD, left-sided adrenal mass, recent history of UTI, depression and atherosclerotic heart disease. 59-year-old female was transferred from [facility] and admitted through the emergency department for recurrent large malignant pleural effusion of the right side she has nonfunctioning pigtail gait catheter was taking out at the time and patient kept having drainage from the site of the tube was place on connected to the back and kept collecting significant pleural fluid. Last week patient was seen in cardiothoracic and the drainage was minimum at the time decided not to go for any Pleurx catheter. Then drainage become a problem patient had significant hypoxia require O2 her discharge was delayed and through the weekend continue to have significant drainage today been evaluated again by cardiothoracic for possible chest tube and Pleurx catheter. Her shortness of breath continue to require O2 when she goes home, patient is doing well with her respiratory therapy and infectious disease, also patient has been evaluated by physiatry for possible inpatient rehab. Also patient seen oncology will have follow-up as an outpatient. Objective - Vital Signs Vital signs: Vital Signs Temp 97.6 F 12/27/19 04:00 Pulse 116 H 12/27/19 08:20 Resp 16 12/27/19 04:00 BP 122/98 12/27/19 04:00 Pulse Ox 96 12/27/19 08:20 Intake & Output 12/26/19 12/27/19 12/27/19 18:59 06:59 18:59 Intake Total 602 480 Output Total 550 50 Balance 52 430 Weight 55.1 kg Intake: Oral 602 480 Output: Drainage 150 50 Right Chest 150 50 Urine 400 Other: Voiding Method Toilet Toilet # Voids 1 # Bowel Movements 1 - Exam Review of systems CONSTITUTIONAL: no respiratory distress. EYES: No icterus sclerae, no conjunctivitis. EARS, NOSE, MOUTH, THROAT, and FACE: No sore throat, lymphadenopathy, carotid bruits or deformity. RESPIRATORY: no shortness of breath cough wheezes with pleural effusion. CARDIOVASCULAR: No CP, Palpitation, PND, Orthopnea, or angina. GASTROINTESTINAL: no abdominal discomfort with nausea no vomiting. GENITOURINARY: Negative for Hematuria or UTI, no kidney stones. INTEGUMENT/BREAST: Negative for any muscular injury with mild osteoarthritis.. HEMATOLOGIC/LYMPHATIC: Negative for bleed or purpura. MUSCULOSKELTAL: Generalized muscle and joint pain. NEURLOGICAL: No LOC, Sz or syncope, blurred vision dizziness or abnormality.. BEHAVIORAL/PSYCH: Negative. ENDOCRINE: Negative. Physical examination General Appearance: Alert, cooperative, looks older than her age in no respiratory distress. Neck HEENT: Supple, no lymphadenopathy, no thyroid enlargement, no carotid bruits. Lungs: Decreased breath some bilateral mild expiratory wheezes. Chest Wall: Chest wall normal expansion with deep inspiration no tenderness and no deformity was found on exam, no costochondral pain or discomfort. Heart: Regular rate and rhythm, S1, S2 normal, no murmur, rub or gallop. Back: Symmetric, no curvature, ROM normal, no CVA tenderness. Abdomen: Soft, non-tender, bowel sounds active all four quadrants, no masses, no organomegaly. Extremities: Extremities normal, atraumatic, no cyanosis or edema. Pulses: 2+ and symmetric. Skin: Skin color, texture, tugor normal, no rashes or lesions. Neurologic: Alert oriented x3 cranial nerves II through XII intact, no motor deficit, no abnormal balance or gait. - Labs CBC & Chem 7: 12/22/19 05:42 12/22/19 05:42 Labs: Abnormal Lab Results - Last 24 Hours (Table) 12/26/19 12/26/19 12/26/19 Range/Units 12:04 16:52 19:58 POC Glucose (mg/dL) 165 H 205 H 305 H (75-99) mg/dL 12/27/19 Range/Units 06:06 POC Glucose (mg/dL) 192 H (75-99) mg/dL Microbiology - Last 24 Hours (Table) 12/25/19 12:30 Gram Stain - Preliminary Bronchial Washings - Right Bronchial Washings Culture - Preliminary Assessment and Plan Assessment: 1 severe dyspnea and shortness of breath: Secondary to large pleural effusion along with consolidation of the right middle and upper lobe and the right side with obstructive pneumonitis treated recently. Continue O2 continue updraft treatment for now and steroid with see pulmonary. 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 3 poorly differentiated adenocarcinoma found in the lung medically clear whether this is primary or secondary direction from the pleural fluid as metastasis from GI cancer. Continue to see oncology further testing to be done. 4 advance COPD: Continue patient on DuoNeb and Pulmicort continue steroid use. No much difference to require O2. 5 left-sided adrenal mass larger than June patient will require to go see one of the the surgeon who takes care of endocrine gland specially adrenal in one the tertiary center. 6 chronic history of tobacco use: Patient can benefit from staying on nicotine patch. 7 recent history of UTI with sepsis was on Zosyn was switched to oral antibiotics. 8 chronic depression and bipolar: Has been on mirtazapine and Pristiq. Still on lithium. 11 chronic pain management: Remain on morphine and oxycodone. 9 atherosclerotic heart disease: Still on secondary prevention still seen cardiology continue high dose of atorvastatin 80 mg daily along with lisinopril and smaller visible beta olga. Discharge planning: Pending on procedure done by cardiothoracic management for either rehab or [facility] or possible home care will be made when she is ready.
[2019-12-28] MEDS: oxyCODONE-APAP 5-325MG 1 EACH TAB PO PRN ×2 (03:46→11:46)
[2019-12-28 06:16] LABS: Glucose,Whole Blood 94 mg/dL (75-99)
[2019-12-28 06:19] LABS: Anisocytosis Slight; Basophils # (A) 0.2 k/uL (0-0.2); Basophils % (A) 1 %; Eosinophils # (A) 0.1 k/uL (0-0.7); Eosinophils % (A) 1 %; HCT 40.4 % (34.0-46.0); HGB 12.7 gm/dL (11.4-16.0); Lymphocytes # (A) 0.5 k/uL (1.0-4.8); Lymphocytes % (A) 3 %; MCH 29.9 pg (25.0-35.0); MCHC 31.5 g/dL (31.0-37.0); MCV 94.8 fL (80.0-100.0); Monocytes # (A) 0.7 k/uL (0-1.0); Monocytes % (A) 5 %; Neutrophils # (A) 14.6 k/uL (1.3-7.7); Neutrophils % (A) 90 %; Platelet Count 286 k/uL (150-450); RBC 4.26 m/uL (3.80-5.40); RDW 16.2 % (11.5-15.5); WBC 16.3 k/uL (3.8-10.6)
[2019-12-28 06:33] LABS: ALT 35 U/L (4-34); AST 30 U/L (14-36); African American GFR (CKD) >90 (>60 ml/min/1.73 sqM); Albumin 2.9 g/dL (3.5-5.0); Alkaline Phosphatase 113 U/L (38-126); Anion Gap 4 mmol/L; Blood Urea Nitrogen 27 mg/dL (7-17); Calcium 8.9 mg/dL (8.4-10.2); Carbon Dioxide 30 mmol/L (22-30); Chloride 95 mmol/L (98-107); Glucose 87 mg/dL (74-99); Non-African American GFR(CKD) >90 (>60 ml/min/1.73 sqM); Potassium 4.7 mmol/L (3.5-5.1); Sodium 129 mmol/L (137-145); Total Bilirubin 0.5 mg/dL (0.2-1.3); Total Protein 5.3 g/dL (6.3-8.2)
[2019-12-28] MEDS: BUDESONIDE 1 MG/2 ML NEBU INHALATION SCH (07:46)
[2019-12-28] MEDS: IPRATROPIUM-ALBUTEROL 3 ML NEB INHALATION SCH ×3 (07:46→16:05)
[2019-12-28] MEDS: FORMOTEROL FUMARATE 20 MCG/2 ML NEBU INHALATION SCH (07:46)
[2019-12-28] MEDS: INSULIN ASPART (NovoLOG) 100 UNIT/ML VIAL SQ SCH ×2 (08:29→11:34)
[2019-12-28] MEDS: HEPARIN SODIUM,PORCINE 5,000 UNIT/ML 1 ML VIAL SQ SCH (08:34)
[2019-12-28] MEDS: guaiFENesin 600 MG TABLET.ER PO SCH (08:34)
[2019-12-28] MEDS: FAMOTIDINE 20 MG TAB PO SCH (08:35)
[2019-12-28] MEDS: predniSONE 10 MG TAB PO SCH (08:35)
[2019-12-28] MEDS: SENNOSIDES 8.6 MG TAB PO SCH (08:35)
[2019-12-28] MEDS: DILTIAZEM ORAL 60 MG TAB PO SCH ×2 (08:35→15:36)
[2019-12-28] MEDS: DESVENLAFAXINE SUCCINATE 50 MG TAB.ER.24H PO SCH (08:35)
[2019-12-28] MEDS: FLUCONAZOLE 100 MG TAB PO SCH (08:35)
[2019-12-28] MEDS: MORPHINE SULFATE ER 30 MG TABLET PO SCH (08:35)
--- NOTE | 2019-12-28 10:15 | P.DS ---
Providers Date of admission: 12/21/19 15:44 Expected date of discharge: 12/28/19 Attending physician: Pérez Sotelo Consults: 12/21/19 18:17 Consult Physician Routine Consulting Provider: Deon Garcia Consult Reason/Comments: Permanent Pleural Cath Do you want consulting provider notified?: Yes 12/21/19 18:19 Consult Physician Routine Consulting Provider: Lorne De Los Santos Consult Reason/Comments: Malignant Pleural effusion Do you want consulting provider notified?: Yes 12/22/19 09:28 Consult Physician Routine Consulting Provider: Sushant Nobles Consult Reason/Comments: malignant pleural effusion Do you want consulting provider notified?: Yes 12/27/19 08:33 Consult Physician Routine Consulting Provider: Richie Perales Consult Reason/Comments: In Pt Rehab Do you want consulting provider notified?: Yes Primary care physician: [facility] Course: Malignant recurrent large right-sided pleural effusion, poorly differentiated adenocarcinoma of the lung primary most likely from the GI tract, COPD, oxygen dependent COPD, left-sided adrenal mass, recent history of UTI, depression and atherosclerotic heart disease. 59-year-old female was transferred from [facility] and admitted through the emergency department for recurrent large malignant pleural effusion of the right side she has nonfunctioning pigtail gait catheter was taking out at the time and patient kept having drainage from the site of the tube was place on connected to the back and kept collecting significant pleural fluid. Last week patient was seen in cardiothoracic and the drainage was minimum at the time decided not to go for any Pleurx catheter. Then drainage become a problem patient had significant hypoxia require O2 her discharge was delayed and through the weekend continue to have significant drainage today been evaluated again by cardiothoracic for possible chest tube and Pleurx catheter. Her shortness of breath continue to require O2 when she goes home, patient is doing well with her respiratory therapy and infectious disease, also patient has been evaluated by physiatry for possible inpatient rehab. Also patient seen oncology will have follow-up as an outpatient. 12/27 patient seen sitting in bed this morning along with Dr. Ely, patient is agreeable to going to senior living facility for care. Labs were reviewed. Vital signs are stable, patient is afebrile 97.5, pulse rate 96, blood pressure 102/68, pulse ox 90% on 2 L via nasal cannula. Discharge diagnosis 1 severe dyspnea and shortness of breath: 2 malignant right-sided pleural effusion post pigtail catheter drainage 3 poorly differentiated adenocarcinoma 4 advance COPD: 5 left-sided adrenal mass 6 chronic history of tobacco use: 7 recent history of UTI with sepsis 8 chronic depression and bipolar: 9 atherosclerotic heart disease: S Discharge plan: To senior living facility today pending insurance approval Impression and plan of care have been directed as dictated by the signing physician. Malaika Ibarra nurse practitioner acting as scribe for signing physician. Patient Condition at Discharge: Good Plan - Discharge Summary Discharge Rx Participant: Yes New Discharge Prescriptions: New Insulin Lispro [Admelog Solostar] 5 units SQ AC-TID #1 pen Diltiazem Oral [Cardizem*] 60 mg PO TID tab Codeine Sulfate 15 mg PO Q6H PRN 3 Days #12 tab PRN Reason: Pain predniSONE 30 mg PO DAILY tab Continue Desvenlafaxine [Pristiq ER] 100 mg PO DAILY Ondansetron Odt [Zofran ODT] 4 mg PO Q6H PRN PRN Reason: Nausea Sennosides [Senna] 8.6 mg PO BID Famotidine [Pepcid] 20 mg PO DAILY guaiFENesin [Mucinex] 1,200 mg PO Q12H Ipratropium-Albuterol Nebulize [Duoneb 0.5 mg-3 mg/3 ml Soln] 3 ml INHALATION RT-QID Budesonide 1 mg INHALATION RT-BID Mirtazapine 7.5 mg PO AC-SUPPER Acetaminophen [Tylenol Arthritis] 650 mg PO Q8H PRN PRN Reason: Fever And/ Or Pain Zofran 4mg Injection 4 mg IV Q4H PRN PRN Reason: Nausea Fluconazole [Diflucan] 100 mg PO DAILY #7 oxyCODONE-APAP 5-325MG [Percocet 5-325 mg] 1 tab PO Q4H PRN #12 tab PRN Reason: Moderate To Severe Pain Discontinued Budesonide [Pulmicort Flexhaler] 1 puff INHALATION RT-BID Heparin Sodium,Porcine/Pf [Heparin Sod 5,000 Unit/ml Syrg] 5,000 unit SQ Q12H Morphine Sulfate [Ms Contin] 30 mg PO Q12H predniSONE [Deltasone] 40 mg PO DAILY Discharge Medication List Desvenlafaxine [Pristiq ER] 100 mg PO DAILY 10/30/17 [History] Acetaminophen [Tylenol Arthritis] 650 mg PO Q8H PRN 12/21/19 [History] Budesonide 1 mg INHALATION RT-BID 12/21/19 [History] Famotidine [Pepcid] 20 mg PO DAILY 12/21/19 [History] Ipratropium-Albuterol Nebulize [Duoneb 0.5 mg-3 mg/3 ml Soln] 3 ml INHALATION RT-QID 12/21/19 [History] Mirtazapine 7.5 mg PO AC-SUPPER 12/21/19 [History] Ondansetron Odt [Zofran ODT] 4 mg PO Q6H PRN 12/21/19 [History] Sennosides [Senna] 8.6 mg PO BID 12/21/19 [History] Zofran 4mg Injection 4 mg IV Q4H PRN 12/21/19 [History] guaiFENesin [Mucinex] 1,200 mg PO Q12H 12/21/19 [History] Codeine Sulfate 15 mg PO Q6H PRN 3 Days #12 tab 12/28/19 [Rx] Diltiazem Oral [Cardizem*] 60 mg PO TID tab 12/28/19 [Rx] Fluconazole [Diflucan] 100 mg PO DAILY #7 12/28/19 [Rx] Insulin Lispro [Admelog Solostar] 5 units SQ AC-TID #1 pen 12/28/19 [Rx] oxyCODONE-APAP 5-325MG [Percocet 5-325 mg] 1 tab PO Q4H PRN #12 tab 12/28/19 [Rx] predniSONE 30 mg PO DAILY tab 12/28/19 [Rx] Follow up Appointment(s)/Referral(s): Sushant Nobles MD [STAFF PHYSICIAN] - 12/30/19 3:45 pm [facility] [NON-STAFF] - [facility], [NON-STAFF] - [facility] [NON-STAFF] - 12/29/19 11:00 am (Friday) Discharge Disposition: TRANSFER TO SNF/ECF
[2019-12-28 11:31] LABS: Glucose,Whole Blood 130 mg/dL (75-99)
[2019-12-28 11:48] VITALS: BMI 20.4
--- NOTE | 2019-12-28 13:09 | P.PN ---
Subjective Progress Note Date: 12/28/19 Principal diagnosis: Right upper lobe lung adenocarcinoma, with a malignant right-sided pleural effusion, status post pigtail catheter placement and removal, and subsequent PLEURODESIS 59-year-old white female patient with history of multiple medical problems including COPD, CAD, hepatitis C, hyperlipidemia, chronic liver disease, among other problems, was hospitalized at the [facility] where she went for evaluation of worsening shortness of breath. Chest x-ray and computed tomography scan of the chest revealed a large right upper lung mass that was highly suspicious for lung cancer. There was right pleural effusion, likely malignant, and patient had thoracentesis, pleural fluid was positive for adenocarcinoma with the possibility of primary GI in origin. Subsequent patient had to have a pigtail catheter placed in the right pleural space, when the drainage decreased the pigtail catheter was removed, and before removal patient had felt pleurodesis injected into the pigtail catheter. Subsequently after removal of the pigtail catheter patient had continuous leaking of serous fluid from the pigtail chest tube site. Requiring placement of the ostomy appliance. There was concern for development of a pleural track. Patient was transferred to the [facility] for possibility of a Pleurx catheter placement. However since she arrived here the fluid has decreased in amount significantly, and in the last 24 hours there has only been 30 mL of serous fluid in the ostomy applied over the right posterior chest puncture site. Clin ically patient stable, she was awake and alert, oriented 3, denies any shortness of breath, denies any chest pain. Room air pulse ox is 92-95%, she's had no fever or chills. There have been no acute events overnight. From pulmonary perspective patient could be considered for discharge home today. On 12/28/2019 patient seen in follow-up on selective care unit. She is awake and alert, in no acute distress, and altered mentation, answered questions appropriately, no chest pain, she is on 2 L of oxygen per pulse ox of 95%, no worsening dyspnea, there has been no output from the right posterior chest pigtail chest tube insertion site in last 24 hours, ostomy appliance remains in place with scant amount of serous output. Generally weak, patient requires help to even sit up in bed. No cough, no significant congestion, no wheezing. No fever or chills. Today's labs have been reviewed, showing white blood cell count 16.3, hemoglobin of 12.7, serum sodium is 129, potassium is 4.7, chloride is 95, BUN is 27, creatinine 0.45. No fever or chills Objective - Vital Signs Vital signs: Vital Signs Temp 97.6 F 12/28/19 11:47 Pulse 108 H 12/28/19 12:03 Resp 20 12/28/19 11:47 BP 106/70 12/28/19 11:47 Pulse Ox 93 L 12/28/19 11:47 Intake & Output 12/27/19 12/28/19 12/28/19 18:59 06:59 18:59 Intake Total 220 120 250 Output Total 0 0 Balance 220 120 250 Weight 55.7 kg 55.7 kg Intake: IV 10 0.9 Saline FLUSH 10 Oral 220 120 240 Output: Drainage 0 0 Right Chest 0 0 Other: Voiding Method Toilet # Voids 0 0 # Bowel Movements 0 - Exam GENERAL EXAM: Alert, very pleasant, 59-year-old white female, on 2 L of oxygen with the pulse ox of 93%, comfortable in no apparent distress. HEAD: Normocephalic/atraumatic. EYES: Normal reaction of pupils, equal size. Conjunctiva pink, sclera white. NOSE: Clear with pink turbinates. THROAT: No erythema or exudates. NECK: No masses, no JVD, no thyroid enlargement, no adenopathy. CHEST: No chest wall deformity. Symmetrical expansion. Right posterior chest wall puncture site from the pigtail insertion catheter has an ostomy appliance over it with minimal amount of serous fluid LUNGS: Equal air entry with no crackles, wheeze, rhonchi or dullness. CVS: Regular rate and rhythm, normal S1 and S2, no gallops, no murmurs, no rubs ABDOMEN: Soft, nontender. No hepatosplenomegaly, normal bowel sounds, no guarding or rigidity. EXTREMITIES: No clubbing, no edema, no cyanosis, 2+ pulses and upper and lower extremities. MUSCULOSKELETAL: Muscle strength and tone normal. SPINE: No scoliosis or deformity SKIN: No rashes CENTRAL NERVOUS SYSTEM: Alert and oriented -3. No focal deficits, tone is normal in all 4 extremities. PSYCHIATRIC: Alert and oriented -3. Appropriate affect. Intact judgment and insight. - Labs CBC & Chem 7: 12/28/19 05:47 12/28/19 05:47 Labs: Abnormal Lab Results - Last 24 Hours (Table) 12/27/19 12/27/19 12/28/19 Range/Units 17:01 20:47 05:47 WBC 16.3 H (3.8-10.6) k/uL RDW 16.2 H (11.5-15.5) % Neutrophils # 14.6 H (1.3-7.7) k/uL Lymphocytes # 0.5 L (1.0-4.8) k/uL Sodium (137-145) mmol/L Chloride (98-107) mmol/L BUN (7-17) mg/dL Creatinine (0.52-1.04) mg/dL POC Glucose (mg/dL) 167 H 128 H (75-99) mg/dL ALT (4-34) U/L Total Protein (6.3-8.2) g/dL Albumin (3.5-5.0) g/dL 12/28/19 12/28/19 Range/Units 05:47 11:28 WBC (3.8-10.6) k/uL RDW (11.5-15.5) % Neutrophils # (1.3-7.7) k/uL Lymphocytes # (1.0-4.8) k/uL Sodium 129 L (137-145) mmol/L Chloride 95 L (98-107) mmol/L BUN 27 H (7-17) mg/dL Creatinine 0.45 L (0.52-1.04) mg/dL POC Glucose (mg/dL) 130 H (75-99) mg/dL ALT 35 H (4-34) U/L Total Protein 5.3 L (6.3-8.2) g/dL Albumin 2.9 L (3.5-5.0) g/dL Microbiology - Last 24 Hours (Table) 12/25/19 12:30 Gram Stain - Final Bronchial Washings - Right Bronchial Washings Culture - Final Assessment and Plan Plan: Assessment: #1. Metastatic adenocarcinoma, involving the right upper lobe, with a malignant right-sided pleural effusion, status post pigtail catheter placement, with drainage of pleural fluid and positive cytology for adenocarcinoma with possible GI primary. Pigtail has since been removed, talc pleurodesis was done prior to removal. Ostomy appliance was applied for continuous drainage from the former pigtail chest tube insertion site, the drainage has significantly improve d, and his only been at 30 mL per last 24 hours, on 12/23/2019 On 12/28/2019 the drainage out of the former pigtail chest tube site remains minimal, clinically the patient remains stable, and discharge planning #2. History of underlying chronic obstructive pulmonary disease #3. Ongoing tobacco use with nicotine addiction #4. History of coronary artery disease #5. History of GERD/reflux #6. History of hepatitis C #7. Hyperlipidemia #8. Peripheral vascular disease #9. Multiple other medical problems and comorbidities Plan: Continue current medical treatment, the drainage from the former pigtail chest tube site remains minimal, clinically patient remains stable, other than being very generally weak. No acute events overnight, no specific complaints, no worsening dyspnea. Discharge planning is in progress for discharge to rehab. Follow-up appointment with Dr. Ely in the office in 7-10 days I performed a history & physical examination of the patient and discussed their management with my nurse practitioner, Juanita Grey. I reviewed the nurse practitioner's note and agree with the documented findings and plan of care. Lung sounds are positive for clear breath sounds.. The findings and the impression was discussed with the patient. I attest to the documentation by the nurse practitioner. Time with Patient: Less than 30
--- NOTE | 2019-12-28 13:15 | P.PN ---
Subjective Progress Note Date: 12/28/19 Principal diagnosis: Lung primary malignancy? In follow-up today patient denies fevers, she is tolerating oral intake, shortness of breath is stable, she is weak, pain is managed. Objective - Vital Signs Vital signs: Vital Signs Temp 97.6 F 12/28/19 11:47 Pulse 108 H 12/28/19 12:03 Resp 20 12/28/19 11:47 BP 106/70 12/28/19 11:47 Pulse Ox 93 L 12/28/19 11:47 Intake & Output 12/27/19 12/28/19 12/28/19 18:59 06:59 18:59 Intake Total 220 120 250 Output Total 0 0 Balance 220 120 250 Weight 55.7 kg 55.7 kg Intake: IV 10 0.9 Saline FLUSH 10 Oral 220 120 240 Output: Drainage 0 0 Right Chest 0 0 Other: Voiding Method Toilet # Voids 0 0 # Bowel Movements 0 - Constitutional General appearance: Present: average body habitus, cooperative, no acute distress - EENT Eyes: Present: anicteric sclerae, EOMI ENT: Present: hearing grossly normal - Respiratory Respiratory: bilateral: diminished - Cardiovascular Rhythm: regular Heart sounds: normal: S1, S2 Abnormal Heart Sounds: Absent: systolic murmur, diastolic murmur, rub, S3 Gallop, S4 Gallop, click, other - Peripheral edema leg Peripheral Edema: bilateral: None - Gastrointestinal General gastrointestinal: Present: normal bowel sounds, soft - Neurologic Neurologic: Present: CNII-XII intact - Musculoskeletal Musculoskeletal: Present: generalized weakness - Psychiatric Psychiatric: Present: A&O x's 3, appropriate affect, intact judgment & insight - Labs CBC & Chem 7: 12/28/19 05:47 12/28/19 05:47 Labs: Abnormal Lab Results - Last 24 Hours (Table) 12/27/19 12/27/19 12/28/19 Range/Units 17:01 20:47 05:47 WBC 16.3 H (3.8-10.6) k/uL RDW 16.2 H (11.5-15.5) % Neutrophils # 14.6 H (1.3-7.7) k/uL Lymphocytes # 0.5 L (1.0-4.8) k/uL Sodium (137-145) mmol/L Chloride (98-107) mmol/L BUN (7-17) mg/dL Creatinine (0.52-1.04) mg/dL POC Glucose (mg/dL) 167 H 128 H (75-99) mg/dL ALT (4-34) U/L Total Protein (6.3-8.2) g/dL Albumin (3.5-5.0) g/dL 12/28/19 12/28/19 Range/Units 05:47 11:28 WBC (3.8-10.6) k/uL RDW (11.5-15.5) % Neutrophils # (1.3-7.7) k/uL Lymphocytes # (1.0-4.8) k/uL Sodium 129 L (137-145) mmol/L Chloride 95 L (98-107) mmol/L BUN 27 H (7-17) mg/dL Creatinine 0.45 L (0.52-1.04) mg/dL POC Glucose (mg/dL) 130 H (75-99) mg/dL ALT 35 H (4-34) U/L Total Protein 5.3 L (6.3-8.2) g/dL Albumin 2.9 L (3.5-5.0) g/dL Microbiology - Last 24 Hours (Table) 12/25/19 12:30 Gram Stain - Final Bronchial Washings - Right Bronchial Washings Culture - Final Assessment and Plan (1) Malignant pleural effusion Narrative/Plan: No Pleurx drain needed per Pulm. Pending pathology on recent specimens taken from the bronchoscopy Patient is being assessed for O2 needs for discharge Patient has been provided with a cane to assist in ambulation as she becomes short of breath and fatigued very quickly. Pending DC to rehab either inpatient or ECF Current Visit: Yes Status: Acute Priority: High Code(s): J91.0 - MALIGNANT PLEURAL EFFUSION SNOMED Code(s): 26806047 Plan: Patient is needing to complete a colonoscopy based on 2 separate pathology departments classifying malignant pleural effusion and was being most consistent with a GI primary. Pt needs colonoscopy. She had EGD with Dr. Evans. Will have his ofc f/u with pt so this gets done. F/U with Dr. Nobles after colonoscopy for treatment options, prognosis and recommendations. Pt verbalized understanding the plan.
[2019-12-28 15:12] VITALS: BP 103/70; PULSE 104; RESP 18; TEMP 98.7
== END 2019-12-28 16:16 | DRG 180 ==
LOC: 3SCARD 15:44
PROVIDERS: ADMIT Internal Medicine Geriatric Medicine; ATTEND Internal Medicine Geriatric Medicine
PROC: 0BD38ZX Extraction of Right Main Bronchus, Via Natural or Artificial Opening Endoscopic, Diagnostic (ICD-10-PCS; principal; 2019-12-25 12:00)
PROC: 0B9F8ZX Drainage of Right Lower Lung Lobe, Via Natural or Artificial Opening Endoscopic, Diagnostic (ICD-10-PCS; principal; 2019-12-25 12:00)
DX: C78.01 Secondary malignant neoplasm of right lung (principal); E43 Unspecified severe protein-calorie malnutrition; J96.11 Chronic respiratory failure with hypoxia; J91.0 Malignant pleural effusion; J98.11 Atelectasis; C26.9 Malignant neoplasm of ill-defined sites within the digestive system; Z99.81 Dependence on supplemental oxygen; J44.9 Chronic obstructive pulmonary disease, unspecified; I73.9 Peripheral vascular disease, unspecified; F31.9 Bipolar disorder, unspecified; B18.2 Chronic viral hepatitis C; E27.9 Disorder of adrenal gland, unspecified; F17.210 Nicotine dependence, cigarettes, uncomplicated; K21.9 Gastro-esophageal reflux disease without esophagitis; I25.10 Atherosclerotic heart disease of native coronary artery without angina pectoris; E78.5 Hyperlipidemia, unspecified; G43.909 Migraine, unspecified, not intractable, without status migrainosus; J30.2 Other seasonal allergic rhinitis; F41.9 Anxiety disorder, unspecified; H93.19 Tinnitus, unspecified ear; G89.3 Neoplasm related pain (acute) (chronic); Z71.3 Dietary counseling and surveillance; Z68.20 Body mass index [BMI] 20.0-20.9, adult; Z79.891 Long term (current) use of opiate analgesic; Z79.51 Long term (current) use of inhaled steroids; Z79.52 Long term (current) use of systemic steroids; Z79.899 Other long term (current) drug therapy; Z87.01 Personal history of pneumonia (recurrent); Z87.81 Personal history of (healed) traumatic fracture; Z90.49 Acquired absence of other specified parts of digestive tract; Z98.51 Tubal ligation status; Z95.828 Presence of other vascular implants and grafts; Z87.440 Personal history of urinary (tract) infections; Z86.19 Personal history of other infectious and parasitic diseases; Z71.6 Tobacco abuse counseling; Z82.5 Family history of asthma and other chronic lower respiratory diseases; Z82.49 Family history of ischemic heart disease and other diseases of the circulatory system; Z82.3 Family history of stroke; Z80.1 Family history of malignant neoplasm of trachea, bronchus and lung
CPT/HCPCS: 31624; 71045; 71046; 80053; 85025; 85610; 87070; 87205; 88108; 88305; 89050; 94640; 94760

== ENCOUNTER 2020-01-14 17:24 | Inpatient (IN) | payer OTHER ==
[2020-01-14] MEDS ORDERED: ALBUTEROL NEBULIZED 2.5 MG/3 ML INHALATION STA (17:42)
[2020-01-14] MEDS ORDERED: IPRATROPIUM 0.5 MG/2.5 ML NEBU INHALATION STA (17:42)
[2020-01-14] MEDS ORDERED: SODIUM CHLORIDE 0.9% 500 ML 500 ML IV STA (17:42)
[2020-01-14] MEDS ORDERED: cefTRIAXone IN SWFI 1,000 MG/10 ML SYRINGE IVP STA (17:43)
--- NOTE | 2020-01-14 17:59 | ED ---
General Adult HPI - General Chief complaint: Shortness of Breath Stated complaint: CHEVY Time Seen by Provider: 01/14/20 17:33 Source: patient, EMS, RN notes reviewed, old records reviewed Mode of arrival: EMS Limitations: no limitations - History of Present Illness Initial comments: 59-year-old female presenting for evaluation of worsening dyspnea over the past approximately one month. Patient does report a productive cough. She denies fever. She states she previously had a catheter in her right chest wall but does not believe this has been drained in at least one month. She currently has in ostomy bag over the site. She denies lower extremity swelling. She is nonambulatory secondary to generalized weakness and debility. - Related Data Home Medications Medication Instructions Recorded Confirmed Desvenlafaxine [Pristiq ER] 100 mg PO DAILY 10/30/17 12/21/19 Acetaminophen [Tylenol Arthritis] 650 mg PO Q8H PRN 12/21/19 12/21/19 Budesonide 1 mg INHALATION RT-BID 12/21/19 12/21/19 Famotidine [Pepcid] 20 mg PO DAILY 12/21/19 12/21/19 Ipratropium-Albuterol Nebulize 3 ml INHALATION RT-QID 12/21/19 12/21/19 [Duoneb 0.5 mg-3 mg/3 ml Soln] Mirtazapine 7.5 mg PO AC-SUPPER 12/21/19 12/21/19 Ondansetron Odt [Zofran ODT] 4 mg PO Q6H PRN 12/21/19 12/21/19 Sennosides [Senna] 8.6 mg PO BID 12/21/19 12/21/19 Zofran 4mg Injection 4 mg IV Q4H PRN 12/21/19 12/21/19 guaiFENesin [Mucinex] 1,200 mg PO Q12H 12/21/19 12/21/19 Previous Rx's Medication Instructions Recorded Codeine Sulfate 15 mg PO Q6H PRN 3 Days #12 tab 12/28/19 Diltiazem Oral [Cardizem*] 60 mg PO TID tab 12/28/19 Fluconazole [Diflucan] 100 mg PO DAILY #7 12/28/19 Insulin Lispro [Admelog Solostar] 5 units SQ AC-TID #1 pen 12/28/19 oxyCODONE-APAP 5-325MG [Percocet 1 tab PO Q4H PRN #12 tab 12/28/19 5-325 mg] predniSONE 30 mg PO DAILY tab 12/28/19 Allergies Allergy/AdvReac Type Severity Reaction Status Date / Time No Known Allergies Allergy Verified 10/30/19 17:03 Review of Systems ROS Statement: Those systems with pertinent positive or pertinent negative responses have been documented in the HPI. ROS Other: All systems not noted in ROS Statement are negative. Past Medical History Past Medical History: Asthma, Coronary Artery Disease (CAD), COPD, GERD/Reflux, Hyperlipidemia, Liver Disease, Vascular Disorder Additional Past Medical History / Comment(s): Bronchitis, seasonal allergies, sinus problems, hepatitis C, migraines, occasional bilateral tinnitis, UTIs, PVD, past R wrist fx, past L clavicle fx, numbness/tingling R hand and legs. History of Any Multi-Drug Resistant Organisms: None Reported Past Surgical History: Cholecystectomy, Tubal Ligation Additional Past Surgical History / Comment(s): Aortic bypass with stents placed in bilateral femoral arteries, D&C Past Anesthesia/Blood Transfusion Reactions: No Reported Reaction Past Psychological History: Anxiety, Bipolar, Depression Smoking Status: Current every day smoker Past Alcohol Use History: Occasional Past Drug Use History: Cocaine, Marijuana - Past Family History Father History Unknown: Yes Family Medical History: CVA/TIA Additional Family Medical History / Comment(s): Father had a CVA. He is Mother History Unknown: Yes Family Medical History: No Reported History Additional Family Medical History / Comment(s): Mother was healthy. She is . Brother(s) History Unknown: Yes Sister(s) History Unknown: Yes Son(s) Family Medical History: No Reported History General Exam Limitations: no limitations General appearance: alert, in no apparent distress Head exam: Present: atraumatic, normocephalic Eye exam: Present: normal appearance ENT exam: Present: normal exam Neck exam: Absent: normal inspection, tenderness Respiratory exam: Present: wheezes, decreased breath sounds, other (Decreased breath sounds bilaterally, right chest wall, there is a site of previous drainage catheter, there is some brown drainage from the site as well as some surrounding erythema approximately 5 cm). Absent: respiratory distress Cardiovascular Exam: Present: normal rhythm, tachycardia GI/Abdominal exam: Present: soft. Absent: distended, tenderness Extremities exam: Present: normal inspection, normal capillary refill. Absent: pedal edema Course Vital Signs 01/14/20 01/14/20 01/14/20 17:27 17:44 19:03 Temperature 97.6 F Pulse Rate 107 H 110 H Respiratory 18 18 18 Rate Blood Pressure 117/88 114/92 O2 Sat by Pulse 99 99 Oximetry 01/14/20 01/14/20 19:40 20:05 Temperature Pulse Rate 110 H 110 H Respiratory Rate Blood Pressure O2 Sat by Pulse Oximetry EKG Findings - EKG Comments: EKG Findings:: EKG: Sinus tachycardia, rate of 109, [place] interval 134, QRS duration 78, QTC 447, no ST segment elevation. Medical Decision Making - Medical Decision Making 59-year-old female with recurrent pleural effusion, adenocarcinoma of the right long. X-ray revealing large pleural effusion, hydrothorax. I did discuss case with Dr. Ely who is familiar with this patient and Dr. Sotelo who is also familiar with this patient. Dr. Ely recommending computed tomography scan of the chest this will be obtained, these results are pending. The patient will be admitted with pulmonology on consult and will evaluate the patient tomorrow - Lab Data Result diagrams: 01/14/20 17:51 01/14/20 17:51 Lab Results 01/14/20 01/14/20 01/14/20 Range/Units 17:51 17:51 17:51 WBC 14.6 H (3.8-10.6) k/uL RBC 4.64 (3.80-5.40) m/uL Hgb 13.8 (11.4-16.0) gm/dL Hct 42.9 (34.0-46.0) % MCV 92.4 (80.0-100.0) fL MCH 29.7 (25.0-35.0) pg MCHC 32.1 (31.0-37.0) g/dL RDW 17.5 H (11.5-15.5) % Plt Count 348 (150-450) k/uL Neutrophils % 87 % Lymphocytes % 5 % Monocytes % 5 % Eosinophils % 0 % Basophils % 2 % Neutrophils # 12.7 H (1.3-7.7) k/uL Lymphocytes # 0.7 L (1.0-4.8) k/uL Monocytes # 0.7 (0-1.0) k/uL Eosinophils # 0.1 (0-0.7) k/uL Basophils # 0.2 (0-0.2) k/uL Anisocytosis Slight PT 9.3 (9.0-12.0) sec INR 0.9 (<1.2) APTT 20.9 L (22.0-30.0) sec Sodium 128 L (137-145) mmol/L Potassium 4.8 (3.5-5.1) mmol/L Chloride 94 L (98-107) mmol/L Carbon Dioxide 28 (22-30) mmol/L Anion Gap 6 mmol/L BUN 41 H (7-17) mg/dL Creatinine 0.72 (0.52-1.04) mg/dL Est GFR (CKD-EPI)AfAm >90 (>60 ml/min/1.73 sqM) Est GFR (CKD-EPI)NonAf >90 (>60 ml/min/1.73 sqM) Glucose 90 (74-99) mg/dL Plasma Lactic Acid Giovanni (0.7-2.0) mmol/L Calcium 9.8 (8.4-10.2) mg/dL Total Bilirubin 0.5 (0.2-1.3) mg/dL AST 33 (14-36) U/L ALT 28 (4-34) U/L Alkaline Phosphatase 134 H (38-126) U/L Total Protein 5.7 L (6.3-8.2) g/dL Albumin 3.1 L (3.5-5.0) g/dL 01/14/20 Range/Units 17:51 WBC (3.8-10.6) k/uL RBC (3.80-5.40) m/uL Hgb (11.4-16.0) gm/dL Hct (34.0-46.0) % MCV (80.0-100.0) fL MCH (25.0-35.0) pg MCHC (31.0-37.0) g/dL RDW (11.5-15.5) % Plt Count (150-450) k/uL Neutrophils % % Lymphocytes % % Monocytes % % Eosinophils % % Basophils % % Neutrophils # (1.3-7.7) k/uL Lymphocytes # (1.0-4.8) k/uL Monocytes # (0-1.0) k/uL Eosinophils # (0-0.7) k/uL Basophils # (0-0.2) k/uL Anisocytosis PT (9.0-12.0) sec INR (<1.2) APTT (22.0-30.0) sec Sodium (137-145) mmol/L Potassium (3.5-5.1) mmol/L Chloride (98-107) mmol/L Carbon Dioxide (22-30) mmol/L Anion Gap mmol/L BUN (7-17) mg/dL Creatinine (0.52-1.04) mg/dL Est GFR (CKD-EPI)AfAm (>60 ml/min/1.73 sqM) Est GFR (CKD-EPI)NonAf (>60 ml/min/1.73 sqM) Glucose (74-99) mg/dL Plasma Lactic Acid Giovanni 1.6 (0.7-2.0) mmol/L Calcium (8.4-10.2) mg/dL Total Bilirubin (0.2-1.3) mg/dL AST (14-36) U/L ALT (4-34) U/L Alkaline Phosphatase (38-126) U/L Total Protein (6.3-8.2) g/dL Albumin (3.5-5.0) g/dL Critical Care Time Critical Care Time: Yes Total Critical Care Time: 35 Disposition Clinical Impression: Lung cancer, Malignant pleural effusion Disposition: ADMITTED IP TO THIS [facility] Condition: Stable Is patient prescribed a controlled substance at d/c from ED?: No Referrals: [facility] [Primary Care Provider] - 1-2 days Decision to Admit Reason: Admit from EC Decision Date: 01/14/20 Decision Time: 20:28
[2020-01-14 18:26] LABS: Anisocytosis Slight; Basophils # (A) 0.2 k/uL (0-0.2); Basophils % (A) 2 %; Eosinophils # (A) 0.1 k/uL (0-0.7); Eosinophils % (A) 0 %; HCT 42.9 % (34.0-46.0); HGB 13.8 gm/dL (11.4-16.0); Lymphocytes # (A) 0.7 k/uL (1.0-4.8); Lymphocytes % (A) 5 %; MCH 29.7 pg (25.0-35.0); MCHC 32.1 g/dL (31.0-37.0); MCV 92.4 fL (80.0-100.0); Mean Platelet Volume 7.4; Monocytes # (A) 0.7 k/uL (0-1.0); Monocytes % (A) 5 %; Neutrophils # (A) 12.7 k/uL (1.3-7.7); Neutrophils % (A) 87 %; Platelet Count 348 k/uL (150-450); RBC 4.64 m/uL (3.80-5.40); RDW 17.5 % (11.5-15.5); WBC 14.6 k/uL (3.8-10.6)
[2020-01-14 18:40] LABS: ALT 28 U/L (4-34); AST 33 U/L (14-36); African American GFR (CKD) >90 (>60 ml/min/1.73 sqM); Albumin 3.1 g/dL (3.5-5.0); Alkaline Phosphatase 134 U/L (38-126); Anion Gap 6 mmol/L; Blood Urea Nitrogen 41 mg/dL (7-17); Calcium 9.8 mg/dL (8.4-10.2); Carbon Dioxide 28 mmol/L (22-30); Chloride 94 mmol/L (98-107); Glucose 90 mg/dL (74-99); Non-African American GFR(CKD) >90 (>60 ml/min/1.73 sqM); Potassium 4.8 mmol/L (3.5-5.1); Sodium 128 mmol/L (137-145); Total Bilirubin 0.5 mg/dL (0.2-1.3); Total Protein 5.7 g/dL (6.3-8.2)
[2020-01-14 18:41] LABS: INR 0.9 (<1.2); Prothrombin Time 9.3 sec (9.0-12.0)
[2020-01-14 18:46] LABS: Partial Thromboplastin Time 20.9 sec (22.0-30.0)
[2020-01-14] MEDS ORDERED: HYDROmorphone 1 MG/ML 1 ML SYRINGE IVP STA (19:38)
--- NOTE | 2020-01-14 20:04 | XR ---
EXAMINATION TYPE: XR chest 2V DATE OF EXAM: 01/14/2020 COMPARISON: 12/27/2019 HISTORY: Difficulty breathing There is complete opacification of the right hemithorax. Left lung is clear. There is no heart failu re. Heart size is probably normal. There is old left clavicle healed fracture. IMPRESSION: There is right-sided hydrothorax that has progressed significantly compared to old exam. No heart failure.
[2020-01-14] MEDS ORDERED: RX INFO: IV CONTRAST WAS GIVEN 1 EACH MISC MISCELLANE PRN (20:21)
[2020-01-14] MEDS ORDERED: ACETAMINOPHEN TAB 325 MG TAB PO PRN (20:22)
[2020-01-14] MEDS ORDERED: NALOXONE 0.4 MG/ML 1 ML VIAL IV PRN (20:22)
--- NOTE | 2020-01-14 21:15 | CT ---
EXAMINATION TYPE: CT chest w con DATE OF EXAM: 01/14/2020 COMPARISON: Chest CT scan 11/11/2017 HISTORY: SOB CT DLP: 249.7 mGycm Automated exposure control for dose reduction was used. CONTRAST: Performed with IV Contrast, patient injected with 100 mL of Isovue 300. Images were obtained from the thoracic inlet to the diaphragm with IV contrast. There is very large right pleural effusion. Right hemithorax is completely opacified. There is comple te atelectasis of the right lung. There is occlusion of the right mainstem bronchus with fluid. Heart is shifted slightly to the left side. The left lung is clear of consolidation. There are clips from cholecystectomy. There is mild irregular thickening of the right diaphragmatic pleura. Thoracic vertebra show no compression fracture. Sternum is intact. I see no bone destruction. Ribs ap pear intact. I see no filling defect in the pulmonary arteries. Thoracic aorta is intact. IMPRESSION: Right-sided hydrothorax with mild tension. Complete atelectasis and consolidation of the right lung. Opacification of the right mainstem bronchus with fluid at the origin. Mild posterior pleural thickening. I would consider possibilities of mesothelioma or chronic empyema. Follow-up recommended. No evidence of pulmonary embolism.
[2020-01-14] MEDS: HYDROmorphone 0.5 MG/0.5 ML SYRINGE IVP PRN (23:01)
[2020-01-15] MEDS: HYDROmorphone 0.5 MG/0.5 ML SYRINGE IVP PRN ×2 (05:50→09:01)
[2020-01-15] MEDS ORDERED: oxyCODONE-APAP 5-325MG 1 EACH TAB PO PRN (08:25)
[2020-01-15] MEDS ORDERED: ONDANSETRON ODT 4 MG TAB PO PRN (08:25)
[2020-01-15] MEDS ORDERED: NON FORMULARY DRUG (Acetaminophen [Tylenol Arthritis] 650 MG Tablet.Er) PO PRN (08:25)
[2020-01-15] MEDS ORDERED: IPRATROPIUM-ALBUTEROL 3 ML NEB INHALATION PRN (08:27)
[2020-01-15] MEDS ORDERED: NON FORMULARY DRUG (Ensure Clear 1 BOX Liquid) PO SCH (09:00)
[2020-01-15] MEDS: guaiFENesin 600 MG TABLET.ER PO SCH ×2 (09:00→21:21)
[2020-01-15] MEDS ORDERED: SENNOSIDES 8.6 MG TAB PO PRN (09:00)
[2020-01-15] MEDS: METOPROLOL TARTRATE 12.5 MG TAB PO SCH (09:01)
[2020-01-15] MEDS: FAMOTIDINE 20 MG TAB PO SCH (09:01)
[2020-01-15] MEDS: POTASSIUM CHLORIDE ER 10 MEQ TAB.ER.PRT PO SCH (09:01)
[2020-01-15 09:44] LABS: Glucose,Whole Blood 99 mg/dL (75-99)
[2020-01-15] MEDS: INSULIN NPH 300 UNIT/3 ML VIAL SQ SCH (10:07)
[2020-01-15] MEDS: DESVENLAFAXINE SUCCINATE 50 MG TAB.ER.24H PO SCH (10:09)
[2020-01-15] MEDS: oxyCODONE ER 10 MG TAB.ER.12H PO SCH ×2 (10:10→21:20)
--- NOTE | 2020-01-15 10:34 | P.HPIM ---
History of Present Illness H&P Date: 01/15/20 Chief Complaint: Dyspnea HISTORY OF PRESENT ILLNESS This is a 59-year-old female patient of [facility]'s clinic with past medical history of advanced COPD with prednisone dependence, chronic hypoxic respiratory failure with home O2 at 3 L,, hepatitis C, with recent hospitalization on through December 27 which time she was diagnosed with malignant right-sided pleural effusion, poorly differentiated adenocarcinoma of the right lung, patient was transferred from [facility] to [facility] in order to have Pleurx catheter placed. She previously to that had a chest tube which was removed. She had minimal drainage following that and Pleurx catheter was canceled. Patient was stabilized and discharged to [facility]. She states she has not been doing very well there. She has not been able to walk up to much with physical therapy. She continues to have chest pain that she states is a #10 in its os severe that she cannot move. She complains of cough with black sputum production. Patient states that she has had no drainage from the chest tube site and ostomy bag is covering. Patient also had hypoxia at the skilled nursing. She was transferred to [facility] emergency center for evaluation and treatment. Patient was afebrile, heart rate 107, blood pressure 117/88, pulse ox 99% on oxygen. EKG was a sinus tachycardia. WBC 14.6. Sodium 128, chloride 94, BUN 41 creatinine 0.72. Blood sugar 90. Alkaline phosphatase 134. Lactic acid 1.6. Chest x-ray revealed right-sided hydrothorax that has progressed significantly compared to old exam. No heart failure. CT of the chest with contrast revealed right-sided hydrothorax with mild tension. Complete atelectasis and consolidation of the right lung. We'll base of occasional the right mainstem bronchus with fluid at the origin. Mild posterior pleural thickening. Would consider possibility of mesothelioma or chronic empyema. Patient has been admitted to the cardiac stepdown unit and consult with Dr. Ely. Patient states she did not have any follow-up with consultants after discharge. REVIEW OF SYSTEMS Constitutional: No fever, no chills, no night sweats. Reports weight change. Reports weakness, Reportsfatigue Reports lethargy. Reports daytime sleepiness. EENT: No headache. No blurred vision or double vision, no loss of vision. No loss of Hearing, no ringing in the ears, no dizziness. No nasal drainage or congestion. No epistaxis. No sore throat. Lungs: Reports shortness of breath, Reportscough, Reports sputum production. No wheezing. Cardiovascular: Reports chest pain, no lower extremity edema. No palpitations. No paroxysmal nocturnal dyspnea. No orthopnea. No lightheadedness or dizziness. No syncopal episodes. Abdominal: No abdominal pain. No nausea, vomiting. No diarrhea. No constipation. No bloody or tarry stools. Reports loss of appetite. Genitourinary: No dysuria, increased frequency, urgency. No urinary retention. Musculoskeletal: No myalgias. Reports muscle weakness, Reports gait dysfunction, no frequent falls. No back pain. No neck pain. Integumentary: No wounds, no lesions. No rash or pruritus. No unusual bruising. No change in hair or nails. Neurologic: No aphasia. No facial droop. No change in mentation. No head injury. No headache. No paralysis. No paresthesia. Psychiatric: No depression. No anxiety. No mood swings. Endocrine: No abnormal blood sugars. No weight change. No excessive sweating or thirst. No cold intolerance. SOCIAL HISTORY Patient started smoking in 1970 at 1 pack per day and quit in October 2019. She drinks alcohol occasionally. Patient lives alone in an apartment. She was recently discharged to [facility] for subacute rehab. There is remote history of cocaine and marijuana use. FAMILY HISTORY Father is from a CVA. Mother is with no major medical problems. Patient is one sister with COPD and smoking. Patient has brother wit h no major medical problems. Patient has a son with no major medical problems. PHYSICAL EXAMINATION Gen: This is a thin cachectic appearing 59-year-old female. She is resting in bed and appears to be uncomfortable. HEENT: Head is atraumatic, normocephalic. Pupils equal, round. Sclerae is anicteric. Oral mucous members are slightly dry. NECK: Supple. No JVD. No lymphadenopathy. No thyromegaly. LUNGS: No breath sounds on the right. Chest tube site on the right lateral chest wall shows no active drainage. Ostomy bag in place. No intercostal retractions. HEART: Regular rate and rhythm. No murmur. ABDOMEN: Soft. Bowel sounds are present. No masses. No tenderness. EXTREMITIES: No pedal edema. No calf tenderness. NEUROLOGICAL: Patient is awake, alert and oriented x3. Cranial nerves 2 through 12 are grossly intact. ASSESSMENT AND PLAN 1. Acute on chronic hypoxic respiratory failure secondary to metastatic adenocarcinoma in the right upper lobe with malignant pleural effusion consistent with GI primary. Patient presents with complete white out of the right side of the chest and no drainage from chest tube site. Consult with pulmonary medicine. Dilaudid as needed for pain. 2. Advanced COPD without exacerbation. Continue prednisone 10 mg daily, DuoNeb treatments and Pulmicort twice daily. 3. Chronic hypoxic respiratory failure on home O2 at 3 L nasal cannula. 4. Hyponatremia. Continue IV fluids and monitor. 5. Gastroesophageal reflux disease and GI prophylaxis. Continue Pepcid. 6. Coronary artery disease. Continue Lasix 20 mg twice daily, Lopressor 12.5 mg daily 7. Hyperlipidemia. 8. History of hepatitis C. 9. Peripheral vascular disease. 10. Left-sided adrenal mass. 11. History of chronic tobacco use and dependence. 12. Recurrent depression and bipolar disorder. Continue Pristiq 100 mg daily, Remeron 7.5 mg daily. 13. Severe protein calorie malnutrition with BMI of 9. Protein supplement and Remeron. 14. Chronic pain. Continue OxyContin scheduled twice a day and Percocet every 4 hours as needed 15. Diabetes mellitus type 2. Continue NPH. Check hemoglobin A1c, start NovoLog scale. 16. DVT prophylaxis. Heparin subcu Patient will be admitted to the hospital for a minimum of 2 night stay. Discharge plan: Most likely return to [facility]. Consults added for social work, PT and OT. Impression and plan of care have been directed as dictated by the signing physician. Cheryl Munoz nurse practitioner acting as scribe for signing physician. Past Medical History Past Medical History: Asthma, Coronary Artery Disease (CAD), COPD, GERD/Reflux, Hyperlipidemia, Liver Disease, Vascular Disorder Additional Past Medical History / Comment(s): Bronchitis, seasonal allergies, sinus problems, hepatitis C, migraines, occasional bilateral tinnitis, UTIs, PVD, past R wrist fx, past L clavicle fx, numbness/tingling R hand and legs. History of Any Multi-Drug Resistant Organisms: None Reported Past Surgical History: Cholecystectomy, Tubal Ligation Additional Past Surgical History / Comment(s): Aortic bypass with stents placed in bilateral femoral arteries, D&C Past Anesthesia/Blood Transfusion Reactions: No Reported Reaction Past Psychological History: Anxiety, Bipolar, Depression Additional Psychological History / Comment(s): Pt resides with a friend. She states her mental health is stable at this time. She does not have a license. She gets to [facility] by bus. Smoking Status: Former smoker Past Alcohol Use History: None Reported Additional Past Alcohol Use History / Comment(s): Started smoking at age 11, quit in October 2019. Eats marijuana edibles "...every day possible." Past Drug Use History: Cocaine, Marijuana Additional Drug Use History / Comment(s): Pt last used marijuana on 07/27/18 and last used cocaine on 07/26/18. - Past Family History Father History Unknown: Yes Family Medical History: CVA/TIA Additional Family Medical History / Comment(s): Father had a CVA. He is Mother History Unknown: Yes Family Medical History: No Reported History Additional Family Medical History / Comment(s): Mother was healthy. She is . Brother(s) History Unknown: Yes Sister(s) History Unknown: Yes Son(s) Family Medical History: No Reported History Medications and Allergies Home Medications Medication Instructions Recorded Confirmed Type Desvenlafaxine [Pristiq ER] 100 mg PO DAILY@0910/30/17 01/14/20 History Acetaminophen [Tylenol Arthritis] 650 mg PO Q8H PRN 12/21/19 01/14/20 History Budesonide 1 mg INHALATION RT-BID@09,209912/21/19 01/14/20 History Famotidine [Pepcid] 20 mg PO DAILY@0912/21/19 01/14/20 History Ipratropium-Albuterol Nebulize 3 ml INHALATION RT-QID@00,06,12,18 12/21/19 01/14/20 History [Duoneb 0.5 mg-3 mg/3 ml Soln] Mirtazapine 7.5 mg PO DAILY@1700 12/21/19 01/14/20 History Ondansetron Odt [Zofran ODT] 4 mg PO Q6H PRN 12/21/19 01/14/20 History guaiFENesin [Mucinex] 1,200 mg PO BID@0900,2100 12/21/19 01/14/20 History oxyCODONE-APAP 5-325MG [Percocet 1 tab PO Q4H PRN #12 tab 12/28/19 01/14/20 Rx 5-325 mg] Ensure Clear 1 box PO BID@0900,1700 01/14/20 01/14/20 History Furosemide [Lasix] 20 mg PO BID@0600,1400 01/14/20 01/14/20 History Insulin NPH Human Isophane 8 units SQ DAILY@0900 01/14/20 01/14/20 History [humuLIN N] Metoprolol Tartrate [Lopressor] 12.5 mg PO DAILY 01/14/20 01/14/20 History Midodrine HCl [ProAmatine] 10 mg PO TID@0600,1300,2100 01/14/20 01/14/20 History Potassium Chloride [Klor-Con 10] 10 meq PO DAILY@0900 01/14/20 01/14/20 History Sennosides [Senna] 8.6 mg PO BID@0900,2100 PRN 01/14/20 01/14/20 History dilTIAZem HCL [Diltiazem HCl] 60 mg PO TID@0600,1400,2200 01/14/20 01/14/20 History oxyCODONE ER [OxyCONTIN] 10 mg PO BID@0900,2100 01/14/20 01/14/20 History predniSONE 10 mg PO DAILY@0900 01/14/20 01/14/20 History Allergies Allergy/AdvReac Type Severity Reaction Status Date / Time No Known Allergies Allergy Verified 10/30/19 17:03 Physical Exam Vitals: Vital Signs Temp Pulse Pulse Resp BP BP Pulse Ox 01/15/20 04:00 97.7 F 82 19 104/73 96 01/15/20 00:00 97.8 F 97 19 101/72 93 L 01/14/20 21:45 98.1 F 112 H 18 106/81 93 L 01/14/20 21:35 97.9 F 107 H 19 99/58 95 01/14/20 21:16 112 H 18 106/81 93 L 01/14/20 20:52 97.8 F 107 H 18 101/77 92 L 01/14/20 20:05 110 H 01/14/20 20:00 131/104 01/14/20 19:40 110 H 118/98 01/14/20 19:20 121/97 01/14/20 19:03 110 H 18 114/92 99 01/14/20 17:44 18 01/14/20 17:27 97.6 F 107 H 18 117/88 99 Intake and Output 01/14/20 01/15/20 01/15/20 22:59 06:59 14:59 Intake Total 440 200 Output Total 100 Balance 440 -100 200 Intake: Oral 440 200 Output: Urine 100 Other: Voiding Method Bedpan # Voids 1 Weight 53.07 kg 52.5 kg Results CBC & Chem 7: 01/14/20 17:51 01/14/20 17:51 Labs: Abnormal Lab Results - Last 24 Hours (Table) 01/14/20 01/14/20 01/14/20 Range/Units 17:51 17:51 17:51 WBC 14.6 H (3.8-10.6) k/uL RDW 17.5 H (11.5-15.5) % Neutrophils # 12.7 H (1.3-7.7) k/uL Lymphocytes # 0.7 L (1.0-4.8) k/uL APTT 20.9 L (22.0-30.0) sec Sodium 128 L (137-145) mmol/L Chloride 94 L (98-107) mmol/L BUN 41 H (7-17) mg/dL Alkaline Phosphatase 134 H (38-126) U/L Total Protein 5.7 L (6.3-8.2) g/dL Albumin 3.1 L (3.5-5.0) g/dL Thrombosis Risk Factor Assmnt - Choose All That Apply Any of the Below Risk Factors Present?: Yes Each Factor Represents 1 point: Abnormal pulmonary function (COPD) Other Risk Factors: Yes Each Risk Factor Represents 2 Points: Age 61-74 years Other congenital or acquired thrombophilia - If yes, enter type in comment: No Thrombosis Risk Factor Assessment Total Risk Factor Score: 3 Thrombosis Risk Factor Assessment Level: Moderate Risk
[2020-01-15] MEDS: BUDESONIDE 1 MG/2 ML NEBU INHALATION SCH ×2 (11:42→19:20)
[2020-01-15] MEDS: IPRATROPIUM-ALBUTEROL 3 ML NEB INHALATION SCH ×3 (11:42→19:29)
[2020-01-15 12:33] LABS: Glucose,Whole Blood 90 mg/dL (75-99)
--- NOTE | 2020-01-15 13:10 | P.CNPUL ---
History of Present Illness Consult date: 01/15/20 Chief complaint: Chest pain and shortness of breath History of present illness: 59-year-old female patient with diagnosis of stage IV metastatic adenocarcinoma of the lung with a malignant right-sided pleural effusion, post pigtail catheter drainage of the right lung, post , pleurodesis of the right lung which has essentially failed. The patient was quite debilitated. At time of discharge, she was released to [facility] for further rehabilitation. The patient was discharged to [facility] on the [place]. She was doing poorly over there. She was having ongoing pain along the right chest area and she was still short of breath. Output from the PICC line insertion site is stopped completely and the patient developed some erythema in that location. The patient came into the hospital and yesterday she had a complete opacification of the right lung. Note that a previous bronchoscopy that showed significant obstruction in the right upper lobe right middle lobe and right lower lobe segments related to her underlying adenocarcinoma of the lung. As such, the right lung does not seem to be salvageable at this point in time. The white cell count is at 14.6. Sodium level is at 128. The patient is afebrile. She is on 3 L about 2 by nasal can nula with a pulse ox of 95%. No altered mentation. Review of Systems CONSTITUTIONAL: The patient is quite debilitated with a body mass index of 19.3. She is a mild degree of respiratory distress. She is uncomfortable and she is having chest wall discomfort along the right anterior chest area and some discomfort over the anterior abdominal wall more so on the right. EYES: No icterus sclerae, no conjunctivitis. EARS, NOSE, MOUTH, THROAT, and FACE: No sore throat, lymphadenopathy, carotid bruits or deformity. RESPIRATORY: Positive shortness of breath cough wheezes with pleural effusion. CARDIOVASCULAR: No CP, Palpitation, PND, Orthopnea, or angina. GASTROINTESTINAL: Mild abdominal discomfort with nausea no vomiting. GENITOURINARY: Negative for Hematuria or UTI, no kidney stones. INTEGUMENT/BREAST: Negative for any muscular injury with mild osteoarthritis.. HEMATOLOGIC/LYMPHATIC: Negative for bleed or purpura. MUSCULOSKELTAL: Generalized muscle and joint pain., Significant weakness and difficulty with mobility and gait and debility seconds above-mentioned comorbidities. NEURLOGICAL: No LOC, Sz or syncope, blurred vision dizziness or abnormality.. BEHAVIORAL/PSYCH: Negative. ENDOCRINE: Negative. Past Medical History Past Medical History: Asthma, Coronary Artery Disease (CAD), Cancer (Adenocarcinoma of the lung), COPD, GERD/Reflux, Hyperlipidemia, Liver Disease, Vascular Disorder Additional Past Medical History / Comment(s): Metastatic adenocarcinoma of the lung, COPD, malignant right-sided pleural effusion, COPD, seasonal allergies, sinus problems, hepatitis C, migraines, occasional bilateral tinnitis, UTIs, PVD, past R wrist fx, past L clavicle fx, numbness/tingling R hand and legs. History of Any Multi-Drug Resistant Organisms: None Reported Past Surgical History: Cholecystectomy, Tubal Ligation Additional Past Surgical History / Comment(s): Aortic bypass with stents placed in bilateral femoral arteries, D&C, previous bronchoscopy, previous pigtail catheter insertion Past Anesthesia/Blood Transfusion Reactions: No Reported Reaction Past Psychological History: Anxiety, Bipolar, Depression Additional Psychological History / Comment(s): Pt resides with a friend. She states her mental health is stable at this time. She does not have a license. She gets to [place] by bus. Smoking Status: Former smoker Past Alcohol Use History: None Reported Additional Past Alcohol Use History / Comment(s): Started smoking at age 11, quit in October 2019. Eats marijuana edibles "...every day possible." Past Drug Use History: Cocaine, Marijuana Additional Drug Use History / Comment(s): Pt last used marijuana on 07/27/18 and last used cocaine on 07/26/18. - Past Family History Father History Unknown: Yes Family Medical History: CVA/TIA Additional Family Medical History / Comment(s): Father had a CVA. He is Mother History Unknown: Yes Family Medical History: No Reported History Additional Family Medical History / Comment(s): Mother was healthy. She is . Brother(s) History Unknown: Yes Sister(s) History Unknown: Yes Son(s) Family Medical History: No Reported History Medications and Allergies Home Medications Medication Instructions Recorded Confirmed Type Desvenlafaxine [Pristiq ER] 100 mg PO DAILY@0900 10/30/17 01/14/20 History Acetaminophen [Tylenol Arthritis] 650 mg PO Q8H PRN 12/21/19 01/14/20 History Budesonide 1 mg INHALATION RT-BID@0900,2100 12/20/20 09/11/20 History Famotidine [Pepcid] 20 mg PO DAILY@89912/21/19 01/14/20 History Ipratropium-Albuterol Nebulize 3 ml INHALATION RT-QID@00,06,12,18 12/21/19 01/14/20 History [Duoneb 0.5 mg-3 mg/3 ml Soln] Mirtazapine 7.5 mg PO DAILY@169912/21/19 01/14/20 History Ondansetron Odt [Zofran ODT] 4 mg PO Q6H PRN 12/21/19 01/14/20 History guaiFENesin [Mucinex] 1,200 mg PO BID@899,209912/21/19 01/14/20 History oxyCODONE-APAP 5-325MG [Percocet 1 tab PO Q4H PRN #12 tab 12/28/19 01/14/20 Rx 5-325 mg] Ensure Clear 1 box PO BID@0900,1700 01/14/20 01/14/20 History Furosemide [Lasix] 20 mg PO BID@0600,1400 01/14/20 01/14/20 History Insulin NPH Human Isophane 8 units SQ DAILY@89901/14/20 01/14/20 History [humuLIN N] Metoprolol Tartrate [Lopressor] 12.5 mg PO DAILY 01/14/20 01/14/20 History Midodrine HCl [ProAmatine] 10 mg PO TID@0600,1300,209901/14/20 01/14/20 History Potassium Chloride [Klor-Con 10] 10 meq PO DAILY@89901/14/20 01/14/20 History Sennosides [Senna] 8.6 mg PO BID@00,2099 PRN 01/14/20 01/14/20 History dilTIAZem HCL [Diltiazem HCl] 60 mg PO TID@0600,1400,0 01/14/20 01/14/20 History oxyCODONE ER [OxyCONTIN] 10 mg PO BID@0900,209901/14/20 01/14/20 History predniSONE 10 mg PO DAILY@89901/14/20 01/14/20 History Allergies Allergy/AdvReac Type Severity Reaction Status Date / Time No Known Allergies Allergy Verified 10/30/19 17:03 Physical Exam Vitals: Vital Signs Temp Pulse Pulse Resp BP BP Pulse Ox 01/15/20 11:54 104 H 01/15/20 11:42 100 01/15/20 08:00 97.6 F 110 H 18 108/77 95 01/15/20 04:00 97.7 F 82 19 104/73 96 01/15/20 00:00 97.8 F 97 19 101/72 93 L 01/14/20 21:45 98.1 F 112 H 18 106/81 93 L 01/14/20 21:35 97.9 F 107 H 19 99/58 95 01/14/20 21:16 112 H 18 106/81 93 L 01/14/20 20:52 97.8 F 107 H 18 101/77 92 L 01/14/20 20:05 110 H 01/14/20 20:00 131/104 01/14/20 19:40 110 H 118/98 01/14/20 19:20 121/97 01/14/20 19:03 110 H 18 114/92 99 01/14/20 17:44 18 01/14/20 17:27 97.6 F 107 H 18 117/88 99 Intake and Output 01/14/20 01/15/20 01/15/20 22:59 06:59 14:59 Intake Total 440 200 Output Total 100 Balance 440 -100 200 Intake: Oral 440 200 Output: Urine 100 Other: Voiding Method Bedpan # Voids 1 Weight 53.07 kg 52.5 kg 52.5 kg General Appearance: Alert, cooperative, looks older than her age in no respiratory distress. Neck HEENT: Supple, no lymphadenopathy, no thyroid enlargement, no carotid bruits. Lungs: Decreased breath some bilateral mild expiratory wheezes. Chest Wall: Chest wall normal expansion with deep inspiration no tenderness and no deformity was found on exam, no costochondral pain or discomfort. The breast on the right and essentially absent on today's evaluation the patient has some direct tenderness upon palpating the right anterior chest area. Heart: Regular rate and rhythm, S1, S2 normal, no murmur, rub or gallop. Back: Symmetric, no curvature, ROM normal, no CVA tenderness. Abdomen: Soft, non-tender, bowel sounds active all four quadrants, no masses, no organomegaly. Extremities: Extremities normal, atraumatic, no cyanosis or edema. Pulses: 2+ and symmetric. Skin: Skin color, texture, tugor normal, no rashes or lesions. Neurologic: Alert oriented x3 cranial nerves II through XII intact, no motor deficit, no abnormal balance or gait. The patient has global weakness in all 4 extremities and she is quite debilitated and weak. Results - Laboratory Findings CBC and BMP: 01/14/20 17:51 01/14/20 17:51 PT/INR, D-dimer PT 9.3 sec (9.0-12.0) 01/14/20 17:51 INR 0.9 (<1.2) 01/14/20 17:51 Abnormal lab findings: Abnormal Labs 01/14/20 01/14/20 01/14/20 17:51 17:51 17:51 WBC 14.6 H RDW 17.5 H Neutrophils # 12.7 H Lymphocytes # 0.7 L APTT 20.9 L Sodium 128 L Chloride 94 L BUN 41 H Alkaline Phosphatase 134 H Total Protein 5.7 L Albumin 3.1 L - Diagnostic Findings Chest x-ray: image reviewed CT scan - chest: image reviewed Assessment and Plan Plan: 1 metastatic stage IV non-small cell lung cancer/adenocarcinoma with a malignant right-sided pleural effusion and a large mass in the right upper/right middle lobe causing significant volume loss. Furthermore, bronchoscopy showed endobronchial obstruction at various segments of the right lung . Please refer to the bronchoscopy was done on 12/26/2019 where the right upper lobe was almost completely obstructed, same for the right middle lobe and there was some limited patency to the right lower lobe segments but airways were quite narrowed. 2 malignant right-sided pleural effusion post pigtail catheter drainage, post chemical pleurodesis and without success. The patient continued to have drainage from the pigtail catheter insertion site which ultimately stopped 3 shortness of breath secondary to above, improved and stable 4 acute hypoxic respiratory failure secondary to above, stable 5 left adrenal mass, likely metastatic 6 advanced COPD 7 chronic smoker 8 right-sided chest wall pain 9 depression 10 atherosclerotic heart disease 11 bipolar disorder 12 generalized weakness and severe protein calorie malnutrition and debility sec ondary to above-mentioned comorbidities Plan This patient is not a candidate for pigtail catheter insertion. The patient has significant narrowing and obstruction of the right upper lobe and right middle lobe in addition to various symptoms of the right lower lobe and as such that his endobronchial obstruction preventing expansion of the right lung. The pleural effusion related now has recurred and this is a malignant pleural effusion. I do not see any role for right catheter insertion or repeating any days procedure for this patient's right lung. Disease quite extensive and metastatic. Unfortunately she may not be a candidate for any further treatment. Alternatives such as hospice need to be considered. Provide the patient adequate pain control with Dilaudid. Extremely poor prognosis.
[2020-01-15] MEDS: INSULIN ASPART (NovoLOG) 100 UNIT/ML VIAL SQ SCH ×3 (13:19→21:22)
[2020-01-15] MEDS: MIDODRINE 5 MG TAB PO SCH ×2 (13:24→21:21)
[2020-01-15] MEDS: FUROSEMIDE 20 MG TAB PO SCH (13:24)
[2020-01-15] MEDS: DILTIAZEM ORAL 60 MG TAB PO SCH ×2 (13:24→21:21)
[2020-01-15] MEDS: HYDROmorphone 1 MG/ML 1 ML SYRINGE IVP PRN ×3 (15:13→21:22)
[2020-01-15] MEDS ORDERED: VANCOMYCIN 1,000 MG in SODIUM CHLORIDE 0.9% 250 ML IVPB STA (16:29)
[2020-01-15 17:22] LABS: Glucose,Whole Blood 144 mg/dL (75-99); Glucose,Whole Blood 223 mg/dL (75-99)
[2020-01-15] MEDS: VANCOMYCIN 1,000 MG in SODIUM CHLORIDE 0.9% 250 ML IVPB SCH ×2 (17:56→23:42)
[2020-01-15] MEDS: MIRTAZAPINE 15 MG TAB PO SCH (17:57)
[2020-01-15 20:51] LABS: Glucose,Whole Blood 142 mg/dL (75-99)
[2020-01-15 20:55] LABS: Hemoglobin A1C 6.2 % (4.0-6.0)
[2020-01-16] MEDS: HYDROmorphone 1 MG/ML 1 ML SYRINGE IVP PRN ×5 (02:15→19:54)
[2020-01-16 06:20] LABS: Glucose,Whole Blood 102 mg/dL (75-99)
[2020-01-16] MEDS: DILTIAZEM ORAL 60 MG TAB PO SCH ×3 (06:20→21:55)
[2020-01-16] MEDS: MIDODRINE 5 MG TAB PO SCH ×3 (06:20→21:55)
[2020-01-16] MEDS: FUROSEMIDE 20 MG TAB PO SCH ×2 (06:20→14:39)
[2020-01-16] MEDS: INSULIN ASPART (NovoLOG) 100 UNIT/ML VIAL SQ SCH ×4 (06:21→20:12)
[2020-01-16 06:48] LABS: Anisocytosis Slight; HCT 44.2 % (34.0-46.0); Hypochromasia Slight; MCH 30.5 pg (25.0-35.0); MCHC 31.7 g/dL (31.0-37.0); MCV 96.4 fL (80.0-100.0); Macrocytosis Slight; Mean Platelet Volume 7.7; Platelet Count 322 k/uL (150-450); RBC 4.59 m/uL (3.80-5.40); RDW 17.5 % (11.5-15.5); WBC 12.8 k/uL (3.8-10.6)
[2020-01-16 07:01] LABS: ALT 25 U/L (4-34); AST 32 U/L (14-36); African American GFR (CKD) >90 (>60 ml/min/1.73 sqM); Albumin 2.9 g/dL (3.5-5.0); Alkaline Phosphatase 125 U/L (38-126); Anion Gap 5 mmol/L; Blood Urea Nitrogen 27 mg/dL (7-17); Calcium 9.7 mg/dL (8.4-10.2); Carbon Dioxide 25 mmol/L (22-30); Chloride 100 mmol/L (98-107); Glucose 101 mg/dL (74-99); Non-African American GFR(CKD) >90 (>60 ml/min/1.73 sqM); Potassium 4.7 mmol/L (3.5-5.1); Sodium 130 mmol/L (137-145); Total Bilirubin 0.6 mg/dL (0.2-1.3); Total Protein 5.6 g/dL (6.3-8.2)
[2020-01-16] MEDS: BUDESONIDE 1 MG/2 ML NEBU INHALATION SCH ×2 (08:26→20:50)
[2020-01-16] MEDS: IPRATROPIUM-ALBUTEROL 3 ML NEB INHALATION SCH ×4 (08:26→20:51)
--- NOTE | 2020-01-16 09:09 | P.CONS ---
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 On the right-sided pigtail catheter and she developed some erythema at that site patient is now presented to the hospital with increasing shortness of breath that has been progressively getting worse for the last few days the patient also have a cough not bringing up any purulent sputum and no hemoptysis denies having nausea no vomiting no abdominal pain or diarrhea oral intake remains to be poor, patient on presentati on to the hospital was afebrile however did have elevated white count of 14.6, patient did have a chest x-ray shows right-sided hydrothorax that has progressed significantly compared to old exam no heart failure patient also have a CT of the chest which it shows right-sided hydrothorax with mild distention complete atelectasis and constellation of the right leg opacification of the right mainstem bronchus with fluid at the origin, patient has been admitted to hospital for further workup patient did have blood culture drawn which came back positive with gram-positive cocci vancomycin was added and infectious disease was consulted for the management of antibiotic therapy Review of Systems Positive point has been mentioned in the HPI rest of the systems are negative Past Medical History Past Medical History: Asthma, Coronary Artery Disease (CAD), Cancer (Adenocarcinoma of the lung), COPD, GERD/Reflux, Hyperlipidemia, Liver Disease, Vascular Disorder Additional Past Medical History / Comment(s): Metastatic adenocarcinoma of the lung, COPD, malignant right-sided pleural effusion, COPD, seasonal allergies, sinus problems, hepatitis C, migraines, occasional bilateral tinnitis, UTIs, PVD, past R wrist fx, past L clavicle fx, numbness/tingling R hand and legs. History of Any Multi-Drug Resistant Organisms: None Reported Past Surgical History: Cholecystectomy, Tubal Ligation Additional Past Surgical History / Comment(s): Aortic bypass with stents placed in bilateral femoral arteries, D&C, previous bronchoscopy, previous pigtail catheter insertion Past Anesthesia/Blood Transfusion Reactions: No Reported Reaction Past Psychological History: Anxiety, Bipolar, Depression Additional Psychological History / Comment(s): Pt resides with a friend. She states her mental health is stable at this time. She does not have a license. [facility] by [facility]. Smoking Status: Former smoker Past Alcohol Use History: None Reported Additional Past Alcohol Use History / Comment(s): Started smoking at age 11, quit in October 2019. Eats marijuana edibles "...every day possible." Past Drug Use History: Cocaine, Marijuana Additional Drug Use History / Comment(s): Pt last used marijuana on 07/27/18 and last used cocaine on 07/26/18. - Past Family History Father History Unknown: Yes Family Medical History: CVA/TIA Additional Family Medical History / Comment(s): Father had a CVA. He is Mother History Unknown: Yes Family Medical History: No Reported History Additional Family Medical History / Comment(s): Mother was healthy. She is . Brother(s) History Unknown: Yes Sister(s) History Unknown: Yes Son(s) Family Medical History: No Reported History Medications and Allergies Home Medications Medication Instructions Recorded Confirmed Type Desvenlafaxine [Pristiq ER] 100 mg PO DAILY@0910/30/17 01/14/20 History Acetaminophen [Tylenol Arthritis] 650 mg PO Q8H PRN 12/21/19 01/14/20 History Budesonide 1 mg INHALATION RT-BID@0900,2100 12/21/19 01/14/20 History Famotidine [Pepcid] 20 mg PO DAILY@0912/21/19 01/14/20 History Ipratropium-Albuterol Nebulize 3 ml INHALATION RT-QID@00,06,12,18 12/21/19 01/14/20 History [Duoneb 0.5 mg-3 mg/3 ml Soln] Mirtazapine 7.5 mg PO DAILY@1700 12/21/19 01/14/20 History Ondansetron Odt [Zofran ODT] 4 mg PO Q6H PRN 12/21/19 01/14/20 History guaiFENesin [Mucinex] 1,200 mg PO BID@0900,2100 12/21/19 01/14/20 History oxyCODONE-APAP 5-325MG [Percocet 1 tab PO Q4H PRN #12 tab 12/28/19 01/14/20 Rx 5-325 mg] Ensure Clear 1 box PO BID@0900,1700 01/14/20 01/14/20 History Furosemide [Lasix] 20 mg PO BID@0600,1400 01/14/20 01/14/20 History Insulin NPH Human Isophane 8 units SQ DAILY@00 01/14/20 01/14/20 History [humuLIN N] Metoprolol Tartrate [Lopressor] 12.5 mg PO DAILY 01/14/20 01/14/20 History Midodrine HCl [ProAmatine] 10 mg PO TID@0600,1300,2100 01/14/20 01/14/20 History Potassium Chloride [Klor-Con 10] 10 meq PO DAILY@0900 01/14/20 01/14/20 History Sennosides [Senna] 8.6 mg PO BID@0900,2100 PRN 01/14/20 01/14/20 History dilTIAZem HCL [Diltiazem HCl] 60 mg PO TID@0600,1400,2200 01/14/20 01/14/20 History oxyCODONE ER [OxyCONTIN] 10 mg PO BID@0900,2100 01/14/20 01/14/20 History predniSONE 10 mg PO DAILY@0900 01/14/20 01/14/20 History Allergies Allergy/AdvReac Type Severity Reaction Status Date / Time No Known Allergies Allergy Verified 10/30/19 17:03 Physical Exam Vitals: Vital Signs Temp Pulse Pulse Resp BP Pulse Ox 01/16/20 08:38 96 01/16/20 08:28 96 01/16/20 03:58 97.9 F 114 H 19 108/70 96 01/16/20 00:00 97.7 F 112 H 19 108/80 98 01/15/20 20:00 98.0 F 107 H 19 105/77 94 L 01/15/20 19:31 100 01/15/20 19:21 98 01/15/20 15:43 100 01/15/20 15:32 104 H 98 01/15/20 15:11 97.7 F 100 18 109/83 96 01/15/20 12:00 97.6 F 103 H 20 116/78 97 01/15/20 11:54 104 H 01/15/20 11:42 100 Intake and Output 01/15/20 01/16/20 01/16/20 22:59 06:59 14:59 Intake Total 360 Output Total 500 750 Balance -500 -750 360 Intake: Oral 360 Output: Urine 750 Post Void Residual 500 Other: Voiding Method Indwelling Catheter Indwelling Catheter # Voids 1 # Bowel Movements 0 Weight 50 kg GENERAL DESCRIPTION: Middle-aged female lying in bed, no distress. No tachypnea or accessory muscle of respiration use. HEENT: Shows Pallor , no scleral icterus. Oral mucous membrane is dry. No pharyngeal erythema or thrush NECK: Trachea central, no thyromegaly. LUNGS: Unlabored breathing. Decreased breath sounds at the base. No wheeze or crackle. HEART: S1, S2, regular rate and rhythm. No loud murmur ABDOMEN: Soft, no tenderness , guarding or rigidity, no organomegaly EXTREMITIES: No edema of feet. SKIN: No rash, no masses palpable. NEUROLOGICAL: The patient is awake, alert, oriented x3, mood and affect normal. Results CBC & Chem 7: 01/16/20 06:13 01/16/20 06:13 Labs: Abnormal Lab Results - Last 24 Hours (Table) 01/14/20 01/14/20 01/15/20 Range/Units 17:51 17:51 17:07 WBC (3.8-10.6) k/uL RDW (11.5-15.5) % Sodium (137-145) mmol/L BUN (7-17) mg/dL Glucose (74-99) mg/dL POC Glucose (mg/dL) 223 H (75-99) mg/dL Hemoglobin A1c 6.2 H (4.0-6.0) % C-Reactive Protein (<10.0) mg/L Total Protein (6.3-8.2) g/dL Albumin (3.5-5.0) g/dL Procalcitonin 0.34 H (0.02-0.09) ng/mL 01/15/20 01/15/20 01/15/20 Range/Units 17:07 17:37 20:49 WBC (3.8-10.6) k/uL RDW (11.5-15.5) % Sodium (137-145) mmol/L BUN (7-17) mg/dL Glucose (74-99) mg/dL POC Glucose (mg/dL) 144 H 142 H (75-99) mg/dL Hemoglobin A1c (4.0-6.0) % C-Reactive Protein 42.8 H (<10.0) mg/L Total Protein (6.3-8.2) g/dL Albumin (3.5-5.0) g/dL Procalcitonin (0.02-0.09) ng/mL 01/16/20 01/16/20 01/16/20 Range/Units 06:13 06:13 06:15 WBC 12.8 H (3.8-10.6) k/uL RDW 17.5 H (11.5-15.5) % Sodium 130 L (137-145) mmol/L BUN 27 H (7-17) mg/dL Glucose 101 H (74-99) mg/dL POC Glucose (mg/dL) 102 H (75-99) mg/dL Hemoglobin A1c (4.0-6.0) % C-Reactive Protein (<10.0) mg/L Total Protein 5.6 L (6.3-8.2) g/dL Albumin 2.9 L (3.5-5.0) g/dL Procalcitonin (0.02-0.09) ng/mL Microbiology - Last 24 Hours (Table) 01/14/20 17:51 Blood Culture Gram Stain - Preliminary Blood Blood Culture - Preliminary Coagulase Negative Staph 01/14/20 17:51 Blood Culture - Final Blood Assessment and Plan Assessment: 1- patient with gram-positive bacteremia in this patient with a history of stage IV adenocarcinoma of the right side of the lung with malignant pleural effusion in this patient who did have a pigtail catheter this pain for drainage of this effusion subsequently no output and developing erythema at that pigtail catheter site could be the likely source of this bacteremia as a chest x-ray and CT both shows Hydra thorax and consolidation of the right lower lobe will need to cover for MRSA to the likely pathogen (1) Gram-positive bacteremia Current Visit: Yes Status: Acute Code(s): R78.81 - BACTEREMIA SNOMED Code(s): 152209705486 Plan: 1- blood cultures will be repeated to document clearance of bacteremia 2-Vancomycin pharmacy to dose target trough of 15 while watching kidney fun ction and Vanco trough closely We will follow on clinical condition and cultures to further adjust medication if needed Thank you for this consultation will follow this patient with you Time with Patient: Greater than 30
[2020-01-16] MEDS: VANCOMYCIN 1,000 MG in SODIUM CHLORIDE 0.9% 250 ML IVPB SCH (09:39)
[2020-01-16] MEDS: METOPROLOL TARTRATE 12.5 MG TAB PO SCH (09:40)
[2020-01-16] MEDS: oxyCODONE ER 10 MG TAB.ER.12H PO SCH ×2 (09:40→19:53)
[2020-01-16] MEDS: FAMOTIDINE 20 MG TAB PO SCH (09:40)
[2020-01-16] MEDS: guaiFENesin 600 MG TABLET.ER PO SCH ×2 (09:40→19:53)
[2020-01-16] MEDS: predniSONE 10 MG TAB PO SCH (09:40)
[2020-01-16] MEDS: POTASSIUM CHLORIDE ER 10 MEQ TAB.ER.PRT PO SCH (09:41)
[2020-01-16] MEDS: DESVENLAFAXINE SUCCINATE 50 MG TAB.ER.24H PO SCH (09:41)
[2020-01-16] MEDS: HEPARIN SODIUM,PORCINE 5,000 UNIT/ML 1 ML VIAL SQ SCH ×2 (09:41→19:54)
[2020-01-16] MEDS: INSULIN NPH 300 UNIT/3 ML VIAL SQ SCH (09:42)
--- NOTE | 2020-01-16 10:20 | P.PN ---
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 She previously to that had a chest tube which was removed. She had minimal drainage following that and Pleurx catheter was canceled. Patient was stabilized and discharged to [facility]. She states she has not been doing very well there. She has not been able to walk up to much with physical therapy. She continues to have chest pain that she states is a #10 in its os severe that she cannot move. She complains of cough with black sputum production. Patient states that she has had no drainage from the chest tube site and ostomy bag is covering. Patient also had hypoxia at the retirement. She was transferred to [facility] emergency center for evaluation and treatment. Patient was afebrile, heart rate 107, blood pressure 117/88, pulse ox 99% on oxygen. EKG was a sinus tachycardia. WBC 14.6. Sodium 128, chloride 94, BUN 41 creatinine 0.72. Blood sugar 90. Alkaline phosphatase 134. Lactic acid 1.6. Chest x-ray revealed right-sided hydrothorax that has progressed significantly compared to old exam. No heart failure. CT of the chest with contrast revealed right-sided hydrothorax with mild tension. Complete atelectasis and consolidation of the right lung. We'll base of occasional the right mainstem bronchus with fluid at the origin. Mild posterior pleural thickening. Would consider possibility of mesothelioma or chronic empyema. Patient has been admitted to the cardiac stepdown unit and consult with Dr. Ely. Patient states she did not have any follow-up with consultants after discharge. 01/15: Patient was seen yesterday by Dr. Ely with recommendations for hospice care. Patient and son have discussed and they will be meeting with hospice nurse today. Patient appears to be much comfortable more comfortable from yesterday. Patient continues to be a problem and Dr. Ely had increased Dilaudid 1 mg. She still rates her pain up to a 9. She has been afebrile, heart rate 96, blood pressure 119/79, pulse ox 90% on 3 L nasal cannula. Repeat blood work reveals W BC 12.8. Sodium 130, BUN 27 creatinine 0.53. Blood sugars running between 101 and 142. Albumin 2.9. A blood culture from admission is coag-negative staph. Patient has been seen by Dr. Stoll and is on IV vancomycin. Suarez catheter to be placed this morning due to urinary retention. REVIEW OF SYSTEMS Constitutional: No fever, no chills, no night sweats. Reports weight change. Reports weakness, Reportsfatigue Reports lethargy. Reports daytime sleepiness. EENT: No headache. No blurred vision or double vision, no loss of vision. No loss of Hearing, no ringing in the ears, no dizziness. No nasal drainage or congestion. No epistaxis. No sore throat. Lungs: Reports shortness of breath, Reportscough, Reports sputum production. No wheezing. Cardiovascular: Reports chest pain, no lower extremity edema. No palpitations. No paroxysmal nocturnal dyspnea. No orthopnea. No lightheadedness or dizziness. No syncopal episodes. Abdominal: No abdominal pain. No nausea, vomiting. No diarrhea. No constipation. No bloody or tarry stools. Reports loss of appetite. Genitourinary: No dysuria, increased frequency, urgency. Reports urinary retention. Musculoskeletal: No myalgias. Reports muscle weakness, Reports gait dysfunction, no frequent falls. No back pain. No neck pain. Integumentary: No wounds, no lesions. No rash or pruritus. No unusual brui sing. No change in hair or nails. Neurologic: No aphasia. No facial droop. No change in mentation. No head injury. No headache. No paralysis. No paresthesia. Psychiatric: No depression. No anxiety. No mood swings. Endocrine: No abnormal blood sugars. No weight change. No excessive sweating or thirst. No cold intolerance. PHYSICAL EXAMINATION Gen: This is a thin cachectic appearing 59-year-old female. She is resting in bed and appears to be uncomfortable. HEENT: Head is atraumatic, normocephalic. Pupils equal, round. Sclerae is anicteric. Oral mucous members are slightly dry. NECK: Supple. No JVD. No lymphadenopathy. No thyromegaly. LUNGS: No breath sounds on the right. Chest tube site on the right lateral chest wall shows no active drainage. Ostomy bag in place. No intercostal retractions. HEART: Regular rate and rhythm. No murmur. ABDOMEN: Soft. Bowel sounds are present. No masses. No tenderness. EXTREMITIES: No pedal edema. No calf tenderness. NEUROLOGICAL: Patient is awake, alert and oriented x3. Cranial nerves 2 through 12 are grossly intact. ASSESSMENT AND PLAN 1. Acute on chronic hypoxic respiratory failure secondary to metastatic adenocarcinoma in the right upper lobe with malignant pleural effusion consistent with GI primary. Patient presents with complete white out of the right side of the chest and no drainage from chest tube site. Consult with pulmonary medicine. Dilaudid was increased to 1 mg every 3 hours as needed for pain. 2. Advanced COPD without exacerbation. Continue prednisone 10 mg daily, DuoNeb treatments and Pulmicort twice daily. 3. Chronic hypoxic respiratory failure on home O2 at 3 L nasal cannula. 4. Hyponatremia. Continue IV fluids and monitor. 5. Gastroesophageal reflux disease and GI prophylaxis. Continue Pepcid. 6. Coronary artery disease. Continue Lasix 20 mg twice daily, Lopressor 12.5 mg daily 7. Hyperlipidemia. 8. History of hepatitis C. 9. Peripheral vascular disease. 10. Left-sided adrenal mass. 11. History of chronic tobacco use and dependence. 12. Recurrent depression and bipolar disorder. Continue Pristiq 100 mg daily, Remeron 7.5 mg daily. 13. Severe protein calorie malnutrition with BMI of 9. Protein supplement and Remeron. 14. Chronic pain. Continue OxyContin scheduled twice a day and Percocet every 4 hours as needed 15. Diabetes mellitus type 2. Continue NPH. Check hemoglobin A1c, start NovoLog scale. 16. DVT prophylaxis. Heparin subcu 17. Urinary retention. Suarez catheter placement. Discharge plan: Most likely return to [facility]. Hospice meeting today. Impression and plan of care have been directed as dictated by the signing physician. Cheryl Munoz nurse practitioner acting as scribe for signing physician Objective - Vital Signs Vital signs: Vital Signs Temp 97.9 F 01/16/20 03:58 Pulse 96 01/16/20 08:28 Resp 19 01/16/20 03:58 BP 108/70 01/16/20 03:58 Pulse Ox 96 01/16/20 03:58 Intake & Output 01/15/20 01/16/20 01/16/20 18:59 06:59 18:59 Intake Total 800 Output Total 100 1250 Balance 700 -1250 Weight 52.5 kg 50 kg Intake: Oral 800 Output: Urine 100 750 Post Void Residual 500 Other: Voiding Method Indwelling Catheter # Voids 1 # Bowel Movements 0 - Labs CBC & Chem 7: 01/16/20 06:13 01/16/20 06:13 Labs: Abnormal Lab Results - Last 24 Hours (Table) 01/14/20 01/14/20 01/15/20 Range/Units 17:51 17:51 17:07 WBC (3.8-10.6) k/uL RDW (11.5-15.5) % Sodium (137-145) mmol/L BUN (7-17) mg/dL Glucose (74-99) mg/dL POC Glucose (mg/dL) 223 H (75-99) mg/dL Hemoglobin A1c 6.2 H (4.0-6.0) % C-Reactive Protein (<10.0) mg/L Total Protein (6.3-8.2) g/dL Albumin (3.5-5.0) g/dL Procalcitonin 0.34 H (0.02-0.09) ng/mL 01/15/20 01/15/20 01/15/20 Range/Units 17:07 17:37 20:49 WBC (3.8-10.6) k/uL RDW (11.5-15.5) % Sodium (137-145) mmol/L BUN (7-17) mg/dL Glucose (74-99) mg/dL POC Glucose (mg/dL) 144 H 142 H (75-99) mg/dL Hemoglobin A1c (4.0-6.0) % C-Reactive Protein 42.8 H (<10.0) mg/L Total Protein (6.3-8.2) g/dL Albumin (3.5-5.0) g/dL Procalcitonin (0.02-0.09) ng/mL 01/16/20 01/16/20 01/16/20 Range/Units 06:13 06:13 06:15 WBC 12.8 H (3.8-10.6) k/uL RDW 17.5 H (11.5-15.5) % Sodium 130 L (137-145) mmol/L BUN 27 H (7-17) mg/dL Glucose 101 H (74-99) mg/dL POC Glucose (mg/dL) 102 H (75-99) mg/dL Hemoglobin A1c (4.0-6.0) % C-Reactive Protein (<10.0) mg/L Total Protein 5.6 L (6.3-8.2) g/dL Albumin 2.9 L (3.5-5.0) g/dL Procalcitonin (0.02-0.09) ng/mL Microbiology - Last 24 Hours (Table) 01/14/20 17:51 Blood Culture Gram Stain - Preliminary Blood Blood Culture - Preliminary Coagulase Negative Staph 01/14/20 17:51 Blood Culture - Final Blood
--- NOTE | 2020-01-16 11:26 | P.PN ---
Subjective Progress Note Date: 01/16/20 On 01/16/2020 the patient is calm and comfortable her pain is under good control. She has no specific complaints. The plan is to proceed with a hospice consultation today. As mentioned earlier, she has metastatic adenocarcinoma with a very poor performance and functional status. She is agreeable for hospice care in consultation still pending. Objective - Vital Signs Vital signs: Vital Signs Temp 98.1 F 01/16/20 08:00 Pulse 112 H 01/16/20 11:19 Resp 20 01/16/20 08:00 BP 119/79 01/16/20 08:00 Pulse Ox 98 01/16/20 08:00 Intake & Output 01/15/20 01/16/20 01/16/20 18:59 06:59 18:59 Intake Total 800 360 Output Total 100 1250 Balance 700 -1250 360 Weight 52.5 kg 50 kg Intake: Oral 800 360 Output: Urine 100 750 Post Void Residual 500 Other: Voiding Method Indwelling Catheter # Voids 1 # Bowel Movements 0 - Exam General Appearance: Alert, cooperative, looks older than her age in no respiratory distress. Neck HEENT: Supple, no lymphadenopathy, no thyroid enlargement, no carotid bruits. Lungs: Decreased breath some bilateral mild expiratory wheezes. Chest Wall: Chest wall normal expansion with deep inspiration no tenderness and no deformity was found on exam, no costochondral pain or discomfort. The breast on the right and essentially absent on today's evaluation the patient has some direct tenderness upon palpating the right anterior chest area. Heart: Regular rate and rhythm, S1, S2 normal, no murmur, rub or gallop. Back: Symmetric, no curvature, ROM normal, no CVA tenderness. Abdomen: Soft, non-tender, bowel sounds active all four quadrants, no masses, no organomegaly. Extremities: Extremities normal, atraumatic, no cyanosis or edema. Pulses: 2+ and symmetric. Skin: Skin color, texture, tugor normal, no rashes or lesions. Neurologic: Alert oriented x3 cranial nerves II through XII intact, no motor deficit, no abnormal balance or gait. The patient has global weakness in all 4 extremities and she is quite debilitated and weak. - Labs CBC & Chem 7: 01/16/20 06:13 01/16/20 06:13 Labs: Abnormal Lab Results - Last 24 Hours (Table) 0901/14/20 01/15/20 Range/Units 17:51 17:51 17:07 WBC (3.8-10.6) k/uL RDW (11.5-15.5) % Sodium (137-145) mmol/L BUN (7-17) mg/dL Glucose (74-99) mg/dL POC Glucose (mg/dL) 223 H (75-99) mg/dL Hemoglobin A1c 6.2 H (4.0-6.0) % C-Reactive Protein (<10.0) mg/L Total Protein (6.3-8.2) g/dL Albumin (3.5-5.0) g/dL Procalcitonin 0.34 H (0.02-0.09) ng/mL 01/15/20 01/15/20 01/15/20 Range/Units 17:07 17:37 20:49 WBC (3.8-10.6) k/uL RDW (11.5-15.5) % Sodium (137-145) mmol/L BUN (7-17) mg/dL Glucose (74-99) mg/dL POC Glucose (mg/dL) 144 H 142 H (75-99) mg/dL Hemoglobin A1c (4.0-6.0) % C-Reactive Protein 42.8 H (<10.0) mg/L Total Protein (6.3-8.2) g/dL Albumin (3.5-5.0) g/dL Procalcitonin (0.02-0.09) ng/mL 01/16/20 01/16/20 01/16/20 Range/Units 06:13 06:13 06:15 WBC 12.8 H (3.8-10.6) k/uL RDW 17.5 H (11.5-15.5) % Sodium 130 L (137-145) mmol/L BUN 27 H (7-17) mg/dL Glucose 101 H (74-99) mg/dL POC Glucose (mg/dL) 102 H (75-99) mg/dL Hemoglobin A1c (4.0-6.0) % C-Reactive Protein (<10.0) mg/L Total Protein 5.6 L (6.3-8.2) g/dL Albumin 2.9 L (3.5-5.0) g/dL Procalcitonin (0.02-0.09) ng/mL Microbiology - Last 24 Hours (Table) 01/14/20 17:51 Blood Culture Gram Stain - Preliminary Blood Blood Culture - Preliminary Coagulase Negative Staph 01/14/20 17:51 Blood Culture - Final Blood Assessment and Plan Plan: 1 metastatic stage IV non-small cell lung cancer/adenocarcinoma with a malignant right-sided pleural effusion and a large mass in the right upper/right middle lobe causing significant volume loss. Furthermore, bronchoscopy showed endobronchial obstruction at various segments of the right lung . Please refer to the bronchoscopy was done on 12/26/2019 where the right upper lobe was almost completely obstructed, same for the right middle lobe and there was some limited patency to the right lower lobe segments but airways were quite narrowed. 2 malignant right-sided pleural effusion post pigtail catheter drainage, post chemical pleurodesis and without success. The patient continued to have drainage from the pigtail catheter insertion site which ultimately stopped 3 shortness of breath secondary to above, improved and stable 4 acute hypoxic respiratory failure secondary to above, stable 5 left adrenal mass, likely metastatic 6 advanced COPD 7 chronic smoker 8 right-sided chest wall pain 9 depression 10 atherosclerotic heart disease 11 bipolar disorder 12 generalized weakness and severe protein calorie malnutrition and debility secondary to above-mentioned comorbidities Plan The patient carries a very poor prognosis with high mortality. We are going to proceed with hospice care and she can be discharged home once enrolled in hospice. Pulmonary services we'll sign off.
[2020-01-16] MEDS ORDERED: VANCOMYCIN TROUGH DUE 1 EACH MISC MISCELLANE ONE (15:00)
[2020-01-16] MEDS: MIRTAZAPINE 15 MG TAB PO SCH (17:35)
[2020-01-16 17:40] LABS: Glucose,Whole Blood 153 mg/dL (75-99)
[2020-01-16 20:01] LABS: Glucose,Whole Blood 348 mg/dL (75-99)
[2020-01-17] MEDS: HYDROmorphone 1 MG/ML 1 ML SYRINGE IVP PRN ×2 (04:50→12:24)
[2020-01-17] MEDS: FUROSEMIDE 20 MG TAB PO SCH ×2 (04:51→13:16)
[2020-01-17] MEDS: MIDODRINE 5 MG TAB PO SCH ×3 (05:39→22:23)
[2020-01-17] MEDS: DILTIAZEM ORAL 60 MG TAB PO SCH ×3 (05:40→22:23)
[2020-01-17 07:03] LABS: Glucose,Whole Blood 108 mg/dL (75-99)
[2020-01-17] MEDS: INSULIN ASPART (NovoLOG) 100 UNIT/ML VIAL SQ SCH ×4 (07:22→22:43)
[2020-01-17] MEDS ORDERED: bisacodyL 10 MG SUPP RECTAL STA (07:49)
[2020-01-17] MEDS: BUDESONIDE 1 MG/2 ML NEBU INHALATION SCH ×2 (08:36→19:25)
[2020-01-17] MEDS: IPRATROPIUM-ALBUTEROL 3 ML NEB INHALATION SCH ×4 (08:36→19:25)
[2020-01-17] MEDS: oxyCODONE ER 10 MG TAB.ER.12H PO SCH ×2 (09:02→22:22)
[2020-01-17] MEDS: INSULIN NPH 300 UNIT/3 ML VIAL SQ SCH (09:02)
[2020-01-17] MEDS: HEPARIN SODIUM,PORCINE 5,000 UNIT/ML 1 ML VIAL SQ SCH ×2 (09:03→22:22)
[2020-01-17] MEDS: FAMOTIDINE 20 MG TAB PO SCH (09:03)
[2020-01-17] MEDS: guaiFENesin 600 MG TABLET.ER PO SCH ×2 (09:03→22:22)
[2020-01-17] MEDS: POTASSIUM CHLORIDE ER 10 MEQ TAB.ER.PRT PO SCH (09:03)
[2020-01-17] MEDS: DESVENLAFAXINE SUCCINATE 50 MG TAB.ER.24H PO SCH (09:03)
[2020-01-17] MEDS: METOPROLOL TARTRATE 12.5 MG TAB PO SCH (09:03)
[2020-01-17] MEDS: predniSONE 10 MG TAB PO SCH (09:03)
--- NOTE | 2020-01-17 10:54 | P.DS ---
Providers Date of admission: 01/15/20 10:32 Attending physician: Pérez Sotelo Consults: 01/14/20 20:23 Consult Physician Urgent Consulting Provider: Colin Ely Consult Reason/Comments: Pleural effusion Do you want consulting provider notified?: Already Contacted 01/15/20 16:29 Consult Physician Routine Consulting Provider: Car Stoll Consult Reason/Comments: Bacteremia Do you want consulting provider notified?: Yes Primary care physician: 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 She previously to that had a chest tube which was removed. She had minimal drainage following that and Pleurx catheter was canceled. Patient was stabilized and discharged to [facility]. She states she has not been doing very well there. She has not been able to walk up to much with physical therapy. She continues to have chest pain that she states is a #10 in its os severe that she cannot move. She complains of cough with black sputum production. Patient states that she has had no drainage from the chest tube site and ostomy bag is covering. [facility] She was [facility] to [facility] emergency center for evaluation and treatment. Patient was afebrile, heart rate 107, blood pressure 117/88, pulse ox 99% on oxygen. EKG was a sinus tachycardia. WBC 14.6. Sodium 128, chloride 94, BUN 41 creatinine 0.72. Blood sugar 90. Alkaline phosphatase 134. Lactic acid 1.6. Chest x-ray revealed right-sided hydrothorax that has progressed significantly compared to old exam. No heart failure. CT of the chest with contrast revealed right-sided hydrothorax with mild tension. Complete atelectasis and consolidation of the right lung. We'll base of occasional the right mainstem bronchus with fluid at the origin. Mild posterior pleural thickening. Would consider possibility of mesothelioma or chronic empyema. Patient has been admitted to the cardiac stepdown unit and consult with Dr. Ely. Patient states she did not have any follow-up with consultants after discharge. 01/15: Patient was seen yesterday by Dr. Ely with recommendations for hospice care. Patient and son have discussed and they will be meeting with hospice nurse today. Patient appears to be much comfortable more comfortable from yesterday. Patient continues to be a problem and Dr. Ely had increased Dilaudid 1 mg. She still rates her pain up to a 9. She has been afebrile, heart rate 96, blood pressure 119/79, pulse ox 90% on 3 L nasal cannula. Repeat blood work reveals W BC 12.8. Sodium 130, BUN 27 creatinine 0.53. Blood sugars running between 101 and 142. Albumin 2.9. A blood culture from admission is coag-negative staph. Patient has been seen by Dr. Stoll and is on IV vancomycin. Suarez catheter to be placed this morning due to urinary retention. 01/16: Patient evaluated today, patient reports she is comfortable and pain is under control. She complains of slight constipation, medications were ordered. Vital signs are stable, she is afebrile 98.0, heart rate 112, respiratory rate 16, blood pressure 122/88, 97% on 3 L nasal cannula. Patient is agreeable for hospice care, she'll be discharged to [facility] with hospice care today. Discharge diagnoses 1. Acute on chronic hypoxic respiratory failure secondary to metastatic adenocarcinoma in the right upper lobe with malignant pleural effusion consistent with GI primary. 2. Advanced COPD without exacerbation. 3. Chronic hypoxic respiratory failure on home O2 at 3 L nasal cannula. 4. Hyponatremia. 5. Gastroesophageal reflux disease and GI prophylaxis. 6. Coronary artery disease. 7. Hyperlipidemia. 8. History of hepatitis C. 9. Peripheral vascular disease. 10. Left-sided adrenal mass. 11. History of chronic tobacco use and dependence. 12. Recurrent depression and bipolar disorder. 13. Severe protein calorie malnutrition with BMI of 9. 14. Chronic pain. 15. Diabetes mellitus type 2. 16. Urinary retention. Suarez catheter placement. The above impression and plan of care have been discussed and directed by signing physician. Cristal Reynaga nurse practitioner acting as scribe for signing physician. Patient Condition at Discharge: Stable Plan - Discharge Summary Discharge Rx Participant: No New Discharge Prescriptions: New Acetaminophen Tab [Tylenol] 650 mg PO Q6HR PRN tab PRN Reason: Mild Pain Or Fever > 100.5 Continue Desvenlafaxine [Pristiq ER] 100 mg PO DAILY@0900 Ondansetron Odt [Zofran ODT] 4 mg PO Q6H PRN PRN Reason: Nausea Famotidine [Pepcid] 20 mg PO DAILY@0900 guaiFENesin [Mucinex] 1,200 mg PO BID@0900,2100 Ipratropium-Albuterol Nebulize [Duoneb 0.5 mg-3 mg/3 ml Soln] 3 ml INHALATION RT-QID@00,06,, Budesonide 1 mg INHALATION RT-BID@0900,2100 Mirtazapine 7.5 mg PO DAILY@1700 Acetaminophen [Tylenol Arthritis] 650 mg PO Q8H PRN PRN Reason: Fever And/ Or Pain dilTIAZem HCL [Diltiazem HCl] 60 mg PO TID@0600,1400,2200 Midodrine HCl [ProAmatine] 10 mg PO TID@0600,1300,2100 Sennosides [Senna] 8.6 mg PO BID@0900,2100 PRN PRN Reason: Constipation oxyCODONE ER [OxyCONTIN] 10 mg PO BID@0900,2100 Furosemide [Lasix] 20 mg PO BID@0600,1400 Ensure Clear 1 box PO BID@0900,1700 predniSONE 10 mg PO DAILY@0900 Potassium Chloride [Klor-Con 10] 10 meq PO DAILY@0900 Insulin NPH Human Isophane [humuLIN N] 8 units SQ DAILY@0900 Metoprolol Tartrate [Lopressor] 12.5 mg PO DAILY oxyCODONE-APAP 5-325MG [Percocet 5-325 mg] 1 tab PO Q4H PRN #12 tab PRN Reason: Moderate To Severe Pain Discharge Medication List Desvenlafaxine [Pristiq ER] 100 mg PO DAILY@0900 10/30/17 [History] Acetaminophen [Tylenol Arthritis] 650 mg PO Q8H PRN 12/21/19 [History] Budesonide 1 mg INHALATION RT-BID@0900,2100 12/21/19 [History] Famotidine [Pepcid] 20 mg PO DAILY@0900 12/21/19 [History] Ipratropium-Albuterol Nebulize [Duoneb 0.5 mg-3 mg/3 ml Soln] 3 ml INHALATION RT-QID@00,06,12,18 12/21/19 [History] Mirtazapine 7.5 mg PO DAILY@1700 12/21/19 [History] Ondansetron Odt [Zofran ODT] 4 mg PO Q6H PRN 12/21/19 [History] guaiFENesin [Mucinex] 1,200 mg PO BID@0900,209912/21/19 [History] Ensure Clear 1 box PO BID@0900,1700 01/14/20 [History] Furosemide [Lasix] 20 mg PO BID@0600,1400 01/14/20 [History] Insulin NPH Human Isophane [humuLIN N] 8 units SQ DAILY@0901/14/20 [History] Metoprolol Tartrate [Lopressor] 12.5 mg PO DAILY 01/14/20 [History] Midodrine HCl [ProAmatine] 10 mg PO TID@0600,1300,2100 01/14/20 [History] Potassium Chloride [Klor-Con 10] 10 meq PO DAILY@0901/14/20 [History] Sennosides [Senna] 8.6 mg PO BID@0900,2100 PRN 01/14/20 [History] dilTIAZem HCL [Diltiazem HCl] 60 mg PO TID@0600,1400,2200 01/14/20 [History] oxyCODONE ER [OxyCONTIN] 10 mg PO BID@0900,209901/14/20 [History] predniSONE 10 mg PO DAILY@89901/14/20 [History] Acetaminophen Tab [Tylenol] 650 mg PO Q6HR PRN tab 01/17/20 [Rx] oxyCODONE-APAP 5-325MG [Percocet 5-325 mg] 1 tab PO Q4H PRN #12 tab 01/17/20 [Rx] Follow up Appointment(s)/Referral(s): Melany Rush MD [STAFF PHYSICIAN] - 01/24/20 10:[address] [facility] [Primary Care Provider] - 1-2 days Discharge Disposition: TRANSFER TO SNF/ECF
[2020-01-17 11:23] LABS: Glucose,Whole Blood 121 mg/dL (75-99)
--- NOTE | 2020-01-17 12:17 | PN ---
PROGRESS NOTE DATE OF SERVICE: 01/16/2020 REASON FOR FOLLOWUP: Positive blood culture. INTERVAL HISTORY: The patient was seen on rounds early this afternoon. The patient overall is feeling better. Breathing comfortably. Denies having any chest pain. Minimal cough. No nausea, vomiting, no abdominal pain or diarrhea. PHYSICAL EXAMINATION: Blood pressure 118/83 with a pulse of 83, temperature 98.2. She is 94% on 2 L nasal cannula. General description is a middle-aged female up in the bed in no distress. Respiratory system: Unlabored breathing, decreased breath sounds in the bases. No wheeze. Heart S1, S2. Regular rate and rhythm. Abdomen soft, no tenderness. LABS: Hemoglobin is 14.3, white count 12.8, BUN of 27, creatinine 0.53. Blood culture finalized with coagulase negative Staph. DIAGNOSTIC IMPRESSION AND PLAN: 1. Patient with positive blood culture with coagulase-negative Staph, possible skin contaminant as she has no other disease to go along with it. Vancomycin to be discontinued. 2. Right-sided effusion, possible malignant, underlying infection not entirely excluded. However, plan is for possible hospice has been on hold or any further workup at this point. MMODL / IJN: [id number] /
[2020-01-17 17:21] LABS: Glucose,Whole Blood 129 mg/dL (75-99)
[2020-01-17] MEDS: MIRTAZAPINE 15 MG TAB PO SCH (17:34)
[2020-01-17 20:11] LABS: Glucose,Whole Blood 116 mg/dL (75-99)
[2020-01-17 22:13] VITALS: RESP 20
[2020-01-18] MEDS: FUROSEMIDE 20 MG TAB PO SCH (06:20)
[2020-01-18] MEDS: DILTIAZEM ORAL 60 MG TAB PO SCH (06:21)
[2020-01-18] MEDS: MIDODRINE 5 MG TAB PO SCH (06:21)
[2020-01-18 06:51] VITALS: BP 118/88; PULSE 125; TEMP 97.4
[2020-01-18 07:02] LABS: Glucose,Whole Blood 118 mg/dL (75-99)
[2020-01-18] MEDS: BUDESONIDE 1 MG/2 ML NEBU INHALATION SCH (07:05)
[2020-01-18] MEDS: IPRATROPIUM-ALBUTEROL 3 ML NEB INHALATION SCH (07:05)
[2020-01-18] MEDS: INSULIN ASPART (NovoLOG) 100 UNIT/ML VIAL SQ SCH (07:34)
[2020-01-18] MEDS: oxyCODONE ER 10 MG TAB.ER.12H PO SCH (08:08)
[2020-01-18] MEDS: guaiFENesin 600 MG TABLET.ER PO SCH (08:09)
[2020-01-18] MEDS: HEPARIN SODIUM,PORCINE 5,000 UNIT/ML 1 ML VIAL SQ SCH (08:09)
[2020-01-18] MEDS: FAMOTIDINE 20 MG TAB PO SCH (08:09)
[2020-01-18] MEDS: DESVENLAFAXINE SUCCINATE 50 MG TAB.ER.24H PO SCH (08:09)
[2020-01-18] MEDS: predniSONE 10 MG TAB PO SCH (08:09)
[2020-01-18] MEDS: POTASSIUM CHLORIDE ER 10 MEQ TAB.ER.PRT PO SCH (08:09)
[2020-01-18] MEDS: METOPROLOL TARTRATE 12.5 MG TAB PO SCH (08:10)
--- NOTE | 2020-01-18 08:12 | P.PN ---
Subjective Progress Note Date: 01/17/20 HISTORY OF PRESENT ILLNESS This is a 59-year-old female patient of 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 in order to have Pleurx catheter placed. She previously to that had a chest tube which was removed. She had minimal drainage following that and Pleurx catheter was canceled. Patient was stabilized and discharged to [facility]. She states she has not been doing very well there. She has not been able to walk up to much with physical therapy. She continues to have chest pain that she states is a #10 in its os severe that she cannot move. She complains of cough with black sputum production. Patient states that she has had no drainage from the chest tube site and ostomy bag is covering. Patient also had hypoxia at the longterm. She was transferred to [facility] emergency center for evaluation and treatment. Patient was afebrile, heart rate 107, blood pressure 117/88, pulse ox 99% on oxygen. EKG was a sinus tachycardia. WBC 14.6. Sodium 128, chloride 94, BUN 41 creatinine 0.72. Blood sugar 90. Alkaline phosphatase 134. Lactic acid 1.6. Chest x-ray revealed right-sided hydrothorax that has progressed significantly compared to old exam. No heart failure. CT of the chest with contrast revealed right-sided hydrothorax with mild tension. Complete atelectasis and consolidation of the right lung. We'll base of occasional the right mainstem bronchus with fluid at the origin. Mild posterior pleural thickening. Would consider possibility of mesothelioma or chronic empyema. Patient has been admitted to the cardiac stepdown unit and consult with Dr. Ely. Patient states she did not have any follow-up with consultants after discharge. 01/15: Patient was seen yesterday by Dr. Ely with recommendations for hospice care. Patient and son have discussed and they will be meeting with hospice nurse today. Patient appears to be much comfortable more comfortable from yesterday. Patient continues to be a problem and Dr. Ely had increased Dilaudid 1 mg. She still rates her pain up to a 9. She has been afebrile, heart rate 96, blood pressure 119/79, pulse ox 90% on 3 L nasal cannula. Repeat blood work reveals W BC 12.8. Sodium 130, BUN 27 creatinine 0.53. Blood sugars running between 101 and 142. Albumin 2.9. A blood culture from admission is coag-negative staph. Patient has been seen by Dr. Stoll and is on IV vancomycin. Suarez catheter to be placed this morning due to urinary retention. 01/16: Patient evaluated today, patient reports she is comfortable and pain is under control. She complains of slight constipation, medications were ordered. Vital signs are stable, she is afebrile 98.0, heart rate 112, respiratory rate 16, blood pressure 122/88, 97% on 3 L nasal cannula. Patient is agreeable for hospice care, she'll be discharged to [facility] on the [place] with hospice care today. 01/17: Patient was not accepted at [facility] in her hospice care. Arrangements made for patient to go to [facility] home. Son will sign papers in the morning for transfer of care. REVIEW OF SYSTEMS Constitutional: No fever, no chills, no night sweats. Reports weight change. Reports weakness, Reportsfatigue Reports lethargy. Reports daytime sleepiness. EENT: No headache. No blurred vision or double vision, no loss of vision. No loss of Hearing, no ringing in the ears, no dizziness. No nasal drainage or congestion. No epistaxis. No sore throat. Lungs: Reports shortness of breath, Reportscough, Reports sputum production. No wheezing. Cardiovascular: Reports chest pain, no lower extremity edema. No palpitations. No paroxysmal nocturnal dyspnea. No orthopnea. No lightheadedness or dizziness. No syncopal episodes. Abdominal: No abdominal pain. No nausea, vomiting. No diarrhea. No constipation. No bloody or tarry stools. Reports loss of appetite. Genitourinary: No dysuria, increased frequency, urgency. Reports urinary retention. Musculoskeletal: No myalgias. Reports muscle weakness, Reports gait dysfunction, no frequent falls. No back pain. No neck pain. Integumentary: No wounds, no lesions. No rash or pruritus. No unusual bruising. No change in hair or nails. Neurologic: No aphasia. No facial droop. No change in mentation. No head injury. No headache. No paralysis. No paresthesia. Psychiatric: No depression. No anxiety. No mood swings. Endocrine: No abnormal blood sugars. No weight change. No excessive sweating or thirst. No cold intolerance. PHYSICAL EXAMINATION Gen: This is a thin cachectic appearing 59-year-old female. She is resting in bed and appears to be uncomfortable. HEENT: Head is atraumatic, normocephalic. Pupils equal, round. Sclerae is anicteric. Oral mucous members are slightly dry. NECK: Supple. No JVD. No lymphadenopathy. No thyromegaly. LUNGS: No breath sounds on the right. Chest tube site on the right lateral chest wall shows no active drainage. Ostomy bag in place. No intercostal retractions. HEART: Regular rate and rhythm. No murmur. ABDOMEN: Soft. Bowel sounds are present. No masses. No tenderness. EXTREMITIES: No pedal edema. No calf tenderness. NEUROLOGICAL: Patient is awake, alert and oriented x3. Cranial nerves 2 through 12 are grossly intact. ASSESSMENT AND PLAN 1. Acute on chronic hypoxic respiratory failure secondary to metastatic adenocarcinoma in the right upper lobe with malignant pleural effusion cons istent with GI primary. Patient presents with complete white out of the right side of the chest and no drainage from chest tube site. Consult with pulmonary medicine. Dilaudid was increased to 1 mg every 3 hours as needed for pain. 2. Advanced COPD without exacerbation. Continue prednisone 10 mg daily, DuoNeb treatments and Pulmicort twice daily. 3. Chronic hypoxic respiratory failure on home O2 at 3 L nasal cannula. 4. Hyponatremia. Continue IV fluids and monitor. 5. Gastroesophageal reflux disease and GI prophylaxis. Continue Pepcid. 6. Coronary artery disease. Continue Lasix 20 mg twice daily, Lopressor 12.5 mg daily 7. Hyperlipidemia. 8. History of hepatitis C. 9. Peripheral vascular disease. 10. Left-sided adrenal mass. 11. History of chronic tobacco use and dependence. 12. Recurrent depression and bipolar disorder. Continue Pristiq 100 mg daily, Remeron 7.5 mg daily. 13. Severe protein calorie malnutrition with BMI of 9. Protein supplement and Remeron. 14. Chronic pain. Continue OxyContin scheduled twice a day and Percocet every 4 hours as needed 15. Diabetes mellitus type 2. Continue NPH. Check hemoglobin A1c, start NovoLog scale. 16. DVT prophylaxis. Heparin subcu 17. Urinary retention. Suarez catheter placement. Discharge plan: Most likely return to [facility]. Hospice meeting today. Impression and plan of care have been directed as dictated by the signing physician. Cheryl Munoz nurse practitioner acting as scribe for signing physician Objective - Vital Signs Vital signs: Vital Signs Temp 97.4 F L 01/18/20 05:00 Pulse 125 H 01/18/20 05:00 Resp 20 01/18/20 05:00 BP 118/88 01/18/20 05:00 Pulse Ox 94 L 01/18/20 05:00 Intake & Output 01/17/20 01/18/20 01/18/20 18:59 06:59 18:59 Output Total 400 600 Balance -400 -600 Output: Urine 400 600 Other: Voiding Method Indwelling Catheter Indwelling Catheter # Voids 1 # Bowel Movements 1 - Labs CBC & Chem 7: 01/16/20 06:13 01/16/20 06:13 Labs: Abnormal Lab Results - Last 24 Hours (Table) 01/17/20 01/17/20 01/17/20 Range/Units 11:22 17:20 20:09 POC Glucose (mg/dL) 121 H 129 H 116 H (75-99) mg/dL 01/18/20 Range/Units 06:55 POC Glucose (mg/dL) 118 H (75-99) mg/dL Microbiology - Last 24 Hours (Table) 01/15/20 17:37 Blood Culture - Preliminary Blood No Growth after 48 hours 01/14/20 17:51 Blood Culture Gram Stain - Final Blood Blood Culture - Final Staphylococcus epidermidis
[2020-01-18] MEDS: INSULIN NPH 300 UNIT/3 ML VIAL SQ SCH (08:48)
[2020-01-18 13:09] VITALS: BMI 18.3
== END 2020-01-18 11:14 | disposition hospice, home (50) | DRG 180 ==
LOC: EC 17:24 → 3SCARD 20:24 → OBSVTOIN 01-15 10:32 → 6NMEDSUR 01-16 10:16
PROVIDERS: ADMIT Internal Medicine Geriatric Medicine; ATTEND Internal Medicine Geriatric Medicine
DX: C34.91 Malignant neoplasm of unspecified part of right bronchus or lung (principal); J96.21 Acute and chronic respiratory failure with hypoxia; E43 Unspecified severe protein-calorie malnutrition; J91.0 Malignant pleural effusion; J94.8 Other specified pleural conditions; J98.11 Atelectasis; E87.1 Hypo-osmolality and hyponatremia; Z68.1 Body mass index [BMI] 19.9 or less, adult; C79.72 Secondary malignant neoplasm of left adrenal gland; R53.81 Other malaise; Z51.5 Encounter for palliative care; I25.10 Atherosclerotic heart disease of native coronary artery without angina pectoris; J44.9 Chronic obstructive pulmonary disease, unspecified; K21.9 Gastro-esophageal reflux disease without esophagitis; E78.5 Hyperlipidemia, unspecified; G43.909 Migraine, unspecified, not intractable, without status migrainosus; B19.20 Unspecified viral hepatitis C without hepatic coma; F17.200 Nicotine dependence, unspecified, uncomplicated; F31.9 Bipolar disorder, unspecified; F41.9 Anxiety disorder, unspecified; G89.29 Other chronic pain; E11.51 Type 2 diabetes mellitus with diabetic peripheral angiopathy without gangrene; R33.9 Retention of urine, unspecified; K59.00 Constipation, unspecified; Z79.51 Long term (current) use of inhaled steroids; Z79.4 Long term (current) use of insulin; Z87.440 Personal history of urinary (tract) infections; Z90.49 Acquired absence of other specified parts of digestive tract; Z98.51 Tubal ligation status; Z95.820 Peripheral vascular angioplasty status with implants and grafts; Z87.81 Personal history of (healed) traumatic fracture; Z82.5 Family history of asthma and other chronic lower respiratory diseases; Z82.3 Family history of stroke; Z79.899 Other long term (current) drug therapy; Z99.81 Dependence on supplemental oxygen
CPT/HCPCS: 36415; 71046; 71260; 80053; 80202; 83036; 83605; 84145; 85025; 85027; 85610; 85730; 86140; 87040; 87077; 87186; 93005; 94640; 96361; 96374; 96375; 99291